=== PATIENT | male | born 1940 | race Caucasian/White ===

== ENCOUNTER → 2016-09-15 | Outpatient (CLI) | payer MEDICARE ==
[2016-09-15 08:20] LABS: CHOLESTEROL 182.07 mg/dL (0-200); Direct HDL 38 mg/dL (>40); TRIGLYCERIDES 288 mg/dL (<150)
[2016-09-15 08:31] LABS: DIRECT LDL 84 mg/dL (<100)
[2016-09-15 08:34] LABS: VLDL CHOLESTEROL 57.6 mg/dL (10-31)
== END ==
LOC: OD 07:26
PROVIDERS: ATTEND Internal Medicine Geriatric Medicine
DX: E11.65 Type 2 diabetes mellitus with hyperglycemia (principal)
CPT/HCPCS: 36415; 80061

== ENCOUNTER → 2016-09-26 | Outpatient (CLI) | payer MEDICARE | LOC: OD 07:08 | PROVIDERS: ATTEND Internal Medicine Geriatric Medicine | DX: E11.65 Type 2 diabetes mellitus with hyperglycemia (principal) | CPT/HCPCS: 36415; 84681 ==

== ENCOUNTER → 2016-10-04 | Outpatient (CLI) | payer MEDICARE ==
[2016-10-04 12:45] LABS: ABSOLUTE EOSINOPHILS # (AUTO) 0.1 10^3/uL (0.0-0.6); ABSOLUTE LYMPHOCYTES (AUTO) 2.1 10^3/uL (0.5-4.7); ABSOLUTE MONOCYTES (AUTO) 0.6 10^3/uL (0.1-1.4); ABSOLUTE NEUT (AUTO) 4.2 10^3/uL (1.7-8.2); BASOPHILS % (AUTO) 0.3 % (0-2); EOSINOPHILS % (AUTO) 2.1 % (0-6); HEMATOCRIT 35.7 % (37.9-51.0); HEMOGLOBIN 12.2 g/dL (13.5-17.0); HGB HCT DIFFERENCE 0.9; LYMPHOCYTES % (AUTO) 29.5 % (13-45); MEAN CORPUSCULAR HEMOGLOBIN 29.4 pg (27.0-33.4); MEAN CORPUSCULAR HGB CONC 34.1 g/dL (32.0-36.0); MEAN CORPUSCULAR VOLUME 86 fl (80-97); MONOCYTES % (AUTO) 7.9 % (3-13); RED BLOOD COUNT 4.15 10^6/uL (4.35-5.55); RED CELL DISTRIBUTION WIDTH 14.7 % (11.5-14.0); SEGMENTED NEUTROPHILS % (AUTO) 60.2 % (42-78); WHITE BLOOD COUNT 7.1 10^3/uL (4.0-10.5)
[2016-10-04 13:36] LABS: ALANINE AMINOTRANSFERASE 28 U/L (21-72); ALBUMIN 4.4 g/dL (3.5-5.0); ALKALINE PHOSPHATASE 77 U/L (38-126); ANION GAP 12 (5-19); ASPARTATE AMINO TRANSFERASE 25 U/L (17-59); BILIRUBIN,TOTAL 0.5 mg/dL (0.2-1.3); BLOOD UREA NITROGEN 16 mg/dL (7-20); CARBON DIOXIDE 26 mmol/L (22-30); CHLORIDE 103 mmol/L (98-107); CREATININE RESULT 1.17 mg/dL (0.52-1.25); GLUCOSE 234 mg/dL (75-110); POTASSIUM 4.7 mmol/L (3.6-5.0); SODIUM 141.1 mmol/L (137-145); TOTAL PROTEIN 6.9 g/dL (6.3-8.2)
== END ==
LOC: OD 11:58
PROVIDERS: ATTEND Internal Medicine Geriatric Medicine
DX: I10 Essential (primary) hypertension (principal)
CPT/HCPCS: 36415; 80053; 85025

== ENCOUNTER → 2018-02-21 | Outpatient (CLI) | payer MEDICARE ==
--- NOTE | 2018-02-22 09:34 | RADIOLOGY REPORT (SQ) ---
EXAM DESCRIPTION: CT ABD/PELVIS ORAL ONLY COMPLETED DATE/TIME: 02/21/2018 6:02 pm REASON FOR STUDY: MALIGNANT NEOPLASM OF SIGMOID COLON C18.7 MALIGNANT NEOPLASM OF SIGMOID COLON N17 .9 ACUTE KIDNEY FAILURE, UNSPECIFIED COMPARISON: June [id number]. TECHNIQUE: CT scan of the abdomen and pelvis performed with oral contrast and no intravenous contras t. Images reviewed with lung, soft tissue, and bone windows. Reconstructed coronal and sagittal MPR i mages reviewed. All images stored on PACS. All CT scanners at this facility use dose modulation, iterative reconstruction, and/or weight based d osing when appropriate to reduce radiation dose to as low as reasonably achievable (ALARA). [facility]: Dose Right [facility]: CareDose [facility]: Dose Right [facility]: Teradose 4D [facility]: [employer] RADIATION DOSE: CT Rad equipment meets quality standard of care and radiation dose reduction techniq ues were employed. CTDIvol: 13.3 mGy. DLP: 747 mGy-cm.mGy. LIMITATIONS: None. FINDINGS: LOWER CHEST: Lung bases: Chronic interstitial changes in lung bases. 4 mm pulmonary nodu le left lung base (series image 12/100 series 2). Atherosclerotic coronary artery disease. NON-CONTRASTED LIVER, SPLEEN, ADRENALS: Liver: Marked fatty infiltration. Spleen: No abnormality. A drenals: No abnormality. PANCREAS: No abnormality. GALLBLADDER: No abnormality. RIGHT KIDNEY AND URETER: There is again evidence of marked ectasia of the right upper collecting sys tem right renal pelvis and right ureter to the right hemipelvis with transition to nondilated ureter distally. Surgical clips are noted in the right hemipelvis in its region. The possibility of strict ure formation cannot be excluded. There is thinning of the cortex of the upper pole the right kidney with perinephric inflammatory change. LEFT KIDNEY AND URETER: Postinflammatory change surrounds the left kidney. No hydronephrosis. No ur eteral dilatation. AORTA AND RETROPERITONEUM: There is diffuse atherosclerotic change noted within the abdominal aorta a nd iliac vessels. Atherosclerotic change of celiac and superior mesenteric vessels. BOWEL AND PERITONEAL CAVITY: Marked constipation with a moderate amount of fecal material noted throu ghout the colon. There is dilatation of colon proximal to exiting: At the ostomy site. The narrowin g at are stricture formation at the level ileostomy could not be excluded APPENDIX: Normal. PELVIS, BLADDER, AND ABDOMINAL WALL: There is evidence of a small upper abdominal wall ventral herni a on the right containing a prominent loop of small bowel with narrowing of the exiting loop of small bowel exiting the hernia. The possibility of a partial obstruction in this region cannot be excluded . (Image number [id number] series 2). There is again evidence of two ventral hernias on the right and one on left containing small bowel (image number 64/100 series 2). There is surgical scarring of th e abdominal wall between the two hernia noted. On comparison to the prior study small bowel dilatati on previously noted is now less prominent at the level of the ventrall hernias. The urinary bladder is distended. Surgical clips in the pelvis are noted. No abnormality of prostate. BONES: Multilevel lumbar spondylosis and degenerative disc disease. Schmorl's node inferior endplate of L2. . IMPRESSION: 1. Changes of marked constipation with large amount of fecal material throughout the co cornelio most prominent proximal to ostomy left lower quadrant. A stricture at the level the ostomy could not be excluded. 2. Evidence of small ventral hernia right upper abdominal wall with narrowing of e fferent small bowel loop exiting the hernia. Mild dilatation of small bowel proximal to this hernia i s noted. At lower abdominal wall evidence of two ventral hernias on right and one on left containi ng nonobstructed small bowel. 2. Marked fatty infiltration of the liver. 3. Atherosclerotic magy nary disease. 4. Small 4 mm pulmonary nodule left lower lobe. Chronic bibasilar interstitial fitzgerald es. Follow-up evaluation with CT in 6 months to 1 year could be obtained. 5. There is again eviden ce of a ectasia of the right upper collecting system and right ureter down to surgical clips in the r ight hemipelvis suggesting postsurgical fibrosis or scarring with stricture formation of the right ur eter. These findings are essentially unchanged. TECHNICAL DOCUMENTATION: JOB ID: [id number] Quality ID # [id number]: Final reports with documentation of one or more dose reduction techniques (e.g., Au tomated exposure control, adjustment of the mA and/or kV according to patient size, use of iterative reconstruction technique) 2010 [employer]- All Rights Reserved Reading location - IP/workstation name: [email or web address]
== END ==
LOC: RAD 09:25
PROVIDERS: ATTEND Family Medicine
DX: C18.7 Malignant neoplasm of sigmoid colon (principal); N17.9 Acute kidney failure, unspecified
CPT/HCPCS: 74176; 82565

== ENCOUNTER 2018-03-10 17:31 | Inpatient (IN) | payer MEDICARE, OTHER ==
[2018-03-10 17:55] LABS: ABSOLUTE EOSINOPHILS # (AUTO) 0.1 10^3/uL (0.0-0.6); ABSOLUTE LYMPHOCYTES (AUTO) 2.6 10^3/uL (0.5-4.7); ABSOLUTE MONOCYTES (AUTO) 0.8 10^3/uL (0.1-1.4); ABSOLUTE NEUT (AUTO) 4.7 10^3/uL (1.7-8.2); BASOPHILS % (AUTO) 0.2 % (0-2); HEMATOCRIT 34.6 % (37.9-51.0); HEMOGLOBIN 11.9 g/dL (13.5-17.0); LYMPHOCYTES % (AUTO) 31.7 % (13-45); MEAN CORPUSCULAR HEMOGLOBIN 30.3 pg (27.0-33.4); MEAN CORPUSCULAR HGB CONC 34.4 g/dL (32.0-36.0); MEAN CORPUSCULAR VOLUME 88 fl (80-97); MONOCYTES % (AUTO) 9.8 % (3-13); PLATELET COUNT 370 10^3/uL (150-450); RED BLOOD COUNT 3.93 10^6/uL (4.35-5.55); RED CELL DISTRIBUTION WIDTH 14.5 % (11.5-14.0); SEGMENTED NEUTROPHILS % (AUTO) 57.3 % (42-78); TOTAL CELLS COUNTED % (AUTO) 100 %; WHITE BLOOD COUNT 8.3 10^3/uL (4.0-10.5)
[2018-03-10] MEDS ORDERED: NITROGLYCERIN 0.4 MG/TAB 25 TAB/BOTTLE SL ONE (17:56)
[2018-03-10] MEDS ORDERED: ONDANSETRON HCL INJ/PF 4 MG/2 ML SDV IV ONE (17:57)
[2018-03-10] MEDS ORDERED: ASPIRIN 81 MG TABLET, CHEWABLE PO ONE (17:58)
[2018-03-10] MEDS ORDERED: MORPHINE SULFATE 10 MG/ML INJ IV ONE (17:58)
[2018-03-10 18:12] LABS: ALANINE AMINOTRANSFERASE 26 U/L (21-72); ALBUMIN 4.7 g/dL (3.5-5.0); ALKALINE PHOSPHATASE 39 U/L (38-126); ANION GAP 15 (5-19); ASPARTATE AMINO TRANSFERASE 28 U/L (17-59); BILIRUBIN,DIRECT 0.3 mg/dL (0.0-0.4); BILIRUBIN,TOTAL 0.3 mg/dL (0.2-1.3); BLOOD UREA NITROGEN 24 mg/dL (7-20); CALCIUM 10.9 mg/dL (8.4-10.2); CARBON DIOXIDE 25 mmol/L (22-30); CHLORIDE 101 mmol/L (98-107); CREATINE KINASE 316 U/L (55-170); GLUCOSE 212 mg/dL (75-110); POTASSIUM 4.6 mmol/L (3.6-5.0); SODIUM 141.3 mmol/L (137-145)
--- NOTE | 2018-03-10 18:16 | ER Document Report ---
ED General - General Chief Complaint: Shortness Of Breath Stated Complaint: DIFFICULTY BREATHING Time Seen by Provider: 03/10/18 17:43 Mode of Arrival: Medic Information source: Patient Notes: This is a 77-year-old man with a history of asthma, coronary artery disease (2 stents), [id number] diabetes, colon cancer (status post resection with a left colostomy), chronic right hydrocele. The patient is brought in by EMS because of shortness of breath. The patient complains of some epigastric nonradiating discomfort that has been on and off for the past 3 days and he states it has been worse since 1030 this morning. He denies any radiation. He can only describe it as a "discomfort". His pressure is noted to be elevated at 188/115 in the EMS truck. EMS did start an albuterol nebulizer which the patient stayed med it worse so he stopped. TRAVEL OUTSIDE OF THE [place] IN LAST 30 DAYS: No - HPI Onset: Just prior to arrival Onset/Duration: Gradual Quality of pain: Dull Severity: Moderate Pain Level: 2 Associated symptoms: Chest pain. denies: Fever, Shortness of breath Exacerbated by: Denies Relieved by: Denies Similar symptoms previously: Yes Recently seen / treated by doctor: Yes - Related Data Allergies/Adverse Reactions: No Known Drug Allergies Allergy (Verified 07/24/14 15:52) Past Medical History - General Information source: Patient - Social History Smoking Status: Never Smoker Cigarette use (# per day): No Chew tobacco use (# tins/day): No Frequency of alcohol use: None Drug Abuse: None Lives with: Family Family History: Reviewed & Not Pertinent Patient has suicidal ideation: No Patient has homicidal ideation: No - Past Medical History Cardiac Medical History: Reports: Hx Hypercholesterolemia, Hx Hypertension Pulmonary Medical History: Reports: Hx Asthma Endocrine Medical History: Reports: Hx Diabetes Mellitus Type 2 GI Medical History: Reports: Hx Gastroesophageal Reflux Disease Psychiatric Medical History: Denies: Hx Depression Past Surgical History: Reports: Hx Bowel Surgery - colostomy, Hx Cardiac Surgery - heart stents x 2, Hx Orthopedic Surgery - ankle - Immunizations Hx Diphtheria, Pertussis, Tetanus Vaccination: Yes Hx Pneumococcal Vaccination: 10/04/13 Review of Systems - Review of Systems Constitutional: denies: Chills, Fever EENT: No symptoms reported Cardiovascular: See HPI Respiratory: No symptoms reported Gastrointestinal: No symptoms reported Genitourinary: No symptoms reported Male Genitourinary: No symptoms reported Musculoskeletal: No symptoms reported Skin: No symptoms reported Hematologic/Lymphatic: No symptoms reported Neurological/Psychological: No symptoms reported Physical Exam - Vital signs Vitals: Resp Pulse Ox 25 H 99 03/10/18 17:38 03/10/18 17:38 Notes: Physical exam: GENERAL: This is 77-year-old man, alert and oriented 3 who does appear to be in some distress. He is hypertensive with a blood pressure of 185/95, his oxygen saturation is 99% on room air, his respiratory rate is 20. HEAD: Atraumatic, normocephalic. EYES: Pupils equal round and reactive to light, extraocular movements intact, sclera anicteric, conjunctiva are normal. ENT: TMs normal, nares patent, oropharynx clear without exudates. Moist mucous membranes. NECK: Normal range of motion, supple without obvious mass or JVD. LUNGS: Breath sounds clear to auscultation bilaterally and equal. No wheezes rales or rhonchi. HEART: Regular rate and rhythm without murmurs, rubs or gallops. ABDOMEN: Soft, normoactive bowel sounds. No tenderness to palpation. No guarding, no rebound. He has a left colostomy bag (which is been there for 20 years). There are no obvious masses. EXTREMITIES: Normal range of motion, no pitting or edema. No clubbing or cyanosis. NEUROLOGICAL: Cranial nerves II through XII grossly intact. Normal speech, moving all extremities. PSYCH: Normal mood, normal affect. SKIN: Warm, Dry, normal turgor, no rashes or lesions noted. Course - Vital Signs Vital signs: Temp Pulse Resp BP Pulse Ox 97.7 F 78 20 129/53 H 98 03/11/18 23:39 03/11/18 23:39 03/11/18 23:39 03/11/18 23:39 03/11/18 23:39 - Laboratory Result Diagrams: 03/11/18 03:54 03/11/18 03:54 Laboratory results interpreted by me: 03/10/18 03/10/18 03/10/18 17:05 17:05 18:15 RBC 3.93 L Hgb 11.9 L Hct 34.6 L RDW 14.5 H BUN 24 H Creatinine 1.78 H Est GFR ( Amer) 45 L Est GFR (Non-Af Amer) 37 L Glucose 212 H Calcium 10.9 H Creatine Kinase 316 H Triglycerides VLDL Cholesterol Urine Protein 30 H Urine Glucose (UA) >=500 H 03/11/18 03/11/18 03:54 03:54 RBC 3.65 L Hgb 11.1 L Hct 32.2 L RDW 14.5 H BUN 24 H Creatinine 1.74 H Est GFR ( Amer) 46 L Est GFR (Non-Af Amer) 38 L Glucose 171 H Calcium Creatine Kinase Triglycerides 205 H VLDL Cholesterol 41.0 H Urine Protein Urine Glucose (UA) - EKG Interpretation by Mt Rate: Normal Rhythm: NSR - EKG shows normal sinus rhythm with a ventricular rate of 75, no acute ST-T wave changes Discharge - Discharge Clinical Impression: Chest pain Condition: Stable Disposition: ADMITTED OBSERVATION Admitting Provider: Crispin Allen is covering Unit Admitted: Telemetry
[2018-03-10 18:24] LABS: CREATINE KINASE MB 3.42 ng/mL (<4.55); TROPONIN I 0.018 ng/mL
[2018-03-10] MEDS ORDERED: NITROGLYCERIN 2% OINTMENT 1 GM PACKET TP ONE (18:33)
[2018-03-10] MEDS: MAG HYDROX/AL HYDROX/SIMETH SUSP 30 ML UDCUP PO PRN (18:51)
--- NOTE | 2018-03-10 19:13 | RADIOLOGY REPORT (SQ) ---
EXAM DESCRIPTION: CHEST SINGLE VIEW COMPLETED DATE/TIME: 03/10/2018 6:38 pm REASON FOR STUDY: chest pain COMPARISON: Two-view chest 04/01/2014 EXAM PARAMETERS: NUMBER OF VIEWS: One view. TECHNIQUE: Single frontal radiographic view of the chest acquired. RADIATION DOSE: NA LIMITATIONS: None. FINDINGS: LUNGS AND PLEURA: No opacities, masses or pneumothorax. No pleural effusion. MEDIASTINUM AND HILAR STRUCTURES: No masses. Contour normal. HEART AND VASCULAR STRUCTURES: Heart normal in size. Normal vasculature. BONES: No acute findings. HARDWARE: None in the chest. OTHER: No other significant finding. IMPRESSION: NO ACUTE RADIOGRAPHIC FINDING IN THE CHEST. TECHNICAL DOCUMENTATION: JOB ID: [id number] [employer]- All Rights Reserved Reading location - IP/workstation name: [email or web address]
[2018-03-10 19:50] LABS: APPEARANCE,URINE CLEAR; BILIRUBIN,URINE NEGATIVE (NEGATIVE); COLOR,URINE STRAW; GLUCOSE, URINE >=500 mg/dL (NEGATIVE); KETONES,URINE NEGATIVE (NEGATIVE); LEUKOCYTE ESTERASE,URINE NEGATIVE (NEGATIVE); NITRITE,URINE NEGATIVE (NEGATIVE); PROTEIN,URINE 30 mg/dL (NEGATIVE); URINE SPECIFIC GRAVITY 1.008; UROBILINOGEN,URINE NEGATIVE mg/dL (<2.0)
[2018-03-10] MEDS ORDERED: HYDRALAZINE HCL 25 MG TABLET PO ONE (20:56)
[2018-03-10] MEDS ORDERED: AMLODIPINE BESYLATE 10 MG TABLET PO ONE (20:57)
[2018-03-10] MEDS ORDERED: SITAGLIPTIN PHOSPHATE 50 MG TABLET PO ONE (20:57)
[2018-03-10] MEDS ORDERED: SUCRALFATE 1 GM TABLET PO ONE (20:58)
[2018-03-10] MEDS ORDERED: GLIPIZIDE 5 MG TABLET PO ONE (20:58)
[2018-03-10] MEDS ORDERED: TAMSULOSIN HCL 0.4 MG CAP.SR.24H PO ONE (20:59)
[2018-03-10] MEDS ORDERED: FINASTERIDE 5 MG TABLET PO ONE (20:59)
[2018-03-10] MEDS ORDERED: MONTELUKAST SODIUM 10 MG TABLET PO ONE (20:59)
[2018-03-10] MEDS ORDERED: LANSOPRAZOLE 30 MG TAB.RAP.DR PO ONE ×2 (21:48→22:00)
[2018-03-10] MEDS ORDERED: NITROGLYCERIN/D5W 50 MG/250 ML RTUINJ IV PRN (21:54)
[2018-03-10] MEDS ORDERED: GLUCAGON,HUMAN RECOMB 1 MG INJ IM PRN (22:02)
[2018-03-10] MEDS ORDERED: DEXTROSE 50%-WATER 25 GM/50 ML DISP.SYRIN IV PRN ×2 (22:02)
[2018-03-10] MEDS ORDERED: DEXTROSE 40% GEL 15 GM TUBE PO PRN ×2 (22:02)
[2018-03-10 23:05] LABS: INTERNATIONAL RATION (INR) 0.97; PARTIAL THROMBOPLASTIN TIME 29.1 SEC (23.5-35.8); PROTHROMBIN TIME 13.3 SEC (11.4-15.4)
[2018-03-10] MEDS: TAMSULOSIN HCL 0.4 MG CAP.SR.24H PO SCH (23:35)
[2018-03-10] MEDS: LOSARTAN POTASSIUM 50 MG TABLET PO SCH (23:41)
[2018-03-10] MEDS: SIMVASTATIN 40 MG TABLET PO SCH (23:42)
[2018-03-10] MEDS: HEPARIN SOD (PORCINE) 5,000 UNIT/ML 1 ML SYRINGE SUBCUT SCH (23:42)
[2018-03-10 23:48] LABS: CREATINE KINASE MB 2.88 ng/mL (<4.55); TROPONIN I 0.022 ng/mL
--- NOTE | 2018-03-11 00:25 | RADIOLOGY REPORT (SQ) ---
EXAM DESCRIPTION: US RETROPERITONEUM LIMITED COMPLETED DATE/TME: 03/10/2018 00:00 CLINICAL HISTORY: 77 years, Male, epigastric pain COMPARISON: None. LIMITATIONS: None. FINDINGS: 12 cm bilateral kidneys with moderate right hydronephrosis/dilated collecting system with renal pelvis diameter of 2.8 cm. Mild nonspecific dilated left renal collecting system. No ureteral jet flow demonstrated. Urinary bladder is unremarkable. IMPRESSION: Moderate right hydronephrosis pattern, consistent with prior CT from February 21, 2018. Mild dilated left renal collecting system.
--- NOTE | 2018-03-11 00:57 | RADIOLOGY REPORT (SQ) ---
EXAM DESCRIPTION: Right upper quadrant ultrasound 03/10/2018 11:53 PM CDT CLINICAL HISTORY: 77 years, Male, epigastric pain COMPARISON: CT abdomen and pelvis without contrast February 21, 2018. Renal ultrasound March 10, 2018 TECHNIQUE: Utilizing a curved array transducer, real-time ultrasound evaluation of the right upper quadrant was performed. Color Doppler imaging was used to assess vascular flow. FINDINGS: The liver is normal in size and morphology measuring 13.8 cm in craniocaudal dimension. There is increased echogenicity of the hepatic parenchyma. There are no infiltrating or discrete hepatic masses identified. There is normal hepatopetal flow in the main portal vein. The gallbladder is well visualized and distended. The gallbladder wall measures up to 2.0 mm in thickness. There are no shadowing gallstones. There is no pericholecystic fluid. The patient had a negative ultrasonographic Barba's sign. The common bile duct measures 2.7 mm in diameter. Limited images of the pancreas demonstrate no gross abnormalities. The aorta is incompletely evaluated an otherwise grossly normal in course and caliber. The right kidney is normal in size measuring 13.3 x 4.2 x 4.3 cm. The right renal cortex measures 1.0 cm in thickness. There are no shadowing right renal calculi. There is moderate right-sided renal pelvic dilation. There are no infiltrating or discrete right renal masses. There is increased echogenicity of the right kidney relative to the adjacent liver. IMPRESSION: 1. Fatty liver. 2. Echogenic right kidney with stable moderate hydronephrosis
[2018-03-11] MEDS ORDERED: SIMETHICONE 80 MG TAB.CHEW PO PRN (01:55)
[2018-03-11 04:59] LABS: ABSOLUTE EOSINOPHILS # (AUTO) 0.1 10^3/uL (0.0-0.6); ABSOLUTE LYMPHOCYTES (AUTO) 1.4 10^3/uL (0.5-4.7); ABSOLUTE MONOCYTES (AUTO) 0.8 10^3/uL (0.1-1.4); ABSOLUTE NEUT (AUTO) 6.4 10^3/uL (1.7-8.2); BASOPHILS % (AUTO) 0.3 % (0-2); EOSINOPHILS % (AUTO) 0.8 % (0-6); HEMATOCRIT 32.2 % (37.9-51.0); HEMOGLOBIN 11.1 g/dL (13.5-17.0); LYMPHOCYTES % (AUTO) 16.1 % (13-45); MEAN CORPUSCULAR HEMOGLOBIN 30.5 pg (27.0-33.4); MEAN CORPUSCULAR HGB CONC 34.6 g/dL (32.0-36.0); MEAN CORPUSCULAR VOLUME 88 fl (80-97); MONOCYTES % (AUTO) 8.6 % (3-13); PLATELET COUNT 313 10^3/uL (150-450); RED BLOOD COUNT 3.65 10^6/uL (4.35-5.55); RED CELL DISTRIBUTION WIDTH 14.5 % (11.5-14.0); SEGMENTED NEUTROPHILS % (AUTO) 74.2 % (42-78); TOTAL CELLS COUNTED % (AUTO) 100 %; WHITE BLOOD COUNT 8.7 10^3/uL (4.0-10.5)
[2018-03-11 05:26] LABS: ANION GAP 13 (5-19); BLOOD UREA NITROGEN 24 mg/dL (7-20); CALCIUM 10.2 mg/dL (8.4-10.2); CARBON DIOXIDE 24 mmol/L (22-30); CHLORIDE 102 mmol/L (98-107); CHOLESTEROL 165.81 mg/dL (0-200); GLUCOSE 171 mg/dL (75-110); POTASSIUM 4.7 mmol/L (3.6-5.0); TRIGLYCERIDES 205 mg/dL (<150)
[2018-03-11 05:37] LABS: CREATINE KINASE MB 2.79 ng/mL (<4.55); DIRECT LDL 82 mg/dL (<100); TROPONIN I 0.021 ng/mL
[2018-03-11] MEDS: HEPARIN SOD (PORCINE) 5,000 UNIT/ML 1 ML SYRINGE SUBCUT SCH ×3 (06:01→22:39)
[2018-03-11] MEDS: MAG HYDROX/AL HYDROX/SIMETH SUSP 30 ML UDCUP PO PRN (08:17)
--- NOTE | 2018-03-11 09:47 | EKG REPORT ---
SEVERITY:- NORMAL ECG - SINUS RHYTHM : Confirmed by: Tata Cervantes 11-Mar-2018 09:46:40
--- NOTE | 2018-03-11 09:47 | EKG REPORT ---
SEVERITY:- ABNORMAL ECG - SINUS RHYTHM MULTIPLE ATRIAL PREMATURE COMPLEXES BORDERLINE RIGHT AXIS DEVIATION BORDERLINE T ABNORMALITIES, INFERIOR LEADS : Confirmed by: Tata Cervantes 11-Mar-2018 09:46:28
[2018-03-11] MEDS ORDERED: ASPIRIN 81 MG TABLET, ENT COATED PO SCH (10:00)
[2018-03-11] MEDS: LOSARTAN POTASSIUM 50 MG TABLET PO SCH (10:39)
[2018-03-11 11:04] LABS: CREATINE KINASE MB 3.9 ng/mL (<4.55); TROPONIN I 0.023 ng/mL
--- NOTE | 2018-03-11 11:46 | PDOC H&P ---
History of Present Illness Admission Date/PCP: 03/10/18 20:55 RAMILA CANO MD History of Present Illness: CECILIO BURNS is a 77 year old male, he has a history of malignant neoplasm of the colon status post colectomy with colostomy bag in place, history of CAD, type 2 diabetes mellitus, he came to the emergency room for evaluation of 3 day history of epigastric pain, the pain is aggravated with food intake. The blood pressure was also elevated when he arrived in the ER, there was concern for chest pain but most of his symptoms in the epigastrium he came to the emergency room specifically for evaluation of epigastric pain., The blood test also suggests chronic kidney disease ultrasound of the upper abdomen and the kidney was obtained. The ultrasound demonstrated normal-sized liver, there is increase echogenicity of the hepatic parenchyma there are no infiltrates seen or discrete hepatic masses demonstrated, the gallbladder is distended. The kidney ultrasound showed moderate right hydronephrosis with dilated collecting system, he apparently had outpatient CAT scan of the abdomen and pelvis on February 21, 2018 that showed same finding. Past Medical History Cardiac Medical History: Reports: Hyperlipidema, Hypertension Pulmonary Medical History: Reports: Asthma Endocrine Medical History: Reports: Diabetes Mellitus Type 2 Renal/ Medical History: Reports: Chronic Kidney Disease, Other - Chronic kidney disease stage III GI Medical History: Reports: Gastroesophageal Reflux Disease Past Surgical History Past Surgical History: Reports: Orthopedic Surgery - ankle Social History Smoking Status: Former Smoker Frequency of Alcohol Use: None Hx Recreational Drug Use: No Drugs: None Hx Prescription Drug Abuse: No - Advance Directive Resuscitation Status: Full Code Family History Family History: Reviewed & Not Pertinent Parental Family History Reviewed: Yes Children Family History Reviewed: Yes Sibling(s) Family History Reviewed.: Yes Medication/Allergy Allergies/Adverse Reactions: No Known Drug Allergies Allergy (Verified 07/24/14 15:52) Review of Systems Constitutional: ABSENT: chills, fever(s), headache(s), weight gain, weight loss Eyes: ABSENT: visual disturbances Ears: ABSENT: hearing changes Cardiovascular: ABSENT: chest pain, dyspnea on exertion, edema, orthropnea, palpitations Respiratory: ABSENT: cough, hemoptysis Gastrointestinal: PRESENT: abdominal pain. ABSENT: constipation, diarrhea, hematemesis, hematochezia, nausea, vomiting Genitourinary: ABSENT: dysuria, hematuria Musculoskeletal: ABSENT: joint swelling Integumentary: ABSENT: rash, wounds Neurological: ABSENT: abnormal gait, abnormal speech, confusion, dizziness, focal weakness, syncope Psychiatric: ABSENT: anxiety, depression, homidical ideation, suicidal ideation Endocrine: ABSENT: cold intolerance, heat intolerance, menstrual abnormalities, polydipsia, polyuria Hematologic/Lymphatic: ABSENT: easy bleeding, easy bruising, lymphadenopathy Physical Exam Vital Signs: Temp Pulse Resp BP Pulse Ox 98.1 F 78 16 159/58 H 98 03/11/18 07:08 03/11/18 07:08 03/11/18 07:08 03/11/18 07:08 03/11/18 07:08 Intake & Output 03/10/18 03/11/18 03/12/18 06:59 06:59 06:59 Intake Total 459 Output Total 575 Balance -116 Weight 93.9 kg General appearance: PRESENT: no acute distress, well-developed, well-nourished Head exam: PRESENT: atraumatic, normocephalic Eye exam: PRESENT: conjunctiva pink, EOMI, PERRLA Ear exam: PRESENT: normal external ear exam Mouth exam: PRESENT: moist, tongue midline Neck exam: PRESENT: full ROM Respiratory exam: PRESENT: clear to auscultation yumiko Cardiovascular exam: PRESENT: RRR, +S1, +S2 Vascular exam: PRESENT: normal capillary refill GI/Abdominal exam: PRESENT: normal bowel sounds, soft, tenderness, other - There is a midline scar with a left-sided colostomy bag in place, tenderness on palpation of the epigastrium Rectal exam: PRESENT: deferred Neurological exam: PRESENT: alert, awake, oriented to person, oriented to place , oriented to time, oriented to situation, CN II-XII grossly intact Psychiatric exam: PRESENT: appropriate affect, normal mood Skin exam: PRESENT: dry, intact, warm Results Laboratory Results: 03/11/18 03:54 03/11/18 03:54 03/10/18 03/11/18 03/11/18 22:20 03:54 03:54 WBC 8.7 RBC 3.65 L Hgb 11.1 L Hct 32.2 L MCV 88 MCH 30.5 MCHC 34.6 RDW 14.5 H Plt Count 313 Seg Neutrophils % 74.2 Lymphocytes % 16.1 Monocytes % 8.6 Eosinophils % 0.8 Basophils % 0.3 Absolute Neutrophils 6.4 Absolute Lymphocytes 1.4 Absolute Monocytes 0.8 Absolute Eosinophils 0.1 Absolute Basophils 0.0 Sodium 139.0 Potassium 4.7 Chloride 102 Carbon Dioxide 24 Anion Gap 13 BUN 24 H Creatinine 1.74 H Est GFR ( Amer) 46 L Est GFR (Non-Af Amer) 38 L Glucose 171 H Calcium 10.2 Phosphorus 4.1 Triglycerides 205 H Cholesterol 165.81 LDL Cholesterol Direct 82 VLDL Cholesterol 41.0 H HDL Cholesterol 43 03/10/18 03/10/18 03/11/18 21:18 22:20 03:54 CK-MB (CK-2) 2.88 2.79 Troponin I 0.023 0.022 0.021 03/11/18 10:15 CK-MB (CK-2) 3.90 Troponin I 0.023 Impressions: Abdomen Ultrasound 03/10/18 00:00 IMPRESSION: 1. Fatty liver. 2. Echogenic right kidney with stable moderate hydronephrosis Chest X-Ray 03/10/18 00:00 IMPRESSION: NO ACUTE RADIOGRAPHIC FINDING IN THE CHEST. Renal Ultrasound 03/10/18 00:00 IMPRESSION: Moderate right hydronephrosis pattern, consistent with prior CT from February 21, 2018. Mild dilated left renal collecting system. Assessment & Plan - Diagnosis (1) Cholecystitis without calculus Is this a current diagnosis for this admission?: Yes Plan: The ultrasound showed distended gallbladder this suggest cholecystitis, he is symptomatic, HIDA scan ordered, empirically start IV antibiotic Unasyn, request consultation from surgery (2) Chronic kidney disease, stage 3 Is this a current diagnosis for this admission?: Yes (4) Personal history of colon cancer Is this a current diagnosis for this admission?: Yes Plan: History of obstructive uropathy complication from radiation therapy that he received for the treatment of colon cancer (5) Type 2 diabetes mellitus Qualifiers: Diabetes mellitus correction insulin use: without 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
[2018-03-11] MEDS ORDERED: AMPICILLIN SODIUM/SULBACTAM NA 3 GM in NORMAL SALINE 100 ML IV SCH (12:30)
[2018-03-11] MEDS: LANSOPRAZOLE 30 MG TAB.RAP.DR PO SCH (13:51)
[2018-03-11] MEDS: SIMVASTATIN 40 MG TABLET PO SCH (13:51)
[2018-03-11] MEDS: PRAMIPEXOLE DI-HCL 0.25 MG TABLET PO SCH (13:51)
[2018-03-11] MEDS: TAMSULOSIN HCL 0.4 MG CAP.SR.24H PO SCH (13:51)
[2018-03-11] MEDS ORDERED: ALBUTEROL SULFATE HFA (90 MCG/PUFF) 200 PUFF/8.5 GM MDI IH PRN (14:11)
--- NOTE | 2018-03-11 15:08 | RADIOLOGY REPORT (SQ) ---
EXAM DESCRIPTION: NM HIDA SCAN COMPLETED DATE/TIME: 03/11/2018 2:48 pm REASON FOR STUDY: ? acute cholecystitis N17.0 ACUTE KIDNEY FAILURE WITH TUBULAR NECROSIS R10.13 E PIGASTRIC PAIN R07.89 OTHER CHEST PAIN COMPARISON: None. RADIONUCLIDE AND DOSE: DOSAGE RADIONUCLIDE: 5.38 millicuries Tc99m Mebrofenin. The route of agent administration: Intravenous TECHNIQUE: Serial imaging right upper quadrant up to 60 minutes following injection of radionuclide. Patient imaged AP and Right Lateral. LIMITATIONS: None. FINDINGS: LIVER: Normal visualization without areas of photopenia. INTRA-HEPATIC BILE DUCTS: Temporal visualization normal. No dilatation. COMMON BILE DUCT: Normal without dilatation visualized at 14 minutes. GALLBLADDER: Normal visualization within 12 minutes. OTHER: No other significant finding. IMPRESSION: NORMAL STUDY WITHOUT CYSTIC OR COMMON DUCT OBSTRUCTION. TECHNICAL DOCUMENTATION: JOB ID: [id number] 2010 [employer]- All Rights Reserved Reading location - IP/workstation name: [email or web address]
[2018-03-11] MEDS: HYDRALAZINE HCL 25 MG TABLET PO SCH ×2 (15:39→22:37)
[2018-03-11] MEDS: FLUTICASONE/SALMETEROL DISKUS 250-50 MCG/DOSE IH SCH (17:26)
[2018-03-11] MEDS: INSULIN LISPRO 100 UNIT/ML 3 ML VIAL SUBCUT PRN (17:39)
--- NOTE | 2018-03-11 20:31 | PDOC CONSULTATION ---
Consultation Consult Date: 03/11/18 Consult reason:: epigastric pains History of Present Illness Admission Date/PCP: 03/11/18 11:46 RAMILA CANO MD Patient complains of: epigastric pains History of Present Illness: CECILIO BURNS is a 77 year old male with history of colon resection with colostomy for Ca 20 yrs ago suddebly c/o epigastric pains last night. He just had a HIDA scan which was normal. Colostomy started to function well with resolution of abdominal pains. Past Medical History Cardiac Medical History: Reports: Hyperlipidema, Hypertension Pulmonary Medical History: Reports: Asthma Endocrine Medical History: Reports: Diabetes Mellitus Type 2 Renal/ Medical History: Reports: Chronic Kidney Disease, Other - Chronic kidney disease stage III GI Medical History: Reports: Gastroesophageal Reflux Disease Psychiatric Medical History: Denies: Depression Past Surgical History Past Surgical History: Reports: Orthopedic Surgery - ankle, Other - colon resction with colostomy for Ca 20 yrs ago and subsequent reconstructi Social History Smoking Status: Former Smoker Frequency of Alcohol Use: None Hx Recreational Drug Use: No Drugs: None Hx Prescription Drug Abuse: No - Advance Directive Resuscitation Status: Full Code Family History Family History: Reviewed & Not Pertinent Parental Family History Reviewed: Yes Children Family History Reviewed: No Sibling(s) Family History Reviewed.: No Medication/Allergy Home Medications: Albuterol Sulfate [Proair HFA Inhalation Aerosol 8.5 gm MDI] 1 puff IH Q6HP PRN 03/11/18 Amlodipine Besylate [Norvasc 10 mg Tablet] 10 mg PO QHS 03/11/18 Aspirin [Ecotrin 81 mg EC Tablet] 81 mg PO QHS 03/11/18 Atorvastatin Calcium [Lipitor 40 mg Tablet] 20 mg PO QHS 03/11/18 Docusate Sodium [Colace 100 mg Capsule] 400 mg PO QHS 03/11/18 Fenofibrate 160 mg PO QHS 03/11/18 Finasteride [Proscar 5 mg Tablet] 5 mg PO QHS 03/11/18 Fluticasone/Salmeterol [Advair 250-50 Diskus 14 Dose/Diskus] 1 puff IN Q12 03/11 Glipizide [Glucotrol 5 mg Tablet] 5 mg PO QHS 03/11/18 Hydralazine HCl [Apresoline 25 mg Tablet] 25 mg PO Q8 03/11/18 Montelukast Sodium [Singulair 10 mg Tablet] 10 mg PO QHS 03/11/18 Pantoprazole Sodium [Protonix] 40 mg PO QHS 03/11/18 Polyethylene Glycol 3350 [Miralax Powder 17 gm/Packet] 17 gm PO QHS 03/11/18 Pramipexole Di-HCl [Pramipexole Dihydrochloride] 0.125 mg PO QHS 03/11/18 Psyllium Seed [Metamucil-Sf Powder 5.85 gm Packet] 1 packet PO QHS 03/11/18 Sitagliptin Phosphate [Januvia] 100 mg PO QHS 03/11/18 Tamsulosin HCl [Flomax 0.4 mg Cap.sr] 0.4 mg PO QHS 03/11/18 Allergies/Adverse Reactions: No Known Drug Allergies Allergy (Verified 07/24/14 15:52) Review of Systems Constitutional: PRESENT: other - no fever/chills Eyes: PRESENT: other - no visual/hearing changes Cardiovascular: PRESENT: other - no cough/chest pains Gastrointestinal: PRESENT: abdominal pain, constipation Genitourinary: PRESENT: other - some dysuria Musculoskeletal: PRESENT: other - no back pains Neurological: PRESENT: other - no seizures Hematologic/Lymphatic: PRESENT: other - no easy bruising Physical Exam Vital Signs: Temp Pulse Resp BP Pulse Ox 97.6 F 76 20 157/54 H 97 03/11/18 15:04 03/11/18 15:04 03/11/18 15:04 03/11/18 15:04 03/11/18 15:04 Intake & Output 03/10/18 03/11/18 03/12/18 06:59 06:59 06:59 Intake Total 318 Output Total 500 Balance -182 General appearance: PRESENT: no acute distress Head exam: PRESENT: atraumatic Eye exam: PRESENT: conjunctiva pink Mouth exam: PRESENT: moist Neck exam: PRESENT: full ROM Respiratory exam: PRESENT: clear to auscultation yumiko Cardiovascular exam: PRESENT: RRR Pulses: PRESENT: normal radial pulses Vascular exam: PRESENT: normal capillary refill GI/Abdominal exam: PRESENT: soft - non tender Has hernias asymptomatic colostomy functioning Psychiatric exam: PRESENT: appropriate affect Skin exam: PRESENT: normal color, warm Results Impressions: Abdomen Ultrasound 03/10/18 00:00 IMPRESSION: 1. Fatty liver. 2. Echogenic right kidney with stable moderate hydronephrosis Chest X-Ray 03/10/18 00:00 IMPRESSION: NO ACUTE RADIOGRAPHIC FINDING IN THE CHEST. Renal Ultrasound 03/10/18 00:00 IMPRESSION: Moderate right hydronephrosis pattern, consistent with prior CT from February 21, 2018. Mild dilated left renal collecting system. Hepatobiliary Scan Nuclear Medicine 03/11/18 00:00 IMPRESSION: NORMAL STUDY WITHOUT CYSTIC OR COMMON DUCT OBSTRUCTION. Assessment & Plan - Diagnosis (1) Constipation Is this a current diagnosis for this admission?: Yes - Time Time Spent: 30 to 50 Minutes - Plan Summary Plan Summary: Has a normal HIDA scan and now with Benign abdomen Cholecystectomy not needed at this time Apparntly patient was told by Dr Benjamin that he neede an upper endoscopy and patient is asking if this can be done at this admission. Will inform Dr Alanis
[2018-03-11] MEDS ORDERED: (PENDING PHARMACY ID) (Fenofibrate [Fenofibrate] 160 MG) PO SCH (22:00)
[2018-03-11] MEDS ORDERED: ATORVASTATIN CALCIUM 40 MG TABLET PO SCH (22:00)
[2018-03-11] MEDS ORDERED: TAMSULOSIN HCL 0.4 MG CAP.SR.24H PO SCH (22:00)
[2018-03-11] MEDS ORDERED: PRAMIPEXOLE DI-HCL 0.25 MG TABLET PO SCH (22:00)
[2018-03-11] MEDS: POLYETHYLENE GLYCOL 3350 POWDER 17 GM/1 PACKET PO SCH (22:36)
[2018-03-11] MEDS: PSYLLIUM SEED-SF 5.85 GM PACKET PO SCH (22:36)
[2018-03-11] MEDS: FINASTERIDE 5 MG TABLET PO SCH (22:37)
[2018-03-11] MEDS: FENOFIBRATE NANOCRYSTALLIZED 145 MG TABLET PO SCH (22:37)
[2018-03-11] MEDS: DOCUSATE SODIUM 100 MG CAPSULE PO SCH (22:38)
[2018-03-11] MEDS: ASPIRIN 81 MG TABLET, ENT COATED PO SCH (22:38)
[2018-03-11] MEDS: MONTELUKAST SODIUM 10 MG TABLET PO SCH (22:38)
[2018-03-11] MEDS: ATORVASTATIN CALCIUM 20 MG TABLET PO SCH (22:38)
[2018-03-11] MEDS: GLIPIZIDE 5 MG TABLET PO SCH (22:39)
[2018-03-11] MEDS: AMLODIPINE BESYLATE 10 MG TABLET PO SCH (22:39)
[2018-03-11] MEDS: SITAGLIPTIN PHOSPHATE 50 MG TABLET PO SCH (22:39)
[2018-03-12] MEDS: HYDRALAZINE HCL 25 MG TABLET PO SCH ×3 (06:23→22:11)
[2018-03-12] MEDS: HEPARIN SOD (PORCINE) 5,000 UNIT/ML 1 ML SYRINGE SUBCUT SCH ×3 (06:23→22:15)
[2018-03-12] MEDS: FLUTICASONE/SALMETEROL DISKUS 250-50 MCG/DOSE IH SCH (06:24)
[2018-03-12 06:40] LABS: ABSOLUTE EOSINOPHILS # (AUTO) 0.1 10^3/uL (0.0-0.6); ABSOLUTE LYMPHOCYTES (AUTO) 1.6 10^3/uL (0.5-4.7); ABSOLUTE MONOCYTES (AUTO) 0.6 10^3/uL (0.1-1.4); ABSOLUTE NEUT (AUTO) 4.4 10^3/uL (1.7-8.2); BASOPHILS % (AUTO) 0.6 % (0-2); EOSINOPHILS % (AUTO) 1.8 % (0-6); HEMATOCRIT 31.3 % (37.9-51.0); HEMOGLOBIN 10.8 g/dL (13.5-17.0); LYMPHOCYTES % (AUTO) 23.9 % (13-45); MEAN CORPUSCULAR HEMOGLOBIN 30.4 pg (27.0-33.4); MEAN CORPUSCULAR HGB CONC 34.3 g/dL (32.0-36.0); MEAN CORPUSCULAR VOLUME 88 fl (80-97); MONOCYTES % (AUTO) 9.3 % (3-13); PLATELET COUNT 279 10^3/uL (150-450); RED BLOOD COUNT 3.55 10^6/uL (4.35-5.55); RED CELL DISTRIBUTION WIDTH 14.4 % (11.5-14.0); SEGMENTED NEUTROPHILS % (AUTO) 64.4 % (42-78); TOTAL CELLS COUNTED % (AUTO) 100 %; WHITE BLOOD COUNT 6.8 10^3/uL (4.0-10.5)
[2018-03-12 07:05] LABS: ANION GAP 12 (5-19); BLOOD UREA NITROGEN 23 mg/dL (7-20); CALCIUM 9.4 mg/dL (8.4-10.2); CARBON DIOXIDE 23 mmol/L (22-30); CHLORIDE 103 mmol/L (98-107); GLUCOSE 152 mg/dL (75-110); POTASSIUM 4.8 mmol/L (3.6-5.0); SODIUM 138.4 mmol/L (137-145)
[2018-03-12] MEDS: LOSARTAN POTASSIUM 50 MG TABLET PO SCH (10:56)
[2018-03-12] MEDS: LANSOPRAZOLE 30 MG TAB.RAP.DR PO SCH (10:56)
[2018-03-12] MEDS: TAMSULOSIN HCL 0.4 MG CAP.SR.24H PO SCH ×2 (10:56→22:13)
[2018-03-12] MEDS: PRAMIPEXOLE DI-HCL 0.25 MG TABLET PO SCH (11:00)
[2018-03-12] MEDS: INSULIN LISPRO 100 UNIT/ML 3 ML VIAL SUBCUT PRN ×2 (12:08→18:22)
--- NOTE | 2018-03-12 16:10 | PDOC PROGRESS REPORT ---
Subjective Progress Note for:: 03/12/18 Subjective:: Patient is currently doing well Recent was admitted in the hospital for the epigastric pain underwent further ultrasound of the gallbladder was stable and a HIDA scan was also stable Patient's all cardiac workup is negative Patient's denied any chest pain denied any shortness of the breath Since also seen by Dr. Benjamin as scheduled for endoscopy as outpatients but patient have a more epigastric symptoms and a discussed with the [facility] and he will see the patient's in this hospital admissions Reason For Visit: ACUTE CHOLECYSTITIS Physical Exam Vital Signs: Temp Pulse Resp BP Pulse Ox 97.4 F 69 18 126/48 H 96 03/12/18 11:27 03/12/18 11:27 03/12/18 11:27 03/12/18 11:27 03/12/18 11:27 Intake & Output 03/11/18 03/12/18 03/13/18 06:59 06:59 06:59 Intake Total 822 222 Output Total 1300 465 Balance -478 -243 Weight 93.5 kg General appearance: PRESENT: no acute distress, well-developed, well-nourished Head exam: PRESENT: atraumatic, normocephalic Eye exam: PRESENT: conjunctiva pink, EOMI, PERRLA. ABSENT: scleral icterus Ear exam: PRESENT: normal external ear exam Mouth exam: PRESENT: moist, tongue midline Neck exam: PRESENT: full ROM. ABSENT: carotid bruit, JVD, lymphadenopathy, thyromegaly Respiratory exam: PRESENT: clear to auscultation yumiko Cardiovascular exam: PRESENT: RRR. ABSENT: diastolic murmur, rubs, systolic murmur Pulses: PRESENT: normal dorsalis pedis pul, +2 pedal pulses bilateral Vascular exam: PRESENT: normal capillary refill GI/Abdominal exam: PRESENT: normal bowel sounds, soft. ABSENT: distended, guarding, mass, organolmegaly, rebound, tenderness Rectal exam: PRESENT: deferred Neurological exam: PRESENT: alert, awake, oriented to person, oriented to place , oriented to time, oriented to situation, CN II-XII grossly intact. ABSENT: motor sensory deficit Additional comments: Colostomy bag is present Psychiatric exam: PRESENT: appropriate affect, normal mood. ABSENT: homicidal ideation, suicidal ideation Skin exam: PRESENT: dry, intact, warm. ABSENT: cyanosis, rash Results Laboratory Results: 03/12/18 05:25 03/12/18 05:25 03/12/18 03/12/18 05:25 05:25 WBC 6.8 RBC 3.55 L Hgb 10.8 L Hct 31.3 L MCV 88 MCH 30.4 MCHC 34.3 RDW 14.4 H Plt Count 279 Seg Neutrophils % 64.4 Lymphocytes % 23.9 Monocytes % 9.3 Eosinophils % 1.8 Basophils % 0.6 Absolute Neutrophils 4.4 Absolute Lymphocytes 1.6 Absolute Monocytes 0.6 Absolute Eosinophils 0.1 Absolute Basophils 0.0 Sodium 138.4 Potassium 4.8 Chloride 103 Carbon Dioxide 23 Anion Gap 12 BUN 23 H Creatinine 1.73 H Est GFR ( Amer) 46 L Est GFR (Non-Af Amer) 38 L Glucose 152 H Calcium 9.4 Impressions: Abdomen Ultrasound 03/10/18 00:00 IMPRESSION: 1. Fatty liver. 2. Echogenic right kidney with stable moderate hydronephrosis Chest X-Ray 03/10/18 00:00 IMPRESSION: NO ACUTE RADIOGRAPHIC FINDING IN THE CHEST. Renal Ultrasound 03/10/18 00:00 IMPRESSION: Moderate right hydronephrosis pattern, consistent with prior CT from February 21, 2018. Mild dilated left renal collecting system. Hepatobiliary Scan Nuclear Medicine 03/11/18 00:00 IMPRESSION: NORMAL STUDY WITHOUT CYSTIC OR COMMON DUCT OBSTRUCTION. 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 Diabetes mellitus complication status: with neurologic complications Diabetes mellitus complication detail: with polyneuropathy Qualified Code(s): E11.42 - Type 2 diabetes mellitus with diabetic polyneuropathy Is this a current diagnosis for this admission?: Yes (6) Coronary artery disease Qualifiers: Coronary Disease-Associated Artery/Lesion type: [place] artery Is this a current diagnosis for this admission?: Yes Plan: Patient seen by the [facility] outpatients once a year - Time Time Spent with patient: 15-24 minutes Medications reviewed and adjusted accordingly: Yes Anticipated discharge: Home Within: Other - Inpatient Certification Medical Necessity: Need Close Monitoring Due to Risk of Patient Decompensation 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
[2018-03-12] MEDS: MONTELUKAST SODIUM 10 MG TABLET PO SCH (22:11)
[2018-03-12] MEDS: PSYLLIUM SEED-SF 5.85 GM PACKET PO SCH (22:11)
[2018-03-12] MEDS: POLYETHYLENE GLYCOL 3350 POWDER 17 GM/1 PACKET PO SCH (22:11)
[2018-03-12] MEDS: GLIPIZIDE 5 MG TABLET PO SCH (22:12)
[2018-03-12] MEDS: SITAGLIPTIN PHOSPHATE 50 MG TABLET PO SCH (22:12)
[2018-03-12] MEDS: ATORVASTATIN CALCIUM 20 MG TABLET PO SCH (22:12)
[2018-03-12] MEDS: FINASTERIDE 5 MG TABLET PO SCH (22:12)
[2018-03-12] MEDS: ASPIRIN 81 MG TABLET, ENT COATED PO SCH (22:13)
[2018-03-12] MEDS: DOCUSATE SODIUM 100 MG CAPSULE PO SCH (22:15)
[2018-03-12] MEDS: FENOFIBRATE NANOCRYSTALLIZED 145 MG TABLET PO SCH (22:15)
[2018-03-12] MEDS: AMLODIPINE BESYLATE 10 MG TABLET PO SCH (22:15)
[2018-03-13] MEDS: LOSARTAN POTASSIUM 50 MG TABLET PO SCH ×2 (00:04→22:57)
[2018-03-13] MEDS: PRAMIPEXOLE DI-HCL 0.25 MG TABLET PO SCH ×2 (00:05→23:01)
[2018-03-13 04:58] LABS: ABSOLUTE BASOPHILS # (AUTO) 0.1 10^3/uL (0.0-0.2); ABSOLUTE EOSINOPHILS # (AUTO) 0.1 10^3/uL (0.0-0.6); ABSOLUTE LYMPHOCYTES (AUTO) 1.8 10^3/uL (0.5-4.7); ABSOLUTE MONOCYTES (AUTO) 0.7 10^3/uL (0.1-1.4); ABSOLUTE NEUT (AUTO) 3.7 10^3/uL (1.7-8.2); BASOPHILS % (AUTO) 0.9 % (0-2); HEMATOCRIT 31.1 % (37.9-51.0); HEMOGLOBIN 10.9 g/dL (13.5-17.0); LYMPHOCYTES % (AUTO) 28.4 % (13-45); MEAN CORPUSCULAR HEMOGLOBIN 31.1 pg (27.0-33.4); MEAN CORPUSCULAR HGB CONC 35.1 g/dL (32.0-36.0); MEAN CORPUSCULAR VOLUME 89 fl (80-97); MONOCYTES % (AUTO) 10.7 % (3-13); PLATELET COUNT 295 10^3/uL (150-450); RED BLOOD COUNT 3.51 10^6/uL (4.35-5.55); RED CELL DISTRIBUTION WIDTH 14.6 % (11.5-14.0); TOTAL CELLS COUNTED % (AUTO) 100 %; WHITE BLOOD COUNT 6.4 10^3/uL (4.0-10.5)
[2018-03-13 05:23] LABS: ANION GAP 8 (5-19); BLOOD UREA NITROGEN 24 mg/dL (7-20); CALCIUM 9.5 mg/dL (8.4-10.2); CARBON DIOXIDE 27 mmol/L (22-30); CHLORIDE 107 mmol/L (98-107); GLUCOSE 136 mg/dL (75-110); POTASSIUM 5.1 mmol/L (3.6-5.0); SODIUM 142.4 mmol/L (137-145)
[2018-03-13] MEDS: FLUTICASONE/SALMETEROL DISKUS 250-50 MCG/DOSE IH SCH ×3 (05:34→17:47)
[2018-03-13] MEDS: HYDRALAZINE HCL 25 MG TABLET PO SCH ×3 (05:34→22:59)
[2018-03-13] MEDS: LANSOPRAZOLE 30 MG TAB.RAP.DR PO SCH (05:34)
[2018-03-13] MEDS: HEPARIN SOD (PORCINE) 5,000 UNIT/ML 1 ML SYRINGE SUBCUT SCH ×3 (05:35→23:04)
--- NOTE | 2018-03-13 08:46 | PDOC PROGRESS REPORT ---
Subjective Progress Note for:: 03/13/18 Subjective:: Patient is currently doing much better She is denied any chest pain denied any shortness of the breath Patient's denied any abdominal pain no nausea no vomiting Patient's p.o. intake is good Patient is scheduled for endoscopy per Dr. Benjamin today Reason For Visit: ACUTE CHOLECYSTITIS Physical Exam Vital Signs: Temp Pulse Resp BP Pulse Ox 98.0 F 68 18 130/62 H 96 03/13/18 03:06 03/13/18 03:06 03/13/18 03:06 03/13/18 03:06 03/13/18 03:06 Intake & Output 03/12/18 03/13/18 03/14/18 06:59 06:59 06:59 Intake Total 822 914 Output Total 1300 2040 Balance -478 -1126 Weight 93.5 kg 92.9 kg General appearance: PRESENT: no acute distress, well-developed, well-nourished Head exam: PRESENT: atraumatic, normocephalic Eye exam: PRESENT: conjunctiva pink, EOMI, PERRLA. ABSENT: scleral icterus Ear exam: PRESENT: normal external ear exam Mouth exam: PRESENT: moist, tongue midline Neck exam: PRESENT: full ROM. ABSENT: carotid bruit, JVD, lymphadenopathy, thyromegaly Respiratory exam: PRESENT: clear to auscultation yumiko Cardiovascular exam: PRESENT: RRR. ABSENT: diastolic murmur, rubs, systolic murmur Pulses: PRESENT: normal dorsalis pedis pul, +2 pedal pulses bilateral Vascular exam: PRESENT: normal capillary refill GI/Abdominal exam: PRESENT: normal bowel sounds, soft. ABSENT: distended, guarding, mass, organolmegaly, rebound, tenderness Rectal exam: PRESENT: deferred Extremities exam: ABSENT: pedal edema Musculoskeletal exam: PRESENT: ambulatory Neurological exam: PRESENT: alert, awake, oriented to person, oriented to place , oriented to time, oriented to situation, CN II-XII grossly intact. ABSENT: motor sensory deficit Psychiatric exam: PRESENT: appropriate affect, normal mood. ABSENT: homicidal ideation, suicidal ideation Skin exam: PRESENT: dry, intact, warm. ABSENT: cyanosis, rash Results Laboratory Results: 03/13/18 04:25 03/13/18 04:25 03/13/18 03/13/18 04:25 04:25 WBC 6.4 RBC 3.51 L Hgb 10.9 L Hct 31.1 L MCV 89 MCH 31.1 MCHC 35.1 RDW 14.6 H Plt Count 295 Seg Neutrophils % 58.0 Lymphocytes % 28.4 Monocytes % 10.7 Eosinophils % 2.0 Basophils % 0.9 Absolute Neutrophils 3.7 Absolute Lymphocytes 1.8 Absolute Monocytes 0.7 Absolute Eosinophils 0.1 Absolute Basophils 0.1 Sodium 142.4 Potassium 5.1 H Chloride 107 Carbon Dioxide 27 Anion Gap 8 BUN 24 H Creatinine 1.82 H Est GFR ( Amer) 44 L Est GFR (Non-Af Amer) 36 L Glucose 136 H Calcium 9.5 Impressions: Abdomen Ultrasound 03/10/18 00:00 IMPRESSION: 1. Fatty liver. 2. Echogenic right kidney with stable moderate hydronephrosis Chest X-Ray 03/10/18 00:00 IMPRESSION: NO ACUTE RADIOGRAPHIC FINDING IN THE CHEST. Renal Ultrasound 03/10/18 00:00 IMPRESSION: Moderate right hydronephrosis pattern, consistent with prior CT from February 21, 2018. Mild dilated left renal collecting system. Hepatobiliary Scan Nuclear Medicine 03/11/18 00:00 IMPRESSION: NORMAL STUDY WITHOUT CYSTIC OR COMMON DUCT OBSTRUCTION. Assessment & Plan - Diagnosis (1) Epigastric pain Is this a current diagnosis for this admission?: Yes Plan: Scheduled for the endoscopy today (2) Chronic kidney disease, stage 3 Is this a current diagnosis for this admission?: Yes Plan: Patient's follow-up outpatients nephrology (3) Hydronephrosis of right kidney Is this a current diagnosis for this admission?: Yes Plan: She is currently see a urologist as outpatient is currently stable (4) Personal history of colon cancer Is this a current diagnosis for this admission?: Yes (5) Type 2 diabetes mellitus Qualifiers: Diabetes mellitus [place] insulin use: without jail use Diabetes mellitus complication status: with neurologic complications Diabetes mellitus complication detail: with polyneuropathy Qualified Code(s): E11.42 - Type 2 diabetes mellitus with diabetic polyneuropathy Is this a current diagnosis for this admission?: Yes Plan: Continues to current medication (6) Coronary artery disease Qualifiers: Coronary Disease-Associated Artery/Lesion type: [place] artery Is this a current diagnosis for this admission?: Yes Plan: Patient seen by the [facility] outpatients once a year - Time Time Spent with patient: 15-24 minutes Medications reviewed and adjusted accordingly: Yes Anticipated discharge: Home Within: within 24 hours - Inpatient Certification Medical Necessity: Need Close Monitoring Due to Risk of Patient Decompensation 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
[2018-03-13] MEDS: INSULIN LISPRO 100 UNIT/ML 3 ML VIAL SUBCUT PRN (13:37)
[2018-03-13] MEDS ORDERED: NALOXONE HCL INJ/PF 0.4 MG/1 ML SDV ONE (16:12)
[2018-03-13] MEDS ORDERED: DIPHENHYDRAMINE HCL 50 MG/ML VIAL ONE (16:12)
[2018-03-13] MEDS ORDERED: ONDANSETRON HCL INJ/PF 4 MG/2 ML SDV ONE (16:12)
[2018-03-13] MEDS ORDERED: FENTANYL CITRATE INJ/PF 100 MCG/2 ML AMPUL ONE ×2 (16:13)
[2018-03-13] MEDS ORDERED: GLUCAGON,HUMAN RECOMB 1 MG INJ ONE (16:13)
[2018-03-13] MEDS ORDERED: FLUMAZENIL INJ 0.5 MG/5 ML VIAL ONE (16:13)
[2018-03-13] MEDS ORDERED: MIDAZOLAM 2 MG/2 ML INJ ONE (16:13)
[2018-03-13] MEDS ORDERED: EPINEPHRINE INJ 1 MG/10 ML DISP.SYRIN ONE (16:13)
[2018-03-13] MEDS: MIDAZOLAM 2 MG/2 ML INJ ONE ×2 (16:44→16:48)
--- NOTE | 2018-03-13 17:21 | PDOC CONSULTATION ---
Consultation Consult Date: 03/12/18 History of Present Illness Admission Date/PCP: 03/11/18 11:46 RAMILA CANO MD History of Present Illness: CECILIO BURNS is a 77 year old male Patient who was admitted on 03/10/2018 with epigastric pain. He has been having recurrent epigastric and retrosternal pain for a few weeks. The pain is usually after eating or sometimes without eating. He had an ultrasound on admission that showed increased echogenicity of the liver with no masses found. His gallbladder was unremarkable. He had an unremarkable CAT scan of the abdomen on 02/21/2018 that showed marked hepatic fatty infiltration, marked constipation with stool noted all over the colon, mild dilation of the small bowel proximal to a small ventral hernia. He had a HIDA scan on 03/11/2018 that was normal. He also has a history of anemia with an admission hemoglobin of 11.9. He had outpatient blood work done within the last few weeks that showed a hemoglobin of 11 with normal iron studies. His hemoglobin was 12 back in September of last year. He has chronic renal disease Past Medical History Cardiac Medical History: Reports: Hyperlipidema, Hypertension Pulmonary Medical History: Reports: Asthma Neurological Medical History: Denies: Seizures Endocrine Medical History: Reports: Diabetes Mellitus Type 2 Renal/ Medical History: Reports: Chronic Kidney Disease, Other - Chronic kidney disease stage III GI Medical History: Reports: Gastroesophageal Reflux Disease Psychiatric Medical History: Denies: Depression Past Surgical History Past Surgical History: Reports: Orthopedic Surgery - ankle, Other - colon resction with colostomy for Ca 20 yrs ago and subsequent reconstructi Social History Lives with: Family Smoking Status: Never Smoker Frequency of Alcohol Use: None Hx Recreational Drug Use: No Drugs: None Hx Prescription Drug Abuse: No - Advance Directive Resuscitation Status: Full Code Family History Family History: Reviewed & Not Pertinent Parental Family History Reviewed: No Children Family History Reviewed: NA Sibling(s) Family History Reviewed.: NA Medication/Allergy Home Medications: Albuterol Sulfate [Proair HFA Inhalation Aerosol 8.5 gm MDI] 1 puff IH Q6HP PRN 03/11/18 Amlodipine Besylate [Norvasc 10 mg Tablet] 10 mg PO QHS 03/11/18 Aspirin [Ecotrin 81 mg EC Tablet] 81 mg PO QHS 03/11/18 Atorvastatin Calcium [Lipitor 40 mg Tablet] 20 mg PO QHS 03/11/18 Docusate Sodium [Colace 100 mg Capsule] 400 mg PO QHS 03/11/18 Fenofibrate 160 mg PO QHS 03/11/18 Finasteride [Proscar 5 mg Tablet] 5 mg PO QHS 03/11/18 Fluticasone/Salmeterol [Advair 250-50 Diskus 14 Dose/Diskus] 1 puff IN Q12 03/11 Glipizide [Glucotrol 5 mg Tablet] 5 mg PO QHS 03/11/18 Hydralazine HCl [Apresoline 25 mg Tablet] 25 mg PO Q8 03/11/18 Montelukast Sodium [Singulair 10 mg Tablet] 10 mg PO QHS 03/11/18 Pantoprazole Sodium [Protonix] 40 mg PO QHS 03/11/18 Polyethylene Glycol 3350 [Miralax Powder 17 gm/Packet] 17 gm PO QHS 03/11/18 Pramipexole Di-HCl [Pramipexole Dihydrochloride] 0.125 mg PO QHS 03/11/18 Psyllium Seed [Metamucil-Sf Powder 5.85 gm Packet] 1 packet PO QHS 03/11/18 Sitagliptin Phosphate [Januvia] 100 mg PO QHS 03/11/18 Tamsulosin HCl [Flomax 0.4 mg Cap.sr] 0.4 mg PO QHS 03/11/18 Allergies/Adverse Reactions: No Known Drug Allergies Allergy (Verified 07/24/14 15:52) Review of Systems All systems: reviewed and no additional remarkable complaints except as stated Physical Exam Vital Signs: Temp Pulse Resp BP Pulse Ox 97.6 F 69 16 147/73 H 98 03/13/18 12:00 03/13/18 17:15 03/13/18 17:15 03/13/18 17:15 03/13/18 17:15 Intake & Output 03/12/18 03/13/18 03/14/18 06:59 06:59 06:59 Intake Total 873 546 6893 Output Total 3233 2040 950 Balance -478 1120 183 Weight 93.5 kg 92.9 kg Exam: General: Patient is alert and looks well. HEENT: There is no pallor or jaundice. PERRLA. Oropharynx normal Respiratory: No chest deformity. No respiratory distress. Chest wall palpitation was unremarkable. Breath sounds were normal Cardiovascular: Heart sounds 1 and 2 normal with no murmurs. Abdominal: Not distended. Soft and nontender. Liver and spleen not palpable. No ascites demonstrated. Bowel sounds active. Rectal examination was deferred. Extremities: No edema Neurological: Alert and oriented x4. Grossly nonfocal. Normal speech Skin: No significant rash Psychological: Normal affect Results Laboratory Results: 03/13/18 04:25 03/13/18 04:25 03/13/18 03/13/18 04:25 04:25 WBC 6.4 RBC 3.51 L Hgb 10.9 L Hct 31.1 L MCV 89 MCH 31.1 MCHC 35.1 RDW 14.6 H Plt Count 295 Seg Neutrophils % 58.0 Lymphocytes % 28.4 Monocytes % 10.7 Eosinophils % 2.0 Basophils % 0.9 Absolute Neutrophils 3.7 Absolute Lymphocytes 1.8 Absolute Monocytes 0.7 Absolute Eosinophils 0.1 Absolute Basophils 0.1 Sodium 142.4 Potassium 5.1 H Chloride 107 Carbon Dioxide 27 Anion Gap 8 BUN 24 H Creatinine 1.82 H Est GFR ( Amer) 44 L Est GFR (Non-Af Amer) 36 L Glucose 136 H Calcium 9.5 Impressions: Abdomen Ultrasound 03/10/18 00:00 IMPRESSION: 1. Fatty liver. 2. Echogenic right kidney with stable moderate hydronephrosis Chest X-Ray 03/10/18 00:00 IMPRESSION: NO ACUTE RADIOGRAPHIC FINDING IN THE CHEST. Renal Ultrasound 03/10/18 00:00 IMPRESSION: Moderate right hydronephrosis pattern, consistent with prior CT from February 21, 2018. Mild dilated left renal collecting system. Hepatobiliary Scan Nuclear Medicine 03/11/18 00:00 IMPRESSION: NORMAL STUDY WITHOUT CYSTIC OR COMMON DUCT OBSTRUCTION. Assessment & Plan - Diagnosis (1) Epigastric pain Is this a current diagnosis for this admission?: Yes Plan: He has recurrent retrosternal and epigastric pain usually after eating. Differential diagnoses include esophagitis, peptic ulcer disease, and less likely gallbladder disease especially with a normal ultrasound and CAT scan. His severe constipation may also be playing a role. He will undergo an EGD for further evaluation. He should also continue with a PPI. If epigastric pain continued to be a problem as outpatient he may benefit from an endoscopic ultrasound. (3) Constipation Is this a current diagnosis for this admission?: Yes Plan: We will start him on MiraLAX twice a day and adjust as needed. He had a small polyp removed from the cecum at his colonoscopy in July 2017
--- NOTE | 2018-03-13 17:27 | Operative Report ---
Operative Report DATE OF SURGERY: 03/13/18 Operative Report: Pre-op diagnosis: Epigastric pain Post-op diagnosis: Antral gastritis Surgery: Esophagogastroduodenoscopy with biopsy Medications: Versed 2mg Fentanyl 50 mcg IV push Tissue removed: Antral and gastric body biopsy for pathology Procedure: After informed consent obtained from patient, the throat was sprayed with [place] and conscious sedation was achieved. The upper endoscope was inserted into the esophagus under direct vision and advanced into the stomach. The duodenum was entered and examined to the second part. Endoscope was then slowly pulled out of the patient as the mucosa was examined into details. Patient tolerated procedure well. Findings Esophagus: Normal Z-line at: 40 cm Antrum: Mild erythema noted Body: Normal Fundus: Normal Duodenum first part: Normal Duodenum second part: Normal Plan: Await pathology. Continue PPI. Give 1 bottle of magnesium citrate to help with severe constipation noted on CAT scan. Consider endoscopic ultrasound if pain continues to be an issue OPERATION: .
[2018-03-13] MEDS: FENOFIBRATE NANOCRYSTALLIZED 145 MG TABLET PO SCH (22:55)
[2018-03-13] MEDS: GLIPIZIDE 5 MG TABLET PO SCH (22:56)
[2018-03-13] MEDS: MONTELUKAST SODIUM 10 MG TABLET PO SCH (22:56)
[2018-03-13] MEDS: TAMSULOSIN HCL 0.4 MG CAP.SR.24H PO SCH (22:56)
[2018-03-13] MEDS: SITAGLIPTIN PHOSPHATE 50 MG TABLET PO SCH (22:58)
[2018-03-13] MEDS: DOCUSATE SODIUM 100 MG CAPSULE PO SCH (22:58)
[2018-03-13] MEDS: FINASTERIDE 5 MG TABLET PO SCH (22:59)
[2018-03-13] MEDS: ATORVASTATIN CALCIUM 20 MG TABLET PO SCH (22:59)
[2018-03-13] MEDS: ASPIRIN 81 MG TABLET, ENT COATED PO SCH (22:59)
[2018-03-13] MEDS: AMLODIPINE BESYLATE 10 MG TABLET PO SCH (22:59)
[2018-03-13] MEDS: PSYLLIUM SEED-SF 5.85 GM PACKET PO SCH (23:00)
[2018-03-13] MEDS: POLYETHYLENE GLYCOL 3350 POWDER 17 GM/1 PACKET PO SCH (23:00)
[2018-03-14] MEDS: HYDRALAZINE HCL 25 MG TABLET PO SCH (05:55)
[2018-03-14] MEDS: LANSOPRAZOLE 30 MG TAB.RAP.DR PO SCH (05:57)
[2018-03-14] MEDS: HEPARIN SOD (PORCINE) 5,000 UNIT/ML 1 ML SYRINGE SUBCUT SCH (05:59)
[2018-03-14] MEDS ORDERED: MAGNESIUM CITRATE 296 ML BOTTLE PO ONE (07:00)
[2018-03-14 08:19] VITALS: BP 147/62
[2018-03-14] MEDS: FLUTICASONE/SALMETEROL DISKUS 250-50 MCG/DOSE IH SCH (08:49)
--- NOTE | 2018-03-14 17:19 | PDOC DISCHARGE SUMMARY ---
General - Admit/Disc Date/PCP Admission Date/Primary Care Provider: 03/11/18 11:46 RAMILA CANO MD Discharge Date: 03/14/18 - Discharge Diagnosis (1) Epigastric pain Is this a current diagnosis for this admission?: Yes Summary: Status post endoscopic by Dr. Benjamin currently all stable continues the PPI (2) Chronic kidney disease, stage 3 Is this a current diagnosis for this admission?: Yes Summary: Follow-up outpatients (3) Hydronephrosis of right kidney Is this a current diagnosis for this admission?: Yes Summary: Since he outpatients urology at [facility] (4) Personal history of colon cancer Is this a current diagnosis for this admission?: Yes Summary: Currently all stable (5) Type 2 diabetes mellitus Is this a current diagnosis for this admission?: Yes Summary: Currently well under control (6) Coronary artery disease Is this a current diagnosis for this admission?: Yes Summary: Patient's all cardiac workup is negative so follow outpatients cardiology which patient see once a year - Additional Information Resuscitation Status: Full Code Discharge Diet: Diabetic Discharge Activity: Activity As Tolerated Home Medications: Albuterol Sulfate [Proair HFA Inhalation Aerosol 8.5 gm MDI] 1 puff IH Q6HP PRN 03/11/18 Amlodipine Besylate [Norvasc 10 mg Tablet] 10 mg PO QHS 03/11/18 Aspirin [Ecotrin 81 mg EC Tablet] 81 mg PO QHS 03/11/18 Atorvastatin Calcium [Lipitor 40 mg Tablet] 20 mg PO QHS 03/11/18 Docusate Sodium [Colace 100 mg Capsule] 400 mg PO QHS 03/11/18 Fenofibrate 160 mg PO QHS 03/11/18 Finasteride [Proscar 5 mg Tablet] 5 mg PO QHS 03/11/18 Fluticasone/Salmeterol [Advair 250-50 Diskus 14 Dose/Diskus] 1 puff IN Q12 03/11 Glipizide [Glucotrol 5 mg Tablet] 5 mg PO QHS 03/11/18 Hydralazine HCl [Apresoline 25 mg Tablet] 25 mg PO Q8 03/11/18 Montelukast Sodium [Singulair 10 mg Tablet] 10 mg PO QHS 03/11/18 Pantoprazole Sodium [Protonix] 40 mg PO QHS 03/11/18 Polyethylene Glycol 3350 [Miralax Powder 17 gm/Packet] 17 gm PO QHS 03/11/18 Pramipexole Di-HCl [Pramipexole Dihydrochloride] 0.125 mg PO QHS 03/11/18 Psyllium Seed [Metamucil-Sf Powder 5.85 gm Packet] 1 packet PO QHS 03/11/18 Sitagliptin Phosphate [Januvia] 100 mg PO QHS 03/11/18 Tamsulosin HCl [Flomax 0.4 mg Cap.sr] 0.4 mg PO QHS 03/11/18 History of Present Illness History of Present Illness: CECILIO BURNS is a 77 year old male Patient was admitted to the hospitalfor -epigastric pain not feeling well Hospital Course Hospital Course: This is a 77-year-old male with a significant history of the type 2 diabetes mellitus hypertension hyperlipidemia coronary artery disease colon cancer and multiple other medical problems recently see the urology and also see a cardiology and gastroenterologyCame to the emergency department not feeling well with some epigastric pain retrosternal pain patient was admitting in the hospital images rule out acute coronary syndromes and also rule out cholecystitis to order the ultrasound and HIDA scan was all normal Patient seen by the GI and Surgery Underwent for the endoscopy was all stable Patient's discharged home with a stable conditions and patient's feeling well patient's p.o. intake is good in patients ambulating the hallway without any problems Patient outpatient appointment with cardiology and nephrology Patient already seen by the urology Physical Exam Vital Signs: Temp Pulse Resp BP Pulse Ox 98.0 F 81 17 147/62 H 97 03/14/18 08:21 03/14/18 08:21 03/14/18 08:21 03/14/18 08:06 03/14/18 08:21 Intake & Output 03/13/18 03/14/18 03/15/18 06:59 06:59 06:59 Intake Total 914 2813 Output Total 2039 1999 Balance -1126 813 Weight 92.9 kg 92.9 kg General appearance: PRESENT: no acute distress, well-developed, well-nourished Head exam: PRESENT: atraumatic, normocephalic Eye exam: PRESENT: conjunctiva pink, EOMI, PERRLA. ABSENT: scleral icterus Ear exam: PRESENT: normal external ear exam Mouth exam: PRESENT: moist, tongue midline Neck exam: PRESENT: full ROM. ABSENT: carotid bruit, JVD, lymphadenopathy, thyromegaly Respiratory exam: PRESENT: clear to auscultation yumiko Cardiovascular exam: PRESENT: RRR. ABSENT: diastolic murmur, rubs, systolic murmur Pulses: PRESENT: normal dorsalis pedis pul, +2 pedal pulses bilateral Vascular exam: PRESENT: normal capillary refill GI/Abdominal exam: PRESENT: normal bowel sounds, soft. ABSENT: distended, guarding, mass, organolmegaly, rebound, tenderness Additonal comments: Colostomy bag is present Rectal exam: PRESENT: deferred Extremities exam: ABSENT: pedal edema Musculoskeletal exam: PRESENT: ambulatory Neurological exam: PRESENT: alert, awake, oriented to person, oriented to place , oriented to time, oriented to situation, CN II-XII grossly intact. ABSENT: motor sensory deficit Psychiatric exam: PRESENT: appropriate affect, normal mood. ABSENT: homicidal ideation, suicidal ideation Skin exam: PRESENT: dry, intact, warm. ABSENT: cyanosis, rash Results Laboratory Results: 03/13/18 04:25 03/13/18 04:25 Impressions: Abdomen Ultrasound 03/10/18 00:00 IMPRESSION: 1. Fatty liver. 2. Echogenic right kidney with stable moderate hydronephrosis Chest X-Ray 03/10/18 00:00 IMPRESSION: NO ACUTE RADIOGRAPHIC FINDING IN THE CHEST. Renal Ultrasound 03/10/18 00:00 IMPRESSION: Moderate right hydronephrosis pattern, consistent with prior CT from February 21, 2018. Mild dilated left renal collecting system. Hepatobiliary Scan Nuclear Medicine 03/11/18 00:00 IMPRESSION: NORMAL STUDY WITHOUT CYSTIC OR COMMON DUCT OBSTRUCTION. Qualifiers - * PATIENT BEING DISCHARGED WITH ANY OF THE FOLLOWING DIAGNOSIS: No VTE patient discharged on overlapping Therapy?: Yes Plan Time Spent: Greater than 30 Minutes - Patient is discharged home with a stable condition discussed with the
== END 2018-03-14 09:45 | disposition home or self-care (01) | DRG 392 ==
LOC: ER 17:31 → UNDOADMOB 20:55 → EH 20:55 → 3W 03-11 01:35 → EH 03-11 01:35 → OBSVTOIN 03-11 11:46 → 3W 03-11 11:46 → EH 03-11 11:46
PROVIDERS: ADMIT Family Medicine; ATTEND Family Medicine
PROC: 0DB68ZX Excision of Stomach, Via Natural or Artificial Opening Endoscopic, Diagnostic (ICD-10-PCS; principal; 2018-03-13 17:00)
DX: R10.13 Epigastric pain (principal); K81.0 Acute cholecystitis; N13.30 Unspecified hydronephrosis; K29.60 Other gastritis without bleeding; I12.9 Hypertensive chronic kidney disease with stage 1 through stage 4 chronic kidney disease, or unspecified chronic kidney disease; N18.3 Chronic kidney disease, stage 3 (moderate); E11.22 Type 2 diabetes mellitus with diabetic chronic kidney disease; I25.10 Atherosclerotic heart disease of native coronary artery without angina pectoris; E78.00 Pure hypercholesterolemia, unspecified; K76.0 Fatty (change of) liver, not elsewhere classified; K59.00 Constipation, unspecified; K43.9 Ventral hernia without obstruction or gangrene; J45.909 Unspecified asthma, uncomplicated; K21.9 Gastro-esophageal reflux disease without esophagitis; E11.42 Type 2 diabetes mellitus with diabetic polyneuropathy; Z85.038 Personal history of other malignant neoplasm of large intestine; Z79.899 Other long term (current) drug therapy; Z79.82 Long term (current) use of aspirin; Z90.49 Acquired absence of other specified parts of digestive tract; Z86.010 Personal history of colon polyps; Z87.891 Personal history of nicotine dependence; Z93.3 Colostomy status; Z95.5 Presence of coronary angioplasty implant and graft
CPT/HCPCS: 36415; 43239; 71045; 76705; 76775; 78226; 80048; 80053; 80061; 81001; 82550; 82553; 82962; 84100; 84484; 85025; 85610; 85730; 88305; 93005; 93010; 96374; 96375; 99285; A9537; G0378; J0171; J0295; J1200; J1610; J1644; J1815; J2250; J2270; J2310; J2405; J3010; J3490; Q9969

== ENCOUNTER → 2018-04-16 | Outpatient (CLI) | payer MEDICARE, OTHER ==
[2018-04-16 08:54] LABS: ABSOLUTE EOSINOPHILS # (AUTO) 0.1 10^3/uL (0.0-0.6); ABSOLUTE LYMPHOCYTES (AUTO) 1.8 10^3/uL (0.5-4.7); ABSOLUTE MONOCYTES (AUTO) 0.8 10^3/uL (0.1-1.4); ABSOLUTE NEUT (AUTO) 4.7 10^3/uL (1.7-8.2); BASOPHILS % (AUTO) 0.3 % (0-2); EOSINOPHILS % (AUTO) 1.9 % (0-6); HEMATOCRIT 33.2 % (37.9-51.0); HEMOGLOBIN 11.5 g/dL (13.5-17.0); LYMPHOCYTES % (AUTO) 24.1 % (13-45); MEAN CORPUSCULAR HEMOGLOBIN 30.4 pg (27.0-33.4); MEAN CORPUSCULAR HGB CONC 34.6 g/dL (32.0-36.0); MEAN CORPUSCULAR VOLUME 88 fl (80-97); MONOCYTES % (AUTO) 10.3 % (3-13); PLATELET COUNT 363 10^3/uL (150-450); RED BLOOD COUNT 3.78 10^6/uL (4.35-5.55); RED CELL DISTRIBUTION WIDTH 14.2 % (11.5-14.0); SEGMENTED NEUTROPHILS % (AUTO) 63.4 % (42-78); TOTAL CELLS COUNTED % (AUTO) 100 %; WHITE BLOOD COUNT 7.4 10^3/uL (4.0-10.5)
[2018-04-16 08:54] LABS: APPEARANCE,URINE CLEAR; BILIRUBIN,URINE NEGATIVE (NEGATIVE); COLOR,URINE YELLOW; GLUCOSE, URINE 150 mg/dL (NEGATIVE); KETONES,URINE NEGATIVE (NEGATIVE); LEUKOCYTE ESTERASE,URINE NEGATIVE (NEGATIVE); NITRITE,URINE NEGATIVE (NEGATIVE); PROTEIN,URINE 30 mg/dL (NEGATIVE); URINE SPECIFIC GRAVITY 1.012; UROBILINOGEN,URINE NEGATIVE mg/dL (<2.0)
[2018-04-16 09:33] LABS: ALBUMIN 4.3 g/dL (3.5-5.0); ANION GAP 12 (5-19); BLOOD UREA NITROGEN 20 mg/dL (7-20); CALCIUM 9.8 mg/dL (8.4-10.2); CARBON DIOXIDE 23 mmol/L (22-30); CHLORIDE 107 mmol/L (98-107); GLUCOSE 149 mg/dL (75-110); PHOSPHORUS 3.2 mg/dL (2.5-4.5); POTASSIUM 4.6 mmol/L (3.6-5.0); SODIUM 141.8 mmol/L (137-145)
[2018-04-17 12:38] LABS: MICROALBUMIN URINE 161.4 ug/mL (Not Estab.)
== END ==
LOC: OD 07:48
PROVIDERS: ATTEND Family Medicine
DX: N17.9 Acute kidney failure, unspecified (principal); I10 Essential (primary) hypertension; D64.9 Anemia, unspecified; E11.9 Type 2 diabetes mellitus without complications
CPT/HCPCS: 36415; 80048; 81001; 82040; 82043; 82306; 82570; 83970; 84100; 85025

== ENCOUNTER → 2018-06-12 | Outpatient (CLI) | payer MEDICARE ==
--- NOTE | 2018-06-12 14:38 | RADIOLOGY REPORT (SQ) ---
EXAM DESCRIPTION: UPPER GI/SM BOWEL COMPLETED DATE/TIME: 06/12/2018 1:22 pm REASON FOR STUDY: SLOW TRANSIT CONSTIPATION,COLOSTOMY STATUS K59.01 SLOW TRANSIT CONSTIPATION Z93.3 COLOSTOMY STATUS COMPARISON: CT abdomen and pelvis 02/21/2018. TECHNIQUE: Under fluoroscopic guidance, patient ingested effervescent granules followed by thick an d thin barium. Fluoroscopic spot images and routine radiographic images acquired and stored on PACS . Following evaluation of esophagus and stomach, additional barium administered with serial delayed ab dominal radiographs until colonic identification. Fluoroscopic images recorded of the terminal ileu m. 12 MM BARIUM TABLET GIVEN: Yes. Momentary delay at the GE junction. FLUOROSCOPY TIME: 2.3 minutes of fluoroscopy was used. 28 images saved to PACS. LIMITATIONS: None. FINDINGS: NEUROMUSCULAR COORDINATION OF SWALLOW: Normal. No aspiration. ESOPHAGEAL MOTILITY: Normal peristalsis. No esophageal spasm. ESOPHAGEAL MUCOSA: Normal mucosa without masses or ulceration. GASTRO-ESOPHAGEAL JUNCTION: No hiatal hernia or reflux. Slight delay in passage of a 12 mm barium ta blet at the GE junction. Mild narrowing of the distal esophagus. STOMACH: Normal without masses or ulcerations. GASTRIC OUTLET: No delay in emptying. Normal pylorus. DUODENAL BULB: There is dilatation of the duodenal bulb with slight post bulbar narrowing of the duod enum. Scarring from peptic ulcers is disease is suggested. DUODENUM: Duodenal diverticulum are seen projecting medially and laterally at the 2nd portion the duo denum and a 3rd larger diverticulum seen projecting off the 3rd portion the duodenum. PROXIMAL SMALL BOWEL: Normal as visualized. JEJUNUM: Normal mucosal pattern. No dilatation, segmentation, strictures or masses. ILEUM: Normal mucosal pattern. No dilatation, segmentation, strictures or masses. TERMINAL ILEUM AND ILEO-CECAL VALVE: Normal mucosal pattern without cobble-stoning or stricture. Nor mal compression. PROXIMAL COLON: Incompletely imaged. No abnormality. Left lower quadrant colostomy is identified. NON-GI TRACT STRUCTURES: No significant finding. OTHER: Transit time is normal with filling of the cecum and ascending colon identified at 3.5 hours. IMPRESSION: 1. MILD NARROWING OF THE DISTAL ESOPHAGUS CAUSING APPROXIMATELY 5 MINUTE DELAY PASSAGE OF A 12 MM BARIUM TABLET. 2. DILATATION OF THE DUODENAL BULB WITH MILD POST BULBAR NARROWING OF THE DUODENUM, POSSIBLY DUE TO PEPTIC ULCER DISEASE AND SCARRING. 3. MULTIPLE DUODENAL DIVERTICULUM. 4. NORMAL SMALL BOWEL FOLLOW-THROUGH. COMMENT: Quality ID [id number]: Final reports for procedures using fluoroscopy that document radiation exp osure indices, or exposure time and number of fluorographic images (if radiation exposure indices are not available) TECHNICAL DOCUMENTATION: JOB ID: [id number] [employer]- All Rights Reserved Reading location - IP/workstation name: [email or web address]
== END ==
LOC: RAD 08:33
PROVIDERS: ATTEND Internal Medicine Gastroenterology
DX: K59.01 Slow transit constipation (principal); R10.9 Unspecified abdominal pain; Z93.3 Colostomy status
CPT/HCPCS: 74249

== ENCOUNTER 2018-08-20 17:32 | Emergency (ER) | payer MEDICARE ==
[2018-08-20 19:30] LABS: APPEARANCE,URINE CLEAR; BILIRUBIN,URINE NEGATIVE (NEGATIVE); COLOR,URINE YELLOW; GLUCOSE, URINE >=500 mg/dL (NEGATIVE); KETONES,URINE NEGATIVE (NEGATIVE); LEUKOCYTE ESTERASE,URINE NEGATIVE (NEGATIVE); NITRITE,URINE NEGATIVE (NEGATIVE); PROTEIN,URINE 30 mg/dL (NEGATIVE); UROBILINOGEN,URINE NEGATIVE mg/dL (<2.0)
[2018-08-20 19:30] LABS: ABSOLUTE EOSINOPHILS # (AUTO) 0.2 10^3/uL (0.0-0.6); ABSOLUTE LYMPHOCYTES (AUTO) 2.1 10^3/uL (0.5-4.7); ABSOLUTE MONOCYTES (AUTO) 0.8 10^3/uL (0.1-1.4); BASOPHILS % (AUTO) 0.3 % (0-2); EOSINOPHILS % (AUTO) 2.3 % (0-6); HEMATOCRIT 32.4 % (37.9-51.0); HEMOGLOBIN 11.1 g/dL (13.5-17.0); LYMPHOCYTES % (AUTO) 25.9 % (13-45); MEAN CORPUSCULAR HEMOGLOBIN 29.6 pg (27.0-33.4); MEAN CORPUSCULAR HGB CONC 34.3 g/dL (32.0-36.0); MEAN CORPUSCULAR VOLUME 86 fl (80-97); MONOCYTES % (AUTO) 9.3 % (3-13); PLATELET COUNT 348 10^3/uL (150-450); RED BLOOD COUNT 3.76 10^6/uL (4.35-5.55); RED CELL DISTRIBUTION WIDTH 14.7 % (11.5-14.0); SEGMENTED NEUTROPHILS % (AUTO) 62.2 % (42-78); TOTAL CELLS COUNTED % (AUTO) 100 %
[2018-08-20 19:46] LABS: ALANINE AMINOTRANSFERASE 33 U/L (21-72); ALBUMIN 4.5 g/dL (3.5-5.0); ALKALINE PHOSPHATASE 43 U/L (38-126); ANION GAP 8 (5-19); ASPARTATE AMINO TRANSFERASE 25 U/L (17-59); BILIRUBIN,DIRECT 0.2 mg/dL (0.0-0.4); BILIRUBIN,TOTAL 0.3 mg/dL (0.2-1.3); BLOOD UREA NITROGEN 18 mg/dL (7-20); CALCIUM 9.9 mg/dL (8.4-10.2); CARBON DIOXIDE 27 mmol/L (22-30); CHLORIDE 107 mmol/L (98-107); GLUCOSE 174 mg/dL (75-110); POTASSIUM 4.5 mmol/L (3.6-5.0); SODIUM 142.1 mmol/L (137-145); TOTAL PROTEIN 6.9 g/dL (6.3-8.2); URIC ACID 4.6 mg/dL (3.5-8.5)
[2018-08-20 20:06] LABS: ERYTHROCYTE SEDIMENTATION RATE 38 mm/hr (0-20)
--- NOTE | 2018-08-20 20:25 | ER Document Report ---
ED General - General Chief Complaint: Leg Pain Stated Complaint: LEFT LEG PAIN Time Seen by Provider: 08/20/18 18:16 Notes: Patient is a 78-year-old male with history of chronic kidney disease and diabetes that presents to the emergency department for chief complaint of lower extremity swelling. Patient states the swelling has been worse on the left compared to the right, is noticed this over the last several days, was concerned about it so he came to the emergency department. Denies history of DVT or PE in the past, he denies noting any redness or pain in his leg, just the swelling. He also denies noting any fevers, chills, night sweats, chest pain, shortness of breath, difficulty breathing, abdominal pain, nausea, vomiting or diarrhea. He also denies of any dysuria or hematuria. He states he is having issues with urinary incontinence, and is scheduled to follow-up with a urologist next week. He does have a service associate, he does have an upcoming appointment for. Past Medical History: Chronic kidney disease, diabetes mellitus, asthma, history of colon cancer and CAD Past Surgical History: PCI with stenting, colon resection Social History: Denies tobacco, alcohol or drug use. Family History: Reviewed and noncontributory for presenting illness Allergies: Reviewed, see documented allergy list. REVIEW OF SYSTEMS: Other than noted above, the 12 point review of systems was reviewed with the patient and were negative, all pertinent findings are included in the HPI. PHYSICAL EXAMINATION: Vital signs reviewed, nursing noted reviewed. GENERAL: Elderly, well-appearing, well-nourished and in no acute distress. HEAD: Atraumatic, normocephalic. EYES: Eyes appear normal, extraocular movements intact, sclera anicteric, conjunctiva are normal. ENT: nares patent, oropharynx clear without exudates. Moist mucous membranes. NECK: Normal range of motion, supple without lymphadenopathy LUNGS: Breath sounds clear to auscultation bilaterally and equal. No wheezes rales or rhonchi. HEART: Regular rate and rhythm without murmurs ABDOMEN: Soft, nontender, normoactive bowel sounds. No rebound, guarding, or rigidity. No masses appreciated. EXTREMITIES: Nontender, good range of motion, bilateral lower extremity pitting edema, worse on the left compared to the right, 3+ versus 2+ respectively. NEUROLOGICAL: No focal neurological deficits. Moves all extremities spontaneously Motor and sensory grossly intact on exam. PSYCH: Normal mood, normal affect. SKIN: Warm, Dry, normal turgor, no rashes or lesions noted on exposed skin TRAVEL OUTSIDE OF THE [place] IN LAST 30 DAYS: No - Related Data Allergies/Adverse Reactions: No Known Drug Allergies Allergy (Verified 07/24/14 15:52) Past Medical History - Social History Smoking Status: Never Smoker Chew tobacco use (# tins/day): No Frequency of alcohol use: None Drug Abuse: None Family History: Reviewed & Not Pertinent Patient has suicidal ideation: No Patient has homicidal ideation: No - Past Medical History Cardiac Medical History: Reports: Hx Hypercholesterolemia, Hx Hypertension Pulmonary Medical History: Reports: Hx Asthma Neurological Medical History: Denies: Hx Seizures Endocrine Medical History: Reports: Hx Diabetes Mellitus Type 2 Renal/ Medical History: Denies: Hx Peritoneal Dialysis GI Medical History: Reports: Hx Gastroesophageal Reflux Disease Psychiatric Medical History: Denies: Hx Depression Past Surgical History: Reports: Hx Bowel Surgery - colostomy, Hx Cardiac Surgery - heart stents x 2, Hx Orthopedic Surgery - ankle, Other - colon resction with colostomy for Ca 20 yrs ago and subsequent reconstructi - Immunizations Hx Diphtheria, Pertussis, Tetanus Vaccination: Yes Hx Pneumococcal Vaccination: 10/04/13 Physical Exam - Vital signs Vitals: Temp Pulse Resp BP Pulse Ox 98.1 F 65 16 182/66 H 98 08/20/18 17:45 08/20/18 17:45 08/20/18 17:45 08/20/18 17:45 08/20/18 17:45 Course - Re-evaluation Re-evalutation: Patient seen and examined vital signs reviewed. Laboratory data and imaging were ordered as appropriate for the patient's presenting symptoms and complaint, with consideration of any critical or life threatening conditions that may be associated with their obtained history and exam as noted above. Results were reviewed when available and demonstrated negative duplex imaging of the left lower extremity, no DVT, blood work demonstrated a creatinine of 1.7, which is near the patient's baseline. I suspect the patient's peripheral edema, is acute on chronic issue, may be related to the patient's chronic kidney disease versus venous stasis, advised him to follow-up with his primary care physician or if his symptoms persist that he may need a repeat lower extremity ultrasound. He is otherwise advised to follow-up, patient agreeable to this plan of care, and discharged home. Evaluation was most consistent with peripheral edema and advised to use compression stockings, and follow-up with his PCP, for discussion of possible diuretic use. Results were discussed with the patient at this point, after careful consideration I feel that that patient can be discharged from the emergency department, the patient was educated treatments and reasons to return to the emergency department based on their presumed diagnosis as noted above, they were advised to followup with a primary care physician in 2-3 days. Patient was agreeable to plan of care. *Note is created using voice recognition software and may contain spelling, syntax or grammatical errors. Laboratory 08/20/18 08/20/18 08/20/18 18:57 19:08 19:08 WBC 8.0 RBC 3.76 L Hgb 11.1 L Hct 32.4 L MCV 86 MCH 29.6 MCHC 34.3 RDW 14.7 H Plt Count 348 Seg Neutrophils % 62.2 Lymphocytes % 25.9 Monocytes % 9.3 Eosinophils % 2.3 Basophils % 0.3 Absolute Neutrophils 5.0 Absolute Lymphocytes 2.1 Absolute Monocytes 0.8 Absolute Eosinophils 0.2 Absolute Basophils 0.0 ESR 38 H Sodium 142.1 Potassium 4.5 Chloride 107 Carbon Dioxide 27 Anion Gap 8 BUN 18 Creatinine 1.78 H Est GFR ( Amer) 45 L Est GFR (Non-Af Amer) 37 L Glucose 174 H Uric Acid 4.6 Calcium 9.9 Total Bilirubin 0.3 Direct Bilirubin 0.2 Neonat Total Bilirubin Not Reportable Neonat Direct Bilirubin Not Reportable Neonat Indirect Bili Not Reportable AST 25 ALT 33 Alkaline Phosphatase 43 Total Protein 6.9 Albumin 4.5 Urine Color YELLOW Urine Appearance CLEAR Urine pH 5.0 Ur Specific [place] 1.010 Urine Protein 30 H Urine Glucose (UA) >=500 H Urine Ketones NEGATIVE Urine Blood NEGATIVE Urine Nitrite NEGATIVE Urine Bilirubin NEGATIVE Urine Urobilinogen NEGATIVE Ur Leukocyte Esterase NEGATIVE Urine WBC (Auto) 2 Urine RBC (Auto) 1 Urine Mucus (Auto) RARE Urine Ascorbic Acid NEGATIVE - Vital Signs Vital signs: Temp Pulse Resp BP Pulse Ox 97.5 F 63 20 170/66 H 97 08/20/18 20:45 08/20/18 20:45 08/20/18 20:45 08/20/18 20:45 08/20/18 20:45 - Laboratory Result Diagrams: 08/20/18 19:08 08/20/18 19:08 Laboratory results interpreted by me: 08/20/18 08/20/18 08/20/18 18:57 19:08 19:08 RBC 3.76 L Hgb 11.1 L Hct 32.4 L RDW 14.7 H ESR 38 H Creatinine 1.78 H Est GFR ( Amer) 45 L Est GFR (Non-Af Amer) 37 L Glucose 174 H Urine Protein 30 H Urine Glucose (UA) >=500 H Discharge - Discharge Clinical Impression: Peripheral edema Condition: Stable Disposition: HOME, SELF-CARE Instructions: Edema, Peripheral ([facility]) Additional Instructions: Please purchase some knee-high compression stockings, this can be purchased at any local pharmacy or medical supply store, and follow-up with your primary care physician, to discuss possible diuretics/water pills, to help with your edema. And follow-up with your service associate, try to schedule an earlier appointment if possible. If you have any worsening symptoms such as difficulty breathing, chest pain, or worsening swelling that concerns you, do not hesitate to return to the emergency department. Referrals: RAMILA CANO MD [ACTIVE STAFF] - Follow up tomorrow
[2018-08-20 20:47] VITALS: BP 170/66
--- NOTE | 2018-08-21 09:43 | XCELERA REPORT ---
[address] [place] [facility] [address] Lower Extremity Venous Evaluation Procedure: Color flow and duplex imaging of the veins of the left lower extremity as well as the right Common Femoral vein. Right Sided Venous Evaluation The right common femoral vein is fully compressible. Spontaneous and phasic flow is present in the right common femoral vein. Left Sided Venous Evaluation Normal vessel filling wall to wall, compression and augmentation as well as Colour flow down to the infrageniculate veins. Interpretation Summary No duplex evidence of DVT or obstruction in the left lower extremity nor in the right Common Femoral vein. Name: CECILIO BURNS Age: 78 yrs Gender: Male : 1940 Patient Status: Emergency Patient Location: ER Study Date: 08/20/2018 07:30 PM Reason For Study: Left leg with pain and swelling Ordering Physician: BILLIE ABRAMS Performed By: Ellen Yepez : BILLIE ABRAMS > Ovi Sun
== END 2018-08-20 20:44 | disposition home or self-care (01) ==
LOC: ER 17:32
DX: R60.9 Edema, unspecified (principal); E11.22 Type 2 diabetes mellitus with diabetic chronic kidney disease; I12.9 Hypertensive chronic kidney disease with stage 1 through stage 4 chronic kidney disease, or unspecified chronic kidney disease; N18.9 Chronic kidney disease, unspecified; E78.00 Pure hypercholesterolemia, unspecified
CPT/HCPCS: 36415; 80053; 81001; 84550; 85025; 85652; 93971; 99284

== ENCOUNTER 2018-08-25 00:21 | Emergency (ER) | payer MEDICARE ==
[2018-08-25 05:37] LABS: BILIRUBIN,URINE NEGATIVE (NEGATIVE); GLUCOSE, URINE 150 mg/dL (NEGATIVE); KETONES,URINE NEGATIVE (NEGATIVE); LEUKOCYTE ESTERASE,URINE NEGATIVE (NEGATIVE); NITRITE,URINE NEGATIVE (NEGATIVE); PROTEIN,URINE >=500 mg/dL (NEGATIVE); URINE SPECIFIC GRAVITY 1.012; UROBILINOGEN,URINE NEGATIVE mg/dL (<2.0)
[2018-08-25 05:38] LABS: APPEARANCE,URINE OPAQUE
[2018-08-25 05:39] LABS: COLOR,URINE RED
--- NOTE | 2018-08-25 06:16 | ER Document Report ---
ED General - General Chief Complaint: Problem with Urinary Catheter Stated Complaint: URINARY ISSUE Time Seen by Provider: 08/25/18 05:05 Notes: Patient is an 78-year-old male presents the emergency department with gross hematuria in his urinary catheter bag. Patient states he was to a urologist yesterday Dr. Cuellar at [facility] for generalized urinary incontinence. States he has had general urinary incontinence for months now and was finally able to get in with urology yesterday. Patient states it took 3 tries for them to inevitably pass a urine catheter. Patient states he has a follow-up with Dr. Cuellar next . Patient states he was placed on Keflex on Monday for a infection in his left leg. States Dr. Cuellar did not change or increase his antibiotics for his urinary tract infection stated Keflex would treat that as well. Past medical history: Enlarged prostate, diabetes, hyperlipidemia, hypertension, asthma, colon cancer Medications: Atorvastatin, oxybutynin, glipizide, pantoprazole, amlodipine, tamsulosin, Advair, Colace, Januvia Allergies: None Surgical history: Partial colon removal with a colostomy bag TRAVEL OUTSIDE OF THE [place] IN LAST 30 DAYS: No - Related Data Allergies/Adverse Reactions: No Known Drug Allergies Allergy (Verified 08/25/18 00:22) Past Medical History - General Information source: Patient - Social History Smoking Status: Never Smoker Chew tobacco use (# tins/day): No Frequency of alcohol use: None Drug Abuse: None Family History: Reviewed & Not Pertinent Patient has suicidal ideation: No Patient has homicidal ideation: No - Past Medical History Cardiac Medical History: Reports: Hx Hypercholesterolemia, Hx Hypertension Pulmonary Medical History: Reports: Hx Asthma Neurological Medical History: Denies: Hx Seizures Endocrine Medical History: Reports: Hx Diabetes Mellitus Type 2 Renal/ Medical History: Denies: Hx Peritoneal Dialysis GI Medical History: Reports: Hx Gastroesophageal Reflux Disease Psychiatric Medical History: Denies: Hx Depression Past Surgical History: Reports: Hx Bowel Surgery - colostomy, Hx Cardiac Surgery - heart stents x 2, Hx Orthopedic Surgery - ankle, Other - colon resction with colostomy for Ca 20 yrs ago and subsequent reconstructi - Immunizations Hx Diphtheria, Pertussis, Tetanus Vaccination: Yes Hx Pneumococcal Vaccination: 10/04/13 Review of Systems - Review of Systems Constitutional: denies: Chills, Fever EENT: No symptoms reported Cardiovascular: No symptoms reported Respiratory: No symptoms reported Gastrointestinal: See HPI Genitourinary: See HPI Male Genitourinary: See HPI Musculoskeletal: No symptoms reported Skin: No symptoms reported Hematologic/Lymphatic: No symptoms reported Neurological/Psychological: No symptoms reported Physical Exam - Vital signs Vitals: Temp Pulse Resp BP Pulse Ox 98.0 F 74 22 H 176/58 H 99 08/25/18 00:31 08/25/18 00:31 08/25/18 00:31 08/25/18 00:08/25/18 00:31 - Notes Notes: GENERAL: Alert, interacts well. No acute distress. HEAD: Normocephalic, atraumatic. EYES: Pupils equal, round, and reactive to light. Extraocular movements intact. ENT: Oral mucosa moist, tongue midline. NECK: Full range of motion. Supple. Trachea midline. LUNGS: Clear to auscultation bilaterally, no wheezes, rales, or rhonchi. No respiratory distress. HEART: Regular rate and rhythm. No murmur ABDOMEN: Soft, non-tender. Non-distended. Bowel sounds present in all 4 quadrants. Colostomy bag noted left lower quadrant. Well-healed surgical scar noted vertically patient's lower abdomen. EXTREMITIES: Moves all 4 extremities spontaneously. No edema, normal radial and dorsalis pedis pulses bilaterally. No cyanosis. BACK: no cervical, thoracic, lumbar midline tenderness. No saddle anesthesia, normal distal neurovascular exam. NEUROLOGICAL: Alert and oriented x3. Normal speech. cranial nerves II through XII grossly intact PSYCH: Normal affect, normal mood. SKIN: Warm, dry, normal turgor. No rashes or lesions noted. Penis is noted to have a catheter inserted no discharge noted at meatus. Bilateral testicles nonerythematous nonswollen nontender. Course - Re-evaluation Re-evalutation: 08/25/18 06:16 Paged on-call urology at [facility], currently awaiting their return phone call. 08/25/18 07:[address] Sarmiento who agrees with treatment plan of keeping the patient well-hydrated and having him follow-up with them outpatient. Patient states he does have an appointment on . Dr. Sarmiento stated to instruct the patient to come to [facility] emergency department should he have a blood clot in the catheter or have any other catheter issues. Patient's hemoglobin was noted to be down to 10.1 from 11.1 on 08/20/2018. Discussed this at length with patient and family at bedside. Discussed continued following up with urology and should the patient have continued gross hematuria in his catheter bag to immediately return to the emergency room. Also discussed should the patient feel lightheaded, weak, dizzy he should also immediately return to the emergency room. Patient and family voiced understanding patient, non-hypotensive, non-ta chycardic, stable for discharge at this time. - Vital Signs Vital signs: Temp Pulse Resp BP Pulse Ox 98.0 F 74 22 H 176/58 H 99 08/25/18 00:31 08/25/18 00:31 08/25/18 00:31 08/25/18 00:31 08/25/18 00:31 - Laboratory Result Diagrams: 08/25/18 06:20 08/25/18 06:20 Laboratory results interpreted by me: 08/25/18 08/25/18 08/25/18 04:07 06:20 06:20 RBC 3.42 L Hgb 10.1 L Hct 29.3 L RDW 15.1 H Chloride 109 H Creatinine 1.59 H Est GFR ( Amer) 51 L Est GFR (Non-Af Amer) 42 L Glucose 115 H Total Protein 6.2 L Urine Protein >=500 H Urine Glucose (UA) 150 H Urine Blood SMALL H Discharge - Discharge Clinical Impression: Hematuria Qualifiers: Hematuria type: gross Qualified Code(s): R31.0 - Gross hematuria Condition: Stable Disposition: HOME, SELF-CARE Instructions: Hematuria ([facility]) Additional Instructions: As we discussed you should follow-up with your urologist as soon as possible. Please call them on Monday to see if they can move your appointment up from [facility]. Please also return to the emergency room should you have continued gross blood in your urine, feel lightheaded, weak, dizzy have any trouble breathing or chest pain. Referrals: HELEN CANO MD [Primary Care Provider] - Follow up as needed
[2018-08-25 06:30] LABS: ABSOLUTE EOSINOPHILS # (AUTO) 0.2 10^3/uL (0.0-0.6); ABSOLUTE LYMPHOCYTES (AUTO) 1.5 10^3/uL (0.5-4.7); ABSOLUTE MONOCYTES (AUTO) 0.8 10^3/uL (0.1-1.4); ABSOLUTE NEUT (AUTO) 5.2 10^3/uL (1.7-8.2); BASOPHILS % (AUTO) 0.4 % (0-2); EOSINOPHILS % (AUTO) 2.3 % (0-6); HEMATOCRIT 29.3 % (37.9-51.0); HEMOGLOBIN 10.1 g/dL (13.5-17.0); LYMPHOCYTES % (AUTO) 19.1 % (13-45); MEAN CORPUSCULAR HEMOGLOBIN 29.6 pg (27.0-33.4); MEAN CORPUSCULAR HGB CONC 34.6 g/dL (32.0-36.0); MEAN CORPUSCULAR VOLUME 86 fl (80-97); MONOCYTES % (AUTO) 10.7 % (3-13); PLATELET COUNT 298 10^3/uL (150-450); RED BLOOD COUNT 3.42 10^6/uL (4.35-5.55); RED CELL DISTRIBUTION WIDTH 15.1 % (11.5-14.0); SEGMENTED NEUTROPHILS % (AUTO) 67.5 % (42-78); TOTAL CELLS COUNTED % (AUTO) 100 %; WHITE BLOOD COUNT 7.7 10^3/uL (4.0-10.5)
[2018-08-25] MEDS ORDERED: NORMAL SALINE 1000 ML 1,000 ML IV ONE (06:40)
[2018-08-25 06:43] LABS: BLOOD UREA NITROGEN 18 mg/dL (7-20); CALCIUM 9.2 mg/dL (8.4-10.2); CARBON DIOXIDE 26 mmol/L (22-30); CHLORIDE 109 mmol/L (98-107); GLUCOSE 115 mg/dL (75-110); POTASSIUM 4.1 mmol/L (3.6-5.0); SODIUM 141.4 mmol/L (137-145)
[2018-08-25 06:44] LABS: ALANINE AMINOTRANSFERASE 34 U/L (21-72); ALBUMIN 3.9 g/dL (3.5-5.0); ALKALINE PHOSPHATASE 48 U/L (38-126); ANION GAP 6 (5-19); ASPARTATE AMINO TRANSFERASE 25 U/L (17-59); BILIRUBIN,DIRECT 0.1 mg/dL (0.0-0.4); BILIRUBIN,TOTAL 0.3 mg/dL (0.2-1.3); TOTAL PROTEIN 6.2 g/dL (6.3-8.2)
[2018-08-25 07:41] VITALS: BP 188/78
== END 2018-08-25 07:39 | disposition home or self-care (01) ==
LOC: ER 00:21
DX: N39.0 Urinary tract infection, site not specified (principal); R31.0 Gross hematuria; N40.1 Benign prostatic hyperplasia with lower urinary tract symptoms; N39.498 Other specified urinary incontinence; L08.9 Local infection of the skin and subcutaneous tissue, unspecified; E78.5 Hyperlipidemia, unspecified; E78.00 Pure hypercholesterolemia, unspecified; E11.9 Type 2 diabetes mellitus without complications; I10 Essential (primary) hypertension; J45.909 Unspecified asthma, uncomplicated; K21.9 Gastro-esophageal reflux disease without esophagitis; Z79.84 Long term (current) use of oral hypoglycemic drugs; Z79.899 Other long term (current) drug therapy; Z79.51 Long term (current) use of inhaled steroids; Z85.038 Personal history of other malignant neoplasm of large intestine; Z95.5 Presence of coronary angioplasty implant and graft; Z93.3 Colostomy status
CPT/HCPCS: 99283; 36415; 87086; 85025; 80053; 81001; J7030; 96360

== ENCOUNTER → 2018-09-10 | Outpatient (CLI) | payer MEDICARE ==
[2018-09-10 08:42] LABS: ABSOLUTE EOSINOPHILS # (AUTO) 0.3 10^3/uL (0.0-0.6); ABSOLUTE LYMPHOCYTES (AUTO) 2.3 10^3/uL (0.5-4.7); ABSOLUTE MONOCYTES (AUTO) 0.7 10^3/uL (0.1-1.4); ABSOLUTE NEUT (AUTO) 4.9 10^3/uL (1.7-8.2); BASOPHILS % (AUTO) 0.5 % (0-2); HEMATOCRIT 32.7 % (37.9-51.0); HEMOGLOBIN 11.2 g/dL (13.5-17.0); LYMPHOCYTES % (AUTO) 27.8 % (13-45); MEAN CORPUSCULAR HEMOGLOBIN 29.5 pg (27.0-33.4); MEAN CORPUSCULAR HGB CONC 34.4 g/dL (32.0-36.0); MEAN CORPUSCULAR VOLUME 86 fl (80-97); MONOCYTES % (AUTO) 8.3 % (3-13); PLATELET COUNT 315 10^3/uL (150-450); RED BLOOD COUNT 3.81 10^6/uL (4.35-5.55); SEGMENTED NEUTROPHILS % (AUTO) 59.4 % (42-78); TOTAL CELLS COUNTED % (AUTO) 100 %; WHITE BLOOD COUNT 8.3 10^3/uL (4.0-10.5)
[2018-09-10 09:10] LABS: ANION GAP 9 (5-19); BLOOD UREA NITROGEN 21 mg/dL (7-20); CALCIUM 9.5 mg/dL (8.4-10.2); CARBON DIOXIDE 24 mmol/L (22-30); CHLORIDE 107 mmol/L (98-107); GLUCOSE 162 mg/dL (75-110); POTASSIUM 4.6 mmol/L (3.6-5.0); SODIUM 139.8 mmol/L (137-145)
[2018-09-11 15:05] LABS: MICROALBUMIN URINE 1403.2 ug/mL (Not Estab.)
== END ==
LOC: OD 07:25
PROVIDERS: ATTEND Internal Medicine Nephrology
DX: I12.9 Hypertensive chronic kidney disease with stage 1 through stage 4 chronic kidney disease, or unspecified chronic kidney disease (principal); N18.3 Chronic kidney disease, stage 3 (moderate); D63.8 Anemia in other chronic diseases classified elsewhere; R80.9 Proteinuria, unspecified
CPT/HCPCS: 36415; 80048; 82043; 82570; 85025

== ENCOUNTER → 2018-12-19 | Outpatient (CLI) | payer MEDICARE ==
[2018-12-19 08:26] LABS: ABSOLUTE EOSINOPHILS # (AUTO) 0.2 10^3/uL (0.0-0.6); ABSOLUTE LYMPHOCYTES (AUTO) 2.2 10^3/uL (0.5-4.7); ABSOLUTE MONOCYTES (AUTO) 0.7 10^3/uL (0.1-1.4); ABSOLUTE NEUT (AUTO) 3.7 10^3/uL (1.7-8.2); BASOPHILS % (AUTO) 0.3 % (0-2); EOSINOPHILS % (AUTO) 3.1 % (0-6); HEMOGLOBIN 10.6 g/dL (13.5-17.0); LYMPHOCYTES % (AUTO) 31.8 % (13-45); MEAN CORPUSCULAR HEMOGLOBIN 28.3 pg (27.0-33.4); MEAN CORPUSCULAR HGB CONC 33.2 g/dL (32.0-36.0); MEAN CORPUSCULAR VOLUME 85 fl (80-97); MONOCYTES % (AUTO) 10.3 % (3-13); PLATELET COUNT 322 10^3/uL (150-450); RED BLOOD COUNT 3.75 10^6/uL (4.35-5.55); RED CELL DISTRIBUTION WIDTH 16.6 % (11.5-14.0); SEGMENTED NEUTROPHILS % (AUTO) 54.5 % (42-78); TOTAL CELLS COUNTED % (AUTO) 100 %; WHITE BLOOD COUNT 6.9 10^3/uL (4.0-10.5)
[2018-12-19 08:38] LABS: ANION GAP 11 (5-19); BLOOD UREA NITROGEN 25 mg/dL (7-20); CALCIUM 10.1 mg/dL (8.4-10.2); CARBON DIOXIDE 26 mmol/L (22-30); CHLORIDE 105 mmol/L (98-107); GLUCOSE 130 mg/dL (75-110); POTASSIUM 4.5 mmol/L (3.6-5.0); SODIUM 141.9 mmol/L (137-145)
[2018-12-20 11:38] LABS: CREATININE URINE 47.8 mg/dL (Not Estab.); MICROALBUMIN URINE 271.2 ug/mL (Not Estab.)
== END ==
LOC: OD 07:03
PROVIDERS: ATTEND Internal Medicine Nephrology
DX: I12.9 Hypertensive chronic kidney disease with stage 1 through stage 4 chronic kidney disease, or unspecified chronic kidney disease (principal); N18.3 Chronic kidney disease, stage 3 (moderate); R80.9 Proteinuria, unspecified; D64.9 Anemia, unspecified
CPT/HCPCS: 36415; 80048; 82043; 82570; 85025

== ENCOUNTER 2019-01-24 21:43 | Inpatient (IN) | payer MEDICARE ==
--- NOTE | 2019-01-25 00:34 | ER Document Report ---
ED Medical Screen (RME) - General Chief Complaint: Abdominal Problem Stated Complaint: POSSIBLE CONSTIPATION Time Seen by Provider: 01/25/19 00:20 Primary Care Provider: CHLOE CHILD MD [Primary Care Provider] - Follow up as needed Notes: 78-year-old male with hypertension, diabetes, and history of colon cancer status post colectomy with a colostomy bag presents to the emergency department with chief complaint of constipation and difficulty ambulating since yesterday. Patient states he has not had a bowel movement in 10 days. He said he does have a bowel regimen per his primary doctor and he typically is regular. He said in the past when he got constipated he could do prune juice and conservative measures but these have not worked this time. Also, patient has had some intermittent leg pain for 1 month but yesterday was having difficulty ambulating and was having bilateral leg weakness. He states he also had nausea, chills, had some chest pain yesterday, no dyspnea on exertion or shortness of breath at rest, complains of acute abdominal pain. I have greeted and performed a rapid initial assessment of this patient. A comprehensive ED assessment and evaluation of the patient, analysis of test results and completion of medical decision making process will be conducted by an additional ED providers. TRAVEL OUTSIDE OF THE [place] IN LAST 30 DAYS: No - Related Data Allergies/Adverse Reactions: No Known Drug Allergies Allergy (Verified 08/25/18 00:22) Past Medical History - Past Medical History Cardiac Medical History: Reports: Hx Hypercholesterolemia, Hx Hypertension Pulmonary Medical History: Reports: Hx Asthma Neurological Medical History: Denies: Hx Seizures Endocrine Medical History: Reports: Hx Diabetes Mellitus Type 2 Renal/ Medical History: Denies: Hx Peritoneal Dialysis GI Medical History: Reports: Hx Gastroesophageal Reflux Disease Psychiatric Medical History: Denies: Hx Depression Past Surgical History: Reports: Hx Bowel Surgery - colostomy, Hx Cardiac Surgery - heart stents x 2, Hx Orthopedic Surgery - ankle, Other - colon resction with colostomy for Ca 20 yrs ago and subsequent reconstructi - Immunizations Hx Diphtheria, Pertussis, Tetanus Vaccination: Yes History of Influenza Vaccine for 05/2017 - 10/2017 Season: Unknown Physical Exam - Vital signs Vitals: Temp Pulse Resp BP Pulse Ox 100.6 F H 88 26 H 155/53 H 95 01/24/19 22:34 01/24/19 22:34 01/24/19 22:34 01/24/19 22:34 01/24/19 22:34 Course - Vital Signs Vital signs: Temp Pulse Resp BP Pulse Ox 100.6 F H 88 26 H 155/53 H 95 01/24/19 22:34 01/24/19 22:34 01/24/19 22:34 01/24/19 22:34 01/24/19 22:34 Doctor's Discharge - Discharge Referrals: CHLOE CHILD MD [Primary Care Provider] - Follow up as needed
--- NOTE | 2019-01-25 01:31 | RADIOLOGY REPORT (SQ) ---
EXAM DESCRIPTION: XR ABDOMEN SUPINE AND ERECT WITH CHEST (ABD ACUTE SERIES) COMPLETED DATE/TME: 01/25/2019 00:34 CLINICAL HISTORY: 78 years, Male, abd pain/constipation COMPARISON: None. NUMBER OF VIEWS: Four TECHNIQUE: AP view of the chest with supine and upright images of the abdomen LIMITATIONS: None. FINDINGS: The lungs are clear. The heart is normal in size. There is no pleural effusion or pneumothorax. There is no intraperitoneal free air. No dilated loops of small bowel identified. Surgical clips are noted within the pelvis. Spondylosis is noted lumbar spine. There are no abnormal calcifications. There is a moderate amount of stool within the colon. IMPRESSION: No acute cardiopulmonary abnormality. Nonobstructive bowel gas pattern. copyright 2010 [employer]- All Rights Reserved
[2019-01-25 02:39] LABS: ABSOLUTE BASOPHILS # (AUTO) 0.1 10^3/uL (0.0-0.2); ABSOLUTE LYMPHOCYTES (AUTO) 1.4 10^3/uL (0.5-4.7); ABSOLUTE MONOCYTES (AUTO) 1.4 10^3/uL (0.1-1.4); ABSOLUTE NEUT (AUTO) 13.3 10^3/uL (1.7-8.2); BASOPHILS % (AUTO) 0.4 % (0-2); EOSINOPHILS % (AUTO) 0.1 % (0-6); HEMATOCRIT 32.1 % (37.9-51.0); HEMOGLOBIN 10.8 g/dL (13.5-17.0); LYMPHOCYTES % (AUTO) 8.7 % (13-45); MEAN CORPUSCULAR HEMOGLOBIN 28.8 pg (27.0-33.4); MEAN CORPUSCULAR HGB CONC 33.7 g/dL (32.0-36.0); MEAN CORPUSCULAR VOLUME 86 fl (80-97); MONOCYTES % (AUTO) 8.6 % (3-13); PLATELET COUNT 309 10^3/uL (150-450); RED BLOOD COUNT 3.75 10^6/uL (4.35-5.55); RED CELL DISTRIBUTION WIDTH 15.3 % (11.5-14.0); SEGMENTED NEUTROPHILS % (AUTO) 82.2 % (42-78); TOTAL CELLS COUNTED % (AUTO) 100 %; WHITE BLOOD COUNT 16.2 10^3/uL (4.0-10.5)
[2019-01-25 02:56] LABS: ALANINE AMINOTRANSFERASE 26 U/L (21-72); ALBUMIN 4.3 g/dL (3.5-5.0); ALKALINE PHOSPHATASE 45 U/L (38-126); ANION GAP 12 (5-19); ASPARTATE AMINO TRANSFERASE 21 U/L (17-59); BILIRUBIN,DIRECT 0.4 mg/dL (0.0-0.4); BILIRUBIN,TOTAL 0.6 mg/dL (0.2-1.3); BLOOD UREA NITROGEN 23 mg/dL (7-20); CARBON DIOXIDE 24 mmol/L (22-30); CHLORIDE 103 mmol/L (98-107); GLUCOSE 136 mg/dL (75-110); POTASSIUM 4.4 mmol/L (3.6-5.0); SODIUM 138.7 mmol/L (137-145); TOTAL PROTEIN 7.2 g/dL (6.3-8.2)
[2019-01-25 03:36] LABS: APPEARANCE,URINE TURBID; BILIRUBIN,URINE NEGATIVE (NEGATIVE); COLOR,URINE YELLOW; GLUCOSE, URINE 50 mg/dL (NEGATIVE); KETONES,URINE TRACE mg/dL (NEGATIVE); LEUKOCYTE ESTERASE,URINE LARGE (NEGATIVE); NITRITE,URINE POSITIVE (NEGATIVE); PROTEIN,URINE 100 mg/dL (NEGATIVE); URINE SPECIFIC GRAVITY 1.014; UROBILINOGEN,URINE NEGATIVE mg/dL (<2.0)
[2019-01-25] MEDS ORDERED: ACETAMINOPHEN 325 MG TABLET PO ONE (05:30)
[2019-01-25] MEDS ORDERED: PIPERACILLIN/TAZOBACTAM 3.375 GM VIAL IV ONE (06:04)
[2019-01-25] MEDS: RINGERS SOLUTION,LACTATED 1,000 ML IV PRN ×2 (06:28→08:10)
--- NOTE | 2019-01-25 07:15 | RADIOLOGY REPORT (SQ) ---
EXAM DESCRIPTION: CT ABDOMEN PELVIS WITHOUT IV CONTRAST COMPLETED DATE/TME: 01/25/2019 05:39 CLINICAL HISTORY: 78 years Male, abd pain elev WBC Comparison: 02/21/18 Technique: No contrast. Coronal and sagittal reformat. This exam was performed according to our departmental dose-optimization program, which includes automated exposure control, adjustment of the mA and/or kV according to patient size and/or use of iterative reconstruction technique.[facility]: Dose Right [facility]: CareDose [facility]: Dose Right [facility]: Teradose 4D [facility]: Pump! LIMITATIONS: Arm position. Findings: Multiple ventral and periumbilical hernia involving small bowel include a 7.1 cm right periumbilical hernia, 5.2 cm left periumbilical hernia, 4.7 cm left paramedial supraumbilical hernia, and 2.97 right para medial ventral hernia of the mid abdomen. Cannot exclude transient incarceration. No significant bowel obstruction. Moderate to severe dilation of the right renal collecting system is mildly dilated urinary bladder. Surgical clips at the expected rectum. No significant bowel identified at the rectal fossa likely postsurgical scar. Stool retention. Coronary arterial calcification/stent. Atherosclerotic vascular disease. No ascites. No pneumoperitoneum. No evidence of appendicitis. Appendix not definitively discerned. No gross evidence of gallbladder inflammation or hepatobiliary obstruction. Gynecomastia. Lytic lesions and/or prominent notochordal remnants involving the inferior L2 and L3 vertebral bodies. Unenhanced lower thorax, abdominopelvic structures, and musculoskeleton appear otherwise grossly unremarkable. Impression: 1. No significant changes compared with prior exam from February 2018. 2. Multiple ventral small bowel hernia. No bowel obstruction. 3. Moderate to severe right hydronephrosis-hydroureter. No radiopaque stone. Differential etiologies include stricture and neoplasm. 4. Postsurgical changes of the bowel.
--- NOTE | 2019-01-25 08:01 | ER Document Report ---
ED General - General Chief Complaint: Abdominal Problem Stated Complaint: POSSIBLE CONSTIPATION Time Seen by Provider: 01/25/19 00:20 Notes: 78-year-old male with an extensive abdominal history including multiple hernias, total colectomy with ostomy secondary to colon cancer without a rectum, ostomy dependent. He can presents with no ostomy output for over a week. Intermittent gas but no fluid. Eating until couple days ago when he stopped eating. Abdominal distention and pain. Denies fever. TRAVEL OUTSIDE OF THE [place] IN LAST 30 DAYS: No - Related Data Allergies/Adverse Reactions: No Known Drug Allergies Allergy (Verified 01/25/19 07:18) Past Medical History - Social History Smoking Status: Never Smoker Chew tobacco use (# tins/day): No Frequency of alcohol use: None Drug Abuse: None Family History: Reviewed & Not Pertinent Patient has suicidal ideation: No Patient has homicidal ideation: No - Past Medical History Cardiac Medical History: Reports: Hx Hypercholesterolemia, Hx Hypertension Pulmonary Medical History: Reports: Hx Asthma Neurological Medical History: Denies: Hx Seizures Endocrine Medical History: Reports: Hx Diabetes Mellitus Type 2 Renal/ Medical History: Denies: Hx Peritoneal Dialysis GI Medical History: Reports: Hx Gastroesophageal Reflux Disease Psychiatric Medical History: Denies: Hx Depression Past Surgical History: Reports: Hx Bowel Surgery - colostomy, Hx Cardiac Surgery - heart stents x 2, Hx Orthopedic Surgery - ankle, Other - colon resction with colostomy for Ca 20 yrs ago and subsequent reconstructi - Immunizations Hx Diphtheria, Pertussis, Tetanus Vaccination: Yes Hx Pneumococcal Vaccination: 10/04/13 Review of Systems - Review of Systems Notes: REVIEW OF SYSTEMS GEN: Denies fever, chills, weight loss ENT: Denies sore throat, nasal discharge, ear pain EYES: Denies blurry vision, eye pain, discharge CV: Denies chest pain, palpitations, edema RESP: Denies cough, shortness of breath, wheezing GI: Decreased ostomy output nausea and belly pain MSK: Denies joint pain/swelling, edema, SKIN: Denies rash, skin lesions LYMPH: Denies swollen glands/lymph nodes NEURO: Denies headache, focal weakness or numbness, dizziness PSYCH: Denies depression, suicidal or homicidal ideation PHYSICAL EXAMINATION General: No acute distress, well-nourished Head: Atraumatic, normocephalic ENT: Mouth normal, oropharynx moist, no exudates or tonsillar enlargement Eyes: Conjunctiva normal, pupils equal, lids normal Neck: No JVD, supple, no guarding CVS: Normal rate, regular rhythm, no murmurs Resp: No resp distress, equal and normal breath sounds bilaterally GI: Distended chip-incisional hernias in the lower abdomen appear reducible. Mild diffuse tenderness. Ostomy healthy but no output in bag. Ext: No deformities, no edema, normal range of motion in upper and lower ext Back: No CVA or midline TTP Skin: No rash, warm Lymphatic: No lymphadeopathy noted Neuro: Awake, alert. Face symmetric. GCS 15. Physical Exam - Vital signs Vitals: Temp Pulse Resp BP Pulse Ox 100.6 F H 88 26 H 155/53 H 95 01/24/19 22:34 01/24/19 22:34 01/24/19 22:34 01/24/19 22:34 01/24/19 22:34 Course - Re-evaluation Re-evalutation: 01/25/19 09:40 Patient presents with abdominal pain distention decreased stoma output. Incidentally febrile and tachycardic with tenderness. Concern for abdominal/perforation/obstruction. Patient's labs are sent. Was given fluid resuscitation. He was given antibiotics to cover abdominal etiologies. His white count is elevated much above his baseline. Urine is infected that she does self cath but this could represent urinary sepsis. He was cultured. CT shows unchanged findings of multiple hernias, some prominent loops, and right-sided hydronephrosis. Discussed with radiology, they do not see an obstruction. Given this his stoma has decreased output and he may have a stricture. Discussed with Dr. Brown who saw the patient and asked for a small bowel follow-through, and will follow along. Admitted to Dr. Roa who agrees with the plan. - Vital Signs Vital signs: Temp Pulse Resp BP Pulse Ox 100 F 88 20 151/52 H 97 01/25/19 09:01 01/24/19 22:34 01/25/19 06:16 01/25/19 09:02 01/25/19 09:02 - Laboratory Result Diagrams: 01/25/19 02:16 01/25/19 02:16 Laboratory results interpreted by me: 01/25/19 01/25/19 01/25/19 02:16 02:16 03:05 WBC 16.2 H RBC 3.75 L Hgb 10.8 L Hct 32.1 L RDW 15.3 H Seg Neutrophils % 82.2 H Lymphocytes % 8.7 L Absolute Neutrophils 13.3 H BUN 23 H Creatinine 2.10 H Est GFR ( Amer) 37 L Est GFR (Non-Af Amer) 31 L Glucose 136 H Urine Protein 100 H Urine Glucose (UA) 50 H Urine Ketones TRACE H Urine Blood SMALL H Urine Nitrite POSITIVE H Ur Leukocyte Esterase LARGE H - Diagnostic Test Radiology reviewed: Image reviewed, Reports reviewed Critical Care Note - Critical Care Note Total time excluding time spent on procedures (mins): 32 Comments: The above patient is critically ill. Not including procedures, but including direct re-evaluations, speaking with patient and/or consultants, interpreting results, and documenting, I spent the total amount of minute listed listed above on critical care time Discharge - Discharge Clinical Impression: Sepsis Qualifiers: Sepsis type: sepsis due to unspecified organism Qualified Code(s): A41.9 - S epsis, unspecified organism Condition: Good Disposition: ADMITTED INPATIENT Admitting Provider: [facility] Unit Admitted: [facility]
--- NOTE | 2019-01-25 08:41 | PDOC CONSULTATION ---
Consultation Consult Date: 01/25/19 Provider Consulted: ALFRED OLVERA Consult reason:: abdominal pains with possible obstruction History of Present Illness Admission Date/PCP: RAMILA CANO MD History of Present Illness: CECILIO BURNS is a 78 year old male with hx of rectal ca post Mile's procedure 22 yrs ago followed by Exploratory laparotomy for bowel obstruction due to adhesions x2 8 yrs ago c/o off and on pains around colostomy past [address] abd/pelvis in ED which does not show any obstruction but has multiple incisional hernias. Further claims colostomy not draining since yesterday and pains gotten worse since. Started self catheterization 2 months ago. Hx DM. Denies fever/chills. His is with him who is able to give some of the history. Patient is very anxious. Past Medical History Cardiac Medical History: Reports: Hyperlipidema, Hypertension Pulmonary Medical History: Reports: Asthma Neurological Medical History: Denies: Seizures Endocrine Medical History: Reports: Diabetes Mellitus Type 2 GI Medical History: Reports: Gastroesophageal Reflux Disease Psychiatric Medical History: Denies: Depression Past Surgical History Past Surgical History: Reports: Orthopedic Surgery - ankle, Other - colon resction with colostomy for Ca 20 yrs ago and subsequent reconstructi Social History Smoking Status: Former Smoker Frequency of Alcohol Use: None Hx Recreational Drug Use: No Drugs: None Hx Prescription Drug Abuse: No Family History Family History: Reviewed & Not Pertinent Parental Family History Reviewed: No Children Family History Reviewed: No Sibling(s) Family History Reviewed.: Yes - 2 younger brothers as a complication of '[employer] [place]" Medication/Allergy Home Medications: Albuterol Sulfate [Proair HFA Inhalation Aerosol 8.5 gm MDI] 1 puff IH Q6HP PRN 03/11/18 Amlodipine Besylate [Norvasc 10 mg Tablet] 10 mg PO QHS 03/11/18 Aspirin [Ecotrin 81 mg EC Tablet] 81 mg PO QHS 03/11/18 Atorvastatin Calcium [Lipitor 40 mg Tablet] 20 mg PO QHS 03/11/18 Docusate Sodium [Colace 100 mg Capsule] 400 mg PO QHS 03/11/18 Fenofibrate 160 mg PO QHS 03/11/18 Finasteride [Proscar 5 mg Tablet] 5 mg PO QHS 03/11/18 Fluticasone/Salmeterol [Advair 250-50 Diskus 14 Dose/Diskus] 1 puff IN Q12 03/11/18 Glipizide [Glucotrol 5 mg Tablet] 5 mg PO QHS 03/11/18 Hydralazine HCl [Apresoline 25 mg Tablet] 25 mg PO Q8 03/11/18 Montelukast Sodium [Singulair 10 mg Tablet] 10 mg PO QHS 03/11/18 Pantoprazole Sodium [Protonix] 40 mg PO QHS 03/11/18 Polyethylene Glycol 3350 [Miralax Powder 17 gm/Packet] 17 gm PO QHS 03/11/18 Pramipexole Di-HCl [Pramipexole Dihydrochloride] 0.125 mg PO QHS 03/11/18 Psyllium Seed [Metamucil-Sf Powder 5.85 gm Packet] 1 packet PO QHS 03/11/18 Sitagliptin Phosphate [Januvia] 100 mg PO QHS 03/11/18 Tamsulosin HCl [Flomax 0.4 mg Cap.sr] 0.4 mg PO QHS 03/11/18 Allergies/Adverse Reactions: No Known Drug Allergies Allergy (Verified 01/25/19 07:18) Review of Systems Constitutional: PRESENT: as per HPI Nose, Mouth, and Throat: PRESENT: sore throat - feels like something gets stuck in his left side of pharynx and able to dislodge it by pushing from outside Cardiovascular: PRESENT: other - no chest pains/cough Gastrointestinal: PRESENT: abdominal pain Genitourinary: PRESENT: difficulty urinating - self catheterizes Neurological: PRESENT: weakness - Suddenly felt weak while gardening a few days ago and fell on his knees and now c/o left leg pains Physical Exam Vital Signs: Temp Pulse Resp BP Pulse Ox 100.5 F H 88 20 169/60 H 95 01/25/19 06:16 01/24/19 22:34 01/25/19 06:16 01/25/19 07:30 01/25/19 07:30 Intake & Output 01/24/19 01/25/19 01/26/19 06:59 06:59 06:59 Intake Total 1000 Balance 1000 Weight 89.6 kg General appearance: PRESENT: mild distress Head exam: PRESENT: atraumatic Eye exam: PRESENT: conjunctiva pink Mouth exam: PRESENT: moist Neck exam: PRESENT: full ROM Respiratory exam: PRESENT: clear to auscultation yumiko Cardiovascular exam: PRESENT: RRR Pulses: PRESENT: normal radial pulses, +2 pedal pulses bilateral Vascular exam: PRESENT: normal capillary refill GI/Abdominal exam: PRESENT: soft, tenderness - colostomy bag filled with air. Has mild tenderness around colostomy. Has multiple incisional hernias without incarceration Extremities exam: PRESENT: full ROM, other - no edema and no mali tenderness. intact ankle pulses Musculoskeletal exam: PRESENT: ambulatory Neurological exam: PRESENT: awake, oriented to person, oriented to place, oriented to time, oriented to situation Psychiatric exam: PRESENT: anxious Results Laboratory Results: 01/25/19 02:16 01/25/19 02:16 01/25/19 01/25/19 01/25/19 02:16 02:16 03:05 WBC 16.2 H RBC 3.75 L Hgb 10.8 L Hct 32.1 L MCV 86 MCH 28.8 MCHC 33.7 RDW 15.3 H Plt Count 309 Seg Neutrophils % 82.2 H Lymphocytes % 8.7 L Monocytes % 8.6 Eosinophils % 0.1 Basophils % 0.4 Absolute Neutrophils 13.3 H Absolute Lymphocytes 1.4 Absolute Monocytes 1.4 Absolute Eosinophils 0.0 Absolute Basophils 0.1 Sodium 138.7 Potassium 4.4 Chloride 103 Carbon Dioxide 24 Anion Gap 12 BUN 23 H Creatinine 2.10 H Est GFR ( Amer) 37 L Est GFR (Non-Af Amer) 31 L Glucose 136 H Lactic Acid Calcium 10.0 Total Bilirubin 0.6 AST 21 ALT 26 Alkaline Phosphatase 45 Total Protein 7.2 Albumin 4.3 Urine Color YELLOW Urine Appearance TURBID Urine pH 5.0 Ur Specific [place] 1.014 Urine Protein 100 H Urine Glucose (UA) 50 H Urine Ketones TRACE H Urine Blood SMALL H Urine Nitrite POSITIVE H Ur Leukocyte Esterase LARGE H Urine WBC (Auto) >182 Urine RBC (Auto) 22 01/25/19 06:17 WBC RBC Hgb Hct MCV MCH MCHC RDW Plt Count Seg Neutrophils % Lymphocytes % Monocytes % Eosinophils % Basophils % Absolute Neutrophils Absolute Lymphocytes Absolute Monocytes Absolute Eosinophils Absolute Basophils Sodium Potassium Chloride Carbon Dioxide Anion Gap BUN Creatinine Est GFR ( Amer) Est GFR (Non-Af Amer) Glucose Lactic Acid 0.7 Calcium Total Bilirubin AST ALT Alkaline Phosphatase Total Protein Albumin Urine Color Urine Appearance Urine pH Ur Specific [place] Urine Protein Urine Glucose (UA) Urine Ketones Urine Blood Urine Nitrite Ur Leukocyte Esterase Urine WBC (Auto) Urine RBC (Auto) 01/25/19 02:16 Troponin I 0.021 Impressions: Acute Abdomen Series 01/25/19 00:34 IMPRESSION: No acute cardiopulmonary abnormality. Nonobstructive bowel gas pattern. copyright 2010 [employer]- All Rights Reserved Assessment & Plan - Diagnosis (1) Abdominal pains around colostomy Is this a current diagnosis for this admission?: Yes (2) multiple incisional hernias,non obstruct Is this a current diagnosis for this admission?: Yes (3) Type 2 diabetes mellitus Qualifiers: Diabetes mellitus fpc insulin use: without termite control servicer use Diabetes mellitus complication status: with neurologic complications Diabetes mellitus complication detail: with polyneuropathy Qualified Code(s): E11.42 - Type 2 diabetes mellitus with diabetic polyneuropathy Is this a current diagnosis for this admission?: Yes (4) UTI (urinary tract infection) Is this a current diagnosis for this admission?: Yes - Time Time Spent: 30 to 50 Minutes - Plan Summary Plan Summary: D/W Dr Henriquez (ED MD) Will order SBFT to check for any obstruction/narrowing. No definite obstruction clinically and by CT scan Will follow with medicine if eventually admitted for UTI
[2019-01-25] MEDS ORDERED: ONDANSETRON HCL INJ/PF 4 MG/2 ML SDV IV PRN (09:17)
[2019-01-25] MEDS ORDERED: PIPERACILLIN SODIUM/TAZOBACTAM 3.375 GM in NORMAL SALINE 100 ML IV SCH (12:00)
[2019-01-25] MEDS ORDERED: ENOXAPARIN SODIUM INJ 40 MG/0.4 ML DISP.SYRIN SUBCUT ONE (13:00)
[2019-01-25] MEDS ORDERED: DOCUSATE SODIUM 100 MG CAPSULE PO ONE (13:00)
[2019-01-25] MEDS: DOCUSATE SODIUM 100 MG CAPSULE PO SCH ×2 (13:07→17:40)
[2019-01-25] MEDS: ENOXAPARIN SODIUM INJ 40 MG/0.4 ML DISP.SYRIN SUBCUT SCH (13:08)
[2019-01-25] MEDS: PIPERACILLIN SODIUM/TAZOBACTAM 2.25 GM in NORMAL SALINE 50 ML IV SCH ×2 (13:08→17:38)
--- NOTE | 2019-01-25 13:16 | PDOC H&P ---
History of Present Illness Admission Date/PCP: 01/25/19 09:26 RAMILA CANO MD Patient complains of: Abdominal pain constipation History of Present Illness: CECILIO BURNS is a 78 year old male This is a 78-year-old male with a history of the colon cancer status post colectomy history of hypertension's history of the chronic kidney disease and a history of the chronic urinary tract infections and a chronic self- catheterization is currently see her Dr. Cuellar urology as outpatient and also seeing nephrology Dr. Camejo and also see a Dr. Benjamin came to the emergency department with the complaining of constipation for the last 1 week Feel very discomfort in the abdomen and also patient is running a fever 100.4 in the emergency department In the emergency department patient CT abdomen pelvis was negative for any acute finding but concern about some kind of colon issue and surgery was consulted and ordered the further study Patient also found a urinary tract infections and sepsis with elevated white count and given IV Zosyn According to the patient's he went to see a some urgent care a couple of weeks back with some issue with the throat and patient was giving nystatin suspensions and referred to dermatology and not sure the director stage said that nothing he can do patient's denied any difficulty in swallowing but Still some discomfort on the throat area Patient's denied any chest pain to than any shortness of the breath Patient has a history of coronary artery disease status post stent placement seen cardiology 2 years back's currently denied any complaints Past Medical History Cardiac Medical History: Reports: Coronary Artery Disease, Hyperlipidema, Hypertension Pulmonary Medical History: Reports: Asthma Neurological Medical History: Denies: Seizures Endocrine Medical History: Reports: Diabetes Mellitus Type 2 Renal/ Medical History: Reports: Chronic Kidney Disease Malignancy Medical History: Reports: Colorectal Cancer GI Medical History: Reports: Gastroesophageal Reflux Disease Psychiatric Medical History: Reports: Depression Past Surgical History Past Surgical History: Reports: Orthopedic Surgery - ankle, Other - colon resction with colostomy for Ca 20 yrs ago and subsequent reconstructi Social History Information Source: Patient, Relative Smoking Status: Never Smoker Frequency of Alcohol Use: None Hx Recreational Drug Use: No Drugs: None Hx Prescription Drug Abuse: No Family History Family History: Reviewed & Not Pertinent Parental Family History Reviewed: Yes Children Family History Reviewed: Yes Sibling(s) Family History Reviewed.: Yes Medication/Allergy Home Medications: Albuterol Sulfate [Proair HFA Inhalation Aerosol 8.5 gm MDI] 1 puff IH Q6HP PRN 03/11/18 Amlodipine Besylate [Norvasc 10 mg Tablet] 10 mg PO QHS 03/11/18 Atorvastatin Calcium [Lipitor 40 mg Tablet] 20 mg PO QHS 03/11/18 Fenofibrate 160 mg PO QHS 03/11/18 Finasteride [Proscar 5 mg Tablet] 5 mg PO QHS 03/11/18 Fluticasone/Salmeterol [Advair 250-50 Diskus 14 Dose/Diskus] 1 puff IN Q12 03/11/18 Glipizide [Glucotrol 5 mg Tablet] 5 mg PO QHS 03/11/18 Montelukast Sodium [Singulair 10 mg Tablet] 10 mg PO QHS 03/11/18 Pantoprazole Sodium [Protonix] 40 mg PO QHS 03/11/18 Pramipexole Di-HCl [Pramipexole Dihydrochloride] 0.25 mg PO QHS 03/11/18 Sitagliptin Phosphate [Januvia] 100 mg PO QHS 03/11/18 Tamsulosin HCl [Flomax 0.4 mg Cap.sr] 0.4 mg PO QHS 03/11/18 Allergies/Adverse Reactions: No Known Drug Allergies Allergy (Verified 01/25/19 07:18) Review of Systems Constitutional: PRESENT: chills, fatigue, fever(s). ABSENT: headache(s), weight gain, weight loss Eyes: ABSENT: visual disturbances Ears: ABSENT: hearing changes Cardiovascular: ABSENT: chest pain, dyspnea on exertion, edema, orthropnea, palpitations Respiratory: ABSENT: cough, hemoptysis Gastrointestinal: PRESENT: abdominal pain, bloating, constipation. ABSENT: diarrhea, hematemesis, hematochezia, nausea, vomiting Genitourinary: ABSENT: dysuria, hematuria Musculoskeletal: ABSENT: joint swelling Integumentary: ABSENT: rash, wounds Neurological: ABSENT: abnormal gait, abnormal speech, confusion, dizziness, focal weakness, syncope Psychiatric: ABSENT: anxiety, depression, homidical ideation, suicidal ideation Endocrine: ABSENT: cold intolerance, heat intolerance, menstrual abnormalities, polydipsia, polyuria Hematologic/Lymphatic: ABSENT: easy bleeding, easy bruising, lymphadenopathy Physical Exam Vital Signs: Temp Pulse Resp BP Pulse Ox 100 F 88 20 151/52 H 97 01/25/19 09:01 01/24/19 22:34 01/25/19 06:16 01/25/19 09:02 01/25/19 09:02 Intake & Output 01/24/19 01/25/19 01/26/19 06:59 06:59 06:59 Intake Total 1000 1000 Balance 1000 1000 Weight 89.6 kg General appearance: PRESENT: no acute distress, well-developed, well-nourished Head exam: PRESENT: atraumatic, normocephalic Eye exam: PRESENT: conjunctiva pink, EOMI, PERRLA. ABSENT: scleral icterus Ear exam: PRESENT: normal external ear exam Mouth exam: PRESENT: moist, tongue midline Neck exam: PRESENT: full ROM. ABSENT: carotid bruit, JVD, lymphadenopathy, thyromegaly Respiratory exam: PRESENT: clear to auscultation yumiko Cardiovascular exam: PRESENT: RRR. ABSENT: diastolic murmur, rubs, systolic murmur Pulses: PRESENT: normal dorsalis pedis pul, +2 pedal pulses bilateral Vascular exam: PRESENT: normal capillary refill GI/Abdominal exam: PRESENT: normal bowel sounds, soft, tenderness. ABSENT: distended, guarding, mass, organolmegaly, rebound Additonal comments: Colostomy bag is present Rectal exam: PRESENT: deferred Neurological exam: PRESENT: alert, awake, oriented to person, oriented to place, oriented to time, oriented to situation, CN II-XII grossly intact. ABSENT: motor sensory deficit Psychiatric exam: PRESENT: appropriate affect, normal mood. ABSENT: homicidal ideation, suicidal ideation Skin exam: PRESENT: dry, intact, warm. ABSENT: cyanosis, rash Results Laboratory Results: 01/25/19 02:16 01/25/19 02:16 01/25/19 01/25/19 01/25/19 02:16 02:16 03:05 WBC 16.2 H RBC 3.75 L Hgb 10.8 L Hct 32.1 L MCV 86 MCH 28.8 MCHC 33.7 RDW 15.3 H Plt Count 309 Seg Neutrophils % 82.2 H Lymphocytes % 8.7 L Monocytes % 8.6 Eosinophils % 0.1 Basophils % 0.4 Absolute Neutrophils 13.3 H Absolute Lymphocytes 1.4 Absolute Monocytes 1.4 Absolute Eosinophils 0.0 Absolute Basophils 0.1 Sodium 138.7 Potassium 4.4 Chloride 103 Carbon Dioxide 24 Anion Gap 12 BUN 23 H Creatinine 2.10 H Est GFR ( Amer) 37 L Est GFR (Non-Af Amer) 31 L Glucose 136 H Lactic Acid Calcium 10.0 Total Bilirubin 0.6 AST 21 ALT 26 Alkaline Phosphatase 45 Total Protein 7.2 Albumin 4.3 Urine Color YELLOW Urine Appearance TURBID Urine pH 5.0 Ur Specific [place] 1.014 Urine Protein 100 H Urine Glucose (UA) 50 H Urine Ketones TRACE H Urine Blood SMALL H Urine Nitrite POSITIVE H Ur Leukocyte Esterase LARGE H Urine WBC (Auto) >182 Urine RBC (Auto) 22 01/25/19 06:17 WBC RBC Hgb Hct MCV MCH MCHC RDW Plt Count Seg Neutrophils % Lymphocytes % Monocytes % Eosinophils % Basophils % Absolute Neutrophils Absolute Lymphocytes Absolute Monocytes Absolute Eosinophils Absolute Basophils Sodium Potassium Chloride Carbon Dioxide Anion Gap BUN Creatinine Est GFR ( Amer) Est GFR (Non-Af Amer) Glucose Lactic Acid 0.7 Calcium Total Bilirubin AST ALT Alkaline Phosphatase Total Protein Albumin Urine Color Urine Appearance Urine pH Ur Specific [place] Urine Protein Urine Glucose (UA) Urine Ketones Urine Blood Urine Nitrite Ur Leukocyte Esterase Urine WBC (Auto) Urine RBC (Auto) 01/25/19 02:16 Troponin I 0.021 Impressions: Acute Abdomen Series 01/25/19 00:34 IMPRESSION: No acute cardiopulmonary abnormality. Nonobstructive bowel gas pattern. copyright 2010 [employer]- All Rights Reserved Assessment & Plan - Diagnosis (1) Abdominal pains around colostomy Is this a current diagnosis for this admission?: Yes Plan: Patient's seen by the general surgery follow with him for further evaluations (2) Sepsis Qualifiers: Sepsis type: sepsis due to unspecified organism Qualified Code(s): A41.9 - Sepsis, unspecified organism Is this a current diagnosis for this admission?: Yes Plan: Likely from urinary tract infections will start on IV antibiotics send the urine culture blood culture (3) UTI (urinary tract infection) Qualifiers: Urinary tract infection type: catheter-associated UTI Is this a current diagnosis for this admission?: Yes Plan: Due to the chronic self cath use will send the urine for culture start IV antibiotic (4) multiple incisional hernias,non obstruct Is this a current diagnosis for this admission?: Yes Plan: Follow with the surgery (5) Chronic kidney disease, stage 3 Is this a current diagnosis for this admission?: Yes Plan: Consults the patient's nephrology for further evaluations with ongoing sepsis kidney failure and hydronephrosis (6) Constipation Qualifiers: Constipation type: unspecified constipation type Qualified Code(s): K59.00 - Constipation, unspecified Is this a current diagnosis for this admission?: Yes Plan: Use the Colace and MiraLAX (7) Coronary artery disease Qualifiers: Coronary Disease-Associated Artery/Lesion type: [place] artery Is this a current diagnosis for this admission?: Yes Plan: Get the EKG in the morning currently asymptomatic (8) Hydronephrosis of right kidney Is this a current diagnosis for this admission?: Yes Plan: Chronic unchanged (9) Personal history of colon cancer Is this a current diagnosis for this admission?: Yes (10) Type 2 diabetes mellitus Qualifiers: Diabetes mellitus longterm insulin use: without longterm use Diabetes mellitus complication status: with neurologic complications Diabetes mellitus complication detail: with polyneuropathy Qualified Code(s): E11.42 - Type 2 diabetes mellitus with diabetic polyneuropathy Is this a current diagnosis for this admission?: Yes Plan: Continues a sliding scale (11) Throat pain Is this a current diagnosis for this admission?: Yes Plan: On oral exams nothing acute finding will get the throat culture - Time Time Spent: 30 to 50 Minutes Medications reviewed and adjusted accordingly: Yes Anticipated discharge: Home Within: Other - Inpatient Certification Based on my medical assessment, after consideration of the patient's comorbidities, presenting symptoms, or acuity I expect that the services needed warrant INPATIENT care.: Yes I certify that my determination is in accordance with my understanding of Medicare's requirements for reasonable and necessary INPATIENT services [42 CFR 412.3e].: Yes Medical Necessity: Need Close Monitoring Due to Risk of Patient Decompensation, Need For IV Fluids, Need for IV Antibiotics, Need for Surgery 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
[2019-01-25] MEDS ORDERED: DEXTROSE 40% GEL 15 GM TUBE PO PRN ×2 (13:31)
[2019-01-25] MEDS ORDERED: ALBUTEROL SULFATE HFA (90 MCG/PUFF) 200 PUFF/8.5 GM MDI IH PRN (13:31)
[2019-01-25] MEDS ORDERED: GLUCAGON,HUMAN RECOMB 1 MG INJ IM PRN (13:31)
[2019-01-25] MEDS ORDERED: DEXTROSE 50%-WATER 25 GM/50 ML DISP.SYRIN IV PRN ×2 (13:31)
--- NOTE | 2019-01-25 15:12 | RADIOLOGY REPORT (SQ) ---
EXAM DESCRIPTION: BARIUM SWALLOW ESOPHAGUS COMPLETED DATE/TIME: 01/25/2019 2:01 pm REASON FOR STUDY: dysphagia COMPARISON: CT abdomen pelvis 01/25/2019 Small bowel follow-through 01/25/2019 TECHNIQUE: Under fluoroscopic guidance, patient ingested thin barium. Fluoroscopic spot images and r outine radiographic images acquired and stored on PACS. 12 MM BARIUM TABLET GIVEN: No LIMITATIONS: None. FLUOROSCOPY TIME: 2.2 minutes 8 series of digital images saved to PACS. FINDINGS: NEUROMUSCULAR COORDINATION OF SWALLOW: Normal. No aspiration. ESOPHAGEAL MOTILITY: Intermittent tertiary contractions with poor primary stripping wave ESOPHAGEAL MUCOSA: Minimal mucosal irregularity distal esophagus above a hiatal hernia. GASTRO-ESOPHAGEAL JUNCTION: Tiny hiatal hernia with gastroesophageal reflux. No Schatzki's ring NON-GI TRACT STRUCTURES: No significant finding. OTHER: No other significant finding. IMPRESSION: Intermittent tertiary contractions of the esophagus with poor primary stripping wave Mild mucosal irregularity in the distal esophagus just above a small hiatal hernia Tiny hiatal hernia with gastroesophageal reflux. No Schatzki's ring COMMENT: Quality ID 145: Final reports for procedures using fluoroscopy that document radiation exp osure indices, or exposure time and number of fluorographic images (if radiation exposure indices are not available) TECHNICAL DOCUMENTATION: JOB ID: [id number] [employer]- All Rights Reserved Reading location - IP/workstation name: [email or web address]
--- NOTE | 2019-01-25 15:16 | RADIOLOGY REPORT (SQ) ---
EXAM DESCRIPTION: SMALL BOWEL SERIES COMPLETED DATE/TIME: 01/25/2019 2:33 pm REASON FOR STUDY: obstruction COMPARISON: CT abdomen pelvis 01/25/2019 Esophagram earlier today FLUOROSCOPY TIME: Less than 30 seconds 12 KUB images saved to PACS. LIMITATIONS: None. PROCEDURE: Initial adult education instructor image of abdomen acquired, followed by administration of oral contrast. Se rial radiographic images acquired. Fluoroscopic images recorded of the terminal ileum and other jenny cated areas. All images stored on PACS. FINDINGS: Study was performed immediately after single contrast esophagram. There is prompt gastric emptying. STOMACH: No significant reflux. Normal distention without abnormality. DUODENUM: Normal mucosal pattern with adequate distention. No obstruction. Benign periampullary duo denum diverticulum, 3rd portion duodenum diverticulum. JEJUNUM: Normal mucosal pattern. No dilatation, segmentation, strictures or masses. ILEUM: Normal mucosal pattern. No dilatation, segmentation, strictures or masses. TERMINAL ILEUM AND ILEO-CECAL VALVE: Normal mucosal pattern without "cobble-stoning" or stricture. N ormal compression. PROXIMAL COLON: Incompletely imaged. No abnormality. OTHER: Cross-table lateral film demonstrates multiple ventral hernias, which correlate with the CT ex am sagittal reconstructions. There is a nonobstructed small bowel loop protruding through a small de fect in the supraumbilical anterior abdominal wall, and a moderate to large periumbilical defect cont aining multiple nonobstructed small bowel loops. Patient is post distal colectomy with a left-sided colostomy. IMPRESSION: There are multiple midline ventral hernias without evidence of bowel obstruction. COMMENT: Quality ID 145: Final reports for procedures using fluoroscopy that document radiation exp osure indices, or exposure time and number of fluorographic images (if radiation exposure indices are not available) TECHNICAL DOCUMENTATION: JOB ID: [id number] [employer]- All Rights Reserved Reading location - IP/workstation name: [email or web address]
[2019-01-25] MEDS: INSULIN LISPRO 100 UNIT/ML 3 ML VIAL SUBCUT SCH ×2 (16:20→21:14)
[2019-01-25] MEDS: PANTOPRAZOLE SODIUM 40 MG TABLET.DR PO SCH (16:21)
[2019-01-25] MEDS: NORMAL SALINE 1000 ML 1,000 ML IV PRN (17:40)
[2019-01-25] MEDS: ACETAMINOPHEN 325 MG TABLET PO PRN (17:45)
--- NOTE | 2019-01-25 19:14 | EKG REPORT ---
SEVERITY:- ABNORMAL ECG - SINUS RHYTHM BORDERLINE RIGHT AXIS DEVIATION NONSPECIFIC T ABNORMALITIES, INFERIOR LEADS : Confirmed by: Tyesha Lopez MD 25-Jan-2019 19:13:01
[2019-01-25] MEDS ORDERED: ATROPINE SULFATE INJ 1 MG/10 ML DISP.SYRIN IV ONE (21:00)
[2019-01-25] MEDS: FINASTERIDE 5 MG TABLET PO SCH (21:07)
[2019-01-25] MEDS: MONTELUKAST SODIUM 10 MG TABLET PO SCH (21:07)
[2019-01-25] MEDS: TAMSULOSIN HCL 0.4 MG CAP.SR.24H PO SCH (21:07)
[2019-01-25] MEDS: ATORVASTATIN CALCIUM 40 MG TABLET PO SCH (21:07)
[2019-01-25] MEDS: SITAGLIPTIN PHOSPHATE 50 MG TABLET PO SCH (21:08)
[2019-01-25] MEDS: PRAMIPEXOLE DI-HCL 0.25 MG TABLET PO SCH (21:08)
[2019-01-25] MEDS: GLIPIZIDE 5 MG TABLET PO SCH (21:08)
[2019-01-25] MEDS: AMLODIPINE BESYLATE 10 MG TABLET PO SCH (21:09)
[2019-01-25 21:37] LABS: FREE T4 (FREE THYROXINE) 1.03 ng/dL (0.78-2.19)
[2019-01-25 21:51] LABS: THYROID STIMULATING HORMONE 3.17 uIU/mL (0.47-4.68)
[2019-01-25] MEDS ORDERED: (PENDING PHARMACY ID) (Fluticasone/Salmeterol 1 PUFF) IN SCH (22:00)
[2019-01-26] MEDS: PIPERACILLIN SODIUM/TAZOBACTAM 2.25 GM in NORMAL SALINE 50 ML IV SCH ×5 (00:17→23:43)
[2019-01-26] MEDS: NORMAL SALINE 1000 ML 1,000 ML IV PRN ×2 (04:08→17:43)
[2019-01-26 05:11] LABS: ABSOLUTE MONOCYTES (AUTO) 0.9 10^3/uL (0.1-1.4); ABSOLUTE NEUT (AUTO) 9.2 10^3/uL (1.7-8.2); BASOPHILS % (AUTO) 0.3 % (0-2); EOSINOPHILS % (AUTO) 0.1 % (0-6); HEMATOCRIT 25.6 % (37.9-51.0); LYMPHOCYTES % (AUTO) 8.6 % (13-45); MEAN CORPUSCULAR HEMOGLOBIN 28.6 pg (27.0-33.4); MEAN CORPUSCULAR HGB CONC 33.9 g/dL (32.0-36.0); MEAN CORPUSCULAR VOLUME 85 fl (80-97); MONOCYTES % (AUTO) 8.3 % (3-13); PLATELET COUNT 234 10^3/uL (150-450); RED BLOOD COUNT 3.03 10^6/uL (4.35-5.55); SEGMENTED NEUTROPHILS % (AUTO) 82.7 % (42-78); TOTAL CELLS COUNTED % (AUTO) 100 %; WHITE BLOOD COUNT 11.1 10^3/uL (4.0-10.5)
[2019-01-26 05:19] LABS: ALANINE AMINOTRANSFERASE 21 U/L (21-72); ALBUMIN 3.1 g/dL (3.5-5.0); ALKALINE PHOSPHATASE 33 U/L (38-126); ANION GAP 8 (5-19); ASPARTATE AMINO TRANSFERASE 19 U/L (17-59); BILIRUBIN,DIRECT 0.4 mg/dL (0.0-0.4); BILIRUBIN,TOTAL 0.4 mg/dL (0.2-1.3); BLOOD UREA NITROGEN 24 mg/dL (7-20); CALCIUM 8.6 mg/dL (8.4-10.2); CARBON DIOXIDE 24 mmol/L (22-30); CHLORIDE 105 mmol/L (98-107); POTASSIUM 3.9 mmol/L (3.6-5.0); SODIUM 137.4 mmol/L (137-145); TOTAL PROTEIN 5.6 g/dL (6.3-8.2)
[2019-01-26 05:21] LABS: HEMOGLOBIN 8.7 g/dL (13.5-17.0)
[2019-01-26 05:24] LABS: GLUCOSE 59 mg/dL (75-110)
[2019-01-26] MEDS: PANTOPRAZOLE SODIUM 40 MG TABLET.DR PO SCH ×2 (05:33→17:43)
--- NOTE | 2019-01-26 06:11 | PDOC PROGRESS REPORT ---
Subjective Progress Note for:: 01/26/19 Subjective:: no more abdominal pains SBFT normal, no obstruction Reason For Visit: ABD PAIN,UTI,FEVER,HYDRONEPHROSIS Physical Exam Vital Signs: Temp Pulse Resp BP Pulse Ox 98.5 F 61 20 144/45 H 97 01/26/19 03:30 01/26/19 03:30 01/26/19 03:30 01/26/19 03:30 01/26/19 03:30 Intake & Output 01/24/19 01/25/19 01/26/19 06:59 06:59 06:59 Intake Total 1000 2450 Output Total 1800 Balance 1000 650 Weight 89.6 kg General appearance: PRESENT: no acute distress, well-developed, well-nourished Head exam: PRESENT: atraumatic, normocephalic Eye exam: PRESENT: conjunctiva pink, EOMI, PERRLA. ABSENT: scleral icterus Ear exam: PRESENT: normal external ear exam Mouth exam: PRESENT: moist, tongue midline Neck exam: ABSENT: carotid bruit, JVD, lymphadenopathy, thyromegaly Respiratory exam: PRESENT: clear to auscultation yumiko. ABSENT: rales, rhonchi, wheezes Cardiovascular exam: PRESENT: RRR. ABSENT: diastolic murmur, rubs, systolic murmur Pulses: PRESENT: normal dorsalis pedis pul Vascular exam: PRESENT: normal capillary refill GI/Abdominal exam: PRESENT: normal bowel sounds, soft, other - colostomy functioning well and no more tenderness around it. ABSENT: distended, guarding, mass, organolmegaly, rebound, tenderness Rectal exam: PRESENT: deferred Extremities exam: PRESENT: full ROM. ABSENT: calf tenderness, clubbing, pedal edema Neurological exam: PRESENT: alert, awake, oriented to person, oriented to place, oriented to time, oriented to situation, CN II-XII grossly intact. ABSENT: motor sensory deficit Psychiatric exam: PRESENT: appropriate affect, normal mood. ABSENT: homicidal ideation, suicidal ideation Skin exam: PRESENT: dry, intact, warm. ABSENT: cyanosis, rash Results Laboratory Results: 01/26/19 04:31 01/26/19 04:31 01/25/19 01/25/19 01/25/19 06:17 20:56 20:56 WBC RBC Hgb Hct MCV MCH MCHC RDW Plt Count Seg Neutrophils % Lymphocytes % Monocytes % Eosinophils % Basophils % Absolute Neutrophils Absolute Lymphocytes Absolute Monocytes Absolute Eosinophils Absolute Basophils Sodium Potassium Chloride Carbon Dioxide Anion Gap BUN Creatinine Est GFR ( Amer) Est GFR (Non-Af Amer) Glucose Lactic Acid 0.7 Calcium Magnesium 1.6 Total Bilirubin AST ALT Alkaline Phosphatase Total Protein Albumin TSH 3.17 Free T4 1.03 01/26/19 01/26/19 04:31 04:31 WBC 11.1 H RBC 3.03 L Hgb 8.7 L D Hct 25.6 L MCV 85 MCH 28.6 MCHC 33.9 RDW 15.0 H Plt Count 234 Seg Neutrophils % 82.7 H Lymphocytes % 8.6 L Monocytes % 8.3 Eosinophils % 0.1 Basophils % 0.3 Absolute Neutrophils 9.2 H Absolute Lymphocytes 1.0 Absolute Monocytes 0.9 Absolute Eosinophils 0.0 Absolute Basophils 0.0 Sodium 137.4 Potassium 3.9 Chloride 105 Carbon Dioxide 24 Anion Gap 8 BUN 24 H Creatinine 1.92 H Est GFR ( Amer) 41 L Est GFR (Non-Af Amer) 34 L Glucose 59 L Lactic Acid Calcium 8.6 Magnesium Total Bilirubin 0.4 AST 19 ALT 21 Alkaline Phosphatase 33 L Total Protein 5.6 L Albumin 3.1 L TSH Free T4 01/25/19 02:16 Troponin I 0.021 Impressions: Acute Abdomen Series 01/25/19 00:34 IMPRESSION: No acute cardiopulmonary abnormality. Nonobstructive bowel gas pattern. copyright 2010 [employer]- All Rights Reserved Small Bowel X-Ray 01/25/19 08:24 IMPRESSION: There are multiple midline ventral hernias without evidence of bowel obstruction. Esophagus X-Ray 01/25/19 08:25 IMPRESSION: Intermittent tertiary contractions of the esophagus with poor primary stripping wave Mild mucosal irregularity in the distal esophagus just above a small hiatal hernia Tiny hiatal hernia with gastroesophageal reflux. No Schatzki's ring Assessment & Plan - Diagnosis (1) Abdominal pains around colostomy Is this a current diagnosis for this admission?: Yes (2) multiple incisional hernias,non obstruct Is this a current diagnosis for this admission?: Yes (3) Type 2 diabetes mellitus Qualifiers: Diabetes mellitus car wash attendant insulin use: without senior care use Diabetes mellitus complication status: with neurologic complications Diabetes mellitus complication detail: with polyneuropathy Qualified Code(s): E11.42 - Type 2 diabetes mellitus with diabetic polyneuropathy Is this a current diagnosis for this admission?: Yes (4) UTI (urinary tract infection) Qualifiers: Urinary tract infection type: catheter-associated UTI Is this a current diagnosis for this admission?: Yes - Time Time Spent with patient: 15-24 minutes - Plan Summary Plan Summary: no surgical abdomen at this time OK to increase diet as tolerated Will sign off
[2019-01-26] MEDS: INSULIN LISPRO 100 UNIT/ML 3 ML VIAL SUBCUT SCH ×4 (08:02→22:06)
[2019-01-26] MEDS: FLUTICASONE/VILANTEROL 200-25 MCG/DOSE IH SCH (09:05)
[2019-01-26] MEDS: ENOXAPARIN SODIUM INJ 40 MG/0.4 ML DISP.SYRIN SUBCUT SCH (09:05)
[2019-01-26] MEDS: DOCUSATE SODIUM 100 MG CAPSULE PO SCH ×2 (09:05→17:43)
[2019-01-26] MEDS: ZINC OXIDE 20% OINTMENT 28.35 GM TP SCH (09:06)
--- NOTE | 2019-01-26 10:53 | PDOC PROGRESS REPORT ---
Subjective Progress Note for:: 01/26/19 Subjective:: Patient is feeling much better Patient is denied any abdominal pain no nausea no vomiting Patient's heart rate is noticed 40 last night but patient was asymptomatic Patient had a history of the coronary artery disease status post stent placements Denied any chest pain to than any shortness of the breath Reason For Visit: ABD PAIN,UTI,FEVER,HYDRONEPHROSIS Physical Exam Vital Signs: Temp Pulse Resp BP Pulse Ox 98.0 F 60 16 156/44 H 99 01/26/19 07:23 01/26/19 07:23 01/26/19 07:23 01/26/19 07:23 01/26/19 07:23 Intake & Output 01/25/19 01/26/19 01/27/19 06:59 06:59 06:59 Intake Total 1000 2450 50 Output Total 2150 Balance 1000 300 50 Weight 89.6 kg 89.8 kg General appearance: PRESENT: no acute distress, well-developed, well-nourished Head exam: PRESENT: atraumatic, normocephalic Eye exam: PRESENT: conjunctiva pink, EOMI, PERRLA. ABSENT: scleral icterus Ear exam: PRESENT: normal external ear exam Mouth exam: PRESENT: moist, tongue midline Neck exam: PRESENT: full ROM. ABSENT: carotid bruit, JVD, lymphadenopathy, thyromegaly Respiratory exam: PRESENT: clear to auscultation yumiko Cardiovascular exam: PRESENT: RRR. ABSENT: diastolic murmur, rubs, systolic murmur Pulses: PRESENT: normal dorsalis pedis pul, +2 pedal pulses bilateral Vascular exam: PRESENT: normal capillary refill GI/Abdominal exam: PRESENT: normal bowel sounds, soft. ABSENT: distended, guarding, mass, organolmegaly, rebound, tenderness Rectal exam: PRESENT: deferred Extremities exam: ABSENT: pedal edema Neurological exam: PRESENT: alert, awake, oriented to person, oriented to place, oriented to time, oriented to situation, CN II-XII grossly intact. ABSENT: motor sensory deficit Psychiatric exam: PRESENT: appropriate affect, normal mood. ABSENT: homicidal ideation, suicidal ideation Skin exam: PRESENT: dry, intact, warm. ABSENT: cyanosis, rash Results Laboratory Results: 01/26/19 04:31 01/26/19 04:31 01/25/19 01/25/19 01/26/19 20:56 20:56 04:31 WBC 11.1 H RBC 3.03 L Hgb 8.7 L D Hct 25.6 L MCV 85 MCH 28.6 MCHC 33.9 RDW 15.0 H Plt Count 234 Seg Neutrophils % 82.7 H Lymphocytes % 8.6 L Monocytes % 8.3 Eosinophils % 0.1 Basophils % 0.3 Absolute Neutrophils 9.2 H Absolute Lymphocytes 1.0 Absolute Monocytes 0.9 Absolute Eosinophils 0.0 Absolute Basophils 0.0 Sodium Potassium Chloride Carbon Dioxide Anion Gap BUN Creatinine Est GFR ( Amer) Est GFR (Non-Af Amer) Glucose Calcium Magnesium 1.6 Total Bilirubin AST ALT Alkaline Phosphatase Total Protein Albumin TSH 3.17 Free T4 1.03 01/26/19 04:31 WBC RBC Hgb Hct MCV MCH MCHC RDW Plt Count Seg Neutrophils % Lymphocytes % Monocytes % Eosinophils % Basophils % Absolute Neutrophils Absolute Lymphocytes Absolute Monocytes Absolute Eosinophils Absolute Basophils Sodium 137.4 Potassium 3.9 Chloride 105 Carbon Dioxide 24 Anion Gap 8 BUN 24 H Creatinine 1.92 H Est GFR ( Amer) 41 L Est GFR (Non-Af Amer) 34 L Glucose 59 L Calcium 8.6 Magnesium Total Bilirubin 0.4 AST 19 ALT 21 Alkaline Phosphatase 33 L Total Protein 5.6 L Albumin 3.1 L TSH Free T4 01/25/19 02:16 Troponin I 0.021 Impressions: Acute Abdomen Series 01/25/19 00:34 IMPRESSION: No acute cardiopulmonary abnormality. Nonobstructive bowel gas pattern. copyright 2010 [employer]- All Rights Reserved Small Bowel X-Ray 01/25/19 08:24 IMPRESSION: There are multiple midline ventral hernias without evidence of bowel obstruction. Esophagus X-Ray 01/25/19 08:25 IMPRESSION: Intermittent tertiary contractions of the esophagus with poor primary stripping wave Mild mucosal irregularity in the distal esophagus just above a small hiatal hernia Tiny hiatal hernia with gastroesophageal reflux. No Schatzki's ring Assessment & Plan - Diagnosis (1) Abdominal pains around colostomy Is this a current diagnosis for this admission?: Yes Plan: Currently all improving follow with the surgery also (2) Sepsis Qualifiers: Sepsis type: sepsis due to unspecified organism Qualified Code(s): A41.9 - Sepsis, unspecified organism Is this a current diagnosis for this admission?: Yes Plan: Likely from urinary tract infections will start on IV antibiotics send the urine culture blood culture (3) UTI (urinary tract infection) Qualifiers: Urinary tract infection type: catheter-associated UTI Is this a current diagnosis for this admission?: Yes Plan: Due to the chronic self cath use will send the urine for culture start IV antibiotic (4) multiple incisional hernias,non obstruct Is this a current diagnosis for this admission?: Yes Plan: Follow with the surgery (5) Chronic kidney disease, stage 3 Is this a current diagnosis for this admission?: Yes Plan: Consults the patient's nephrology for further evaluations with ongoing sepsis kidney failure and hydronephrosis (6) Constipation Qualifiers: Constipation type: unspecified constipation type Qualified Code(s): K59.00 - Constipation, unspecified Is this a current diagnosis for this admission?: Yes Plan: Use the Colace and MiraLAX (7) Coronary artery disease Qualifiers: Coronary Disease-Associated Artery/Lesion type: [place] artery Is this a current diagnosis for this admission?: Yes Plan: Get the EKG in the morning currently asymptomatic (8) Hydronephrosis of right kidney Is this a current diagnosis for this admission?: Yes (9) Personal history of colon cancer Is this a current diagnosis for this admission?: Yes (10) Type 2 diabetes mellitus Qualifiers: Diabetes mellitus supervisor intermediates insulin use: without supervisor intermediates use Diabetes mellitus complication status: with neurologic complications Diabetes mellitus complication detail: with polyneuropathy Qualified Code(s): E11.42 - Type 2 diabetes mellitus with diabetic polyneuropathy Is this a current diagnosis for this admission?: Yes Plan: Continues a sliding scale (11) Throat pain Is this a current diagnosis for this admission?: Yes (12) Bradycardia Is this a current diagnosis for this admission?: Yes Plan: Consult the cardiology - Time Time Spent with patient: 15-24 minutes Medications reviewed and adjusted accordingly: Yes Anticipated discharge: Other Within: Other - Plan Summary Plan Summary: Continues to current medications discussed with the regarding the patient's current conditions
--- NOTE | 2019-01-26 12:09 | EKG REPORT ---
SEVERITY:- BORDERLINE ECG - SINUS BRADYCARDIA BORDERLINE T ABNORMALITIES, INFERIOR LEADS : Confirmed by: Tyesha Lopez MD 26-Jan-2019 12:09:09
--- NOTE | 2019-01-26 21:42 | PDOC CONSULTATION ---
Consultation-Blank Consultation: CARDIOLOGY CONSULTATION by Dr. Tyesha Lopez. Patient seen at 8 AM on 01/26/2019. CONSULTING PHYSICIAN: Dr. Sivan Roa. REASON FOR CONSULTATION: Patient with bradycardia. Hence management opinion requested by the attending physician. HISTORY PRESENT ILLNESS: Patient is a 78-year-old male with a history of hypertension, diabetes mellitus, coronary artery disease, history of stents in the RCA and LAD, with no anginal symptoms since a long time and history of colon cancer for which she had colostomy done including rectal surgery. The patient states since 1 week he has been having constipation and has been having pains. He was noted to be bradycardic yesterday with a heart rate in the 30s. With 0.6 mg of atropine given intravenously the heart rate did come up to 62 suggesting that this is AV block above the AV node. This probably is secondary to the patient's pain and high causing high vagal tone. The patient subsequently the heart rate is come up and yesterday the heart rate was in the 50s to the 60s. The patient denies any dizziness or syncope and when his heart rate was 30 his blood pressure was stable. The patient has no chest pain or discomfort there is no PND or orthopnea. Although he has a history of asthma there is no history of acute asthmatic attack this admission. There is no palpitations. There is no syncope. There is no leg edema. There is no PND orthopnea. There is no TIA CVA symptoms. PAST MEDICAL HISTORY: Past Medical History Cardiac Medical History: Reports: Coronary Artery Disease, Hyperlipidema, Hypertension. He has no history of NC there is no prior history of bradycardia or syncope. He does not have a history of aortic stenosis. He is not on any medications that can cause bradycardia. Pulmonary Medical History: Reports: Asthma. No recent attacks. The patient has symptoms suggestive of sleep apnea, although he has had a sleep study many years ago the describes symptoms of the patient snoring loudly and stopping breathing in his sleep. Patient also claims that he has had nightmares often, which wake him up from his sleep. Neurological Medical History: Denies: Seizures no history of TIA CVA. Endocrine Medical History: Reports: Diabetes Mellitus Type 2. No history of thyroid disease. Renal/ Medical History: Reports: Chronic Kidney Disease Malignancy Medical History: Reports: Colorectal Cancer GI Medical History: Reports: Gastroesophageal Reflux Disease history of colon cancer status post resection. The patient had his rectum removed and has a colostomy bag which was not working since a one 1 week but now is started working. Psychiatric Medical History: Reports: Depression FUDGER: The patient has no history of TIA CVA. The patient has had frequent falls, without syncope. He states that all of a sudden his legs become rubbery and weak and he falls. He has never lost consciousness. Past Surgical History Past Surgical History: Reports: Orthopedic Surgery - ankle, Other - colon resction with colostomy for Ca 20 yrs ago and subsequent reconstructi the patient in 2009 had stents placed in the right coronary artery and in the left anterior descending artery after cardiac catheterization. Social History Information Source: Patient, Relative Smoking Status: Never Smoker Frequency of Alcohol Use: None Hx Recreational Drug Use: No Drugs: None Hx Prescription Drug Abuse: No Family History Family History: Positive for hypertension and coronary artery disease. Medication/Allergy Home Medications: Albuterol Sulfate [Proair HFA Inhalation Aerosol 8.5 gm MDI] 1 puff IH Q6HP PRN 03/11/18 Amlodipine Besylate [Norvasc 10 mg Tablet] 10 mg PO QHS 03/11/18 Atorvastatin Calcium [Lipitor 40 mg Tablet] 20 mg PO QHS 03/11/18 Fenofibrate 160 mg PO QHS 03/11/18 Finasteride [Proscar 5 mg Tablet] 5 mg PO QHS 03/11/18 Fluticasone/Salmeterol [Advair 250-50 Diskus 14 Dose/Diskus] 1 puff IN Q12 03/11/18 Glipizide [Glucotrol 5 mg Tablet] 5 mg PO QHS 03/11/18 Montelukast Sodium [Singulair 10 mg Tablet] 10 mg PO QHS 03/11/18 Pantoprazole Sodium [Protonix] 40 mg PO QHS 03/11/18 Pramipexole Di-HCl [Pramipexole Dihydrochloride] 0.25 mg PO QHS 03/11/18 Sitagliptin Phosphate [Januvia] 100 mg PO QHS 03/11/18 Tamsulosin HCl [Flomax 0.4 mg Cap.sr] 0.4 mg PO QHS 03/11/18 RESUSCITATION STATUS: The patient is a full code. The patient's is his surrogate healthcare decision maker. Allergies/Adverse Reactions: No Known Drug Allergies Allergy (Verified 01/25/19 07:18) Review of Systems Constitutional: PRESENT: chills, fatigue, fever(s). ABSENT: headache(s), weight gain, weight loss Eyes: ABSENT: visual disturbances Ears: ABSENT: hearing changes Cardiovascular: ABSENT: chest pain, dyspnea on exertion, edema, orthropnea, palpitations Respiratory: ABSENT: cough, hemoptysis Gastrointestinal: PRESENT: abdominal pain, bloating, constipation. ABSENT: diarrhea, hematemesis, hematochezia, nausea, vomiting Genitourinary: ABSENT: dysuria, hematuria Musculoskeletal: ABSENT: joint swelling Integumentary: ABSENT: rash, wounds Neurological: ABSENT: abnormal gait, abnormal speech, confusion, dizziness, focal weakness, syncope Psychiatric: ABSENT: anxiety, depression, homidical ideation, suicidal ideation Endocrine: ABSENT: cold intolerance, heat intolerance, menstrual abnormalities, polydipsia, polyuria Hematologic/Lymphatic: ABSENT: easy bleeding, easy bruising, lymphadenopathy PHYSICAL EXAMINATION: The patient is well-built and well-nourished. He is well- groomed in no acute distress. Selected Entries 01/26/19 07:23 Temperature 98.0 F Temperature Oral Source Pulse Rate 60 Respiratory 16 Rate Blood Pressure 156/44 H Blood Pressure 81 Mean BP Location Left Arm BP Position Supine O2 Sat by Pulse 99 Oximetry Oxygen Flow 2.00 Rate Oxygen Delivery Nasal Cannula Method Head: Is atraumatic normocephalic. EYES: Pupils are equal round regular reactive to light accommodation. Extra ocular movements are normal. There is no conjunctival pallor. There is no scleral icterus. EARS: Tympanic membranes are intact. External auditory canals are clear. NOSE: There is no deviated nasal septum. There is no inflammation of the nasal mucous membrane. MOUTH: Mucous members of mouth are moist. Tongue is moist. There is no ulcers. THROAT: There is no redness of the oropharynx. There is no exudates. SKIN: There is no skin rashes or skin lesions. There is no petechia or ecchymosis. NECK: Is supple. There is no JVD. Carotids are equal there is no bruit. There is no lymphadenopathy. There is no accessory muscle respiration use. Trachea central. LUNGS: Clear to auscultation percussion. Without any rhonchi rales or wheezing. HEART: S1-S2 is heard there is no S3 gallop. There is no S4 gallop. There is systolic murmur left sternal border and the apex there is no rub. ABDOMEN: Is soft nontender there is no hepatospleno megaly. There is a colostomy bag present it seems to be functioning normally now. Bowel sounds well heard. EXTREMITIES: Femorals are slightly diminished. There is no femoral bruits. Leg pulses are diminished. There is no pedal edema. There is no DVT or cellulitis. There is no calf tenderness. There is no sinus or clubbing. Capillary refill is normal. FUDGER: The patient is conscious awake alert oriented x3 with no focal deficits. PSYCHIATRIC: Patient judgment insight are intact and her affect is normal. EKG done initially shows sinus rhythm. Borderline right axis deviation. Nonspecific T changes inferior leads. Subsequent EKG done today shows sinus bradycardia. Minor nonspecific T changes inferior leads. No significant ch anges except for bradycardia. Current Medications Acetaminophen (Tylenol 325 Mg Tablet) 650 mg PO Q4HP PRN PRN Reason: FOR PAIN OR TEMP Stop: 02/24/19 09:02 Last Admin: 01/25/19 17:45 Dose: 650 mg Documented by: Albuterol (Proair Hfa Inhalation Aerosol 8.5 Gm Mdi) 1 puff IH Q6HP PRN PRN Reason: FOR SHORTNESS OF BREATH Stop: 02/24/19 13:30 Amlodipine Besylate (Norvasc 10 Mg Tablet) 10 mg PO QHS DARIEN Stop: 02/24/19 21:59 Last Admin: 01/26/19 23:43 Dose: 10 mg Documented by: Atorvastatin Calcium (Lipitor 40 Mg Tablet) 20 mg PO QHS DARIEN Stop: 02/24/19 21:59 Last Admin: 01/26/19 22:05 Dose: 20 mg Documented by: Ciprofloxacin (Cipro 500 Mg Tablet) 500 mg PO Q12 DARIEN Stop: 02/03/19 21:59 Dextrose (Dextrose Inj 50% Syringe (25 Gm/50 Ml)) 25 gm IV PRN PRN; Protocol PRN Reason: PER PROTOCOL Stop: 02/24/19 13:30 Dextrose (Dextrose Inj 50% Syringe (25 Gm/50 Ml)) 12.5 gm IV PRN PRN; Protocol PRN Reason: FOR BG 50-69 IN ALERT PATIENT Stop: 02/24/19 13:30 Docusate Sodium (Colace 100 Mg Capsule) 100 mg PO BID [facility] Stop: 02/24/19 09:59 Last Admin: 01/27/19 17:08 Dose: 100 mg Documented by: Enoxaparin Sodium (Lovenox Inj 40 Mg/0.4 Ml Disp.Syrin) 40 mg SUBCUT DAILY [facility] Stop: 02/24/19 09:59 Last Admin: 01/27/19 09:33 Dose: 40 mg Documented by: Finasteride (Proscar 5 Mg Tablet) 5 mg PO QHS [facility] Stop: 02/24/19 21:59 Last Admin: 01/26/19 22:06 Dose: 5 mg Documented by: Fluticasone/Vilanterol (Breo 200-25 Mcg Ellipta 14 Dose/Dpi) 1 inh IH DAILY [facility] Stop: 02/25/19 09:59 Last Admin: 01/27/19 09:33 Dose: 1 inhaler Documented by: Glipizide (Glucotrol 5 Mg Tablet) 5 mg PO QHS [facility] Stop: 02/24/19 21:59 Last Admin: 01/26/19 22:06 Dose: 5 mg Documented by: Glucagon (Glucagen Inj 1 Mg Vial) 1 mg IM PRN PRN; Protocol PRN Reason: Evaluate for BG < 70 Stop: 02/24/19 13:30 Glucose (Glutose 40% Gel 15 Gm Tube) 15 gm PO PRN PRN; Protocol PRN Reason: FOR BG 50-69 IN ALERT PATIENT Stop: 02/24/19 13:30 Glucose (Glutose 40% Gel 15 Gm Tube) 30 gm PO PRN PRN; Protocol PRN Reason: FOR BG < 50 IN ALERT PATIENT Stop: 02/24/19 13:30 Insulin Human Lispro (Humalog Insulin 100 Unit/1 Ml 3 Ml Vial) 0 - 12 unit SUBCUT ACHS [facility]; Protocol Stop: 02/24/19 15:59 Last Admin: 01/27/19 16:28 Dose: Not Given Documented by: Montelukast Sodium (Singulair 10 Mg Tablet) 10 mg PO QHS [facility] Stop: 02/24/19 21:59 Last Admin: 01/26/19 22:05 Dose: 10 mg Documented by: Multi-Ingredient Ointment (Zinc Oxide 20% Ointment 28.35 Gm) 1 applic TP DAILY [facility] Stop: 02/25/19 09:59 Last Admin: 01/27/19 09:33 Dose: 1 applic Documented by: Ondansetron HCl (Zofran Inj/Pf 4 Mg/2 Ml Sdv) 4 mg IV Q4HP PRN PRN Reason: FOR NAUSEA/VOMITING Stop: 02/24/19 09:16 Pantoprazole Sodium (Protonix [address] Tablet) 40 mg PO BID@0600,1700 [facility] Stop: 02/24/19 16:59 Last Admin: 01/27/19 17:08 Dose: 40 mg Documented by: Pramipexole Dihydrochloride (Mirapex 0.25 Mg Tablet) 0.25 mg PO QHS [facility] Stop: 02/24/19 21:59 Last Admin: 01/26/19 22:06 Dose: 0.25 mg Documented by: Sitagliptin Phosphate (Januvia 50 Mg Tablet) 100 mg PO QHS [facility] Stop: 02/24/19 21:59 Last Admin: 01/26/19 22:06 Dose: 100 mg Documented by: Tamsulosin HCl (Flomax 0.4 Mg Cap.Sr) 0.4 mg PO QHS [facility] Stop: 02/24/19 21:59 Last Admin: 01/26/19 22:05 Dose: 0.4 mg Documented by: Discontinued Medications Acetaminophen (Tylenol 325 Mg Tablet) 650 mg PO NOW ONE Stop: 01/25/19 05:31 Last Admin: 01/25/19 06:15 Dose: Not Given Documented by: Atropine Sulfate (Atropine Sulfate Inj 1 Mg/10 Ml Disp.Syrin) 0.6 mg IV NOW ONE Stop: 01/25/19 21:01 Last Admin: 01/25/19 20:56 Dose: 0.6 mg Documented by: Docusate Sodium (Colace 100 Mg Capsule) 100 mg PO NOW ONE Stop: 01/25/19 13:01 Last Admin: 01/25/19 13:15 Dose: Not Given Documented by: Enoxaparin Sodium (Lovenox Inj 40 Mg/0.4 Ml Disp.Syrin) 40 mg SUBCUT NOW ONE Stop: 01/25/19 13:01 Last Admin: 01/25/19 13:09 Dose: 40 mg Documented by: Lactated Ringer's (Lactated Ringers 1000 Ml Iv Soln) 1,000 mls @ 2,000 mls/hr IV X 2 BAGS PRN PRN Reason: THIS MED IS NOT "PRN" Last Infusion: 01/25/19 09:11 Dose: Infused Documented by: Sodium Chloride (Nacl 0.9% 1000 Ml Iv Soln) 1,000 mls @ 50 mls/hr IV CONTINUOUS PRN PRN Reason: THIS MED IS NOT "PRN" Stop: 02/24/19 09:02 Last Infusion: 01/27/19 11:38 Dose: Infused Documented by: Piperacillin Sod/Tazobactam (Sod 2.25 gm/ Sodium Chloride) 50 mls @ 100 mls/hr IV Q6 DARIEN Stop: 02/01/19 11:59 Last Infusion: 01/27/19 07:00 Dose: Infused Documented by: Piperacillin Sod/Tazobactam Sod (Zosyn Inj 3.375 Gm Vial) 3.375 gm IV IVBAG (E D) ONE Stop: 01/25/19 06:05 Last Admin: 01/25/19 06:28 Dose: 3.375 gm Documented by: Labs- Entire Visit 01/25/19 01/25/19 01/25/19 02:16 02:16 02:16 WBC 16.2 H RBC 3.75 L Hgb 10.8 L Hct 32.1 L MCV 86 MCH 28.8 MCHC 33.7 RDW 15.3 H Plt Count 309 Seg Neutrophils % 82.2 H Lymphocytes % 8.7 L Monocytes % 8.6 Eosinophils % 0.1 Basophils % 0.4 Absolute Neutrophils 13.3 H Absolute Lymphocytes 1.4 Absolute Monocytes 1.4 Absolute Eosinophils 0.0 Absolute Basophils 0.1 Sodium 138.7 Potassium 4.4 Chloride 103 Carbon Dioxide 24 Anion Gap 12 BUN 23 H Creatinine 2.10 H Est GFR ( Amer) 37 L Est GFR (Non-Af Amer) 31 L Glucose 136 H POC Glucose Lactic Acid Calcium 10.0 Magnesium Total Bilirubin 0.6 Direct Bilirubin 0.4 Neonat Total Bilirubin Not Reportable Neonat Direct Bilirubin Not Reportable Neonat Indirect Bili Not Reportable AST 21 ALT 26 Alkaline Phosphatase 45 Troponin I 0.021 Total Protein 7.2 Albumin 4.3 TSH Free T4 Urine Color Urine Appearance Urine pH Ur Specific [place] Urine Protein Urine Glucose (UA) Urine Ketones Urine Blood Urine Nitrite Urine Bilirubin Urine Urobilinogen Ur Leukocyte Esterase Urine WBC (Auto) Urine RBC (Auto) Urine Bacteria (Auto) Urine WBC Clumps Urine Mucus (Auto) Urine Ascorbic Acid 01/25/19 01/25/19 01/25/19 03:05 06:17 15:11 WBC RBC Hgb Hct MCV MCH MCHC RDW Plt Count Seg Neutrophils % Lymphocytes % Monocytes % Eosinophils % Basophils % Absolute Neutrophils Absolute Lymphocytes Absolute Monocytes Absolute Eosinophils Absolute Basophils Sodium Potassium Chloride Carbon Dioxide Anion Gap BUN Creatinine Est GFR ( Amer) Est GFR (Non-Af Amer) Glucose POC Glucose 109 Lactic Acid 0.7 Calcium Magnesium Total Bilirubin Direct Bilirubin Neonat Total Bilirubin Neonat Direct Bilirubin Neonat Indirect Bili AST ALT Alkaline Phosphatase Troponin I Total Protein Albumin TSH Free T4 Urine Color YELLOW Urine Appearance TURBID Urine pH 5.0 Ur Specific [place] 1.014 Urine Protein 100 H Urine Glucose (UA) 50 H Urine Ketones TRACE H Urine Blood SMALL H Urine Nitrite POSITIVE H Urine Bilirubin NEGATIVE Urine Urobilinogen NEGATIVE Ur Leukocyte Esterase LARGE H Urine WBC (Auto) >182 Urine RBC (Auto) 22 Urine Bacteria (Auto) 3+ Urine WBC Clumps MANY Urine Mucus (Auto) RARE Urine Ascorbic Acid NEGATIVE 01/25/19 01/25/19 01/25/19 20:56 20:56 21:11 WBC RBC Hgb Hct MCV MCH MCHC RDW Plt Count Seg Neutrophils % Lymphocytes % Monocytes % Eosinophils % Basophils % Absolute Neutrophils Absolute Lymphocytes Absolute Monocytes Absolute Eosinophils Absolute Basophils Sodium Potassium Chloride Carbon Dioxide Anion Gap BUN Creatinine Est GFR ( Amer) Est GFR (Non-Af Amer) Glucose POC Glucose 117 H Lactic Acid Calcium Magnesium 1.6 Total Bilirubin Direct Bilirubin Neonat Total Bilirubin Neonat Direct Bilirubin Neonat Indirect Bili AST ALT Alkaline Phosphatase Troponin I Total Protein Albumin TSH 3.17 Free T4 1.03 Urine Color Urine Appearance Urine pH Ur Specific [place] Urine Protein Urine Glucose (UA) Urine Ketones Urine Blood Urine Nitrite Urine Bilirubin Urine Urobilinogen Ur Leukocyte Esterase Urine WBC (Auto) Urine RBC (Auto) Urine Bacteria (Auto) Urine WBC Clumps Urine Mucus (Auto) Urine Ascorbic Acid 01/26/19 01/26/19 01/26/19 04:31 04:31 05:42 WBC 11.1 H RBC 3.03 L Hgb 8.7 L D Hct 25.6 L MCV 85 MCH 28.6 MCHC 33.9 RDW 15.0 H Plt Count 234 Seg Neutrophils % 82.7 H Lymphocytes % 8.6 L Monocytes % 8.3 Eosinophils % 0.1 Basophils % 0.3 Absolute Neutrophils 9.2 H Absolute Lymphocytes 1.0 Absolute Monocytes 0.9 Absolute Eosinophils 0.0 Absolute Basophils 0.0 Sodium 137.4 Potassium 3.9 Chloride 105 Carbon Dioxide 24 Anion Gap 8 BUN 24 H Creatinine 1.92 H Est GFR ( Amer) 41 L Est GFR (Non-Af Amer) 34 L Glucose 59 L POC Glucose 72 Lactic Acid Calcium 8.6 Magnesium Total Bilirubin 0.4 Direct Bilirubin 0.4 Neonat Total Bilirubin Not Reportable Neonat Direct Bilirubin Not Reportable Neonat Indirect Bili Not Reportable AST 19 ALT 21 Alkaline Phosphatase 33 L Troponin I Total Protein 5.6 L Albumin 3.1 L TSH Free T4 Urine Color Urine Appearance Urine pH Ur Specific [place] Urine Protein Urine Glucose (UA) Urine Ketones Urine Blood Urine Nitrite Urine Bilirubin Urine Urobilinogen Ur Leukocyte Esterase Urine WBC (Auto) Urine RBC (Auto) Urine Bacteria (Auto) Urine WBC Clumps Urine Mucus (Auto) Urine Ascorbic Acid 01/26/19 01/26/19 01/26/19 06:04 07:28 12:09 WBC RBC Hgb Hct MCV MCH MCHC RDW Plt Count Seg Neutrophils % Lymphocytes % Monocytes % Eosinophils % Basophils % Absolute Neutrophils Absolute Lymphocytes Absolute Monocytes Absolute Eosinophils Absolute Basophils Sodium Potassium Chloride Carbon Dioxide Anion Gap BUN Creatinine Est GFR ( Amer) Est GFR (Non-Af Amer) Glucose POC Glucose 94 98 90 Lactic Acid Calcium Magnesium Total Bilirubin Direct Bilirubin Neonat Total Bilirubin Neonat Direct Bilirubin Neonat Indirect Bili AST ALT Alkaline Phosphatase Troponin I Total Protein Albumin TSH Free T4 Urine Color Urine Appearance Urine pH Ur Specific [place] Urine Protein Urine Glucose (UA) Urine Ketones Urine Blood Urine Nitrite Urine Bilirubin Urine Urobilinogen Ur Leukocyte Esterase Urine WBC (Auto) Urine RBC (Auto) Urine Bacteria (Auto) Urine WBC Clumps Urine Mucus (Auto) Urine Ascorbic Acid 01/26/19 01/26/19 01/27/19 15:58 21:05 04:36 WBC 9.9 RBC 3.12 L Hgb 9.0 L Hct 26.3 L MCV 84 MCH 29.0 MCHC 34.4 RDW 14.8 H Plt Count 232 Seg Neutrophils % 80.4 H Lymphocytes % 11.4 L Monocytes % 7.4 Eosinophils % 0.7 Basophils % 0.1 Absolute Neutrophils 7.9 Absolute Lymphocytes 1.1 Absolute Monocytes 0.7 Absolute Eosinophils 0.1 Absolute Basophils 0.0 Sodium Potassium Chloride Carbon Dioxide Anion Gap BUN Creatinine Est GFR ( Amer) Est GFR (Non-Af Amer) Glucose POC Glucose 97 144 H Lactic Acid Calcium Magnesium Total Bilirubin Direct Bilirubin Neonat Total Bilirubin Neonat Direct Bilirubin Neonat Indirect Bili AST ALT Alkaline Phosphatase Troponin I Total Protein Albumin TSH Free T4 Urine Color Urine Appearance Urine pH Ur Specific [place] Urine Protein Urine Glucose (UA) Urine Ketones Urine Blood Urine Nitrite Urine Bilirubin Urine Urobilinogen Ur Leukocyte Esterase Urine WBC (Auto) Urine RBC (Auto) Urine Bacteria (Auto) Urine WBC Clumps Urine Mucus (Auto) Urine Ascorbic Acid 01/27/19 01/27/19 01/27/19 07:36 12:06 16:03 WBC RBC Hgb Hct MCV MCH MCHC RDW Plt Count Seg Neutrophils % Lymphocytes % Monocytes % Eosinophils % Basophils % Absolute Neutrophils Absolute Lymphocytes Absolute Monocytes Absolute Eosinophils Absolute Basophils Sodium Potassium Chloride Carbon Dioxide Anion Gap BUN Creatinine Est GFR ( Amer) Est GFR (Non-Af Amer) Glucose POC Glucose 83 123 H 112 H Lactic Acid Calcium Magnesium Total Bilirubin Direct Bilirubin Neonat Total Bilirubin Neonat Direct Bilirubin Neonat Indirect Bili AST ALT Alkaline Phosphatase Troponin I Total Protein Albumin TSH Free T4 Urine Color Urine Appearance Urine pH Ur Specific [place] Urine Protein Urine Glucose (UA) Urine Ketones Urine Blood Urine Nitrite Urine Bilirubin Urine Urobilinogen Ur Leukocyte Esterase Urine WBC (Auto) Urine RBC (Auto) Urine Bacteria (Auto) Urine WBC Clumps Urine Mucus (Auto) Urine Ascorbic Acid Acute Abdomen Series 01/25/19 00:34 IMPRESSION: No acute cardiopulmonary abnormality. Nonobstructive bowel gas pattern. copyright 2010 [employer]- All Rights Reserved Small Bowel X-Ray 01/25/19 08:24 IMPRESSION: There are multiple midline ventral hernias without evidence of bowel obstruction. Esophagus X-Ray 01/25/19 08:25 IMPRESSION: Intermittent tertiary contractions of the esophagus with poor primary stripping wave Mild mucosal irregularity in the distal esophagus just above a small hiatal hernia Tiny hiatal hernia with gastroesophageal reflux. No Schatzki's ring IMPRESSION/RECOMMENDATION: 1. Bradycardia: This most likely secondary to high vagal tone due to the patient's pain and possibly secondary to patient's symptoms of sleep apnea. The patient is asymptomatic and there is no hemodynamic compromise. Hence would not treat this. Note that the patient heart rate is coming up.. Would recommend that the patient have a 30-day event monitor as an outpatient. Also would recommend that the patient have a sleep study done. 2. Severe constipation secondary to malfunctioning of colostomy bag: Now resolved. 3. Coronary artery disease: No evidence of NC this admission. No anginal symptoms. Note patient has a history of LAD and RCA stent in 2009. The patient states that his last stress test was about 2 years ago. Would recommend that the patient have an outpatient IV Lexiscan Cardiolite stress test once the patient's GI problems returned to baseline. 4. Hypertension: Noted blood pressure is well controlled. Next 5. Diabetes mellitus: Continue antidiabetic medication. Continue periodic Accu-Cheks. 6. Chronic kidney disease stage III: Avoid nephrotoxic medication. 7. History of colon cancer status post surgery: Removal and colostomy and also proctectomy. Patient states that this is been cured and there is no recurrence. 8. History of asthma: No evidence of acute asthmatic attack. 9. Hyperlipidemia: Continue statin. 10. Symptoms suggestive of obstructive sleep apnea: Would strongly recommend that the patient have a outpatient sleep study. This will be scheduled by the attending physician Dr. Roa. 11. Systolic murmur: No definite evidence of aortic stenosis. No definite valvular lesion by physical exam: But would consolidate this belief with an outpatient echocardiogram. Medications reviewed management plan discussed with attending physician on the case. Medical decision making is of moderate to high complexity. 60 minutes spent on this patient with more than 50% of time spent in direct patient care. Cardiac status is stable. Will sign off. The patient if so desires can follow- up with me as an outpatient. Contact numbers given.
[2019-01-26] MEDS: MONTELUKAST SODIUM 10 MG TABLET PO SCH (22:05)
[2019-01-26] MEDS: TAMSULOSIN HCL 0.4 MG CAP.SR.24H PO SCH (22:05)
[2019-01-26] MEDS: ATORVASTATIN CALCIUM 40 MG TABLET PO SCH (22:05)
[2019-01-26] MEDS: SITAGLIPTIN PHOSPHATE 50 MG TABLET PO SCH (22:06)
[2019-01-26] MEDS: GLIPIZIDE 5 MG TABLET PO SCH (22:06)
[2019-01-26] MEDS: PRAMIPEXOLE DI-HCL 0.25 MG TABLET PO SCH (22:06)
[2019-01-26] MEDS: FINASTERIDE 5 MG TABLET PO SCH (22:06)
[2019-01-26] MEDS: AMLODIPINE BESYLATE 10 MG TABLET PO SCH (23:43)
[2019-01-27 05:00] LABS: ABSOLUTE EOSINOPHILS # (AUTO) 0.1 10^3/uL (0.0-0.6); ABSOLUTE LYMPHOCYTES (AUTO) 1.1 10^3/uL (0.5-4.7); ABSOLUTE MONOCYTES (AUTO) 0.7 10^3/uL (0.1-1.4); ABSOLUTE NEUT (AUTO) 7.9 10^3/uL (1.7-8.2); BASOPHILS % (AUTO) 0.1 % (0-2); EOSINOPHILS % (AUTO) 0.7 % (0-6); HEMATOCRIT 26.3 % (37.9-51.0); LYMPHOCYTES % (AUTO) 11.4 % (13-45); MEAN CORPUSCULAR HGB CONC 34.4 g/dL (32.0-36.0); MEAN CORPUSCULAR VOLUME 84 fl (80-97); MONOCYTES % (AUTO) 7.4 % (3-13); PLATELET COUNT 232 10^3/uL (150-450); RED BLOOD COUNT 3.12 10^6/uL (4.35-5.55); RED CELL DISTRIBUTION WIDTH 14.8 % (11.5-14.0); SEGMENTED NEUTROPHILS % (AUTO) 80.4 % (42-78); TOTAL CELLS COUNTED % (AUTO) 100 %; WHITE BLOOD COUNT 9.9 10^3/uL (4.0-10.5)
[2019-01-27] MEDS: PIPERACILLIN SODIUM/TAZOBACTAM 2.25 GM in NORMAL SALINE 50 ML IV SCH (06:01)
[2019-01-27] MEDS: PANTOPRAZOLE SODIUM 40 MG TABLET.DR PO SCH ×2 (06:01→17:08)
[2019-01-27] MEDS: INSULIN LISPRO 100 UNIT/ML 3 ML VIAL SUBCUT SCH ×4 (08:06→22:08)
[2019-01-27] MEDS: DOCUSATE SODIUM 100 MG CAPSULE PO SCH ×2 (09:33→17:08)
[2019-01-27] MEDS: ENOXAPARIN SODIUM INJ 40 MG/0.4 ML DISP.SYRIN SUBCUT SCH (09:33)
[2019-01-27] MEDS: ZINC OXIDE 20% OINTMENT 28.35 GM TP SCH (09:33)
[2019-01-27] MEDS: FLUTICASONE/VILANTEROL 200-25 MCG/DOSE IH SCH (09:33)
--- NOTE | 2019-01-27 10:54 | PDOC PROGRESS REPORT ---
Subjective Progress Note for:: 01/27/19 Subjective:: Patient is feeling much better Patient's urine cultures grew the Klebsiella have was sensitive to the Zosyn but Cipro's works better will switch the IV to the p.o. Cipro Patient's denied any abdominal pain Denied any chest pain Denied any shortness of the breath Reason For Visit: ABD PAIN,UTI,FEVER,HYDRONEPHROSIS Physical Exam Vital Signs: Temp Pulse Resp BP Pulse Ox 99.6 F 70 16 159/50 H 96 01/27/19 07:35 01/27/19 07:35 01/27/19 07:35 01/27/19 07:35 01/27/19 07:35 Intake & Output 01/26/19 01/27/19 01/28/19 06:59 06:59 06:59 Intake Total 2450 1792 50 Output Total 2150 2950 Balance 300 -1158 50 Weight 89.8 kg 88.9 kg General appearance: PRESENT: no acute distress, well-developed, well-nourished Head exam: PRESENT: atraumatic, normocephalic Eye exam: PRESENT: conjunctiva pink, EOMI, PERRLA. ABSENT: scleral icterus Ear exam: PRESENT: normal external ear exam Mouth exam: PRESENT: moist, tongue midline Neck exam: PRESENT: full ROM. ABSENT: carotid bruit, JVD, lymphadenopathy, thyromegaly Respiratory exam: PRESENT: clear to auscultation yumiko Cardiovascular exam: PRESENT: RRR. ABSENT: diastolic murmur, rubs, systolic murmur Pulses: PRESENT: normal [place] pedis pul, +2 pedal pulses bilateral Vascular exam: PRESENT: normal capillary refill GI/Abdominal exam: PRESENT: normal bowel sounds, soft. ABSENT: distended, guarding, mass, organolmegaly, rebound, tenderness Additonal comments: An ostomy bag is working Rectal exam: PRESENT: deferred Musculoskeletal exam: PRESENT: ambulatory Neurological exam: PRESENT: alert, awake, oriented to person, oriented to place, oriented to time, oriented to situation, CN II-XII grossly intact. ABSENT: motor sensory deficit Psychiatric exam: PRESENT: appropriate affect, normal mood. ABSENT: homicidal ideation, suicidal ideation Skin exam: PRESENT: dry, intact, warm. ABSENT: cyanosis, rash Results Laboratory Results: 01/27/19 04:36 01/26/19 04:31 01/27/19 04:36 WBC 9.9 RBC 3.12 L Hgb 9.0 L Hct 26.3 L MCV 84 MCH 29.0 MCHC 34.4 RDW 14.8 H Plt Count 232 Seg Neutrophils % 80.4 H Lymphocytes % 11.4 L Monocytes % 7.4 Eosinophils % 0.7 Basophils % 0.1 Absolute Neutrophils 7.9 Absolute Lymphocytes 1.1 Absolute Monocytes 0.7 Absolute Eosinophils 0.1 Absolute Basophils 0.0 01/25/19 12:54 Catheterized Urine Urine Culture - Final Klebsiella Oxytoca 01/25/19 02:16 Troponin I 0.021 Impressions: Acute Abdomen Series 01/25/19 00:34 IMPRESSION: No acute cardiopulmonary abnormality. Nonobstructive bowel gas pattern. copyright 2010 [employer]- All Rights Reserved Small Bowel X-Ray 01/25/19 08:24 IMPRESSION: There are multiple midline ventral hernias without evidence of bowel obstruction. Esophagus X-Ray 01/25/19 08:25 IMPRESSION: Intermittent tertiary contractions of the esophagus with poor primary stripping wave Mild mucosal irregularity in the distal esophagus just above a small hiatal hernia Tiny hiatal hernia with gastroesophageal reflux. No Schatzki's ring Assessment & Plan - Diagnosis (1) Abdominal pains around colostomy Is this a current diagnosis for this admission?: Yes Plan: Currently all improving follow with the surgery also (2) Sepsis Qualifiers: Sepsis type: sepsis due to unspecified organism Qualified Code(s): A41.9 - Sepsis, unspecified organism Is this a current diagnosis for this admission?: Yes Plan: Which to IV to the p.o. antibiotic (3) UTI (urinary tract infection) Qualifiers: Urinary tract infection type: catheter-associated UTI Is this a current diagnosis for this admission?: Yes Plan: DC the IV dosing and start on his p.o. Cipro (4) multiple incisional hernias,non obstruct Is this a current diagnosis for this admission?: Yes Plan: Follow with the surgery (5) Chronic kidney disease, stage 3 Is this a current diagnosis for this admission?: Yes Plan: Consults the patient's nephrology for further evaluations with ongoing sepsis kidney failure and hydronephrosis (6) Constipation Qualifiers: Constipation type: unspecified constipation type Qualified Code(s): K59.00 - Constipation, unspecified Is this a current diagnosis for this admission?: Yes Plan: Use the Colace and MiraLAX (7) Coronary artery disease Qualifiers: Coronary Disease-Associated Artery/Lesion type: [place] artery Is this a current diagnosis for this admission?: Yes Plan: Get the EKG in the morning currently asymptomatic (8) Hydronephrosis of right kidney Is this a current diagnosis for this admission?: Yes Plan: Chronic unchanged (9) Personal history of colon cancer Is this a current diagnosis for this admission?: Yes (10) Type 2 diabetes mellitus Qualifiers: Diabetes mellitus termite treater insulin use: without termite treater use Diabetes mellitus complication status: with neurologic complications Diabetes mellitus complication detail: with polyneuropathy Qualified Code(s): E11.42 - Type 2 diabetes mellitus with diabetic polyneuropathy Is this a current diagnosis for this admission?: Yes Plan: Continues a sliding scale (11) Throat pain Is this a current diagnosis for this admission?: Yes Plan: Clear all stable (12) Bradycardia Is this a current diagnosis for this admission?: Yes Plan: Consult the cardiology - Time Time Spent with patient: 15-24 minutes Medications reviewed and adjusted accordingly: Yes Anticipated discharge: Home Within: within 48 hours - Plan Summary Plan Summary: We will get the physical therapy evaluations Change IV to the p.o. antibiotic
[2019-01-27] MEDS: ACETAMINOPHEN 325 MG TABLET PO PRN (22:01)
[2019-01-27] MEDS: FINASTERIDE 5 MG TABLET PO SCH (22:03)
[2019-01-27] MEDS: SITAGLIPTIN PHOSPHATE 50 MG TABLET PO SCH (22:03)
[2019-01-27] MEDS: CIPROFLOXACIN HCL 500 MG TABLET PO SCH (22:03)
[2019-01-27] MEDS: TAMSULOSIN HCL 0.4 MG CAP.SR.24H PO SCH (22:03)
[2019-01-27] MEDS: PRAMIPEXOLE DI-HCL 0.25 MG TABLET PO SCH (22:03)
[2019-01-27] MEDS: ATORVASTATIN CALCIUM 40 MG TABLET PO SCH (22:03)
[2019-01-27] MEDS: GLIPIZIDE 5 MG TABLET PO SCH (22:03)
[2019-01-27] MEDS: AMLODIPINE BESYLATE 10 MG TABLET PO SCH (22:04)
[2019-01-27] MEDS: MONTELUKAST SODIUM 10 MG TABLET PO SCH (22:04)
[2019-01-28 04:46] LABS: ABSOLUTE EOSINOPHILS # (AUTO) 0.2 10^3/uL (0.0-0.6); ABSOLUTE LYMPHOCYTES (AUTO) 1.3 10^3/uL (0.5-4.7); ABSOLUTE MONOCYTES (AUTO) 1.1 10^3/uL (0.1-1.4); ABSOLUTE NEUT (AUTO) 7.2 10^3/uL (1.7-8.2); BASOPHILS % (AUTO) 0.2 % (0-2); EOSINOPHILS % (AUTO) 1.8 % (0-6); HEMATOCRIT 28.3 % (37.9-51.0); HEMOGLOBIN 9.7 g/dL (13.5-17.0); LYMPHOCYTES % (AUTO) 12.9 % (13-45); MEAN CORPUSCULAR HGB CONC 34.4 g/dL (32.0-36.0); MEAN CORPUSCULAR VOLUME 84 fl (80-97); MONOCYTES % (AUTO) 11.4 % (3-13); PLATELET COUNT 272 10^3/uL (150-450); RED BLOOD COUNT 3.36 10^6/uL (4.35-5.55); RED CELL DISTRIBUTION WIDTH 14.8 % (11.5-14.0); SEGMENTED NEUTROPHILS % (AUTO) 73.7 % (42-78); TOTAL CELLS COUNTED % (AUTO) 100 %; WHITE BLOOD COUNT 9.8 10^3/uL (4.0-10.5)
[2019-01-28] MEDS: PANTOPRAZOLE SODIUM 40 MG TABLET.DR PO SCH ×2 (05:11→17:10)
[2019-01-28 05:14] LABS: ANION GAP 8 (5-19); BLOOD UREA NITROGEN 19 mg/dL (7-20); CALCIUM 9.3 mg/dL (8.4-10.2); CARBON DIOXIDE 26 mmol/L (22-30); CHLORIDE 104 mmol/L (98-107); GLUCOSE 84 mg/dL (75-110); POTASSIUM 4.1 mmol/L (3.6-5.0); SODIUM 138.2 mmol/L (137-145)
[2019-01-28] MEDS: INSULIN LISPRO 100 UNIT/ML 3 ML VIAL SUBCUT SCH ×4 (08:52→21:14)
[2019-01-28] MEDS: DOCUSATE SODIUM 100 MG CAPSULE PO SCH ×2 (09:30→17:10)
[2019-01-28] MEDS: CIPROFLOXACIN HCL 500 MG TABLET PO SCH ×2 (09:30→21:15)
[2019-01-28] MEDS: ZINC OXIDE 20% OINTMENT 28.35 GM TP SCH (09:30)
[2019-01-28] MEDS: FLUTICASONE/VILANTEROL 200-25 MCG/DOSE IH SCH (09:30)
[2019-01-28] MEDS: ENOXAPARIN SODIUM INJ 40 MG/0.4 ML DISP.SYRIN SUBCUT SCH (09:31)
--- NOTE | 2019-01-28 11:56 | PDOC PROGRESS REPORT ---
Subjective Progress Note for:: 01/28/19 Subjective:: Patient is feeling much better Patient still denied any chest pain to than any shortness of the breath Patient's denied any abdominal pain Patient is walking the hallway Reason For Visit: ABD PAIN,UTI,FEVER,HYDRONEPHROSIS Physical Exam Vital Signs: Temp Pulse Resp BP Pulse Ox 99.5 F 83 18 167/63 H 96 01/28/19 08:15 01/28/19 08:15 01/28/19 08:15 01/28/19 08:15 01/28/19 08:15 Intake & Output 01/27/19 01/28/19 01/29/19 06:59 06:59 06:59 Intake Total 1792 2074 Output Total 2950 4050 Balance -1157 -1975 Weight 88.9 kg 88.9 kg General appearance: PRESENT: no acute distress, well-developed, well-nourished Head exam: PRESENT: atraumatic, normocephalic Eye exam: PRESENT: conjunctiva pink, EOMI, PERRLA. ABSENT: scleral icterus Ear exam: PRESENT: normal external ear exam Mouth exam: PRESENT: moist, tongue midline Neck exam: PRESENT: full ROM. ABSENT: carotid bruit, JVD, lymphadenopathy, thyromegaly Respiratory exam: PRESENT: clear to auscultation yumiko Cardiovascular exam: PRESENT: RRR. ABSENT: diastolic murmur, rubs, systolic murmur Vascular exam: PRESENT: normal capillary refill GI/Abdominal exam: PRESENT: normal bowel sounds, soft. ABSENT: distended, guarding, mass, organolmegaly, rebound, tenderness Rectal exam: PRESENT: deferred Extremities exam: ABSENT: pedal edema Musculoskeletal exam: PRESENT: ambulatory Neurological exam: PRESENT: alert, awake, oriented to person, oriented to place, oriented to time, oriented to situation, CN II-XII grossly intact. ABSENT: motor sensory deficit Psychiatric exam: PRESENT: appropriate affect, normal mood. ABSENT: homicidal ideation, suicidal ideation Skin exam: PRESENT: dry, intact, warm. ABSENT: cyanosis, rash Results Laboratory Results: 01/28/19 03:45 01/28/19 03:45 01/28/19 01/28/19 03:45 03:45 WBC 9.8 RBC 3.36 L Hgb 9.7 L Hct 28.3 L MCV 84 MCH 29.0 MCHC 34.4 RDW 14.8 H Plt Count 272 Seg Neutrophils % 73.7 Lymphocytes % 12.9 L Monocytes % 11.4 Eosinophils % 1.8 Basophils % 0.2 Absolute Neutrophils 7.2 Absolute Lymphocytes 1.3 Absolute Monocytes 1.1 Absolute Eosinophils 0.2 Absolute Basophils 0.0 Sodium 138.2 Potassium 4.1 Chloride 104 Carbon Dioxide 26 Anion Gap 8 BUN 19 Creatinine 1.70 H Est GFR ( Amer) 47 L Est GFR (Non-Af Amer) 39 L Glucose 84 Calcium 9.3 01/25/19 12:54 Catheterized Urine Urine Culture - Final Klebsiella Oxytoca 01/25/19 02:16 Troponin I 0.021 Impressions: Acute Abdomen Series 01/25/19 00:34 IMPRESSION: No acute cardiopulmonary abnormality. Nonobstructive bowel gas pattern. copyright 2010 [employer]- All Rights Reserved Small Bowel X-Ray 01/25/19 08:24 IMPRESSION: There are multiple midline ventral hernias without evidence of bowel obstruction. Esophagus X-Ray 01/25/19 08:25 IMPRESSION: Intermittent tertiary contractions of the esophagus with poor primary stripping wave Mild mucosal irregularity in the distal esophagus just above a small hiatal hernia Tiny hiatal hernia with gastroesophageal reflux. No Schatzki's ring Assessment & Plan - Diagnosis (1) Abdominal pains around colostomy Is this a current diagnosis for this admission?: Yes Plan: Currently all improving follow with the surgery also (2) Sepsis Qualifiers: Sepsis type: sepsis due to unspecified organism Qualified Code(s): A41.9 - Sepsis, unspecified organism Is this a current diagnosis for this admission?: Yes Plan: Which to IV to the p.o. antibiotic (3) UTI (urinary tract infection) Qualifiers: Urinary tract infection type: catheter-associated UTI Is this a current diagnosis for this admission?: Yes Plan: Continues to p.o. Cipro (4) multiple incisional hernias,non obstruct Is this a current diagnosis for this admission?: Yes Plan: Follow with the surgery (5) Chronic kidney disease, stage 3 Is this a current diagnosis for this admission?: Yes Plan: Consults the patient's nephrology for further evaluations with ongoing sepsis kidney failure and hydronephrosis (6) Constipation Qualifiers: Constipation type: unspecified constipation type Qualified Code(s): K59.00 - Constipation, unspecified Is this a current diagnosis for this admission?: Yes Plan: Use the Colace and MiraLAX (7) Coronary artery disease Qualifiers: Coronary Disease-Associated Artery/Lesion type: [place] artery Is this a current diagnosis for this admission?: Yes Plan: Get the EKG in the morning currently asymptomatic (8) Hydronephrosis of right kidney Is this a current diagnosis for this admission?: Yes Plan: Chronic unchanged (9) Personal history of colon cancer Is this a current diagnosis for this admission?: Yes (10) Type 2 diabetes mellitus Qualifiers: Diabetes mellitus residential insulin use: without intermodal dispatcher use Diabetes mellitus complication status: with neurologic complications Diabetes mellitus complication detail: with polyneuropathy Qualified Code(s): E11.42 - Type 2 diabetes mellitus with diabetic polyneuropathy Is this a current diagnosis for this admission?: Yes Plan: Continues a sliding scale (11) Throat pain Is this a current diagnosis for this admission?: Yes Plan: Clear all stable (12) Bradycardia Is this a current diagnosis for this admission?: Yes Plan: Consult the cardiology - Time Time Spent with patient: 15-24 minutes Medications reviewed and adjusted accordingly: Yes Anticipated discharge: Home, Other Within: within 24 hours, Other - Plan Summary Plan Summary: Discontinues the Green catheter Patient still needs to continues to do the self cath as per urology's Continues to Cipro for another 7 days
--- NOTE | 2019-01-28 12:36 | PDOC CONSULTATION ---
Consultation Consult Date: 01/28/19 Provider Consulted: Chano MENDIOLA History of Present Illness Admission Date/PCP: 01/25/19 09:26 RAMILA ROA MD History of Present Illness: HISTORY PRESENT ILLNESS: Patient is a 78-year-old male with a history of diabetes mellitus, Hypertension, stable coronary artery disease with a history of stents in the RCA and LAD, history of rectal cancer -status post surgery and failed end-to-end anastomosis and ended up with colostomy, CKD stage III with a base creatinine of 1.5-1.7 creatinine. Later complications included bowel obstruction secondary to adhesions and multiple incisional hernias. Besides all of this the patient has had couple of UTIs in the last couple of months. Apparently he has been found to have also a chronic right hydronephrosis/hydroureter. He has been referred to Dr. Cuellar/urologist who after urodynamic studies advised the patient to start self-catheterization 4-5 times a day which she has been doing for the last month and more. Patient was admitted with a 1 to 2-week history of gradually progressive constipation which happens in spite of multiple laxatives and pain around the colostomy site. He also had dysuria along with fever with occasional chills. Evaluations in the ER revealed the patient had UTI and sepsis. He also had a Noncontrasted CT scan done of his abdomen which shows multiple nonobstructive incisional hernias as well as moderately impacted clonic stools.Patient has had a Green catheter introduced besides starting him on antibiotics. His urine culture grew 30,000 colonies only of Klebsiella. During his initial presentation he was found to be bradycardic with his heart rate in the range of 30-40s. Dr. Lopez/cardiology was consulted who opined it was from increased vagal tone and responded to IV atropine. Currently his heart rate is stable in the 70s range. Currently the patient is feeling better. However he is getting depressed because he is an outdoor gentleman who does not like the fact he is cooped up inside with a Green catheter sticking inside. He would like to have the Green catheter removed and he says he will go back to self-catheterization. He would like to go home and enjoy his outdoors. Labs and medications were reviewed with the patient's and his . Discussions were done with his treating nurse Jimmy. Past Medical History Cardiac Medical History: Reports: Coronary Artery Disease, Hyperlipidemia, Hypertension-primary Pulmonary Medical History: Reports: Asthma Neurological Medical History: Denies: Seizures Endocrine Medical History: Reports: Diabetes Mellitus Type 2 Renal/ Medical History: Reports: Chronic Kidney Disease Stage III Malignancy Medical History: Reports: Colorectal Cancer GI Medical History: Reports: Gastroesophageal Reflux Disease Psychiatric Medical History: Reports: Depression Past Surgical History Past Surgical History: Reports: Orthopedic Surgery - ankle, Other - colon resction with colostomy for Ca 20 yrs ago and subsequent reconstructi Social History Smoking Status: Former Smoker Number of Years Smokin Last Time Smoked: 1976 Frequency of Alcohol Use: None Hx Recreational Drug Use: No Drugs: None Hx Prescription Drug Abuse: No Family History Parental Family History Reviewed: Yes - Negative for ESRD. Children Family History Reviewed: No Sibling(s) Family History Reviewed.: No Medication/Allergy Home Medications: Albuterol Sulfate [Proair HFA Inhalation Aerosol 8.5 gm MDI] 1 puff IH Q6HP PRN 03/11/18 Amlodipine Besylate [Norvasc 10 mg Tablet] 10 mg PO QHS 03/11/18 Atorvastatin Calcium [Lipitor 40 mg Tablet] 20 mg PO QHS 03/11/18 Fenofibrate 160 mg PO QHS 03/11/18 Finasteride [Proscar 5 mg Tablet] 5 mg PO QHS 03/11/18 Fluticasone/Salmeterol [Advair 250-50 Diskus 14 Dose/Diskus] 1 puff IN Q12 03/11/18 Glipizide [Glucotrol 5 mg Tablet] 5 mg PO QHS 03/11/18 Montelukast Sodium [Singulair 10 mg Tablet] 10 mg PO QHS 03/11/18 Pantoprazole Sodium [Protonix] 40 mg PO QHS 03/11/18 Pramipexole Di-HCl [Pramipexole Dihydrochloride] 0.25 mg PO QHS 03/11/18 Sitagliptin Phosphate [Januvia] 100 mg PO QHS 03/11/18 Tamsulosin HCl [Flomax 0.4 mg Cap.sr] 0.4 mg PO QHS 03/11/18 Allergies/Adverse Reactions: No Known Drug Allergies Allergy (Verified 01/25/19 07:18) Review of Systems Constitutional: PRESENT: fatigue, fever(s), weakness. ABSENT: headache(s), nigh t sweats Eyes: ABSENT: visual disturbances Ears: ABSENT: hearing changes Nose, Mouth, and Throat: PRESENT: mouth pain - Found to have all thrush most likely after he was given antibiotics for his last UTI approximately a month and more ago. Cardiovascular: ABSENT: chest pain, dyspnea on exertion, edema, orthropnea, palpitations Gastrointestinal: PRESENT: constipation. ABSENT: abdominal pain, coffee ground emesis, diarrhea, dysphagia, heartburn, hematemesis, hematochezia, melena, nausea, vomiting Genitourinary: PRESENT: difficulty urinating - Self catheterizes after urodynamic studies by urology., dysuria. ABSENT: hematuria Musculoskeletal: ABSENT: deformity, joint swelling Neurological: ABSENT: abnormal gait, abnormal movements, abnormal speech, confusion, convulsions, focal weakness, frequent falls, lack of coordination, memory loss, numbness, paresthesias, syncope Endocrine: ABSENT: heat intolerance, polydipsia Hematologic/Lymphatic: ABSENT: easy bleeding, easy bruising, lymphadenopathy Physical Exam Vital Signs: Temp Pulse Resp BP Pulse Ox 99.5 F 83 18 167/63 H 96 01/28/19 08:15 01/28/19 08:15 01/28/19 08:15 01/28/19 08:15 01/28/19 08:15 Intake & Output 01/27/19 01/28/19 01/29/19 06:59 06:59 06:59 Intake Total 1792 2074 Output Total 2950 4050 Balance -1158 -1975 Weight 88.9 kg 88.9 kg General appearance: PRESENT: no acute distress Eye exam: PRESENT: conjunctiva pink, EOMI, PERRLA. ABSENT: nystagmus Ear exam: PRESENT: normal external ear exam Mouth exam: PRESENT: moist, neck supple Neck exam: ABSENT: lymphadenopathy, meningismus, tenderness, thyromegaly, tracheal deviation Respiratory exam: PRESENT: clear to auscultation yumiko. ABSENT: crackles, rhonchi Cardiovascular exam: PRESENT: +S1, +S2 GI/Abdominal exam: PRESENT: normal bowel sounds - Has lower left colostomy bag., soft. ABSENT: distended, firm, guarding, organomegaly, tenderness Gentrourinary exam: PRESENT: indwelling catheter Extremities exam: ABSENT: pedal edema Neurological exam: PRESENT: alert, awake, oriented to person, oriented to place Psychiatric exam: PRESENT: depressed Skin exam: ABSENT: dry, erythema, normal color, petechiae, rash Results Laboratory Results: 01/28/19 03:45 01/28/19 03:45 01/28/19 01/28/19 03:45 03:45 WBC 9.8 RBC 3.36 L Hgb 9.7 L Hct 28.3 L MCV 84 MCH 29.0 MCHC 34.4 RDW 14.8 H Plt Count 272 Seg Neutrophils % 73.7 Lymphocytes % 12.9 L Monocytes % 11.4 Eosinophils % 1.8 Basophils % 0.2 Absolute Neutrophils 7.2 Absolute Lymphocytes 1.3 Absolute Monocytes 1.1 Absolute Eosinophils 0.2 Absolute Basophils 0.0 Sodium 138.2 Potassium 4.1 Chloride 104 Carbon Dioxide 26 Anion Gap 8 BUN 19 Creatinine 1.70 H Est GFR ( Amer) 47 L Est GFR (Non-Af Amer) 39 L Glucose 84 Calcium 9.3 01/25/19 12:54 Catheterized Urine Urine Culture - Final Klebsiella Oxytoca 01/25/19 02:16 Troponin I 0.021 Impressions: Acute Abdomen Series 01/25/19 00:34 IMPRESSION: No acute cardiopulmonary abnormality. Nonobstructive bowel gas pattern. copyright 2010 [employer]- All Rights Reserved Small Bowel X-Ray 01/25/19 08:24 IMPRESSION: There are multiple midline ventral hernias without evidence of bowel obstruction. Esophagus X-Ray 01/25/19 08:25 IMPRESSION: Intermittent tertiary contractions of the esophagus with poor primary stripping wave Mild mucosal irregularity in the distal esophagus just above a small hiatal hernia Tiny hiatal hernia with gastroesophageal reflux. No Schatzki's ring Assessment & Plan - Diagnosis (1) GEGE (acute kidney injury) Plan: Patient is got underlying CKD stage III with base creatinine of around 1.5-1.7. Admission creatinine was 2.1 and current creatinine today is 1.7. Previously he had some ATN from his sepsis and currently improving. Advised discontinuation of Green catheter and back to self-catheterization.Patient ready to be discharged from a renal standpoint and can follow with Dr. Patel as an outpatient. (2) Rectal cancer Plan: Status post surgery followed by colostomy. Patient has had chronic constipation ever since which has been a painful unresolving issue. I believe this could have been 1 of the reasons why the patient obviously came in and besides his partially treated UTI. Discussed about using multiple laxatives but patient obviously has tried many and is rather disappointed about it. (3) Abdominal pains around colostomy Is this a current diagnosis for this admission?: Yes Plan: Presently much improved. Has multiple nonobstructive incisional hernias. (4) UTI (urinary tract infection) Qualifiers: Urinary tract infection type: catheter-associated UTI Is this a current diagnosis for this admission?: Yes Plan: Partially treated. Urine culture grew grew 30,000 colonies of Klebsiella and is responding well to IV Cipro. Advised to discontinue Green catheter and go back to self-catheterization. Patient has not had chronic right hydronephrosis with no signs of pyelonephritis. Follows with Dr. Cuellar/urology. (5) multiple incisional hernias,non obstruct Is this a current diagnosis for this admission?: Yes Plan: Status quo and chronic. (6) Chronic kidney disease, stage 3 Is this a current diagnosis for this admission?: Yes Plan: Underlying CKD stage III with base creatinine 1.5-1.[address] Patel. Advised to follow-up with her once he is discharged. (7) Constipation Qualifiers: Constipation type: unspecified constipation type Qualified Code(s): K59.00 - Constipation, unspecified Is this a current diagnosis for this admission?: Yes Plan: As per Dr. Roa and the surgeons. Unfortunately chronic and vexing issue. (8) Coronary artery disease Qualifiers: Coronary Disease-Associated Artery/Lesion type: [place] artery Is this a current diagnosis for this admission?: Yes Plan: Stable. Status post interventions in the past. (9) Hydronephrosis of right kidney Is this a current diagnosis for this admission?: Yes Plan: Chronic. Follows with Dr. Cuellar/urology. (10) Type 2 diabetes mellitus Qualifiers: Diabetes mellitus group home insulin use: without buttermaker helper use Diabetes mellitus complication status: with neurologic complications Diabetes mellitus complication detail: with polyneuropathy Qualified Code(s): E11.42 - Type 2 diabetes mellitus with diabetic polyneuropathy Is this a current diagnosis for this admission?: Yes Plan: Advised tight control. (11) Depression Plan: Situational. Discussed with patient and the about going outside the hospital in a wheelchair once he is unbound of his Green catheter. Also discussed with Jimmy the treating nurse.
[2019-01-28] MEDS: ATORVASTATIN CALCIUM 40 MG TABLET PO SCH (21:13)
[2019-01-28] MEDS: PRAMIPEXOLE DI-HCL 0.25 MG TABLET PO SCH (21:13)
[2019-01-28] MEDS: AMLODIPINE BESYLATE 10 MG TABLET PO SCH (21:13)
[2019-01-28] MEDS: SITAGLIPTIN PHOSPHATE 50 MG TABLET PO SCH (21:13)
[2019-01-28] MEDS: TAMSULOSIN HCL 0.4 MG CAP.SR.24H PO SCH (21:14)
[2019-01-28] MEDS: FINASTERIDE 5 MG TABLET PO SCH (21:14)
[2019-01-28] MEDS: GLIPIZIDE 5 MG TABLET PO SCH (21:14)
[2019-01-28] MEDS: MONTELUKAST SODIUM 10 MG TABLET PO SCH (21:14)
[2019-01-29 04:21] VITALS: BP 149/59
[2019-01-29] MEDS: PANTOPRAZOLE SODIUM 40 MG TABLET.DR PO SCH (05:31)
--- NOTE | 2019-01-29 08:31 | PDOC DISCHARGE SUMMARY ---
General - Admit/Disc Date/PCP Admission Date/Primary Care Provider: 01/25/19 09:26 RAMILA CANO MD Discharge Date: 01/29/19 - Discharge Diagnosis (1) Abdominal pains around colostomy Is this a current diagnosis for this admission?: Yes Summary: Currently all resolved (2) Sepsis Is this a current diagnosis for this admission?: Yes Summary: Currently all resolved from UTI (3) UTI (urinary tract infection) Is this a current diagnosis for this admission?: Yes Summary: Continues to Cipro 500 mg twice a day for 7 days (4) multiple incisional hernias,non obstruct Is this a current diagnosis for this admission?: Yes Summary: All stable without any obstructions per the surgery (5) Chronic kidney disease, stage 3 Is this a current diagnosis for this admission?: Yes Summary: Follow outpatients nephrology (6) Constipation Is this a current diagnosis for this admission?: Yes Summary: Currently all resolved (7) Coronary artery disease Is this a current diagnosis for this admission?: Yes Summary: Patient seen by Dr. Lopez follow outpatients with a stress test and further evaluations (8) Hydronephrosis of right kidney Is this a current diagnosis for this admission?: Yes Summary: Patient also see urology (9) Personal history of colon cancer Is this a current diagnosis for this admission?: Yes (10) Type 2 diabetes mellitus Is this a current diagnosis for this admission?: Yes Summary: current medication (11) Throat pain Is this a current diagnosis for this admission?: Yes (12) Bradycardia Is this a current diagnosis for this admission?: Yes Summary: Currently all stable follow outpatients Dr. Kahn - Additional Information Discharge Diet: Diabetic Discharge Activity: Activity As Tolerated Prescriptions: Ciprofloxacin HCl [Cipro 500 mg Tablet] 500 mg PO BID #14 tablet Home Medications: Albuterol Sulfate [Proair HFA Inhalation Aerosol 8.5 gm MDI] 1 puff IH Q6HP PRN 03/11/18 Amlodipine Besylate [Norvasc 10 mg Tablet] 10 mg PO QHS 03/11/18 Atorvastatin Calcium [Lipitor 40 mg Tablet] 20 mg PO QHS 03/11/18 Fenofibrate 160 mg PO QHS 03/11/18 Finasteride [Proscar 5 mg Tablet] 5 mg PO QHS 03/11/18 Fluticasone/Salmeterol [Advair 250-50 Diskus 14 Dose/Diskus] 1 puff IN Q12 03/11/18 Glipizide [Glucotrol 5 mg Tablet] 5 mg PO QHS 03/11/18 Montelukast Sodium [Singulair 10 mg Tablet] 10 mg PO QHS 03/11/18 Pantoprazole Sodium [Protonix] 40 mg PO QHS 03/11/18 Pramipexole Di-HCl [Pramipexole Dihydrochloride] 0.25 mg PO QHS 03/11/18 Sitagliptin Phosphate [Januvia] 100 mg PO QHS 03/11/18 Tamsulosin HCl [Flomax 0.4 mg Cap.sr] 0.4 mg PO QHS 03/11/18 Ciprofloxacin HCl [Cipro 500 mg Tablet] 500 mg PO BID #14 tablet 01/29/19 History of Present Illness History of Present Illness: CECILIO BURNS is a 78 year old male This is a 78-year-old male with a history of the colon cancer status post col ectomy history of hypertension's history of the chronic kidney disease and a history of the chronic urinary tract infections and a chronic self- catheterization is currently see her Dr. Cuellar urology as outpatient and also seeing nephrology Dr. Camejo and also see a Dr. Benjamin came to the emergency department with the complaining of constipation for the last 1 week Feel very discomfort in the abdomen and also patient is running a fever 100.4 in the emergency department In the emergency department patient CT abdomen pelvis was negative for any acute finding but concern about some kind of colon issue and surgery was consulted and ordered the further study Patient also found a urinary tract infections and sepsis with elevated white count and given IV Zosyn According to the patient's he went to see a some urgent care a couple of weeks back with some issue with the throat and patient was giving nystatin suspensions and referred to dermatology and not sure the kettle cook said that nothing he can do patient's denied any difficulty in swallowing but Still some discomfort on the throat area Patient's denied any chest pain to than any shortness of the breath Patient has a history of coronary artery disease status post stent placement seen cardiology 2 years back's currently denied any complaints Hospital Course Hospital Course: This is a 78-year-old male presenting the emergency department with the constipation abdominal pain and fever and diagnosed with the urosepsis Patient also have a renal failure started on IV fluid and IV antibiotic Patient's cultures grew up the Klebsiella which is sensitive to the IV Zosyn and switch to the p.o. Cipro Patient response very well Patient also seen by the surgery and suggest no need for any surgical interventions Patient also seen by the nephrology Dr. Starr and suggest to follow outpatient Patient also seen a print production associate Dr. Lopez for bradycardia and suggest to follow outpatients with a stress test Patient is otherwise remained stable Dr. Lopez suggest patients probably need a sleep study as outpatients Physical Exam Vital Signs: Temp Pulse Resp BP Pulse Ox 98.6 F 67 20 149/59 H 97 01/29/19 04:00 01/29/19 07:00 01/29/19 04:00 01/29/19 04:00 01/29/19 04:00 Intake & Output 01/28/19 01/29/19 01/30/19 06:59 06:59 06:59 Intake Total 2074 1227 Output Total 4050 1503 Balance -1975 Weight 88.9 kg 87.9 kg General appearance: PRESENT: no acute distress, well-developed, well-nourished Head exam: PRESENT: atraumatic, normocephalic Eye exam: PRESENT: conjunctiva pink, EOMI, PERRLA. ABSENT: scleral icterus Ear exam: PRESENT: normal external ear exam Mouth exam: PRESENT: moist, tongue midline Neck exam: PRESENT: full ROM. ABSENT: carotid bruit, JVD, lymphadenopathy, thyromegaly Respiratory exam: PRESENT: clear to auscultation yumiko Cardiovascular exam: PRESENT: RRR. ABSENT: diastolic murmur, rubs, systolic murmur Pulses: PRESENT: normal dorsalis pedis pul, +2 pedal pulses bilateral Vascular exam: PRESENT: normal capillary refill GI/Abdominal exam: PRESENT: normal bowel sounds, soft. ABSENT: distended, guarding, mass, organolmegaly, rebound, tenderness Rectal exam: PRESENT: deferred Extremities exam: ABSENT: pedal edema Musculoskeletal exam: PRESENT: ambulatory Neurological exam: PRESENT: alert, awake, oriented to person, oriented to place, oriented to time, oriented to situation, CN II-XII grossly intact. ABSENT: motor sensory deficit Psychiatric exam: PRESENT: appropriate affect, normal mood. ABSENT: homicidal ideation, suicidal ideation Skin exam: PRESENT: dry, intact, warm. ABSENT: cyanosis, rash Results Laboratory Results: 01/28/19 03:45 01/28/19 03:45 01/25/19 02:16 Troponin I 0.021 Impressions: Acute Abdomen Series 01/25/19 00:34 IMPRESSION: No acute cardiopulmonary abnormality. Nonobstructive bowel gas pattern. copyright 2010 [employer]- All Rights Reserved Small Bowel X-Ray 01/25/19 08:24 IMPRESSION: There are multiple midline ventral hernias without evidence of sangeetha l obstruction. Esophagus X-Ray 01/25/19 08:25 IMPRESSION: Intermittent tertiary contractions of the esophagus with poor primary stripping wave Mild mucosal irregularity in the distal esophagus just above a small hiatal hernia Tiny hiatal hernia with gastroesophageal reflux. No Schatzki's ring Qualifiers - * PATIENT BEING DISCHARGED WITH ANY OF THE FOLLOWING DIAGNOSIS: No VTE patient discharged on overlapping Therapy?: Yes Acute Heart Failure - Is this a Heart Failure Patient?: No Plan Time Spent: Greater than 30 Minutes - Follow outpatients Dr. Lopez for the stress test Follow outpatient sleep study Follow urology and nephrology Patient also see her Dr. Benjamin Repeat the CBC and Chem-7 in 1 week Discussed with the regarding the patient's current conditions
[2019-01-29] MEDS: INSULIN LISPRO 100 UNIT/ML 3 ML VIAL SUBCUT SCH (08:40)
== END 2019-01-29 09:24 | disposition home or self-care (01) | DRG 698 ==
LOC: ER 21:43 → EH 01-25 09:26 → 3W 01-25 15:02
PROVIDERS: ADMIT Family Medicine; ATTEND Family Medicine
DX: T83.518A Infection and inflammatory reaction due to other urinary catheter, initial encounter (principal); A41.9 Sepsis, unspecified organism; N17.0 Acute kidney failure with tubular necrosis; N39.0 Urinary tract infection, site not specified; N13.30 Unspecified hydronephrosis; K59.00 Constipation, unspecified; Z85.038 Personal history of other malignant neoplasm of large intestine; Z93.3 Colostomy status; E78.5 Hyperlipidemia, unspecified; K21.9 Gastro-esophageal reflux disease without esophagitis; K43.2 Incisional hernia without obstruction or gangrene; Z79.4 Long term (current) use of insulin; E11.42 Type 2 diabetes mellitus with diabetic polyneuropathy; E11.49 Type 2 diabetes mellitus with other diabetic neurological complication; I25.10 Atherosclerotic heart disease of native coronary artery without angina pectoris; J45.909 Unspecified asthma, uncomplicated; E11.22 Type 2 diabetes mellitus with diabetic chronic kidney disease; I12.9 Hypertensive chronic kidney disease with stage 1 through stage 4 chronic kidney disease, or unspecified chronic kidney disease; Y84.6 Urinary catheterization as the cause of abnormal reaction of the patient, or of later complication, without mention of misadventure at the time of the procedure; N18.3 Chronic kidney disease, stage 3 (moderate); B96.1 Klebsiella pneumoniae [K. pneumoniae] as the cause of diseases classified elsewhere; F43.21 Adjustment disorder with depressed mood
CPT/HCPCS: 36415; 74022; 74176; 74220; 74250; 80048; 80053; 81001; 82962; 83605; 83735; 84439; 84443; 84484; 85025; 87040; 87086; 87088; 87186; 93005; 93010; 96361; 96365; 99285; J0461; J1650; J1815; J2543; J3490; J7030; J7120

== ENCOUNTER → 2019-03-26 | Outpatient (CLI) | payer MEDICARE, OTHER ==
[2019-03-26 10:34] LABS: ABSOLUTE EOSINOPHILS # (AUTO) 0.2 10^3/uL (0.0-0.6); ABSOLUTE LYMPHOCYTES (AUTO) 2.2 10^3/uL (0.5-4.7); ABSOLUTE MONOCYTES (AUTO) 0.7 10^3/uL (0.1-1.4); ABSOLUTE NEUT (AUTO) 5.4 10^3/uL (1.7-8.2); BASOPHILS % (AUTO) 0.4 % (0-2); EOSINOPHILS % (AUTO) 2.3 % (0-6); HEMATOCRIT 30.2 % (37.9-51.0); HEMOGLOBIN 10.2 g/dL (13.5-17.0); LYMPHOCYTES % (AUTO) 26.1 % (13-45); MEAN CORPUSCULAR HEMOGLOBIN 29.5 pg (27.0-33.4); MEAN CORPUSCULAR HGB CONC 33.6 g/dL (32.0-36.0); MEAN CORPUSCULAR VOLUME 88 fl (80-97); MONOCYTES % (AUTO) 8.1 % (3-13); PLATELET COUNT 281 10^3/uL (150-450); RED BLOOD COUNT 3.45 10^6/uL (4.35-5.55); RED CELL DISTRIBUTION WIDTH 15.8 % (11.5-14.0); SEGMENTED NEUTROPHILS % (AUTO) 63.1 % (42-78); TOTAL CELLS COUNTED % (AUTO) 100 %; WHITE BLOOD COUNT 8.5 10^3/uL (4.0-10.5)
[2019-03-26 11:00] LABS: ALBUMIN 4.3 g/dL (3.5-5.0); ALKALINE PHOSPHATASE 51 U/L (38-126); ANION GAP 10 (5-19); ASPARTATE AMINO TRANSFERASE 32 U/L (17-59); BILIRUBIN,DIRECT 0.2 mg/dL (0.0-0.4); BILIRUBIN,TOTAL 0.3 mg/dL (0.2-1.3); BLOOD UREA NITROGEN 22 mg/dL (7-20); CALCIUM 9.3 mg/dL (8.4-10.2); CARBON DIOXIDE 26 mmol/L (22-30); CHLORIDE 104 mmol/L (98-107); GLUCOSE 112 mg/dL (75-110); POTASSIUM 4.9 mmol/L (3.6-5.0); TOTAL PROTEIN 6.8 g/dL (6.3-8.2)
[2019-03-26 11:02] LABS: C-REACTIVE PROTEIN < 5.0 mg/L (<10.0)
[2019-03-26 11:18] LABS: ERYTHROCYTE SEDIMENTATION RATE 31 mm/hr (0-20)
--- NOTE | 2019-03-26 15:48 | RADIOLOGY REPORT (SQ) ---
EXAM DESCRIPTION: SACRUM AND COCCYX COMPLETED DATE/TIME: 03/26/2019 10:12 am REASON FOR STUDY: PRESSURE ULCER OF SACRAL REGION, STAGE 3 L89.153 PRESSURE ULCER OF SACRAL REGION, STAGE 3 E11.622 TYPE 2 DIABETES MELLITUS WITH OTHER SKIN ULCER COMPARISON: None. NUMBER OF VIEWS: Three views. TECHNIQUE: AP, lateral, and tilt views of the sacrum and coccyx. LIMITATIONS: None. FINDINGS: MINERALIZATION: Normal. BONES: No acute fracture or dislocation. No worrisome bone lesions. No conventional radiographic ev idence of osteomyelitis. SOFT TISSUES: No soft tissue swelling. No foreign body. OTHER: No other significant finding. IMPRESSION: NEGATIVE STUDY OF THE SACRUM AND COCCYX. TECHNICAL DOCUMENTATION: JOB ID: [id number] [employer]- All Rights Reserved Reading location - IP/workstation name: [email or web address]
== END ==
LOC: WC 09:47
PROVIDERS: ATTEND Surgery
DX: E11.622 Type 2 diabetes mellitus with other skin ulcer (principal); L89.153 Pressure ulcer of sacral region, stage 3
CPT/HCPCS: 36415; 72220; 80053; 83036; 85025; 85652; 86140

== ENCOUNTER → 2019-04-02 | Outpatient (CLI) | payer MEDICARE, OTHER ==
[2019-04-02 09:34] LABS: ABSOLUTE EOSINOPHILS # (AUTO) 0.2 10^3/uL (0.0-0.6); ABSOLUTE LYMPHOCYTES (AUTO) 1.9 10^3/uL (0.5-4.7); ABSOLUTE MONOCYTES (AUTO) 0.5 10^3/uL (0.1-1.4); ABSOLUTE NEUT (AUTO) 3.9 10^3/uL (1.7-8.2); BASOPHILS % (AUTO) 0.4 % (0-2); EOSINOPHILS % (AUTO) 2.8 % (0-6); HEMATOCRIT 30.2 % (37.9-51.0); HEMOGLOBIN 10.3 g/dL (13.5-17.0); LYMPHOCYTES % (AUTO) 29.5 % (13-45); MEAN CORPUSCULAR HEMOGLOBIN 29.7 pg (27.0-33.4); MEAN CORPUSCULAR HGB CONC 34.1 g/dL (32.0-36.0); MEAN CORPUSCULAR VOLUME 87 fl (80-97); MONOCYTES % (AUTO) 8.2 % (3-13); PLATELET COUNT 270 10^3/uL (150-450); RED BLOOD COUNT 3.47 10^6/uL (4.35-5.55); RED CELL DISTRIBUTION WIDTH 15.8 % (11.5-14.0); SEGMENTED NEUTROPHILS % (AUTO) 59.1 % (42-78); TOTAL CELLS COUNTED % (AUTO) 100 %; WHITE BLOOD COUNT 6.6 10^3/uL (4.0-10.5)
[2019-04-02 10:00] LABS: ALBUMIN 4.1 g/dL (3.5-5.0); ANION GAP 10 (5-19); BLOOD UREA NITROGEN 21 mg/dL (7-20); CALCIUM 9.4 mg/dL (8.4-10.2); CARBON DIOXIDE 25 mmol/L (22-30); CHLORIDE 105 mmol/L (98-107); GLUCOSE 190 mg/dL (75-110); IRON(TIBC) 64.3 ug/dL (49-181); POTASSIUM 4.5 mmol/L (3.6-5.0)
== END ==
LOC: OD 08:55
PROVIDERS: ATTEND Internal Medicine Nephrology
DX: I12.9 Hypertensive chronic kidney disease with stage 1 through stage 4 chronic kidney disease, or unspecified chronic kidney disease (principal); N18.3 Chronic kidney disease, stage 3 (moderate); E11.22 Type 2 diabetes mellitus with diabetic chronic kidney disease; E11.40 Type 2 diabetes mellitus with diabetic neuropathy, unspecified; D63.1 Anemia in chronic kidney disease; R80.9 Proteinuria, unspecified
CPT/HCPCS: 36415; 80069; 82043; 82306; 82570; 82728; 83540; 83550; 83970; 85025

== ENCOUNTER 2019-05-18 20:32 | Inpatient (IN) | payer MEDICARE, OTHER ==
--- NOTE | 2019-05-18 21:03 | ER Document Report ---
ED General - General Chief Complaint: Abdominal Pain Stated Complaint: ABDOMINAL PAIN Time Seen by Provider: 05/18/19 20:56 Information source: Patient TRAVEL OUTSIDE OF THE [place] IN LAST 30 DAYS: No - HPI Patient complains to provider of: nausea and constipation Onset: This morning Onset/Duration: Gradual Quality of pain: Sharp Severity: Moderate Associated symptoms: None Exacerbated by: Denies Relieved by: Denies Similar symptoms previously: Yes Recently seen / treated by doctor: No Notes: This is a 78-year-old male with a history of colectomy approximately 20 years ago for treatment of colon cancer. Patient states that he has never been able to have his colostomy reversed. Patient is presenting today complaining of n ausea and "constipation"; patient states that output in his colostomy bag is decreased from his normal. Patient states that when this is happened in the past that usually means that he is constipated. Patient states he has had small bowel obstruction secondary to adhesions at least twice in the past requiring surgery while he was living in [place]. Patient states he has not had any surgical intervention related to his abdomen since being in [place]. Patient denies fever, chills, vomiting, shortness of breath, chest pain. Patient states nothing worsens his symptoms and nothing he has done at home is improving the symptoms. - Related Data Allergies/Adverse Reactions: No Known Drug Allergies Allergy (Verified 01/25/19 07:18) Past Medical History - General Information source: Patient - Social History Smoking Status: Never Smoker Lives with: Spouse/Significant other Family History: Reviewed & Not Pertinent Patient has suicidal ideation: No Patient has homicidal ideation: No - Past Medical History Cardiac Medical History: Reports: Hx Coronary Artery Disease, Hx Hypercholesterolemia, Hx Hypertension Pulmonary Medical History: Reports: Hx Asthma Neurological Medical History: Denies: Hx Seizures Endocrine Medical History: Reports: Hx Diabetes Mellitus Type 2 Renal/ Medical History: Denies: Hx Peritoneal Dialysis Malignancy Medical History: Reports Hx Colorectal Cancer GI Medical History: Reports: Hx Gastroesophageal Reflux Disease Psychiatric Medical History: Reports: Hx Depression Past Surgical History: Reports: Hx Bowel Surgery - colostomy, Hx Cardiac Surgery - heart stents x 2, Hx Orthopedic Surgery - ankle, Other - colon resction with colostomy for Ca 20 yrs ago and subsequent reconstructi - Immunizations Hx Diphtheria, Pertussis, Tetanus Vaccination: Yes Hx Pneumococcal Vaccination: 10/04/13 Review of Systems - Review of Systems Constitutional: No symptoms reported EENT: No symptoms reported Cardiovascular: No symptoms reported Respiratory: No symptoms reported Gastrointestinal: Abdominal pain, Nausea, Constipation Male Genitourinary: No symptoms reported Musculoskeletal: No symptoms reported Skin: No symptoms reported Hematologic/Lymphatic: No symptoms reported Neurological/Psychological: No symptoms reported -: Yes All other systems reviewed and negative Physical Exam - Vital signs Vitals: Temp Pulse BP Pulse Ox 97.4 F 81 162/63 H 97 05/18/19 20:39 05/18/19 20:39 05/18/19 20:39 05/18/19 20:39 - General General appearance: Alert In distress: Mild - HEENT Head: Normocephalic, Atraumatic Eyes: Normal Conjunctiva: Normal - Respiratory Respiratory status: No respiratory distress Chest status: Nontender Breath sounds: Normal Chest palpation: Normal - Cardiovascular Rhythm: Regular Heart sounds: Normal auscultation Murmur: No - Abdominal Inspection: Normal Distension: Distended Bowel sounds: Hyperactive Tenderness: Nontender Notes: Patient's abdomen is significantly distended. Patient has a colostomy bag in place and the area of his left lower quadrant. There is some fecal material in the bag. - Extremities General upper extremity: Normal inspection General lower extremity: Normal inspection - Neurological Neuro grossly intact: Yes Cognition: Normal Orientation: AAOx4 [place] Coma Scale Eye Opening: Spontaneous [place] Coma Scale Verbal: Oriented [place] Coma Scale Motor: Obeys Commands [place] Coma Scale Total: 15 - Psychological Associated symptoms: Normal affect, Normal mood - Skin Skin Temperature: Warm Skin Moisture: Dry Course - Re-evaluation Re-evalutation: 05/19/19 03:07 Patient and patient's were informed of labs and CT findings. Patient states he is hesitant to undergo surgery for the SBO that was found on his CT during this visit but he is willing to be admitted with placement of an NG tube to decompress his bowel. This MD stated that he would make the on-call surgeon aware that the patient is to be admitted with an NG tube and may be in need of surgical consult. This MD then contacted the on-call physician for Dr. Roa who accepted the patient for admission to a medical bed on fourth floor. case d/w dr. rader, surgeon, at 0243 hours. case d/w dr. peña, weight control engineer for dr. roa; he accepted pt for admission onto his service (medical bed, 4th floor) - Vital Signs Vital signs: Temp Pulse Resp BP Pulse Ox 97.4 F 81 23 H 169/68 H 93 05/18/19 20:39 05/18/19 20:39 05/19/19 03:01 05/19/19 03:01 05/19/19 03:01 05/19/19 03:11 Vital signs reviewed by this MD. - Laboratory Result Diagrams: 05/18/19 22:00 05/18/19 22:00 Laboratory results interpreted by me: 05/18/19 05/18/19 22:00 22:00 WBC 15.2 H RBC 3.83 L Hgb 11.4 L Hct 33.6 L RDW 14.5 H Lymph % (Auto) 6.7 L Absolute Neuts (auto) 13.2 H Seg Neutrophils % 86.9 H BUN 22 H Creatinine 1.38 H Est GFR (MDRD) Non-Af 50 L Glucose 182 H All labs reviewed by this MD. - Diagnostic Test Radiology reviewed: Reports reviewed - EKG Interpretation by Me Additional EKG results interpreted by me: 05/19/19 03:12 EKG done on 05/18/2019 at 2134 hrs. was reviewed by this MD. Patient's right on the EKG is reported to be 138. There is a tremendous amount of artifact which makes the EKG difficult to interpret. A repeat EKG has been ordered by this MD for review and comparison to a prior EKG from 01/25/2019 05/19/19 03:50 Repeat EKG performed at 034 7 hours sinus rhythm with a rate of 97, normal axis, normal QRS, no ST segment elevation or depression. Impression: Normal sinus rhythm with nonspecific ST segments. Discharge - Discharge Clinical Impression: SBO (small bowel obstruction) Condition: Fair Disposition: ADMITTED INPATIENT Admitting Provider: [facility] Unit Admitted: Medical Floor
[2019-05-18] MEDS ORDERED: ONDANSETRON HCL INJ/PF 4 MG/2 ML SDV IV ONE (21:11)
[2019-05-18] MEDS ORDERED: KETOROLAC TROMETHAMINE INJ/PF 30 MG/1 ML SDV IV ONE (21:11)
[2019-05-18 22:13] LABS: ABSOLUTE BASOPHILS # (AUTO) 0.1 10^3/uL (0.0-0.2); ABSOLUTE MONOCYTES (AUTO) 0.9 10^3/uL (0.1-1.4); ABSOLUTE NEUT (AUTO) 13.2 10^3/uL (1.7-8.2); BASOPHILS % (AUTO) 0.5 % (0-2); EOSINOPHILS % (AUTO) 0.2 % (0-6); HEMATOCRIT 33.6 % (37.9-51.0); HEMOGLOBIN 11.4 g/dL (13.5-17.0); LYMPHOCYTES % (AUTO) 6.7 % (13-45); MEAN CORPUSCULAR HEMOGLOBIN 29.7 pg (27.0-33.4); MEAN CORPUSCULAR HGB CONC 33.8 g/dL (32.0-36.0); MEAN CORPUSCULAR VOLUME 88 fl (80-97); MONOCYTES % (AUTO) 5.7 % (3-13); PLATELET COUNT 268 10^3/uL (150-450); RED BLOOD COUNT 3.83 10^6/uL (4.35-5.55); RED CELL DISTRIBUTION WIDTH 14.5 % (11.5-14.0); SEGMENTED NEUTROPHILS % (AUTO) 86.9 % (42-78); TOTAL CELLS COUNTED % (AUTO) 100 %; WHITE BLOOD COUNT 15.2 10^3/uL (4.0-10.5)
[2019-05-18] MEDS ORDERED: HYDROMORPHONE HCL INJ/PF 2 MG/ML AMPULE IV ONE (22:19)
[2019-05-18] MEDS ORDERED: METOCLOPRAMIDE HCL INJ/PF 10 MG/2 ML SDV IV ONE (22:20)
[2019-05-18 22:31] LABS: ALBUMIN 4.5 g/dL (3.5-5.0); ALKALINE PHOSPHATASE 79 U/L (38-126); ANION GAP 12 (5-19); ASPARTATE AMINO TRANSFERASE 26 U/L (17-59); BILIRUBIN,DIRECT 0.3 mg/dL (0.0-0.4); BILIRUBIN,TOTAL 0.5 mg/dL (0.2-1.3); BLOOD UREA NITROGEN 22 mg/dL (7-20); CALCIUM 10.2 mg/dL (8.4-10.2); CARBON DIOXIDE 26 mmol/L (22-30); CHLORIDE 102 mmol/L (98-107); GLUCOSE 182 mg/dL (75-110); POTASSIUM 4.8 mmol/L (3.6-5.0); TOTAL PROTEIN 7.6 g/dL (6.3-8.2)
[2019-05-19] MEDS ORDERED: PRAMIPEXOLE DI-HCL 0.25 MG TABLET PO ONE (00:38)
--- NOTE | 2019-05-19 00:55 | RADIOLOGY REPORT (SQ) ---
EXAM DESCRIPTION: XR CHEST 1 VIEW COMPLETED DATE/TME: 05/18/2019 21:15 CLINICAL HISTORY: 78 years Male, n/v, abdominal pain COMPARISON:Mar 10 2018 NUMBER OF VIEWS/TECHNIQUE: 1/AP FINDINGS: Adequate lung volume, minimal atelectasis or scar at the left lung base, normal cardiac silhouette, and intact bony thorax. IMPRESSION: No acute cardiopulmonary findings.
[2019-05-19] MEDS ORDERED: PRAMIPEXOLE DI-HCL 0.25 MG TABLET ONE (01:34)
--- NOTE | 2019-05-19 02:10 | RADIOLOGY REPORT (SQ) ---
EXAM DESCRIPTION: CT abdomen and pelvis without contrast CLINICAL HISTORY: 78 years Male, nausea, vomiting, abd pain, constipation COMPARISON: CT abdomen and pelvis 01/25/2019 TECHNIQUE: Axial images of the abdomen and pelvis were performed without the use of intravenous contrast, with sagittal and coronal reformatted images. This exam was performed according to our departmental dose-optimization program which includes use of Automated Exposure Control, adjustment of the mA and/or kV according to patient size and/or use of iterative reconstruction technique. FINDINGS: There are multiple loops of dilated small bowel, with some normal caliber distal ileum, compatible with small bowel obstruction. There is a right lower abdominal wall hernia containing small bowel. This appears to be the site of obstruction. There are additional ventral hernias containing small bowel, however, these hernias do not appear to be causing obstruction. The stomach is dilated and contains a large amount of fluid. There is moderate to severe right-sided hydronephrosis and hydroureter, with no evidence of a ureteral stone. This finding was also on the prior scan. There is fatty infiltration of liver. There is no significant radiographic abnormality of the spleen, pancreas, adrenal glands or left kidney. IMPRESSION: Right lower abdominal wall hernia containing small bowel and causing small bowel obstruction. The stomach is dilated and contains a large amount of fluid. Other findings as described.
[2019-05-19] MEDS ORDERED: METOCLOPRAMIDE HCL INJ/PF 10 MG/2 ML SDV IV ONE (02:50)
[2019-05-19] MEDS ORDERED: MIDAZOLAM 2 MG/2 ML INJ IV ONE (02:50)
[2019-05-19] MEDS ORDERED: DEXTROSE 50%-WATER 25 GM/50 ML DISP.SYRIN IV PRN ×4 (03:38→11:51)
[2019-05-19] MEDS ORDERED: GLUCAGON,HUMAN RECOMB 1 MG INJ SUBCUT PRN (03:38)
[2019-05-19] MEDS ORDERED: DEXTROSE 40% GEL 15 GM TUBE PO PRN ×4 (03:38→11:51)
[2019-05-19] MEDS ORDERED: PHARMACY COMMUNICATION ORDER MC NR (03:45)
[2019-05-19] MEDS ORDERED: HEPARIN SOD (PORCINE) 5,000 UNIT/ML 1 ML VIAL SUBCUT ONE (04:15)
[2019-05-19] MEDS: DEXTROSE 5%-1/2 NORMAL SALINE 1,000 ML IV PRN ×2 (04:21→13:00)
--- NOTE | 2019-05-19 04:41 | RADIOLOGY REPORT (SQ) ---
Chest single view on 05/19/2019 at 3:33 AM CLINICAL INDICATION: NG tube placement COMPARISON: 05/19/2019 at 12:12 AM FINDINGS: Examination is centered overlying the lower chest and upper abdomen with the upper chest not imaged. There is an NG tube that is curled in the distal esophagus with its tip pointed superiorly in the esophagus. Recommend complete removal and replacement. There is minimal basilar atelectasis or scarring. IMPRESSION: NG tube is curled in the distal esophagus with its tip pointed superiorly. Recommend complete removal and replacement.
[2019-05-19 05:10] LABS: INTERNATIONAL RATION (INR) 1.04; PROTHROMBIN TIME 13.6 SEC (11.4-15.4)
[2019-05-19 05:11] LABS: PARTIAL THROMBOPLASTIN TIME 28.3 SEC (23.5-35.8)
[2019-05-19 05:16] LABS: APPEARANCE,URINE CLOUDY; BILIRUBIN,URINE NEGATIVE (NEGATIVE); COLOR,URINE YELLOW; GLUCOSE, URINE 50 mg/dL (NEGATIVE); KETONES,URINE NEGATIVE (NEGATIVE); LEUKOCYTE ESTERASE,URINE LARGE (NEGATIVE); NITRITE,URINE NEGATIVE (NEGATIVE); PROTEIN,URINE >=500 mg/dL (NEGATIVE); URINE SPECIFIC GRAVITY 1.015; UROBILINOGEN,URINE NEGATIVE mg/dL (<2.0)
[2019-05-19 05:18] LABS: AMYLASE 81 U/L (30-110); ANION GAP 12 (5-19); BLOOD UREA NITROGEN 25 mg/dL (7-20); CALCIUM 10.3 mg/dL (8.4-10.2); CARBON DIOXIDE 27 mmol/L (22-30); CHLORIDE 101 mmol/L (98-107); GLUCOSE 234 mg/dL (75-110); PHOSPHORUS 4.2 mg/dL (2.5-4.5); POTASSIUM 4.7 mmol/L (3.6-5.0)
[2019-05-19 05:21] LABS: URINE AMPHETAMINES SCREEN NEGATIVE; URINE BARBITURATES SCREEN NEGATIVE; URINE BENZODIAZEPINES SCREEN NEGATIVE; URINE COCAINE SCREEN NEGATIVE; URINE MARIJUANA (THC) SCREEN NEGATIVE; URINE METHADONE SCREEN NEGATIVE; URINE PHENCYCLIDINE SCREEN NEGATIVE
[2019-05-19 05:35] LABS: FREE T4 (FREE THYROXINE) 0.9 ng/dL (0.78-2.19)
[2019-05-19 05:49] LABS: THYROID STIMULATING HORMONE 2.47 uIU/mL (0.47-4.68)
[2019-05-19] MEDS: HYDROMORPHONE HCL INJ/PF 2 MG/ML AMPULE IV PRN ×3 (06:23→19:41)
--- NOTE | 2019-05-19 08:26 | EKG REPORT ---
SEVERITY:- ABNORMAL ECG - SINUS RHYTHM BORDERLINE RIGHT AXIS DEVIATION NONSPECIFIC T ABNORMALITIES, INFERIOR LEADS : Confirmed by: Vladislav Zaidi MD 19-May-2019 08:26:00
--- NOTE | 2019-05-19 08:29 | EKG REPORT ---
SEVERITY:- DEFECTIVE ECG - ATRIAL FIBRILLATION (NO, ITS SINUS RHYTHM, WITH SEVERE BASELINE TREMORS ) NONDIAGNOSTIC : Confirmed by: Vladislav Zaidi MD 19-May-2019 08:28:57
--- NOTE | 2019-05-19 11:50 | PDOC H&P ---
History of Present Illness Admission Date/PCP: 05/19/19 03:21 RAMILA CANO MD History of Present Illness: CECILIO BURNS is a 78 year old male,, patient 78-year-old male with history of malignant neoplasm of the colon status post colectomy with colostomy bag. He came to the emergency room for evaluation of abdominal pain, there was no vomiting. Patient stated to the ER physician that the output in the ostomy bag was decreased usually that means is constipated. A CAT scan of abdomen and pelvis without contrast was obtained ,demonstrated multiple loops of dilated small bowel with normal caliber of the distal ileum, the finding is compatible with small bowel obstruction also found was a right lower abdominal wall hernia containing small bowel it was felt that this could be the site of obstruction.. There are also additional ventral hernias containing small bowel this hernia did not appear to be causing obstruction he had the procedure 20 years ago 125 Past Medical History Cardiac Medical History: Reports: Coronary Artery Disease, Hyperlipidema, Hypertension Pulmonary Medical History: Reports: Asthma Endocrine Medical History: Reports: Diabetes Mellitus Type 2 Malignancy Medical History: Reports: Colorectal Cancer GI Medical History: Reports: Gastroesophageal Reflux Disease Psychiatric Medical History: Reports: Depression Past Surgical History Past Surgical History: Reports: Orthopedic Surgery - ankle, Other - colon resction with colostomy for Ca 20 yrs ago and subsequent reconstructi Social History Lives with: Spouse/Significant other Smoking Status: Former Smoker Frequency of Alcohol Use: None Hx Recreational Drug Use: No Drugs: None Hx Prescription Drug Abuse: No Family History Family History: Reviewed & Not Pertinent Parental Family History Reviewed: Yes Children Family History Reviewed: Yes Sibling(s) Family History Reviewed.: Yes Medication/Allergy Home Medications: Albuterol Sulfate [Proair HFA Inhalation Aerosol 8.5 gm MDI] 2 puff IH Q4HP PRN 05/19/19 Amlodipine Besylate [Norvasc 10 mg Tablet] 10 mg PO DAILY 05/19/19 Atorvastatin Calcium [Lipitor 20 mg Tablet] 20 mg PO DAILY 05/19/19 Fenofibrate 160 mg PO DAILY 05/19/19 Finasteride [Proscar 5 mg Tablet] 5 mg PO DAILY 05/19/19 Fluticasone/Salmeterol [Advair 250-50 Diskus 14 Dose/Diskus] 1 puff IH BID 05/19/19 Glipizide [Glucotrol 5 mg Tablet] 5 mg PO DAILY 05/19/19 Lisinopril [Zestril] 10 mg PO DAILY 05/19/19 Montelukast Sodium [Singulair 10 mg Tablet] 10 mg PO QPM 05/19/19 Pantoprazole Sodium [Protonix [address] Tablet] 40 mg PO DAILY 05/19/19 Pramipexole Di-HCl [Mirapex 0.25 mg Tablet] 0.25 mg PO DAILY 05/19/19 Sitagliptin Phosphate [Januvia] 100 mg PO DAILY 05/19/19 Tamsulosin HCl [Flomax 0.4 mg Cap.sr] 0.4 mg PO QPM 05/19/19 Allergies/Adverse Reactions: No Known Drug Allergies Allergy (Verified 01/25/19 07:18) Review of Systems Constitutional: PRESENT: anorexia Eyes: ABSENT: visual disturbances Ears: ABSENT: hearing changes Cardiovascular: ABSENT: chest pain, dyspnea on exertion, edema, orthropnea, palpitations Respiratory: ABSENT: cough, hemoptysis Gastrointestinal: PRESENT: abdominal pain. ABSENT: constipation, diarrhea, hematemesis, hematochezia, nausea, vomiting Genitourinary: ABSENT: dysuria, hematuria Musculoskeletal: ABSENT: joint swelling Integumentary: ABSENT: rash, wounds Neurological: ABSENT: abnormal gait, abnormal speech, confusion, dizziness, focal weakness, syncope Psychiatric: ABSENT: anxiety, depression, homidical ideation, suicidal ideation Endocrine: ABSENT: cold intolerance, heat intolerance, menstrual abnormalities, polydipsia, polyuria Hematologic/Lymphatic: ABSENT: easy bleeding, easy bruising, lymphadenopathy Physical Exam Vital Signs: Temp Pulse Resp BP Pulse Ox 97.9 F 103 H 16 153/58 H 93 05/19/19 08:19 05/19/19 08:19 05/19/19 08:19 05/19/19 08:19 05/19/19 08:19 Intake & Output 05/18/19 05/19/19 05/20/19 06:59 06:59 06:59 Output Total 850 550 Balance -850 -550 Weight 92 kg General appearance: PRESENT: no acute distress, well-developed, well-nourished Head exam: PRESENT: atraumatic, normocephalic Eye exam: PRESENT: conjunctiva pink, EOMI, PERRLA Ear exam: PRESENT: normal external ear exam Mouth exam: PRESENT: moist, tongue midline Neck exam: PRESENT: full ROM Respiratory exam: PRESENT: clear to auscultation yumiko Cardiovascular exam: PRESENT: RRR, +S1, +S2 Pulses: PRESENT: normal dorsalis pedis pul, +2 pedal pulses bilateral Vascular exam: PRESENT: normal capillary refill GI/Abdominal exam: PRESENT: normal bowel sounds, soft, tenderness, other - colostomy bag Rectal exam: PRESENT: deferred Neurological exam: PRESENT: alert, awake, oriented to person, oriented to place, oriented to time, oriented to situation, CN II-XII grossly intact Psychiatric exam: PRESENT: appropriate affect, normal mood Skin exam: PRESENT: dry, intact, warm Results Laboratory Results: 05/18/19 22:00 05/19/19 04:45 05/18/19 05/18/19 05/19/19 22:00 22:00 04:36 WBC 15.2 H RBC 3.83 L Hgb 11.4 L Hct 33.6 L MCV 88 MCH 29.7 MCHC 33.8 RDW 14.5 H Plt Count 268 Seg Neutrophils % 86.9 H Sodium 139.6 Potassium 4.8 Chloride 102 Carbon Dioxide 26 Anion Gap 12 BUN 22 H Creatinine 1.38 H Est GFR ( Amer) > 60 Glucose 182 H Calcium 10.2 Phosphorus Magnesium Total Bilirubin 0.5 AST 26 Alkaline Phosphatase 79 Ammonia Total Protein 7.6 Albumin 4.5 Amylase Lipase 132.8 TSH Free T4 Urine Color YELLOW Urine Appearance CLOUDY Urine pH 5.0 Ur Specific [place] 1.015 Urine Protein >=500 H Urine Glucose (UA) 50 H Urine Ketones NEGATIVE Urine Blood SMALL H Urine Nitrite NEGATIVE Ur Leukocyte Esterase LARGE H Urine WBC (Auto) 81 Urine RBC (Auto) 14 05/19/19 05/19/19 05/19/19 04:45 04:45 04:45 WBC RBC Hgb Hct MCV MCH MCHC RDW Plt Count Seg Neutrophils % Sodium 139.6 Potassium 4.7 Chloride 101 Carbon Dioxide 27 Anion Gap 12 BUN 25 H Creatinine 1.68 H Est GFR ( Amer) 48 L Glucose 234 H Calcium 10.3 H Phosphorus 4.2 Magnesium 1.7 Total Bilirubin AST Alkaline Phosphatase Ammonia < 8.7 L Total Protein Albumin Amylase 81 Lipase 315.0 H TSH 2.47 Free T4 0.90 Urine Color Urine Appearance Urine pH Ur Specific [place] Urine Protein Urine Glucose (UA) Urine Ketones Urine Blood Urine Nitrite Ur Leukocyte Esterase Urine WBC (Auto) Urine RBC (Auto) 05/18/19 22:00 Troponin I < 0.012 Impressions: Abdomen/Pelvis CT 05/19/19 00:00 IMPRESSION: Right lower abdominal wall hernia containing small bowel and causing small bowel obstruction. The stomach is dilated and contains a large amount of fluid. Other findings as described. Chest X-Ray 05/19/19 00:00 IMPRESSION: NG tube is curled in the distal esophagus with its tip pointed superiorly. Recommend complete removal and replacement. Assessment & Plan - Diagnosis (1) SBO (small bowel obstruction) Is this a current diagnosis for this admission?: Yes Plan: Patient will be kept n.p.o., NG tube to suction, consult surgery (2) Acute kidney injury Is this a current diagnosis for this admission?: Yes Plan: This most likely prerenal azotemia (3) Coronary artery disease Qualifiers: Coronary Disease-Associated Artery/Lesion type: [place] artery [place] vs. transplanted heart: [place] heart Associated angina: without angina Qualified Code(s): I25.10 - Atherosclerotic heart disease of [place] coronary artery without angina pectoris Is this a current diagnosis for this admission?: Yes Plan: History of CAD
[2019-05-19] MEDS ORDERED: GLUCAGON,HUMAN RECOMB 1 MG INJ IM PRN (11:51)
[2019-05-19] MEDS: METOPROLOL TARTRATE PF/INJ 5 MG/5 ML SDV IV SCH ×2 (13:00→21:19)
[2019-05-19] MEDS: INSULIN LISPRO 100 UNIT/ML 3 ML VIAL SUBCUT SCH ×2 (13:00→17:17)
[2019-05-19] MEDS: ENALAPRILAT DIHYDRATE INJ/PF 2.5 MG/2 ML SDV IV SCH ×2 (13:06→17:05)
[2019-05-19] MEDS: ONDANSETRON HCL INJ/PF 4 MG/2 ML SDV IV PRN ×2 (13:06→19:41)
[2019-05-19] MEDS: HEPARIN SOD (PORCINE) 5,000 UNIT/ML 1 ML VIAL SUBCUT SCH ×2 (17:04→21:20)
--- NOTE | 2019-05-19 22:28 | PDOC CONSULTATION ---
Consultation Consult Date: 05/19/19 Provider Consulted: SURGICAL SURGICALIST Consult reason:: bowel obstruction History of Present Illness Admission Date/PCP: 05/19/19 03:21 RAMILA CANO MD History of Present Illness: CECILIO BURNS is a 78 year old male seen at the request of Dr. Cano. The p atient reports a 1 day history of abdominal distention, nausea, vomiting, and pain. The patient has multiple abdominal surgeries, including a colectomy for cancer with colostomy. He and his are unsure of every operation, but they note that he has had multiple abdominal surgeries. His pain is sharp and located in his mid, lower abdomen. He denies fevers or chills. He reports that his distention and pain have improved significantly after an NG tube was placed in the ER. His pain does not radiate. Palpation makes his pain worse. The patient denies passing any flatus recently. Currently, he denies chest pain, shortness of breath, fevers, chills, dizziness, orthostasis, fatigue, melena, hematochezia, hematemesis. Past Medical History Cardiac Medical History: Reports: Coronary Artery Disease, Hyperlipidema, Hypertension Pulmonary Medical History: Reports: Asthma Neurological Medical History: Denies: Seizures Endocrine Medical History: Reports: Diabetes Mellitus Type 2 Malignancy Medical History: Reports: Colorectal Cancer GI Medical History: Reports: Gastroesophageal Reflux Disease Psychiatric Medical History: Reports: Depression Past Surgical History Past Surgical History: Reports: Orthopedic Surgery - ankle, Other - colon resction with colostomy for Ca 20 yrs ago and subsequent reconstructi Social History Lives with: Spouse/Significant other Smoking Status: Former Smoker Frequency of Alcohol Use: None Hx Recreational Drug Use: No Drugs: None Hx Prescription Drug Abuse: No Family History Family History: Reviewed & Not Pertinent Parental Family History Reviewed: Yes Children Family History Reviewed: Yes Sibling(s) Family History Reviewed.: Yes Medication/Allergy Home Medications: Albuterol Sulfate [Proair HFA Inhalation Aerosol 8.5 gm MDI] 2 puff IH Q4HP PRN 05/19/19 Amlodipine Besylate [Norvasc 10 mg Tablet] 10 mg PO DAILY 05/19/19 Atorvastatin Calcium [Lipitor 20 mg Tablet] 20 mg PO DAILY 05/19/19 Fenofibrate 160 mg PO DAILY 05/19/19 Finasteride [Proscar 5 mg Tablet] 5 mg PO DAILY 05/19/19 Fluticasone/Salmeterol [Advair 250-50 Diskus 14 Dose/Diskus] 1 puff IH BID 05/19/19 Glipizide [Glucotrol 5 mg Tablet] 5 mg PO DAILY 05/19/19 Lisinopril [Zestril] 10 mg PO DAILY 05/19/19 Montelukast Sodium [Singulair 10 mg Tablet] 10 mg PO QPM 05/19/19 Pantoprazole Sodium [Protonix [address] Tablet] 40 mg PO DAILY 05/19/19 Pramipexole Di-HCl [Mirapex 0.25 mg Tablet] 0.25 mg PO DAILY 05/19/19 Sitagliptin Phosphate [Januvia] 100 mg PO DAILY 05/19/19 Tamsulosin HCl [Flomax 0.4 mg Cap.sr] 0.4 mg PO QPM 05/19/19 Allergies/Adverse Reactions: No Known Drug Allergies Allergy (Verified 01/25/19 07:18) Review of Systems Constitutional: ABSENT: anorexia, chills, fatigue, fever(s), headache(s), weakness Eyes: ABSENT: visual disturbances Ears: ABSENT: hearing changes Nose, Mouth, and Throat: ABSENT: mouth pain, sore throat Cardiovascular: ABSENT: chest pain Respiratory: ABSENT: cough, dyspnea Gastrointestinal: PRESENT: abdominal pain, bloating, constipation, nausea, vomit ing. ABSENT: hematemesis, hematochezia, melena Genitourinary: ABSENT: dysuria Musculoskeletal: ABSENT: back pain Integumentary: ABSENT: pruritus, rash Neurological: ABSENT: abnormal gait, confusion, convulsions, dizziness, weakness Psychiatric: ABSENT: anxiety, depression Endocrine: ABSENT: cold intolerance, heat intolerance Hematologic/Lymphatic: ABSENT: easy bleeding, easy bruising Physical Exam Vital Signs: Temp Pulse Resp BP Pulse Ox 97.9 F 103 H 16 138/40 H 93 05/19/19 11:59 05/19/19 11:59 05/19/19 11:59 05/19/19 11:59 05/19/19 11:59 Intake & Output 05/18/19 05/19/19 05/20/19 06:59 06:59 06:59 Output Total 850 1125 Balance -850 -1125 Weight 92 kg General appearance: PRESENT: no acute distress, cooperative Head exam: PRESENT: atraumatic, normocephalic Eye exam: PRESENT: EOMI, PERRLA. ABSENT: scleral icterus Mouth exam: PRESENT: moist, neck supple Neck exam: ABSENT: meningismus, tenderness, thyromegaly, tracheal deviation Respiratory exam: PRESENT: unlabored. ABSENT: chest wall tenderness, tachypnea, wheezes Cardiovascular exam: PRESENT: RRR Pulses: PRESENT: normal radial pulses GI/Abdominal exam: PRESENT: distended, tenderness - minld bilateral lower quadrants. ABSENT: rebound, rigid Rectal exam: PRESENT: deferred Extremities exam: ABSENT: clubbing Musculoskeletal exam: ABSENT: deformity Neurological exam: PRESENT: alert, awake, oriented to person, oriented to place, oriented to time, oriented to situation, CN II-XII grossly intact Psychiatric exam: ABSENT: agitated, anxious, depressed Focused psych exam: ABSENT: delusional Skin exam: ABSENT: cyanosis, erythema, jaundice Results Laboratory Results: 05/18/19 22:00 05/19/19 04:45 05/18/19 05/18/19 05/19/19 22:00 22:00 04:36 WBC 15.2 H RBC 3.83 L Hgb 11.4 L Hct 33.6 L MCV 88 MCH 29.7 MCHC 33.8 RDW 14.5 H Plt Count 268 Seg Neutrophils % 86.9 H Sodium 139.6 Potassium 4.8 Chloride 102 Carbon Dioxide 26 Anion Gap 12 BUN 22 H Creatinine 1.38 H Est GFR ( Amer) > 60 Glucose 182 H Calcium 10.2 Phosphorus Magnesium Total Bilirubin 0.5 AST 26 Alkaline Phosphatase 79 Ammonia Total Protein 7.6 Albumin 4.5 Amylase Lipase 132.8 TSH Free T4 Urine Color YELLOW Urine Appearance CLOUDY Urine pH 5.0 Ur Specific [place] 1.015 Urine Protein >=500 H Urine Glucose (UA) 50 H Urine Ketones NEGATIVE Urine Blood SMALL H Urine Nitrite NEGATIVE Ur Leukocyte Esterase LARGE H Urine WBC (Auto) 81 Urine RBC (Auto) 14 05/19/19 05/19/19 05/19/19 04:45 04:45 04:45 WBC RBC Hgb Hct MCV MCH MCHC RDW Plt Count Seg Neutrophils % Sodium 139.6 Potassium 4.7 Chloride 101 Carbon Dioxide 27 Anion Gap 12 BUN 25 H Creatinine 1.68 H Est GFR ( Amer) 48 L Glucose 234 H Calcium 10.3 H Phosphorus 4.2 Magnesium 1.7 Total Bilirubin AST Alkaline Phosphatase Ammonia < 8.7 L Total Protein Albumin Amylase 81 Lipase 315.0 H TSH 2.47 Free T4 0.90 Urine Color Urine Appearance Urine pH Ur Specific [place] Urine Protein Urine Glucose (UA) Urine Ketones Urine Blood Urine Nitrite Ur Leukocyte Esterase Urine WBC (Auto) Urine RBC (Auto) 05/18/19 22:00 Troponin I < 0.012 Impressions: Abdomen/Pelvis CT 05/19/19 00:00 IMPRESSION: Right lower abdominal wall hernia containing small bowel and causing small bowel obstruction. The stomach is dilated and contains a large amount of fluid. Other findings as described. Chest X-Ray 05/19/19 00:00 IMPRESSION: NG tube is curled in the distal esophagus with its tip pointed superiorly. Recommend complete removal and replacement. Assessment & Plan - Diagnosis (1) Ventral incisional hernia with obstruction Is this a current diagnosis for this admission?: Yes (2) SBO (small bowel obstruction) Is this a current diagnosis for this admission?: Yes - Plan Summary Plan Summary: This is an 78-year-old male with an incisional, ventral hernia. I have reviewed the patient's CT scan (images and reports). He has evidence of small bowel obstruction in 1 of the hernia defects. The patient and his are very afraid of surgery. They have requested that everything be done, except for surgery. The patient reports symptom improvement with NG tube. It is possible that with NG decompression, his symptoms will resolve. This is however, unlikely. My recommendation is for surgical intervention. The patient and his are not yet ready to agreed to this. At this time, he does not have signs of peritonitis. Continue with NG decompression for now. Repeat x-rays tomorrow. Will follow.
[2019-05-20] MEDS: ENALAPRILAT DIHYDRATE INJ/PF 2.5 MG/2 ML SDV IV SCH ×5 (00:10→23:26)
[2019-05-20] MEDS: HYDROMORPHONE HCL INJ/PF 2 MG/ML AMPULE IV PRN ×3 (00:11→19:53)
[2019-05-20] MEDS: INSULIN LISPRO 100 UNIT/ML 3 ML VIAL SUBCUT SCH ×5 (00:17→23:26)
[2019-05-20] MEDS: ONDANSETRON HCL INJ/PF 4 MG/2 ML SDV IV PRN ×2 (02:45→19:52)
[2019-05-20] MEDS: DEXTROSE 5%-1/2 NORMAL SALINE 1,000 ML IV PRN ×2 (02:45→23:16)
[2019-05-20 04:49] LABS: ABSOLUTE LYMPHOCYTES (AUTO) 1.2 10^3/uL (0.5-4.7); ABSOLUTE MONOCYTES (AUTO) 0.8 10^3/uL (0.1-1.4); ABSOLUTE NEUT (AUTO) 5.4 10^3/uL (1.7-8.2); HEMATOCRIT 35.2 % (37.9-51.0); HEMOGLOBIN 11.9 g/dL (13.5-17.0); LYMPHOCYTES % (AUTO) 15.9 % (13-45); MEAN CORPUSCULAR HEMOGLOBIN 29.6 pg (27.0-33.4); MEAN CORPUSCULAR HGB CONC 33.9 g/dL (32.0-36.0); MEAN CORPUSCULAR VOLUME 87 fl (80-97); MONOCYTES % (AUTO) 10.6 % (3-13); PLATELET COUNT 296 10^3/uL (150-450); RED BLOOD COUNT 4.03 10^6/uL (4.35-5.55); RED CELL DISTRIBUTION WIDTH 14.5 % (11.5-14.0); SEGMENTED NEUTROPHILS % (AUTO) 73.5 % (42-78); TOTAL CELLS COUNTED % (AUTO) 100 %; WHITE BLOOD COUNT 7.3 10^3/uL (4.0-10.5)
[2019-05-20 05:05] LABS: ALBUMIN 4.3 g/dL (3.5-5.0); ALKALINE PHOSPHATASE 68 U/L (38-126); ASPARTATE AMINO TRANSFERASE 21 U/L (17-59); BILIRUBIN,DIRECT 0.1 mg/dL (0.0-0.4); BILIRUBIN,TOTAL 0.5 mg/dL (0.2-1.3); CHOLESTEROL 147.12 mg/dL (0-200); TOTAL PROTEIN 7.3 g/dL (6.3-8.2); TRIGLYCERIDES 188 mg/dL (<150)
[2019-05-20 05:16] LABS: DIRECT LDL 63 mg/dL (<100)
[2019-05-20 05:22] LABS: VLDL CHOLESTEROL 37.6 mg/dL (10-31)
[2019-05-20] MEDS: HEPARIN SOD (PORCINE) 5,000 UNIT/ML 1 ML VIAL SUBCUT SCH ×3 (05:37→22:35)
--- NOTE | 2019-05-20 06:10 | RADIOLOGY REPORT (SQ) ---
EXAM DESCRIPTION: CHEST SINGLE VIEW COMPLETED DATE/TIME: 05/20/2019 5:43 am REASON FOR STUDY: check NG insertion COMPARISON: 05/19/2019 NUMBER OF VIEWS: One view. TECHNIQUE: Single frontal radiographic view of the chest acquired. LIMITATIONS: None. FINDINGS: LUNGS AND PLEURA: Lung kulkarni are grossly unchanged. MEDIASTINUM AND HILAR STRUCTURES: Stable in appearance. HEART AND VASCULAR STRUCTURES: Heart is enlarged. No failure. BONES: No acute findings. HARDWARE: NG tube remains in place. It is been advanced slightly. The tube remains looped with the tip near the GE junction. It needs to be advanced prior to use. OTHER: No other significant finding. IMPRESSION: NG tube remains in the less than optimal position. The remains looped. Tip again lies near the GE junction. TECHNICAL DOCUMENTATION: JOB ID: [id number] [employer]- All Rights Reserved Reading location - IP/workstation name: [email or web address]
[2019-05-20] MEDS ORDERED: PHENOL/SODIUM PHENOLATE 100 SPRAY/177 ML BOTTLE PO PRN (06:32)
--- NOTE | 2019-05-20 08:17 | PDOC PROGRESS REPORT ---
Subjective Progress Note for:: 05/20/19 Subjective:: Patient is admitted for the small bowel obstructions abdominal pain Patient currently an NG tube in place Is feeling pretty much same still complaining of abdominal pain Patient initially refused for the surgery Discussed with the patient and will wait for the surgeon today to evaluate although the KUB Patient and agree to go for surgery if needed Patient with underlying coronary disease we will consult the cardiology Patient is denied any chest pain no short of breath Patient with chronic kidney disease currently see her Dr. Starr Also see her Dr. Benjamin outpatients for colon issues Reason For Visit: SMALL BOWEL OBSTRUCTION,RT HYDRONEPHROSIS/ Physical Exam Vital Signs: Temp Pulse Resp BP Pulse Ox 97.4 F 87 16 167/74 H 94 05/20/19 03:40 05/20/19 07:00 05/20/19 03:40 05/20/19 05:39 05/20/19 03:40 Intake & Output 05/19/19 05/20/19 05/21/19 06:59 06:59 06:59 Intake Total 1865 Output Total 850 4200 Balance -850 -2335 Weight 92 kg 90.6 kg General appearance: PRESENT: no acute distress, well-developed, well-nourished Head exam: PRESENT: atraumatic, normocephalic Eye exam: PRESENT: conjunctiva pink, EOMI, PERRLA. ABSENT: scleral icterus Ear exam: PRESENT: normal external ear exam Mouth exam: PRESENT: moist, tongue midline Neck exam: PRESENT: full ROM. ABSENT: carotid bruit, JVD, lymphadenopathy, thyromegaly Respiratory exam: PRESENT: clear to auscultation yumiko Cardiovascular exam: PRESENT: RRR. ABSENT: diastolic murmur, rubs, systolic murmur Vascular exam: PRESENT: normal capillary refill GI/Abdominal exam: PRESENT: distended, hypoactive bowel sounds, soft, tenderness. ABSENT: guarding, mass, organolmegaly, rebound Rectal exam: PRESENT: deferred Neurological exam: PRESENT: alert, awake, oriented to person, oriented to place, oriented to time, oriented to situation, CN II-XII grossly intact. ABSENT: motor sensory deficit Psychiatric exam: PRESENT: appropriate affect, normal mood. ABSENT: homicidal ideation, suicidal ideation Skin exam: PRESENT: dry, intact, warm. ABSENT: cyanosis, rash Results Laboratory Results: 05/20/19 04:24 05/19/19 04:45 05/20/19 05/20/19 04:24 04:24 WBC 7.3 RBC 4.03 L Hgb 11.9 L Hct 35.2 L MCV 87 MCH 29.6 MCHC 33.9 RDW 14.5 H Plt Count 296 Seg Neutrophils % 73.5 Total Bilirubin 0.5 AST 21 Alkaline Phosphatase 68 Total Protein 7.3 Albumin 4.3 Triglycerides 188 H Cholesterol 147.12 LDL Cholesterol Direct 63 VLDL Cholesterol 37.6 H HDL Cholesterol 45 05/18/19 22:00 Troponin I < 0.012 Impressions: Abdomen/Pelvis CT 05/19/19 00:00 IMPRESSION: Right lower abdominal wall hernia containing small bowel and causing small bowel obstruction. The stomach is dilated and contains a large amount of fluid. Other findings as described. Chest X-Ray 05/20/19 05:21 IMPRESSION: NG tube remains in the less than optimal position. The remains looped. Tip again lies near the GE junction. Assessment & Plan - Diagnosis (1) SBO (small bowel obstruction) Is this a current diagnosis for this admission?: Yes Plan: Currently NG tube placed Follow-up with the surgery Check the electrolytes (2) Ventral incisional hernia with obstruction Is this a current diagnosis for this admission?: Yes Plan: Follow with the surgery (3) Chronic kidney disease, stage 3 Is this a current diagnosis for this admission?: Yes Plan: Continues IV fluid currently stable (4) Coronary artery disease Qualifiers: Coronary Disease-Associated Artery/Lesion type: [place] artery [place] vs. transplanted heart: [place] heart Associated angina: without angina Qualified Code(s): I25.10 - Atherosclerotic heart disease of [place] coronary artery without angina pectoris Is this a current diagnosis for this admission?: Yes Plan: Currently denied any complaint will consult the cardiology before the surgery (5) Personal history of colon cancer Is this a current diagnosis for this admission?: Yes (6) Type 2 diabetes mellitus Qualifiers: Diabetes mellitus fci insulin use: without moth exterminator use Diabetes mellitus complication status: with neurologic complications Diabetes mellitus complication detail: with polyneuropathy Qualified Code(s): E11.42 - Type 2 diabetes mellitus with diabetic polyneuropathy Is this a current diagnosis for this admission?: Yes Plan: Continues a sliding scale's with [facility] protocol - Time Time Spent with patient: 25-34 minutes Medications reviewed and adjusted accordingly: Yes Anticipated discharge: Home Within: Other - Plan Summary Plan Summary: Discussed with the patient and the regarding the patient's current conditions and the bedside Will wait for the surgical evaluations Twelve-lead EKG ordered a KUB Consult cardiology Check the Chem-7
[2019-05-20 08:55] LABS: BLOOD UREA NITROGEN 34 mg/dL (7-20); CALCIUM 9.8 mg/dL (8.4-10.2); CARBON DIOXIDE 27 mmol/L (22-30); CHLORIDE 101 mmol/L (98-107); GLUCOSE 222 mg/dL (75-110); POTASSIUM 4.4 mmol/L (3.6-5.0)
[2019-05-20 08:56] LABS: ANION GAP 13 (5-19)
[2019-05-20] MEDS: METOPROLOL TARTRATE PF/INJ 5 MG/5 ML SDV IV SCH ×2 (10:03→22:36)
--- NOTE | 2019-05-20 10:45 | RADIOLOGY REPORT (SQ) ---
EXAM DESCRIPTION: KUB/ABDOMEN (SINGLE VIEW) COMPLETED DATE/TIME: 05/20/2019 9:55 am REASON FOR STUDY: sbo f/u COMPARISON: 01/25/2019 NUMBER OF VIEWS: One view. TECHNIQUE: Supine radiographic image of the abdomen acquired. LIMITATIONS: None. FINDINGS: BOWEL GAS PATTERN: Mildly dilated loops of small bowel in the left lower quadrant. Gas an d fecal material throughout the colon. Nasogastric tube tip overlying gastric esophageal junction. CALCIFICATIONS: No suspicious calcifications. SOFT TISSUES: No gross mass or suggestion of organomegaly. HARDWARE: None. BONES: No bone lesions or fracture. OTHER: No other significant finding. IMPRESSION: Ileus or partial small bowel obstruction. Recommend advancing the NG tube about 5 cm. Reading location - IP/workstation name: [email or web address]
--- NOTE | 2019-05-20 10:55 | PDOC PROGRESS REPORT ---
Subjective Progress Note for:: 05/20/19 Reason For Visit: SMALL BOWEL OBSTRUCTION,RT HYDRONEPHROSIS/ Physical Exam Vital Signs: Temp Pulse Resp BP Pulse Ox 97.6 F 88 18 149/73 H 95 05/20/19 08:53 05/20/19 08:53 05/20/19 08:53 05/20/19 08:53 05/20/19 08:53 Intake & Output 05/19/19 05/20/19 05/21/19 06:59 06:59 06:59 Intake Total 1865 Output Total 850 4200 Balance -850 -2335 Weight 92 kg 90.6 kg General appearance: PRESENT: no acute distress Head exam: PRESENT: normocephalic Eye exam: PRESENT: EOMI Mouth exam: PRESENT: moist Neck exam: PRESENT: full ROM Respiratory exam: PRESENT: clear to auscultation yumiko Cardiovascular exam: PRESENT: RRR GI/Abdominal exam: PRESENT: other - abd is softly distended 2 palp hernias, 1 peristomal, 1 on rt lower abd both are reducible the right hernia reduced this am, iwth relief of pain Rectal exam: PRESENT: deferred Extremities exam: PRESENT: full ROM Musculoskeletal exam: PRESENT: full ROM Neurological exam: PRESENT: alert, awake, oriented to person, oriented to place Psychiatric exam: PRESENT: appropriate affect Skin exam: PRESENT: dry Results Laboratory Results: 05/20/19 04:24 05/20/19 04:24 05/20/19 05/20/19 05/20/19 04:24 04:24 04:24 WBC 7.3 RBC 4.03 L Hgb 11.9 L Hct 35.2 L MCV 87 MCH 29.6 MCHC 33.9 RDW 14.5 H Plt Count 296 Seg Neutrophils % 73.5 Sodium 140.5 Potassium 4.4 Chloride 101 Carbon Dioxide 27 Anion Gap 13 BUN 34 H Creatinine 1.49 H Est GFR ( Amer) 55 L Glucose 222 H Calcium 9.8 Total Bilirubin 0.5 AST 21 Alkaline Phosphatase 68 Total Protein 7.3 Albumin 4.3 Triglycerides 188 H Cholesterol 147.12 LDL Cholesterol Direct 63 VLDL Cholesterol 37.6 H HDL Cholesterol 45 05/18/19 22:00 Troponin I < 0.012 Impressions: Abdomen/Pelvis CT 05/19/19 00:00 IMPRESSION: Right lower abdominal wall hernia containing small bowel and causing small bowel obstruction. The stomach is dilated and contains a large amount of fluid. Other findings as described. KUB X-Ray 05/20/19 00:00 IMPRESSION: Ileus or partial small bowel obstruction. Recommend advancing the NG tube about 5 cm. Chest X-Ray 05/20/19 05:21 IMPRESSION: NG tube remains in the less than optimal position. The remains looped. Tip again lies near the GE junction. Assessment & Plan - Time Time Spent with patient: 25-34 minutes - Plan Summary Plan Summary: sbo, poss related to incarcerated hernia rt sided hernia reduced this am if sbo resolves, could consider elective surgery if no resolution, will need ex lap and repair of hernias and lysis of adhesions this am. pt wishes to wait another day or 2 in hopes of non surgical resolution.
[2019-05-20] MEDS: CEFEPIME 1 GM/D5W RTU 1 GM/50 ML RTUPB IV SCH ×2 (15:01→21:58)
[2019-05-20] MEDS ORDERED: DEXTROSE 40% GEL 15 GM TUBE NG PRN ×2 (15:30)
--- NOTE | 2019-05-20 20:54 | PDOC CONSULTATION ---
Consultation-Blank Consultation: CARDIOLOGY CONSULTATION by Dr. Tyesha Lopez on 05/20/2019. REASON FOR CONSULTATION: Cardiac risk assessment for surgical procedure for small bowel obstruction. CONSULT REQUESTING PHYSICIAN: Dr. Roa, and surgical list Dr. Moreland. HISTORY PRESENT ILLNESS: Patient is a 78-year-old male with known history of coronary artery disease, history of stents in the LAD and RCA in 2009, with no history of IA, and history of hypertension, and diabetes mellitus, and history of colon surgery with colectomy and colostomy placement for colon cancer admitted with abdominal pain and is with reported stool output through the colostomy bag. The patient's work-up showed that the patient small bowel obstruction. He is being treated conservatively with NG tube to suction and keeping the patient n.p.o. He also had a incarcerated right lower abdominal wall hernia which is incarcerated and was relieved by Dr. Moreland this morning, hoping that this will resolve the patient's small bowel obstruction. The patient does have abdominal discomfort. He denies any chest pain or discomfort. There is no palpitations. There is no PND orthopnea. There is no leg edema. There is no syncope. PAST MEDICAL HISTORY:Cardiac Medical History: Reports: Coronary Artery Disease, Hyperlipidema, Hypertension. He has no history of IA there is a prior history of bradycardia or syncope. He has no syncope. He has no further symptoms palpitations or history of cardiac arrhythmia. The patient in 2009 has had stents in the RCA and LAD. He does not have a history of aortic stenosis. He has a history of hypertension. In January 2019 he was admitted with bradycardia. I did advise that the patient had a 30-day event monitor. The patient has not followed up on this. Pulmonary Medical History: Reports: Asthma. No recent attacks. The patient has symptoms suggestive of sleep apnea, although he has had a sleep study many years ago the describes symptoms of the patient snoring loudly and stopping breathing in his sleep. Patient also claims that he has had nightmares often, which wake him up from his sleep. In January 2019 I advised the patient and the for the patient to have a sleep study done. The patient has not followed up on this. Neurological Medical History: Denies: Seizures no history of TIA CVA. Endocrine Medical History: Reports: Diabetes Mellitus Type 2. No history of thyroid disease. Renal/ Medical History: Reports: Chronic Kidney Disease Malignancy Medical History: Reports: Colorectal Cancer GI Medical History: Reports: Gastroesophageal Reflux Disease history of colon cancer status post resection. The patient had his rectum removed and has a colostomy bag which was not working since a one 1 week but now is started working. Psychiatric Medical History: Reports: Depression DROSSER: The patient has no history of TIA CVA. The patient has had frequent falls, without syncope. He states that all of a sudden his legs become rubbery and weak and he falls. He has never lost consciousness. Past Surgical History Past Surgical History: Reports: Orthopedic Surgery - ankle, Other - colon resction with colostomy for Ca 20 yrs ago and subsequent reconstructi the patient in 2009 had stents placed in the right coronary artery and in the left anterior descending artery after cardiac catheterization. Social History Information Source: Patient, Relative Smoking Status: Never Smoker Frequency of Alcohol Use: None Hx Recreational Drug Use: No Drugs: None Hx Prescription Drug Abuse: No Family History Family History: Positive for hypertension and coronary artery disease. Medication/Allergy Home Medications: Albuterol Sulfate [Proair HFA Inhalation Aerosol 8.5 gm MDI] 1 puff IH Q6HP PRN 03/11/18 Amlodipine Besylate [Norvasc 10 mg Tablet] 10 mg PO QHS 03/11/18 Atorvastatin Calcium [Lipitor 40 mg Tablet] 20 mg PO QHS 03/11/18 Fenofibrate 160 mg PO QHS 03/11/18 Finasteride [Proscar 5 mg Tablet] 5 mg PO QHS 03/11/18 Fluticasone/Salmeterol [Advair 250-50 Diskus 14 Dose/Diskus] 1 puff IN Q12 03/11/18 Glipizide [Glucotrol 5 mg Tablet] 5 mg PO QHS 03/11/18 Montelukast Sodium [Singulair 10 mg Tablet] 10 mg PO QHS 03/11/18 Pantoprazole Sodium [Protonix] 40 mg PO QHS 03/11/18 Pramipexole Di-HCl [Pramipexole Dihydrochloride] 0.25 mg PO QHS 03/11/18 Sitagliptin Phosphate [Januvia] 100 mg PO QHS 03/11/18 Tamsulosin HCl [Flomax 0.4 mg Cap.sr] 0.4 mg PO QHS 03/11/18 RESUSCITATION STATUS: The patient is a full code. The patient's is his surrogate healthcare decision maker. Allergies/Adverse Reactions: No Known Drug Allergies Allergy (Verified 01/25/19 07:18) Review of Systems Constitutional: PRESENT: chills, fatigue, fever(s). ABSENT: headache(s), weight gain, weight loss Eyes: ABSENT: visual disturbances Ears: ABSENT: hearing changes Cardiovascular: ABSENT: chest pain, dyspnea on exertion, edema, orthropnea, palpitations Respiratory: ABSENT: cough, hemoptysis Gastrointestinal: PRESENT: abdominal pain, bloating, constipation. ABSENT: diarrhea, hematemesis, hematochezia, nausea, vomiting Genitourinary: ABSENT: dysuria, hematuria Musculoskeletal: ABSENT: joint swelling Integumentary: ABSENT: rash, wounds Neurological: ABSENT: abnormal gait, abnormal speech, confusion, dizziness, focal weakness, syncope Psychiatric: ABSENT: anxiety, depression, homidical ideation, suicidal ideation Endocrine: ABSENT: cold intolerance, heat intolerance, menstrual abnormalities, polydipsia, polyuria Hematologic/Lymphatic: ABSENT: easy bleeding, easy bruising, lymphadenopathy Current Medications Generic Name Dose Route Start Last Admin Trade Name Freq PRN Reason Stop Dose Admin Dextrose 12.5 gm 05/19/19 03:38 Dextrose Inj 50% Syringe (25 Gm/50 Ml) IV 06/18/19 03:37 PRN PRN FOR BG 50-69 IN ALERT PATIENT Protocol Dextrose 25 gm 05/19/19 03:38 Dextrose Inj 50% Syringe (25 Gm/50 Ml) IV 06/18/19 03:37 PRN PRN See Label Comments Protocol Enalaprilat 5 mg 05/19/19 12:30 05/20/19 17:45 Vasotec Inj/Pf 2.5 Mg/2 Ml Sdv IV 06/18/19 12:29 5 mg Q6 DARIEN Administration Glucagon 1 mg 05/19/19 03:38 Glucagen Inj 1 Mg Vial SUBCUT 06/18/19 03:37 PRN PRN Evaluate for BG < 70 Protocol Glucose 30 gm 05/20/19 15:30 Glutose 40% Gel 15 Gm Tube NG 06/18/19 03:37 PRN PRN FOR BG < 50 IN ALERT PATIENT Protocol Glucose 15 gm 05/20/19 15:30 Glutose 40% Gel 15 Gm Tube NG 06/18/19 03:37 PRN PRN For BG 50-69 in Alert Patient Protocol Heparin Sodium (Porcine) 5,000 unit 05/19/19 14:00 05/20/19 13:17 Heparin Inj 5,000 Units/Ml 1 Ml Vial SUBCUT 06/18/19 13:59 5,000 unit Q8 DARIEN Administration Hydromorphone HCl 0.5 mg 05/19/19 23:41 05/20/19 19:53 Dilaudid Inj/Pf 2 Mg/Ml Ampule IV 05/26/19 23:40 0.5 mg Q4HP PRN Administration PAIN Dextrose/Sodium Chloride 1,000 mls @ 100 mls/hr 05/19/19 03:38 05/20/19 02:45 D5-1/2ns 1000 Ml Iv Soln IV 06/18/19 03:37 100 mls/hr CONTINUOUS PRN Administration THIS MED IS NOT "PRN" Cefepime HCl 1 gm in 50 mls @ 100 mls/hr 05/20/19 13:00 05/20/19 15:01 Maxipime Rtu 1 Gm/D5w 50 Ml Premix Bag IV 05/27/19 12:59 Not Given Q12 [facility] Insulin Human Lispro 0 - 12 unit 05/19/19 12:00 05/20/19 18:05 Humalog Insulin 100 Unit/1 Ml 3 Ml Vial SUBCUT 06/18/19 11:59 Not Given Q6 [facility] Protocol Metoprolol Tartrate 5 mg 05/19/19 13:00 05/20/19 10:03 Lopressor Inj/Pf 5 Mg/5 Ml Sdv IV 06/18/19 12:59 5 mg Q12 DARIEN Administration Ondansetron HCl 4 mg 05/19/19 09:43 05/20/19 19:52 Zofran Inj/Pf 4 Mg/2 Ml Sdv IV 06/18/19 09:42 4 mg Q6HP PRN Administration FOR NAUSEA Pharmacy Profile Note 1 each 05/19/19 03:45 Medication Communication Order 06/18/19 03:44 .NOTICE NR Phenol 1 spray 05/20/19 06:32 Chloraseptic Sore Throat [place] 177 Ml PO 06/19/19 06:31 PRN PRN SORE THROAT Discontinued Medications Generic Name Dose Route Start Last Admin Trade Name Freq PRN Reason Stop Dose Admin Dextrose 12.5 gm 05/19/19 11:51 Dextrose Inj 50% Syringe (25 Gm/50 Ml) IV 06/18/19 11:50 PRN PRN FOR BG 50-69 IN ALERT PATIENT Protocol Dextrose 25 gm 05/19/19 11:51 Dextrose Inj 50% Syringe (25 Gm/50 Ml) IV 06/18/19 11:50 PRN PRN PER PROTOCOL Protocol Glucagon 1 mg 05/19/19 11:51 Glucagen Inj 1 Mg Vial IM 06/18/19 11:50 PRN PRN Evaluate for BG < 70 Protocol Glucose 15 gm 05/19/19 03:38 Glutose 40% Gel 15 Gm Tube PO 06/18/19 03:37 PRN PRN For BG 50-69 in Alert Patient Protocol Glucose 30 gm 05/19/19 03:38 Glutose 40% Gel 15 Gm Tube PO 06/18/19 03:37 PRN PRN FOR BG < 50 IN ALERT PATIENT Protocol Glucose 15 gm 05/19/19 11:51 Glutose 40% Gel 15 Gm Tube PO 06/18/19 11:50 PRN PRN FOR BG 50-69 IN ALERT PATIENT Protocol Glucose 30 gm 05/19/19 11:51 Glutose 40% Gel 15 Gm Tube PO 06/18/19 11:50 PRN PRN FOR BG < 50 IN ALERT PATIENT Protocol Heparin Sodium (Porcine) 5,000 unit 05/19/19 04:15 05/19/19 06:10 Heparin Inj 5,000 Units/Ml 1 Ml Vial SUBCUT 05/19/19 04:16 Not Given NOW ONE Hydromorphone HCl 1 mg 05/18/19 22:19 05/18/19 22:39 Dilaudid Inj/Pf 2 Mg/Ml Ampule IV 05/18/19 22:20 1 mg NOW ONE Administration Hydromorphone HCl 0.5 mg 05/19/19 06:14 05/19/19 19:41 Dilaudid Inj/Pf 2 Mg/Ml Ampule IV 05/26/19 06:13 0.5 mg Q6HP PRN Administration PAIN Ketorolac Tromethamine 15 mg 05/18/19 21:11 05/18/19 21:36 Toradol Inj/Pf 30 Mg/1 Ml Sdv IV 05/18/19 21:12 15 mg NOW ONE Administration Metoclopramide HCl 10 mg 05/18/19 22:20 05/18/19 22:41 Reglan Inj/Pf 10 Mg/2 Ml Sdv IV 05/18/19 22:21 10 mg NOW ONE Administration Metoclopramide HCl 10 mg 05/19/19 02:50 05/19/19 03:08 Reglan Inj/Pf 10 Mg/2 Ml Sdv IV 05/19/19 02:51 10 mg NOW ONE Administration Midazolam HCl 4 mg 05/19/19 02:50 05/19/19 04:20 Versed 2 Mg/2 Ml Inj IV 05/19/19 02:51 2 mg NOW ONE Administration Ondansetron HCl 4 mg 05/18/19 21:11 05/18/19 21:29 Zofran Inj/Pf 4 Mg/2 Ml Sdv IV 05/18/19 21:12 4 mg NOW ONE Administration Pramipexole Dihydrochloride 0.25 mg 05/19/19 00:38 05/19/19 01:46 Mirapex 0.25 Mg Tablet PO 05/19/19 00:39 0.25 mg NOW ONE Administration Pramipexole Dihydrochloride Confirm 05/19/19 01:34 05/19/19 01:46 Mirapex 0.25 Mg Tablet Administered 05/19/19 01:35 Not Given Dose 0.25 mg .ROUTE .K-MED ONE PHYSICAL EXAMINATION: The patient is well-built and well-nourished. He is well- groomed in no acute distress Selected Entries 05/20/19 08:53 Temperature 97.6 F Temperature Oral Source Pulse Rate 88 Respiratory 18 Rate Blood Pressure 149/73 H Blood Pressure 98 Mean BP Location Right Arm BP Position Supine O2 Sat by Pulse 95 Oximetry Oxygen Delivery Room Air Method HEAD: Is atraumatic normocephalic. EYES: Pupils are equal round regular reactive to light and accommodation. Extra ocular movements are normal. There is no conjunctival pallor. There is no scleral icterus. EARS: Tympanic membranes are intact. External auditory canals are clear. NOSE: There is no deviated nasal septum. There is no inflammation of the nasal mucous membrane. MOUTH: Mucous members of mouth are moist. Tongue is moist. There is no ulcers. THROAT: There is no redness of the oropharynx. There is no exudates. SKIN: There is no skin rashes or skin lesions. There is no petechia or ecchymosis. NECK: Is supple. There is no JVD. Carotids are equal there is no bruit. There is no lymphadenopathy. There is no accessory muscle respiration use. Trachea central. LUNGS: Clear to auscultation percussion. Without any rhonchi rales or wheezing. HEART: S1-S2 is heard there is no S3 gallop. There is no S4 gallop. There is systolic murmur left sternal border and the apex there is no rub. ABDOMEN: Is soft nontender there is no hepatospleno megaly. The abdomen is distended. NG tube in situ connected to suction. Bowel sounds are slightly diminished. There is a left colostomy bag in situ. There is mild diffuse discomfort on palpation of the abdomen. EXTREMITIES: Femorals are slightly diminished. There is no femoral bruits. Leg pulses are diminished. There is no pedal edema. There is no DVT or cellulitis. There is no calf tenderness. There is no sinus or clubbing. Capillary refill is normal. DROSSER: The patient is conscious awake alert oriented x3 with no focal deficits. PSYCHIATRIC: Patient judgment insight are intact and her affect is normal. Labs- Entire Visit 05/18/19 05/18/19 05/18/19 22:00 22:00 22:00 WBC 15.2 H RBC 3.83 L Hgb 11.4 L Hct 33.6 L MCV 88 MCH 29.7 MCHC 33.8 RDW 14.5 H Plt Count 268 Lymph % (Auto) 6.7 L Todd % (Auto) 5.7 Eos % (Auto) 0.2 Baso % (Auto) 0.5 Absolute Neuts (auto) 13.2 H Absolute Lymphs (auto) 1.0 Absolute Monos (auto) 0.9 Absolute Eos (auto) 0.0 Absolute Basos (auto) 0.1 Seg Neutrophils % 86.9 H PT INR APTT Sodium 139.6 Potassium 4.8 Chloride 102 Carbon Dioxide 26 Anion Gap 12 BUN 22 H Creatinine 1.38 H Est GFR ( Amer) > 60 Est GFR (MDRD) Non-Af 50 L Glucose 182 H POC Glucose Hemoglobin A1c % Calcium 10.2 Phosphorus Magnesium Total Bilirubin 0.5 Direct Bilirubin 0.3 Neonat Total Bilirubin Not Reportable Neonat Direct Bilirubin Not Reportable Neonat Indirect Bili Not Reportable AST 26 ALT 15 Alkaline Phosphatase 79 Ammonia Troponin I < 0.012 Total Protein 7.6 Albumin 4.5 Triglycerides Cholesterol LDL Cholesterol Direct VLDL Cholesterol HDL Cholesterol Amylase Lipase 132.8 TSH Free T4 Urine Color Urine Appearance Urine pH Ur Specific [place] Urine Protein Urine Glucose (UA) Urine Ketones Urine Blood Urine Nitrite Urine Bilirubin Urine Urobilinogen Ur Leukocyte Esterase Urine WBC (Auto) Urine RBC (Auto) U Hyaline Cast (Auto) Squamous Epi Cells Auto Urine Mucus (Auto) Urine Ascorbic Acid Urine Opiates Screen Urine Methadone Screen Ur Barbiturates Screen Ur Phencyclidine Scrn Ur Amphetamines Screen U Benzodiazepines Scrn Urine Cocaine Screen U Marijuana (THC) Screen 05/19/19 05/19/19 05/19/19 04:36 04:36 04:45 WBC RBC Hgb Hct MCV MCH MCHC RDW Plt Count Lymph % (Auto) Todd % (Auto) Eos % (Auto) Baso % (Auto) Absolute Neuts (auto) Absolute Lymphs (auto) Absolute Monos (auto) Absolute Eos (auto) Absolute Basos (auto) Seg Neutrophils % PT 13.6 INR 1.04 APTT 28.3 Sodium Potassium Chloride Carbon Dioxide Anion Gap BUN Creatinine Est GFR ( Amer) Est GFR (MDRD) Non-Af Glucose POC Glucose Hemoglobin A1c % Calcium Phosphorus Magnesium Total Bilirubin Direct Bilirubin Neonat Total Bilirubin Neonat Direct Bilirubin Neonat Indirect Bili AST ALT Alkaline Phosphatase Ammonia Troponin I Total Protein Albumin Triglycerides Cholesterol LDL Cholesterol Direct VLDL Cholesterol HDL Cholesterol Amylase Lipase TSH Free T4 Urine Color YELLOW Urine Appearance CLOUDY Urine pH 5.0 Ur Specific [place] 1.015 Urine Protein >=500 H Urine Glucose (UA) 50 H Urine Ketones NEGATIVE Urine Blood SMALL H Urine Nitrite NEGATIVE Urine Bilirubin NEGATIVE Urine Urobilinogen NEGATIVE Ur Leukocyte Esterase LARGE H Urine WBC (Auto) 81 Urine RBC (Auto) 14 U Hyaline Cast (Auto) 3 Squamous Epi Cells Auto 1 Urine Mucus (Auto) OCC Urine Ascorbic Acid NEGATIVE Urine Opiates Screen NEGATIVE Urine Methadone Screen NEGATIVE Ur Barbiturates Screen NEGATIVE Ur Phencyclidine Scrn NEGATIVE Ur Amphetamines Screen NEGATIVE U Benzodiazepines Scrn NEGATIVE Urine Cocaine Screen NEGATIVE U Marijuana (THC) Screen NEGATIVE 05/19/19 05/19/19 05/19/19 04:45 04:45 04:45 WBC RBC Hgb Hct MCV MCH MCHC RDW Plt Count Lymph % (Auto) Todd % (Auto) Eos % (Auto) Baso % (Auto) Absolute Neuts (auto) Absolute Lymphs (auto) Absolute Monos (auto) Absolute Eos (auto) Absolute Basos (auto) Seg Neutrophils % PT INR APTT Sodium 139.6 Potassium 4.7 Chloride 101 Carbon Dioxide 27 Anion Gap 12 BUN 25 H Creatinine 1.68 H Est GFR ( Amer) 48 L Est GFR (MDRD) Non-Af 40 L Glucose 234 H POC Glucose Hemoglobin A1c % Calcium 10.3 H Phosphorus 4.2 Magnesium 1.7 Total Bilirubin Direct Bilirubin Neonat Total Bilirubin Neonat Direct Bilirubin Neonat Indirect Bili AST ALT Alkaline Phosphatase Ammonia < 8.7 L Troponin I Total Protein Albumin Triglycerides Cholesterol LDL Cholesterol Direct VLDL Cholesterol HDL Cholesterol Amylase 81 Lipase 315.0 H TSH 2.47 Free T4 0.90 Urine Color Urine Appearance Urine pH Ur Specific [place] Urine Protein Urine Glucose (UA) Urine Ketones Urine Blood Urine Nitrite Urine Bilirubin Urine Urobilinogen Ur Leukocyte Esterase Urine WBC (Auto) Urine RBC (Auto) U Hyaline Cast (Auto) Squamous Epi Cells Auto Urine Mucus (Auto) Urine Ascorbic Acid Urine Opiates Screen Urine Methadone Screen Ur Barbiturates Screen Ur Phencyclidine Scrn Ur Amphetamines Screen U Benzodiazepines Scrn Urine Cocaine Screen U Marijuana (THC) Screen 05/19/19 05/19/19 05/20/19 11:57 17:13 00:08 WBC RBC Hgb Hct MCV MCH MCHC RDW Plt Count Lymph % (Auto) Todd % (Auto) Eos % (Auto) Baso % (Auto) Absolute Neuts (auto) Absolute Lymphs (auto) Absolute Monos (auto) Absolute Eos (auto) Absolute Basos (auto) Seg Neutrophils % PT INR APTT Sodium Potassium Chloride Carbon Dioxide Anion Gap BUN Creatinine Est GFR ( Amer) Est GFR (MDRD) Non-Af Glucose POC Glucose 274 H 184 H 227 H Hemoglobin A1c % Calcium Phosphorus Magnesium Total Bilirubin Direct Bilirubin Neonat Total Bilirubin Neonat Direct Bilirubin Neonat Indirect Bili AST ALT Alkaline Phosphatase Ammonia Troponin I Total Protein Albumin Triglycerides Cholesterol LDL Cholesterol Direct VLDL Cholesterol HDL Cholesterol Amylase Lipase TSH Free T4 Urine Color Urine Appearance Urine pH Ur Specific [place] Urine Protein Urine Glucose (UA) Urine Ketones Urine Blood Urine Nitrite Urine Bilirubin Urine Urobilinogen Ur Leukocyte Esterase Urine WBC (Auto) Urine RBC (Auto) U Hyaline Cast (Auto) Squamous Epi Cells Auto Urine Mucus (Auto) Urine Ascorbic Acid Urine Opiates Screen Urine Methadone Screen Ur Barbiturates Screen Ur Phencyclidine Scrn Ur Amphetamines Screen U Benzodiazepines Scrn Urine Cocaine Screen U Marijuana (THC) Screen 05/20/19 05/20/19 05/20/19 04:24 04:24 04:24 WBC 7.3 RBC 4.03 L Hgb 11.9 L Hct 35.2 L MCV 87 MCH 29.6 MCHC 33.9 RDW 14.5 H Plt Count 296 Lymph % (Auto) 15.9 Todd % (Auto) 10.6 Eos % (Auto) 0.0 Baso % (Auto) 0.0 Absolute Neuts (auto) 5.4 Absolute Lymphs (auto) 1.2 Absolute Monos (auto) 0.8 Absolute Eos (auto) 0.0 Absolute Basos (auto) 0.0 Seg Neutrophils % 73.5 PT INR APTT Sodium Potassium Chloride Carbon Dioxide Anion Gap BUN Creatinine Est GFR ( Amer) Est GFR (MDRD) Non-Af Glucose POC Glucose Hemoglobin A1c % 6.8 H Calcium Phosphorus Magnesium Total Bilirubin 0.5 Direct Bilirubin 0.1 Neonat Total Bilirubin Not Reportable Neonat Direct Bilirubin Not Reportable Neonat Indirect Bili Not Reportable AST 21 ALT 15 Alkaline Phosphatase 68 Ammonia Troponin I Total Protein 7.3 Albumin 4.3 Triglycerides 188 H Cholesterol 147.12 LDL Cholesterol Direct 63 VLDL Cholesterol 37.6 H HDL Cholesterol 45 Amylase Lipase TSH Free T4 Urine Color Urine Appearance Urine pH Ur Specific [place] Urine Protein Urine Glucose (UA) Urine Ketones Urine Blood Urine Nitrite Urine Bilirubin Urine Urobilinogen Ur Leukocyte Esterase Urine WBC (Auto) Urine RBC (Auto) U Hyaline Cast (Auto) Squamous Epi Cells Auto Urine Mucus (Auto) Urine Ascorbic Acid Urine Opiates Screen Urine Methadone Screen Ur Barbiturates Screen Ur Phencyclidine Scrn Ur Amphetamines Screen U Benzodiazepines Scrn Urine Cocaine Screen U Marijuana (THC) Screen 05/20/19 05/20/19 05/20/19 04:24 05:56 13:01 WBC RBC Hgb Hct MCV MCH MCHC RDW Plt Count Lymph % (Auto) Todd % (Auto) Eos % (Auto) Baso % (Auto) Absolute Neuts (auto) Absolute Lymphs (auto) Absolute Monos (auto) Absolute Eos (auto) Absolute Basos (auto) Seg Neutrophils % PT INR APTT Sodium 140.5 Potassium 4.4 Chloride 101 Carbon Dioxide 27 Anion Gap 13 BUN 34 H Creatinine 1.49 H Est GFR ( Amer) 55 L Est GFR (MDRD) Non-Af 45 L Glucose 222 H POC Glucose 243 H 178 H Hemoglobin A1c % Calcium 9.8 Phosphorus Magnesium Total Bilirubin Direct Bilirubin Neonat Total Bilirubin Neonat Direct Bilirubin Neonat Indirect Bili AST ALT Alkaline Phosphatase Ammonia Troponin I Total Protein Albumin Triglycerides Cholesterol LDL Cholesterol Direct VLDL Cholesterol HDL Cholesterol Amylase Lipase TSH Free T4 Urine Color Urine Appearance Urine pH Ur Specific [place] Urine Protein Urine Glucose (UA) Urine Ketones Urine Blood Urine Nitrite Urine Bilirubin Urine Urobilinogen Ur Leukocyte Esterase Urine WBC (Auto) Urine RBC (Auto) U Hyaline Cast (Auto) Squamous Epi Cells Auto Urine Mucus (Auto) Urine Ascorbic Acid Urine Opiates Screen Urine Methadone Screen Ur Barbiturates Screen Ur Phencyclidine Scrn Ur Amphetamines Screen U Benzodiazepines Scrn Urine Cocaine Screen U Marijuana (THC) Screen 05/20/19 18:04 WBC RBC Hgb Hct MCV MCH MCHC RDW Plt Count Lymph % (Auto) Todd % (Auto) Eos % (Auto) Baso % (Auto) Absolute Neuts (auto) Absolute Lymphs (auto) Absolute Monos (auto) Absolute Eos (auto) Absolute Basos (auto) Seg Neutrophils % PT INR APTT Sodium Potassium Chloride Carbon Dioxide Anion Gap BUN Creatinine Est GFR ( Amer) Est GFR (MDRD) Non-Af Glucose POC Glucose 211 H Hemoglobin A1c % Calcium Phosphorus Magnesium Total Bilirubin Direct Bilirubin Neonat Total Bilirubin Neonat Direct Bilirubin Neonat Indirect Bili AST ALT Alkaline Phosphatase Ammonia Troponin I Total Protein Albumin Triglycerides Cholesterol LDL Cholesterol Direct VLDL Cholesterol HDL Cholesterol Amylase Lipase TSH Free T4 Urine Color Urine Appearance Urine pH Ur Specific [place] Urine Protein Urine Glucose (UA) Urine Ketones Urine Blood Urine Nitrite Urine Bilirubin Urine Urobilinogen Ur Leukocyte Esterase Urine WBC (Auto) Urine RBC (Auto) U Hyaline Cast (Auto) Squamous Epi Cells Auto Urine Mucus (Auto) Urine Ascorbic Acid Urine Opiates Screen Urine Methadone Screen Ur Barbiturates Screen Ur Phencyclidine Scrn Ur Amphetamines Screen U Benzodiazepines Scrn Urine Cocaine Screen U Marijuana (THC) Screen Chest X-Ray 05/18/19 21:15 IMPRESSION: No acute cardiopulmonary findings. Abdomen/Pelvis CT 05/19/19 00:00 IMPRESSION: Right lower abdominal wall hernia containing small bowel and causing small bowel obstruction. The stomach is dilated and contains a large amount of fluid. Other findings as described. Chest X-Ray 05/19/19 00:00 IMPRESSION: NG tube is curled in the distal esophagus with its tip pointed superiorly. Recommend complete removal and replacement. KUB X-Ray 05/20/19 00:00 IMPRESSION: Ileus or partial small bowel obstruction. Recommend advancing the NG tube about 5 cm. Chest X-Ray 05/20/19 05:21 IMPRESSION: NG tube remains in the less than optimal position. The remains loo ped. Tip again lies near the GE junction. The patient's first EKG is defective with significant artifacts. The second EKG shows sinus rhythm. Borderline right axis deviation. There is T wave changes inferior leads. IMPRESSION/RECOMMENDATION: 1. SMALL bowel obstruction: At present being treated conservatively. If this does not result in the resolution of the bowel obstruction, then the patient may require surgical intervention. Hence we will get a IV Lexiscan cardiac stress test in the a.m.. 2. Severe constipation secondary to malfunctioning of colostomy bag: Now resolved. 3. Coronary artery disease: No evidence of IA this admission. No anginal symptoms. Note patient has a history of LAD and RCA stent in 2009. The patient states that his last stress test was about 2 years ago. Would recommend that the patient have an outpatient IV Lexiscan Cardiolite stress test once the patient's GI problems returned to baseline. 4. Hypertension: Noted blood pressure is well controlled. Next 5. Diabetes mellitus: Continue antidiabetic medication. Continue periodic Accu-Cheks. 6. Chronic kidney disease stage III: Avoid nephrotoxic medication. 7. History of colon cancer status post surgery: Removal and colostomy and also proctectomy. Patient states that this is been cured and there is no recurrence. 8. History of asthma: No evidence of acute asthmatic attack. 9. Hyperlipidemia: Continue statin. Preoperative cardiac risk assessment for bowel surgery. Prior to further risk assessment we will schedule the patient for IV Lexiscan Cardiolite stress test in the a.m. The patient has not had a stress test in long time. This has been discussed with the patient patient's . Medications reviewed. Medication regimen and management plan discussed with attending physician in the surgical list. Medical decision making is of high complexity. 60 minutes spent on this patient more than 50% of time spent direct patient care. Will follow
[2019-05-21] MEDS: ONDANSETRON HCL INJ/PF 4 MG/2 ML SDV IV PRN ×3 (04:50→22:18)
[2019-05-21] MEDS: HYDROMORPHONE HCL INJ/PF 2 MG/ML AMPULE IV PRN ×3 (04:54→22:18)
[2019-05-21] MEDS: HEPARIN SOD (PORCINE) 5,000 UNIT/ML 1 ML VIAL SUBCUT SCH ×3 (05:03→21:29)
[2019-05-21] MEDS: ENALAPRILAT DIHYDRATE INJ/PF 2.5 MG/2 ML SDV IV SCH ×4 (05:03→23:43)
[2019-05-21] MEDS: INSULIN LISPRO 100 UNIT/ML 3 ML VIAL SUBCUT SCH ×4 (05:17→23:43)
[2019-05-21 05:45] LABS: ABSOLUTE EOSINOPHILS # (AUTO) 0.1 10^3/uL (0.0-0.6); ABSOLUTE LYMPHOCYTES (AUTO) 1.7 10^3/uL (0.5-4.7); ABSOLUTE NEUT (AUTO) 4.8 10^3/uL (1.7-8.2); BASOPHILS % (AUTO) 0.3 % (0-2); EOSINOPHILS % (AUTO) 0.9 % (0-6); HEMATOCRIT 35.1 % (37.9-51.0); LYMPHOCYTES % (AUTO) 22.2 % (13-45); MEAN CORPUSCULAR HEMOGLOBIN 29.8 pg (27.0-33.4); MEAN CORPUSCULAR HGB CONC 34.1 g/dL (32.0-36.0); MEAN CORPUSCULAR VOLUME 87 fl (80-97); MONOCYTES % (AUTO) 13.6 % (3-13); PLATELET COUNT 284 10^3/uL (150-450); RED BLOOD COUNT 4.02 10^6/uL (4.35-5.55); RED CELL DISTRIBUTION WIDTH 14.5 % (11.5-14.0); TOTAL CELLS COUNTED % (AUTO) 100 %; WHITE BLOOD COUNT 7.6 10^3/uL (4.0-10.5)
[2019-05-21 06:02] LABS: ALBUMIN 3.8 g/dL (3.5-5.0); ALKALINE PHOSPHATASE 62 U/L (38-126); ANION GAP 10 (5-19); ASPARTATE AMINO TRANSFERASE 18 U/L (17-59); BILIRUBIN,DIRECT 0.2 mg/dL (0.0-0.4); BILIRUBIN,TOTAL 0.3 mg/dL (0.2-1.3); BLOOD UREA NITROGEN 33 mg/dL (7-20); CALCIUM 9.4 mg/dL (8.4-10.2); CARBON DIOXIDE 30 mmol/L (22-30); CHLORIDE 100 mmol/L (98-107); GLUCOSE 203 mg/dL (75-110); POTASSIUM 4.5 mmol/L (3.6-5.0); TOTAL PROTEIN 6.5 g/dL (6.3-8.2)
--- NOTE | 2019-05-21 08:51 | PDOC PROGRESS REPORT ---
Subjective Progress Note for:: 05/21/19 Subjective:: Patient is currently doing fair Patient's seen by the play back operator scheduled for the stress test today Denied any chest pain no short of breath Patient's colostomy is not working nothing come out according to the patient Patient abdominal pain is better Since currently follow with the surgery for small bowel obstructions Reason For Visit: SMALL BOWEL OBSTRUCTION,RT HYDRONEPHROSIS/ Physical Exam Vital Signs: Temp Pulse Resp BP Pulse Ox 97.5 F 72 16 175/68 H 94 05/21/19 07:58 05/21/19 07:58 05/21/19 07:58 05/21/19 07:58 05/21/19 07:58 Intake & Output 05/20/19 05/21/19 05/22/19 06:59 06:59 06:59 Intake Total 1865 1000 Output Total 4200 2725 Balance -2335 -1725 Weight 90.6 kg 86.5 kg General appearance: PRESENT: no acute distress, well-developed, well-nourished Head exam: PRESENT: atraumatic, normocephalic Eye exam: PRESENT: conjunctiva pink, EOMI, PERRLA. ABSENT: scleral icterus Ear exam: PRESENT: normal external ear exam Mouth exam: PRESENT: moist, tongue midline Neck exam: PRESENT: full ROM. ABSENT: carotid bruit, JVD, lymphadenopathy, thyromegaly Respiratory exam: PRESENT: clear to auscultation yumiko Cardiovascular exam: PRESENT: RRR. ABSENT: diastolic murmur, rubs, systolic murmur Vascular exam: PRESENT: normal capillary refill GI/Abdominal exam: PRESENT: hypoactive bowel sounds, soft. ABSENT: distended, guarding, mass, organolmegaly, rebound, tenderness Rectal exam: PRESENT: deferred Neurological exam: PRESENT: alert, awake, oriented to person, oriented to place, oriented to time, oriented to situation, CN II-XII grossly intact. ABSENT: motor sensory deficit Psychiatric exam: PRESENT: appropriate affect, normal mood. ABSENT: homicidal ideation, suicidal ideation Skin exam: PRESENT: dry, intact, warm. ABSENT: cyanosis, rash Results Laboratory Results: 05/21/19 04:34 05/21/19 04:34 05/20/19 05/21/19 05/21/19 04:24 04:34 04:34 WBC 7.6 RBC 4.02 L Hgb 12.0 L Hct 35.1 L MCV 87 MCH 29.8 MCHC 34.1 RDW 14.5 H Plt Count 284 Seg Neutrophils % 63.0 Sodium 140.5 139.8 Potassium 4.4 4.5 Chloride 101 100 Carbon Dioxide 27 30 Anion Gap 13 10 BUN 34 H 33 H Creatinine 1.49 H 1.39 H Est GFR ( Amer) 55 L 59 L Glucose 222 H 203 H Calcium 9.8 9.4 Total Bilirubin 0.3 AST 18 Alkaline Phosphatase 62 Total Protein 6.5 Albumin 3.8 05/18/19 22:00 Troponin I < 0.012 Impressions: Abdomen/Pelvis CT 05/19/19 00:00 IMPRESSION: Right lower abdominal wall hernia containing small bowel and causing small bowel obstruction. The stomach is dilated and contains a large amount of fluid. Other findings as described. KUB X-Ray 05/20/19 00:00 IMPRESSION: Ileus or partial small bowel obstruction. Recommend advancing the NG tube about 5 cm. Chest X-Ray 05/20/19 05:21 IMPRESSION: NG tube remains in the less than optimal position. The remains looped. Tip again lies near the GE junction. Assessment & Plan - Diagnosis (1) SBO (small bowel obstruction) Is this a current diagnosis for this admission?: Yes Plan: Repeat the KUB today follow with the surgery (2) Ventral incisional hernia with obstruction Is this a current diagnosis for this admission?: Yes Plan: Follow with the surgery (3) Chronic kidney disease, stage 3 Is this a current diagnosis for this admission?: Yes Plan: Continues IV fluid currently stable (4) Coronary artery disease Qualifiers: Coronary Disease-Associated Artery/Lesion type: nikolai artery Trib[place] vs. transplanted heart: nikolai heart Associated angina: without angina Qualified Code(s): I25.10 - Atherosclerotic heart disease of nikolai coronary artery without angina pectoris Is this a current diagnosis for this admission?: Yes Plan: Currently follow with the play back operator scheduled for the stress test today (5) Personal history of colon cancer Is this a current diagnosis for this admission?: Yes (6) Type 2 diabetes mellitus Qualifiers: Diabetes mellitus meterman insulin use: without custodial use Diabetes mellitus complication status: with neurologic complications Diabetes mellitus complication detail: with polyneuropathy Qualified Code(s): E11.42 - Type 2 diabetes mellitus with diabetic polyneuropathy Is this a current diagnosis for this admission?: Yes Plan: Continues a sliding scale's with [facility] protocol - Time Time Spent with patient: 15-24 minutes Medications reviewed and adjusted accordingly: Yes Anticipated discharge: Home Within: Other - Plan Summary Plan Summary: Continues to current medical management
[2019-05-21] MEDS: METOPROLOL TARTRATE PF/INJ 5 MG/5 ML SDV IV SCH ×2 (12:12→21:33)
[2019-05-21] MEDS ORDERED: REGADENOSON INJ 0.4 MG/5 ML DISP.SYRIN IV ONE (12:50)
[2019-05-21] MEDS: AMPICILLIN SODIUM/SULBACTAM NA 1.5 GM in NORMAL SALINE 50 ML IV SCH ×3 (13:04→23:43)
--- NOTE | 2019-05-21 17:58 | EKG REPORT ---
SEVERITY:- ABNORMAL ECG - SINUS RHYTHM VENTRICULAR BIGEMINY BORDERLINE T ABNORMALITIES, INFERIOR LEADS : Confirmed by: Tata Cervantes 21-May-2019 17:57:34
--- NOTE | 2019-05-21 18:11 | PDOC PROGRESS REPORT ---
Subjective Progress Note for:: 05/21/19 Subjective:: mild abdominal pains Reason For Visit: SMALL BOWEL OBSTRUCTION,RT HYDRONEPHROSIS/ Physical Exam Vital Signs: Temp Pulse Resp BP Pulse Ox 98.0 F 96 16 137/67 H 94 05/21/19 15:45 05/21/19 15:45 05/21/19 15:45 05/21/19 15:45 05/21/19 15:45 Intake & Output 05/20/19 05/21/19 05/22/19 06:59 06:59 06:59 Intake Total 1865 1000 1100 Output Total 4200 2725 200 Balance -2335 -1725 900 Weight 90.6 kg 86.5 kg Exam: Has a reducible incisional hernia. This was reduced at bedside and patient instructed to place finger at the hernia site whenever he coughs or strains. Colostomy not draining much. Small amount of air. Results Laboratory Results: 05/21/19 04:34 05/21/19 04:34 05/21/19 05/21/19 04:34 04:34 WBC 7.6 RBC 4.02 L Hgb 12.0 L Hct 35.1 L MCV 87 MCH 29.8 MCHC 34.1 RDW 14.5 H Plt Count 284 Seg Neutrophils % 63.0 Sodium 139.8 Potassium 4.5 Chloride 100 Carbon Dioxide 30 Anion Gap 10 BUN 33 H Creatinine 1.39 H Est GFR ( Amer) 59 L Glucose 203 H Calcium 9.4 Total Bilirubin 0.3 AST 18 Alkaline Phosphatase 62 Total Protein 6.5 Albumin 3.8 05/19/19 04:36 Green Catheter Urine Culture - Final Enterococcus Faecalis(Group D) Viridans Streptococcus 05/18/19 22:00 Troponin I < 0.012 Impressions: Abdomen/Pelvis CT 05/19/19 00:00 IMPRESSION: Right lower abdominal wall hernia containing small bowel and causing small bowel obstruction. The stomach is dilated and contains a large amount of fluid. Other findings as described. KUB X-Ray 05/20/19 00:00 IMPRESSION: Ileus or partial small bowel obstruction. Recommend advancing the NG tube about 5 cm. Chest X-Ray 05/20/19 05:21 IMPRESSION: NG tube remains in the less than optimal position. The remains looped. Tip again lies near the GE junction. Assessment & Plan - Diagnosis (1) Acute kidney injury Is this a current diagnosis for this admission?: Yes (2) SBO (small bowel obstruction) Is this a current diagnosis for this admission?: Yes - Time Time Spent with patient: 15-24 minutes - Inpatient Certification Medical Necessity: Significant Comorbidiites Make Outpatient Treatment Too Risky, Need Close Monitoring Due to Risk of Patient Decompensation - Plan Summary Plan Summary: Ordered SBFT and if no obstruction then can be operated on for his incisional hernia at a tertiary hospital on a semi-elective basis as discussed with Dr Kelley (Hair Tinter)
--- NOTE | 2019-05-21 19:50 | RADIOLOGY REPORT (SQ) ---
EXAM DESCRIPTION: SMALL BOWEL SERIES COMPLETED DATE/TIME: 05/21/2019 6:35 pm REASON FOR STUDY: area of obstruction COMPARISON: 01/25/2019 FLUOROSCOPY TIME: 10 images saved to PACS. LIMITATIONS: None. PROCEDURE: Initial pocket assembler image of abdomen acquired, followed by administration of oral contrast. Se rial radiographic images acquired. Fluoroscopic images recorded of the terminal ileum and other jenny cated areas. All images stored on PACS. FINDINGS: CRAWLER TRACTOR OPERATOR KUB: Dilated small bowel. Oral contrast injection through the NG tube shows opacification of stomach and small bowel on early i mages. 4 hour delayed show some contrast in the cecum. Small bowel remains dilated with some loops measuring 3.5 cm. No focus of obstruction is identified on these images. OTHER: No other significant finding. IMPRESSION: 4 hour delayed show some contrast in the cecum. Small bowel remains dilated with some l oops measuring 3.5 cm. No focus of obstruction is identified on these images. COMMENT: Quality ID [id number]: Final reports for procedures using fluoroscopy that document radiation exp osure indices, or exposure time and number of fluorographic images (if radiation exposure indices are not available) TECHNICAL DOCUMENTATION: JOB ID: [id number] [place]-72 2010 [employer]- All Rights Reserved Reading location - IP/workstation name: [email or web address]
--- NOTE | 2019-05-21 20:28 | Progress Note ---
Provider Note Provider Note: CARDIOLOGY PROGRESS NOTE by Dr. Tyesha Lopez on 05/21/2019. SUBJECTIVE: The patient states he has no further abdominal pain. But is not passing any flatus. There is yet to be stool in the colostomy bag. There is no nausea vomiting. There is no chest pain or discomfort. There is no shortness of breath. There is no PND orthopnea. The patient underwent a IV Lexiscan Cardiolite stress test this a.m. [Please see the results below]. There is no TIA CVA symptoms. The patient had a Gastrografin study to see if there is any improvement in the small bowel obstruction. The patient is afebrile. PHYSICAL EXAMINATION: The patient is well-built. NG tube is in situ. Selected Entries 05/21/19 15:45 Temperature 98.0 F Temperature Axillary Source Pulse Rate 96 Respiratory 16 Rate Blood Pressure 137/67 H [Right Upper Arm] Blood Pressure 90 Mean [Right Upper Arm] Blood Pressure Supine Position [Right Upper Arm] O2 Sat by Pulse 94 Oximetry Oxygen Delivery Room Air Method ( includes room air) HEAD: Is atraumatic normocephalic. EYES: Pupils are equal round regular reactive to light and accommodation. Extra ocular movements are normal. There is no conjunctival pallor. There is no scleral icterus. EARS: Tympanic membranes are intact. External auditory canals are clear. NOSE: There is no deviated nasal septum. There is no inflammation of the nasal mucous membrane. MOUTH: Mucous members of mouth are moist. Tongue is moist. There is no ulcers. THROAT: There is no redness of the oropharynx. There is no exudates. SKIN: There is no skin rashes or skin lesions. There is no petechia or ecchymosis. NECK: Is supple. There is no JVD. Carotids are equal there is no bruit. There is no lymphadenopathy. There is no accessory muscle respiration use. Trachea central. LUNGS: Clear to auscultation percussion. Without any rhonchi rales or wheezing. HEART: S1-S2 is heard there is no S3 gallop. There is no S4 gallop. There is systolic murmur left sternal border and the apex there is no rub. ABDOMEN: Is soft nontender there is no hepatospleno megaly. The abdomen is distended. NG tube in situ connected to suction. Bowel sounds are slightly diminished. There is a left colostomy bag in situ. There is mild diffuse d iscomfort on palpation of the abdomen. EXTREMITIES: Femorals are slightly diminished. There is no femoral bruits. Leg pulses are diminished. There is no pedal edema. There is no DVT or cellulitis. There is no calf tenderness. There is no sinus or clubbing. Capillary refill is normal. IN FLIGHT REFUELING OPERATOR: The patient is conscious awake alert oriented x3 with no focal deficits. PSYCHIATRIC: Patient judgment insight are intact and her affect is normal. Labs- All tests 24 hr 05/20/19 05/21/19 05/21/19 23:18 04:34 04:34 WBC 7.6 RBC 4.02 L Hgb 12.0 L Hct 35.1 L MCV 87 MCH 29.8 MCHC 34.1 RDW 14.5 H Plt Count 284 Lymph % (Auto) 22.2 Redwood % (Auto) 13.6 H Eos % (Auto) 0.9 Baso % (Auto) 0.3 Absolute Neuts (auto) 4.8 Absolute Lymphs (auto) 1.7 Absolute Monos (auto) 1.0 Absolute Eos (auto) 0.1 Absolute Basos (auto) 0.0 Seg Neutrophils % 63.0 Sodium 139.8 Potassium 4.5 Chloride 100 Carbon Dioxide 30 Anion Gap 10 BUN 33 H Creatinine 1.39 H Est GFR ( Amer) 59 L Est GFR (MDRD) Non-Af 49 L Glucose 203 H POC Glucose 187 H Calcium 9.4 Total Bilirubin 0.3 Direct Bilirubin 0.2 Neonat Total Bilirubin Not Reportable Neonat Direct Bilirubin Not Reportable Neonat Indirect Bili Not Reportable AST 18 ALT 13 Alkaline Phosphatase 62 Total Protein 6.5 Albumin 3.8 05/21/19 05/21/19 05:14 12:05 WBC RBC Hgb Hct MCV MCH MCHC RDW Plt Count Lymph % (Auto) Redwood % (Auto) Eos % (Auto) Baso % (Auto) Absolute Neuts (auto) Absolute Lymphs (auto) Absolute Monos (auto) Absolute Eos (auto) Absolute Basos (auto) Seg Neutrophils % Sodium Potassium Chloride Carbon Dioxide Anion Gap BUN Creatinine Est GFR ( Amer) Est GFR (MDRD) Non-Af Glucose POC Glucose 216 H 161 H Calcium Total Bilirubin Direct Bilirubin Neonat Total Bilirubin Neonat Direct Bilirubin Neonat Indirect Bili AST ALT Alkaline Phosphatase Total Protein Albumin Chest X-Ray 05/18/19 21:15 IMPRESSION: No acute cardiopulmonary findings. Abdomen/Pelvis CT 05/19/19 00:00 IMPRESSION: Right lower abdominal wall hernia containing small bowel and causing small bowel obstruction. The stomach is dilated and contains a large amount of fluid. Other findings as described. Chest X-Ray 05/19/19 00:00 IMPRESSION: NG tube is curled in the distal esophagus with its tip pointed superiorly. Recommend complete removal and replacement. KUB X-Ray 05/20/19 00:00 IMPRESSION: Ileus or partial small bowel obstruction. Recommend advancing the NG tube about 5 cm. Chest X-Ray 05/20/19 05:21 IMPRESSION: NG tube remains in the less than optimal position. The remains looped. Tip again lies near the GE junction. Small Bowel X-Ray 05/21/19 00:00 IMPRESSION: 4 hour delayed show some contrast in the cecum. Small bowel remains dilated with some loops measuring 3.5 cm. No focus of obstruction is identified on these images. IV lexiscan CARDIOLITE STRESS TEST: There is no reversible ischemia. There is no myocardial infarction/scar. This has been discussed with the patient patient's . IMPRESSION/RECOMMENDATION: 1. SMALL bowel obstruction: At present being treated conservatively. If this does not result in the resolution of the bowel obstruction, then the patient may require surgical intervention. Hence we will get a IV Lexiscan cardiac stress test in the a.m.. 2. Severe constipation secondary to malfunctioning of colostomy bag: Now resolved. 3. Coronary artery disease: No evidence of UT this admission. No anginal symptoms. Note patient has a history of LAD and RCA stent in 2009. The patient states that his last stress test was about 2 years ago. Would recommend that the patient have an outpatient IV Lexiscan Cardiolite stress test once the patient's GI problems returned to baseline. 4. Hypertension: Noted blood pressure is well controlled. Next 5. Diabetes mellitus: Continue antidiabetic medication. Continue periodic Accu-Cheks. 6. Chronic kidney disease stage III: Avoid nephrotoxic medication. 7. History of colon cancer status post surgery: Removal and colostomy and also proctectomy. Patient states that this is been cured and there is no recurrence. 8. History of asthma: No evidence of acute asthmatic attack. 9. Hyperlipidemia: Continue statin. 10.Preoperative cardiac risk assessment for bowel surgery. Patient with history of coronary artery disease, with no anginal symptoms. Stress test shows no evidence of ischemia or UT. But in spite of this in view of the patient's multiple comorbid conditions the patient will be at moderate but still acceptable cardiac risk for this procedure. The patient and the desire to have the surgery done to tertiary care center. As per discussion with Dr. Pablo, the hospitalist the patient is improving, and hence the surgery can be done electively. In which case with the have the patient referred on an outpatient basis to the surgical center in [place] surgery. Medications reviewed. Management plan discussed with the attending physician and the surgical list. 40 minutes spent on this patient more than 50% of time spent in direct patient care. Medical decision making is of moderate complexity.
--- NOTE | 2019-05-21 21:02 | DRAGON STRESS TEST REPORT ---
Intravenous Lexiscan Cardiolite stress test using single photon emmision computerized tomography. Date of procedure: 05/21/2019. Ordering Provider: Dr. Tyesha Lopez. Patient's status In Patient. Indication: Coronary artery disease, history of LAD and circumflex stents patient for preoperative cardiac risk assessment.. Coronary risk factors: Age, hypertension, and diabetes mellitus. Resting EKG: Sinus Rhythm. PVC. T inversion inferior leads. The patient had no chest pain or discomfort, and there were no arrhythmias seen. Stress EKG: No changes of ischemia. Reason for termination: Protocol. Conclusions: Normal EKG and hemodynamic response to IV Lexiscan. Nuclear data: At rest the patient was given 13.68 millicuries of technetium 99m sestamibi injected intravenously. As per protocol rest non gated SPECT images were obtained. Subsequently the patient was given intravenous Lexiscan at a dose of 0.4 mg in 5 mL intravenously, followed by flush with normal saline. Subsequently the stress dose of 40.4 millicuries of technetium 99m sestamibi was injected intravenously. As per protocol stress gated images were obtained. Nuclear interpretation: Review of images showed that all segments of the myocardium had normal perfusion at rest, and normal perfusion post stress with IV Lexiscan. All segments of the myocardium had normal motion, contraction, and thickening by gated study. T. I D. ratio was normal at 0.88. There is no transient ischemic dilatation of the left ventricle. Computer read rest, and stress left ventricular ejection fraction were 44 %, and 41 %, respectively. Visually both the stress and rest ejection fractions were normal, and greater than 55%. Conclusion: 1. There is no scintigraphic evidence of Lexiscan induced myocardial ischemia. 2. There is no scintigraphic evidence of myocardial infarction/scar. Recommendations: Aggressive risk factor modification, and treating the underlying co- morbidities. Check echo for LV ejection fraction correlation. [facility]
[2019-05-22] MEDS: HYDROMORPHONE HCL INJ/PF 2 MG/ML AMPULE IV PRN ×2 (03:16→16:53)
[2019-05-22] MEDS: ENALAPRILAT DIHYDRATE INJ/PF 2.5 MG/2 ML SDV IV SCH (05:54)
[2019-05-22] MEDS: DEXTROSE 5%-1/2 NORMAL SALINE 1,000 ML IV PRN (05:55)
[2019-05-22] MEDS: AMPICILLIN SODIUM/SULBACTAM NA 1.5 GM in NORMAL SALINE 50 ML IV SCH ×3 (05:55→17:51)
[2019-05-22] MEDS: INSULIN LISPRO 100 UNIT/ML 3 ML VIAL SUBCUT SCH ×3 (06:03→17:58)
[2019-05-22] MEDS: HEPARIN SOD (PORCINE) 5,000 UNIT/ML 1 ML VIAL SUBCUT SCH ×3 (06:06→23:39)
[2019-05-22 08:20] LABS: ABSOLUTE EOSINOPHILS # (AUTO) 0.1 10^3/uL (0.0-0.6); ABSOLUTE LYMPHOCYTES (AUTO) 1.8 10^3/uL (0.5-4.7); ABSOLUTE MONOCYTES (AUTO) 1.1 10^3/uL (0.1-1.4); ABSOLUTE NEUT (AUTO) 5.4 10^3/uL (1.7-8.2); BASOPHILS % (AUTO) 0.2 % (0-2); EOSINOPHILS % (AUTO) 1.2 % (0-6); HEMATOCRIT 37.5 % (37.9-51.0); HEMOGLOBIN 12.8 g/dL (13.5-17.0); LYMPHOCYTES % (AUTO) 21.2 % (13-45); MEAN CORPUSCULAR HEMOGLOBIN 29.9 pg (27.0-33.4); MEAN CORPUSCULAR HGB CONC 34.2 g/dL (32.0-36.0); MEAN CORPUSCULAR VOLUME 88 fl (80-97); MONOCYTES % (AUTO) 12.7 % (3-13); PLATELET COUNT 327 10^3/uL (150-450); RED BLOOD COUNT 4.28 10^6/uL (4.35-5.55); RED CELL DISTRIBUTION WIDTH 14.4 % (11.5-14.0); SEGMENTED NEUTROPHILS % (AUTO) 64.7 % (42-78); TOTAL CELLS COUNTED % (AUTO) 100 %; WHITE BLOOD COUNT 8.3 10^3/uL (4.0-10.5)
--- NOTE | 2019-05-22 08:41 | PDOC PROGRESS REPORT ---
Subjective Progress Note for:: 05/22/19 Subjective:: Feel much better after reduction of incisional hernia yesterday prior to SBFT which showed contrast to cecum without any site of obstruction. This am colostomy productive. More comfortable Reason For Visit: SMALL BOWEL OBSTRUCTION,RT HYDRONEPHROSIS/ Physical Exam Vital Signs: Temp Pulse Resp BP Pulse Ox 97.5 F 88 16 149/67 H 94 05/22/19 04:00 05/22/19 05:54 05/22/19 04:00 05/22/19 05:54 05/22/19 04:00 Intake & Output 05/21/19 05/22/19 05/23/19 06:59 06:59 06:59 Intake Total 1000 1475 Output Total 2725 1625 Balance -1725 -150 Weight 86.5 kg 83.7 kg Exam: Colostomy just evacuated by nurses. NGT less drainage. Abdomen soft. Hernia to right of colostomy easily reduced. Instructed patient again to place finger at the site whnever he coughs or strains Results Laboratory Results: 05/22/19 07:32 05/22/19 07:32 WBC 8.3 RBC 4.28 L Hgb 12.8 L Hct 37.5 L MCV 88 MCH 29.9 MCHC 34.2 RDW 14.4 H Plt Count 327 Seg Neutrophils % 64.7 05/19/19 04:36 Green Catheter Urine Culture - Final Enterococcus Faecalis(Group D) Viridans Streptococcus 05/18/19 22:00 Troponin I < 0.012 Impressions: Abdomen/Pelvis CT 05/19/19 00:00 IMPRESSION: Right lower abdominal wall hernia containing small bowel and causing small bowel obstruction. The stomach is dilated and contains a large amount of fluid. Other findings as described. KUB X-Ray 05/20/19 00:00 IMPRESSION: Ileus or partial small bowel obstruction. Recommend advancing the NG tube about 5 cm. Chest X-Ray 05/20/19 05:21 IMPRESSION: NG tube remains in the less than optimal position. The remains looped. Tip again lies near the GE junction. Small Bowel X-Ray 05/21/19 00:00 IMPRESSION: 4 hour delayed show some contrast in the cecum. Small bowel remains dilated with some loops measuring 3.5 cm. No focus of obstruction is identified on these images. Assessment & Plan - Diagnosis (1) Acute kidney injury Is this a current diagnosis for this admission?: Yes (2) SBO (small bowel obstruction) Is this a current diagnosis for this admission?: Yes - Time Time Spent with patient: 15-24 minutes - Inpatient Certification Medical Necessity: Need For IV Fluids, Risk of Complication if Not Cared For in Hospital - Plan Summary Plan Summary: D/W Dr Roa who was at bedside. Will D/C NGT and start clears Will likely need just repair of hernia instead of formal lysis of adhesions since the hernia appears to be the cause of the obstruction. Family wants operation done in [place]. Stress test noted to be normal. Operation can be done on semi-elective situation
[2019-05-22 08:47] LABS: ALKALINE PHOSPHATASE 68 U/L (38-126); ANION GAP 9 (5-19); ASPARTATE AMINO TRANSFERASE 16 U/L (17-59); BILIRUBIN,DIRECT 0.2 mg/dL (0.0-0.4); BILIRUBIN,TOTAL 0.4 mg/dL (0.2-1.3); BLOOD UREA NITROGEN 45 mg/dL (7-20); CALCIUM 9.5 mg/dL (8.4-10.2); CARBON DIOXIDE 33 mmol/L (22-30); CHLORIDE 100 mmol/L (98-107); GLUCOSE 174 mg/dL (75-110); TOTAL PROTEIN 7.1 g/dL (6.3-8.2)
[2019-05-22] MEDS ORDERED: ALBUTEROL SULFATE HFA (90 MCG/PUFF) 200 PUFF/8.5 GM MDI IH PRN (08:59)
--- NOTE | 2019-05-22 08:59 | PDOC PROGRESS REPORT ---
Subjective Progress Note for:: 05/22/19 Subjective:: Patient is currently doing well Since colostomy bag is working Patient small bowel series passed through no sign of any obstructions Patient is passing the gas in the stool Patient seen by the Dr. Mehta in the room suggested DC the NG tube and start on a clear liquid diet To the surgery patients need to probably repair the defect of the hernia but not right now patients choose in a week or 2 Is wants to do the surgery locally here do not want to go to any other places well consent was yesterday with the wants to doing some tertiary center but patients wants to do it locally here Since clear from the cardiac standpoint per Dr. JACINTO the stress test is negative's Reason For Visit: SMALL BOWEL OBSTRUCTION,RT HYDRONEPHROSIS/ Physical Exam Vital Signs: Temp Pulse Resp BP Pulse Ox 97.5 F 88 16 149/67 H 94 05/22/19 04:00 05/22/19 05:54 05/22/19 04:00 05/22/19 05:54 05/22/19 04:00 Intake & Output 05/21/19 05/22/19 05/23/19 06:59 06:59 06:59 Intake Total 1000 1475 50 Output Total 2725 1625 Balance -1725 -150 50 Weight 86.5 kg 83.7 kg General appearance: PRESENT: no acute distress, well-developed, well-nourished Head exam: PRESENT: atraumatic, normocephalic Eye exam: PRESENT: conjunctiva pink, EOMI, PERRLA. ABSENT: scleral icterus Ear exam: PRESENT: normal external ear exam Mouth exam: PRESENT: moist, tongue midline Neck exam: PRESENT: full ROM. ABSENT: carotid bruit, JVD, lymphadenopathy, thyromegaly Respiratory exam: PRESENT: clear to auscultation yumiko Cardiovascular exam: PRESENT: RRR. ABSENT: diastolic murmur, rubs, systolic murmur Pulses: PRESENT: normal dorsalis pedis pul, +2 pedal pulses bilateral Vascular exam: PRESENT: normal capillary refill GI/Abdominal exam: PRESENT: normal bowel sounds, soft. ABSENT: distended, guarding, mass, organolmegaly, rebound, tenderness Additonal comments: Incisional hernia is present Rectal exam: PRESENT: deferred Neurological exam: PRESENT: alert, awake, oriented to person, oriented to place, oriented to time, oriented to situation, CN II-XII grossly intact. ABSENT: motor sensory deficit Psychiatric exam: PRESENT: appropriate affect, normal mood. ABSENT: homicidal ideation, suicidal ideation Skin exam: PRESENT: dry, intact, warm. ABSENT: cyanosis, rash Results Laboratory Results: 05/22/19 07:32 05/22/19 07:32 05/22/19 05/22/19 07:32 07:32 WBC 8.3 RBC 4.28 L Hgb 12.8 L Hct 37.5 L MCV 88 MCH 29.9 MCHC 34.2 RDW 14.4 H Plt Count 327 Seg Neutrophils % 64.7 Sodium 142.2 Potassium 4.0 Chloride 100 Carbon Dioxide 33 H Anion Gap 9 BUN 45 H Creatinine 1.65 H Est GFR ( Amer) 49 L Glucose 174 H Calcium 9.5 Total Bilirubin 0.4 AST 16 L Alkaline Phosphatase 68 Total Protein 7.1 Albumin 4.0 05/19/19 04:36 Green Catheter Urine Culture - Final Enterococcus Faecalis(Group D) Viridans Streptococcus 05/18/19 22:00 Troponin I < 0.012 Impressions: Abdomen/Pelvis CT 05/19/19 00:00 IMPRESSION: Right lower abdominal wall hernia containing small bowel and causing small bowel obstruction. The stomach is dilated and contains a large amount of fluid. Other findings as described. KUB X-Ray 05/20/19 00:00 IMPRESSION: Ileus or partial small bowel obstruction. Recommend advancing the NG tube about 5 cm. Chest X-Ray 05/20/19 05:21 IMPRESSION: NG tube remains in the less than optimal position. The remains looped. Tip again lies near the GE junction. Small Bowel X-Ray 05/21/19 00:00 IMPRESSION: 4 hour delayed show some contrast in the cecum. Small bowel remains dilated with some loops measuring 3.5 cm. No focus of obstruction is identified on these images. Assessment & Plan - Diagnosis (1) SBO (small bowel obstruction) Is this a current diagnosis for this admission?: Yes Plan: Currently resolving start taking the clear liquid diet to advance soft diet tomorrow (2) Ventral incisional hernia with obstruction Is this a current diagnosis for this admission?: Yes Plan: Patients need a surgical repair as per surgery probably outpatient if is doing okay (3) Chronic kidney disease, stage 3 Is this a current diagnosis for this admission?: Yes Plan: Continues IV fluid currently stable (4) Coronary artery disease Qualifiers: Coronary Disease-Associated Artery/Lesion type: [place] artery [place] vs. transplanted heart: [place] heart Associated angina: without angina Qualified Code(s): I25.10 - Atherosclerotic heart disease of [place] coronary artery without angina pectoris Is this a current diagnosis for this admission?: Yes Plan: Currently follow with the pipe layer scheduled for the stress test today (5) Personal history of colon cancer Is this a current diagnosis for this admission?: Yes (6) Type 2 diabetes mellitus Qualifiers: Diabetes mellitus terminal carman insulin use: without terminal carman use Diabetes mellitus complication status: with neurologic complications Diabetes mellitus complication detail: with polyneuropathy Qualified Code(s): 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 medications Out of the bed to walk Cussed with the patient and the
[2019-05-22] MEDS ORDERED: (PENDING PHARMACY ID) (Fluticasone/Salmeterol 1 PUFF) IH SCH (10:00)
[2019-05-22] MEDS: FINASTERIDE 5 MG TABLET PO SCH (10:06)
[2019-05-22] MEDS: SITAGLIPTIN PHOSPHATE 50 MG TABLET PO SCH (10:06)
[2019-05-22] MEDS: PANTOPRAZOLE SODIUM 40 MG TABLET.DR PO SCH (10:07)
[2019-05-22] MEDS: AMLODIPINE BESYLATE 10 MG TABLET PO SCH (10:07)
[2019-05-22] MEDS: PRAMIPEXOLE DI-HCL 0.25 MG TABLET PO SCH (10:07)
[2019-05-22] MEDS: FLUTICASONE/VILANTEROL 200-25 MCG/DOSE IH SCH (10:07)
[2019-05-22] MEDS: ATORVASTATIN CALCIUM 20 MG TABLET PO SCH (10:07)
[2019-05-22] MEDS: LISINOPRIL 10 MG TABLET PO SCH (10:07)
[2019-05-22] MEDS: ONDANSETRON HCL INJ/PF 4 MG/2 ML SDV IV PRN (16:47)
[2019-05-22] MEDS: MONTELUKAST SODIUM 10 MG TABLET PO SCH (17:50)
[2019-05-22] MEDS: TAMSULOSIN HCL 0.4 MG CAP.SR.24H PO SCH (17:50)
[2019-05-22] MEDS ORDERED: INSULIN LISPRO 100 UNIT/ML 3 ML VIAL SUBCUT SCH (21:35)
--- NOTE | 2019-05-22 22:32 | Progress Note ---
Provider Note Provider Note: CARDIOLOGY PROGRESS NOTE by Dr. Tyesha Chapin on 05/22/2019. SUBJECTIVE: The patient has no nausea or vomiting. The patient has no abdominal pain. Colostomy seems to be functioning now with there being stool there. The Gastrografin study also shows that there is no obstruction. The patient denies any chest pain or discomfort. There is no PND orthopnea. There is no arrhythmia seen on the monitor. There is no TIA CVA symptoms. Dr. Pablo, the surgical list, will points that the patient may just need a hernia repair and not lysis of adhesions. The patient and the patient's family want to get this done before the discharge since the patient does not want to go through this again. The patient's NG tube has been removed. PHYSICAL EXAMINATION: The patient is well-built. At present in no acute distress. He is well-groomed Selected Entries 05/21/19 07:58 Temperature 97.5 F Temperature Axillary Source Pulse Rate 72 Respiratory 16 Rate Blood Pressure 175/68 H Blood Pressure 103 Mean BP Location Right Arm BP Position Supine O2 Sat by Pulse 94 Oximetry Oxygen Delivery Room Air Method HEAD: Is atraumatic normocephalic. EYES: Pupils are equal round regular reactive to light and accommodation. Extra ocular movements are normal. There is no conjunctival pallor. There is no scleral icterus. EARS: Tympanic membranes are intact. External auditory canals are clear. NOSE: There is no deviated nasal septum. There is no inflammation of the nasal mucous membrane. MOUTH: Mucous members of mouth are moist. Tongue is moist. There is no ulcers. THROAT: There is no redness of the oropharynx. There is no exudates. SKIN: There is no skin rashes or skin lesions. There is no petechia or ecchymosis. NECK: Is supple. There is no JVD. Carotids are equal there is no bruit. There is no lymphadenopathy. There is no accessory muscle respiration use. Trachea central. LUNGS: Clear to auscultation percussion. Without any rhonchi rales or wheezing. HEART: S1-S2 is heard there is no S3 gallop. There is no S4 gallop. There is systolic murmur left sternal border and the apex there is no rub. ABDOMEN: Is soft nontender there is no hepatospleno megaly. The abdomen is distended. NG tube in situ connected to suction. Bowel sounds are slightly diminished. There is a left colostomy bag in situ. There is mild diffuse discomfort on palpation of the abdomen. EXTREMITIES: Femorals are slightly diminished. There is no femoral bruits. Leg pulses are diminished. There is no pedal edema. There is no DVT or cellulitis. There is no calf tenderness. There is no sinus or clubbing. Capillary refill is normal. INSURANCE REPRESENTATIVE: The patient is conscious awake alert oriented x3 with no focal deficits. PSYCHIATRIC: Patient judgment insight are intact and her affect is normal. Labs- All tests 24 hr 05/21/19 05/22/19 05/22/19 23:35 06:00 07:32 WBC 8.3 RBC 4.28 L Hgb 12.8 L Hct 37.5 L MCV 88 MCH 29.9 MCHC 34.2 RDW 14.4 H Plt Count 327 Lymph % (Auto) 21.2 [place] % (Auto) 12.7 Eos % (Auto) 1.2 Baso % (Auto) 0.2 Absolute Neuts (auto) 5.4 Absolute Lymphs (auto) 1.8 Absolute Monos (auto) 1.1 Absolute Eos (auto) 0.1 Absolute Basos (auto) 0.0 Seg Neutrophils % 64.7 Sodium Potassium Chloride Carbon Dioxide Anion Gap BUN Creatinine Est GFR ( Amer) Est GFR (MDRD) Non-Af Glucose POC Glucose 238 H 177 H Calcium Total Bilirubin Direct Bilirubin Neonat Total Bilirubin Neonat Direct Bilirubin Neonat Indirect Bili AST ALT Alkaline Phosphatase Total Protein Albumin 05/22/19 05/22/19 05/22/19 07:32 11:26 17:52 WBC RBC Hgb Hct MCV MCH MCHC RDW Plt Count Lymph % (Auto) [place] % (Auto) Eos % (Auto) Baso % (Auto) Absolute Neuts (auto) Absolute Lymphs (auto) Absolute Monos (auto) Absolute Eos (auto) Absolute Basos (auto) Seg Neutrophils % Sodium 142.2 Potassium 4.0 Chloride 100 Carbon Dioxide 33 H Anion Gap 9 BUN 45 H Creatinine 1.65 H Est GFR ( Amer) 49 L Est GFR (MDRD) Non-Af 40 L Glucose 174 H POC Glucose 181 H 169 H Calcium 9.5 Total Bilirubin 0.4 Direct Bilirubin 0.2 Neonat Total Bilirubin Not Reportable Neonat Direct Bilirubin Not Reportable Neonat Indirect Bili Not Reportable AST 16 L ALT 13 Alkaline Phosphatase 68 Total Protein 7.1 Albumin 4.0 05/22/19 21:16 WBC RBC Hgb Hct MCV MCH MCHC RDW Plt Count Lymph % (Auto) [place] % (Auto) Eos % (Auto) Baso % (Auto) Absolute Neuts (auto) Absolute Lymphs (auto) Absolute Monos (auto) Absolute Eos (auto) Absolute Basos (auto) Seg Neutrophils % Sodium Potassium Chloride Carbon Dioxide Anion Gap BUN Creatinine Est GFR ( Amer) Est GFR (MDRD) Non-Af Glucose POC Glucose 166 H Calcium Total Bilirubin Direct Bilirubin Neonat Total Bilirubin Neonat Direct Bilirubin Neonat Indirect Bili AST ALT Alkaline Phosphatase Total Protein Albumin Chest X-Ray 05/18/19 21:15 IMPRESSION: No acute cardiopulmonary findings. Abdomen/Pelvis CT 05/19/19 00:00 IMPRESSION: Right lower abdominal wall hernia containing small bowel and causing small bowel obstruction. The stomach is dilated and contains a large amount of fluid. Other findings as described. Chest X-Ray 05/19/19 00:00 IMPRESSION: NG tube is curled in the distal esophagus with its tip pointed superiorly. Recommend complete removal and replacement. KUB X-Ray 05/20/19 00:00 IMPRESSION: Ileus or partial small bowel obstruction. Recommend advancing the NG tube about 5 cm. Chest X-Ray 05/20/19 05:21 IMPRESSION: NG tube remains in the less than optimal position. The remains looped. Tip again lies near the GE junction. Small Bowel X-Ray 05/21/19 00:00 IMPRESSION: 4 hour delayed show some contrast in the cecum. Small bowel remains dilated with some loops measuring 3.5 cm. No focus of obstruction is identified on these images. IMPRESSION/RECOMMENDATION: 1. SMALL bowel obstruction: At present being treated conservatively. If this does not result in the resolution of the bowel obstruction, then the patient may require surgical intervention. Hence we will get a IV Lexiscan cardiac stress test in the a.m.. 2. Severe constipation secondary to malfunctioning of colostomy bag: Now resolved. 3. Coronary artery disease: No evidence of CA this admission. No anginal symptoms. Note patient has a history of LAD and RCA stent in 2009. The patient states that his last stress test was about 2 years ago. Would recommend that the patient have an outpatient IV Lexiscan Cardiolite stress test once the patient's GI problems returned to baseline. 4. Hypertension: Noted blood pressure is well controlled. Next 5. Diabetes mellitus: Continue antidiabetic medication. Continue periodic Accu-Cheks. 6. Chronic kidney disease stage III: Avoid nephrotoxic medication. 7. History of colon cancer status post surgery: Removal and colostomy and also proctectomy. Patient states that this is been cured and there is no recurrence. 8. History of asthma: No evidence of acute asthmatic attack. 9. Hyperlipidemia: Continue statin. 10.Preoperative cardiac risk assessment for hernia surgery: The patient be an acceptable risk for this procedure. The patient and the want to have it done here at [facility]. This has been discussed with the surgeon. Medications reviewed. Management plan and medical regimen discussed with the attending physician and the surgical list. Condition making is of moderate to h igh complexity. 40 minutes spent on this patient with more than 50% of time spent in direct patient care. Will follow
[2019-05-23] MEDS: AMPICILLIN SODIUM/SULBACTAM NA 1.5 GM in NORMAL SALINE 50 ML IV SCH ×4 (00:10→17:31)
[2019-05-23] MEDS ORDERED: INSULIN LISPRO 100 UNIT/ML 3 ML VIAL SUBCUT PRN (01:53)
[2019-05-23] MEDS: HEPARIN SOD (PORCINE) 5,000 UNIT/ML 1 ML VIAL SUBCUT SCH ×3 (05:54→22:53)
[2019-05-23 07:28] LABS: ANION GAP 8 (5-19); BLOOD UREA NITROGEN 35 mg/dL (7-20); CALCIUM 8.5 mg/dL (8.4-10.2); CARBON DIOXIDE 28 mmol/L (22-30); CHLORIDE 101 mmol/L (98-107); GLUCOSE 155 mg/dL (75-110); POTASSIUM 3.5 mmol/L (3.6-5.0)
[2019-05-23] MEDS ORDERED: POTASSI CL 20 MEQ/50 ML RIDER 20 MEQ/50 ML RTUPB IV ONE (08:21)
[2019-05-23] MEDS ORDERED: DEXTROSE 5%-1/2 NORMAL SALINE 1,000 ML IV PRN (08:22)
--- NOTE | 2019-05-23 08:25 | PDOC PROGRESS REPORT ---
Subjective Progress Note for:: 05/23/19 Subjective:: Patient is suffering still nauseating still have some abdominal discomfort remove the NG tube yesterday Patient's denied any chest pain to than any shortness of the breath Now the patient's wants to do the surgery if he needed Patient's denied any other symptoms Discussed with the on the bedsideDuring the patient's current conditions discussed with the surgery Dr. Garcia he will see the patient and decide Followed by the cardiology Reason For Visit: SMALL BOWEL OBSTRUCTION,RT HYDRONEPHROSIS/ Physical Exam Vital Signs: Temp Pulse Resp BP Pulse Ox 97 F L 89 14 148/67 H 95 05/23/19 04:00 05/23/19 04:00 05/23/19 04:00 05/23/19 04:00 05/23/19 04:00 Intake & Output 05/22/19 05/23/19 05/24/19 06:59 06:59 06:59 Intake Total 1475 2240 Output Total 1625 955 Balance -150 1285 Weight 83.7 kg 81.6 kg General appearance: PRESENT: no acute distress, well-developed, well-nourished Head exam: PRESENT: atraumatic, normocephalic Eye exam: PRESENT: conjunctiva pink, EOMI, PERRLA. ABSENT: scleral icterus Ear exam: PRESENT: normal external ear exam Mouth exam: PRESENT: moist, tongue midline Neck exam: PRESENT: full ROM. ABSENT: carotid bruit, JVD, lymphadenopathy, thyromegaly Respiratory exam: PRESENT: clear to auscultation yumiko Cardiovascular exam: PRESENT: RRR. ABSENT: diastolic murmur, rubs, systolic murmur Vascular exam: PRESENT: normal capillary refill GI/Abdominal exam: PRESENT: hypoactive bowel sounds, soft. ABSENT: distended, guarding, mass, organolmegaly, rebound, tenderness Rectal exam: PRESENT: deferred Neurological exam: PRESENT: alert, awake, oriented to person, oriented to place, oriented to time, oriented to situation, CN II-XII grossly intact. ABSENT: motor sensory deficit Psychiatric exam: PRESENT: appropriate affect, normal mood. ABSENT: homicidal ideation, suicidal ideation Skin exam: PRESENT: dry, intact, warm. ABSENT: cyanosis, rash Results Laboratory Results: 05/22/19 07:32 05/23/19 06:32 05/22/19 05/22/19 05/23/19 07:32 07:32 06:32 WBC 8.3 RBC 4.28 L Hgb 12.8 L Hct 37.5 L MCV 88 MCH 29.9 MCHC 34.2 RDW 14.4 H Plt Count 327 Seg Neutrophils % 64.7 Sodium 142.2 136.8 L Potassium 4.0 3.5 L Chloride 100 101 Carbon Dioxide 33 H 28 Anion Gap 9 8 BUN 45 H 35 H Creatinine 1.65 H 1.32 H Est GFR ( Amer) 49 L > 60 Glucose 174 H 155 H Calcium 9.5 8.5 Total Bilirubin 0.4 AST 16 L Alkaline Phosphatase 68 Total Protein 7.1 Albumin 4.0 05/18/19 22:00 Troponin I < 0.012 Impressions: Abdomen/Pelvis CT 05/19/19 00:00 IMPRESSION: Right lower abdominal wall hernia containing small bowel and causing small bowel obstruction. The stomach is dilated and contains a large amount of fluid. Other findings as described. KUB X-Ray 05/20/19 00:00 IMPRESSION: Ileus or partial small bowel obstruction. Recommend advancing the NG tube about 5 cm. Chest X-Ray 05/20/19 05:21 IMPRESSION: NG tube remains in the less than optimal position. The remains looped. Tip again lies near the GE junction. Small Bowel X-Ray 05/21/19 00:00 IMPRESSION: 4 hour delayed show some contrast in the cecum. Small bowel tiffany ins dilated with some loops measuring 3.5 cm. No focus of obstruction is identified on these images. Assessment & Plan - Diagnosis (1) SBO (small bowel obstruction) Is this a current diagnosis for this admission?: Yes Plan: Currently follow with the surgery (2) Ventral incisional hernia with obstruction Is this a current diagnosis for this admission?: Yes Plan: Patients need a surgical repair as per surgery probably outpatient if is doing okay (3) Chronic kidney disease, stage 3 Is this a current diagnosis for this admission?: Yes Plan: Replace the potassiums (4) Coronary artery disease Qualifiers: Coronary Disease-Associated Artery/Lesion type: [place] artery [place] vs. transplanted heart: [place] heart Associated angina: without angina Qualified Code(s): I25.10 - Atherosclerotic heart disease of [place] coronary artery without angina pectoris Is this a current diagnosis for this admission?: Yes Plan: Currently all stable (5) Personal history of colon cancer Is this a current diagnosis for this admission?: Yes (6) Type 2 diabetes mellitus Qualifiers: Diabetes mellitus manager terminal insulin use: without nursing home use Diabetes mellitus complication status: with neurologic complications Diabetes mellitus complication detail: with polyneuropathy Qualified Code(s): E11.42 - Type 2 diabetes mellitus with diabetic polyneuropathy Is this a current diagnosis for this admission?: Yes Plan: Continues a sliding scale's with [facility] protocol - Time Time Spent with patient: 25-34 minutes Medications reviewed and adjusted accordingly: Yes Anticipated discharge: Home Within: Other - Plan Summary Plan Summary: Continues to current medical management Patient is medically stable Is clear from the cardiology stress test is negative Follow-up with the surgery for further management Discussed with the patient and the on the bedside and discussed with the surgery
[2019-05-23] MEDS: INSULIN LISPRO 100 UNIT/ML 3 ML VIAL SUBCUT SCH ×4 (08:41→22:53)
[2019-05-23] MEDS: ONDANSETRON HCL INJ/PF 4 MG/2 ML SDV IV PRN ×3 (09:17→22:52)
[2019-05-23] MEDS: HYDROMORPHONE HCL INJ/PF 2 MG/ML AMPULE IV PRN ×3 (09:17→22:51)
[2019-05-23] MEDS: LISINOPRIL 10 MG TABLET PO SCH (09:18)
[2019-05-23] MEDS: PRAMIPEXOLE DI-HCL 0.25 MG TABLET PO SCH (09:18)
[2019-05-23] MEDS: AMLODIPINE BESYLATE 10 MG TABLET PO SCH (09:18)
[2019-05-23] MEDS: FINASTERIDE 5 MG TABLET PO SCH (09:18)
[2019-05-23] MEDS: PANTOPRAZOLE SODIUM 40 MG TABLET.DR PO SCH (09:18)
[2019-05-23] MEDS: SITAGLIPTIN PHOSPHATE 50 MG TABLET PO SCH (09:18)
[2019-05-23] MEDS: ATORVASTATIN CALCIUM 20 MG TABLET PO SCH (09:18)
[2019-05-23] MEDS: FLUTICASONE/VILANTEROL 200-25 MCG/DOSE IH SCH (09:25)
--- NOTE | 2019-05-23 10:19 | PDOC PROGRESS REPORT ---
Subjective Progress Note for:: 05/23/19 Subjective:: Patient continues to complain of abdominal pain. On further inquiry, patient and reveal patient has had chronic abdominal pain for close to 15 years. 10 years ago the patient underwent exploratory laparotomy, lysis of adhesions, complicated by open abdomen, wound VAC therapy all in [place]. Then the patient has taken a variety of promotility agents, and cathartics with inconsistent results. Patient overnight has tolerated the NG tube out, and and the ileostomy is functioning. Reason For Visit: SMALL BOWEL OBSTRUCTION,RT HYDRONEPHROSIS/ Physical Exam Vital Signs: Temp Pulse Resp BP Pulse Ox 97.7 F 92 18 152/63 H 92 05/23/19 08:00 05/23/19 08:00 05/23/19 08:00 05/23/19 08:00 05/23/19 08:00 Intake & Output 05/22/19 05/23/19 05/24/19 06:59 06:59 06:59 Intake Total 1475 2240 50 Output Total 1625 955 Balance -150 1285 50 Weight 83.7 kg 81.6 kg General appearance: PRESENT: no acute distress GI/Abdominal exam: PRESENT: other - Abdomen is examined. Is soft. The r educible abdominal wall hernias, multiple; the colostomy site looks healthy, with gas in the bag as well as some liquid stool. Results Laboratory Results: 05/22/19 07:32 05/23/19 06:32 05/23/19 06:32 Sodium 136.8 L Potassium 3.5 L Chloride 101 Carbon Dioxide 28 Anion Gap 8 BUN 35 H Creatinine 1.32 H Est GFR ( Amer) > 60 Glucose 155 H Calcium 8.5 05/18/19 22:00 Troponin I < 0.012 Impressions: Abdomen/Pelvis CT 05/19/19 00:00 IMPRESSION: Right lower abdominal wall hernia containing small bowel and causing small bowel obstruction. The stomach is dilated and contains a large amount of fluid. Other findings as described. KUB X-Ray 05/20/19 00:00 IMPRESSION: Ileus or partial small bowel obstruction. Recommend advancing the NG tube about 5 cm. Chest X-Ray 05/20/19 05:21 IMPRESSION: NG tube remains in the less than optimal position. The remains looped. Tip again lies near the GE junction. Small Bowel X-Ray 05/21/19 00:00 IMPRESSION: 4 hour delayed show some contrast in the cecum. Small bowel remains dilated with some loops measuring 3.5 cm. No focus of obstruction is identified on these images. Assessment & Plan - Diagnosis (1) SBO (small bowel obstruction) Is this a current diagnosis for this admission?: Yes Plan: Impression: Small bowel obstruction resolved in 78-year-old white male with history of previous exploratory laparotomy, lysis of adhesions, open abdomen with wound VAC years ago; currently patient demonstrates successful passage of contrast through the colon, with continued colostomy output. There is no immediate clinical indication for exploratory laparotomy at this time. Discussion and recommendations 1. I explained to the patient, his , nursing staff, and Dr. Roa at this moment the patient does not meet criteria for exploratory surgery. Given his advanced age, previous abdominal surgery, multiple abdominal wall hernias, diverting colostomy, pursuing an exploratory operation for chronic abdominal pain, and possible dysfunctional small bowel and colonic motility would be a significant undertaking with inherent risks including a repeat open abdomen, fistula, chronic pain etc. Believe the patient and his understand. 2. I suggest keeping the patient on clear liquids for now, increasing mobility, correct hypokalemia, and commit him to a dedicated bowel regimen with stool s oftener, cathartics etc. Lactulose has worked in the past. 3. We will sign off for now; reconsult surgery if indicated. - Time Time Spent with patient: 25-34 minutes
[2019-05-23] MEDS: TAMSULOSIN HCL 0.4 MG CAP.SR.24H PO SCH (17:31)
[2019-05-23] MEDS: MONTELUKAST SODIUM 10 MG TABLET PO SCH (17:31)
--- NOTE | 2019-05-23 23:09 | Progress Note ---
Provider Note Provider Note: CARDIOLOGY PROGRESS NOTE by Dr. Tyesha Lopez on 05/23/2019. Subjective:. The patient is tolerating the NG tube being taken off. He has no nausea vomiting. He ileostomy/colostomy bag is filled with some stool and hence this is working. He denies any abdominal pain although he has intermittent episodes of abdominal pain,. The patient has a history of chronic abdominal pain as per the surgical list. The patient denies any chest pain or discomfort. There is no palpitations there. There is no shortness of breath. There is no PND orthopnea. There is no TIA CVA symptoms. Review of the monitor shows no arrhythmias. PHYSICAL EXAMINATION: The patient is well-built. He is in no acute distress. He is well-groomed. Selected Entries 05/23/19 08:00 Temperature 97.7 F Temperature Oral Source Pulse Rate 92 Respiratory 18 Rate Blood Pressure 152/63 H [Right Upper Arm] Blood Pressure 92 Mean [Right Upper Arm] O2 Sat by Pulse 92 Oximetry Oxygen Delivery Room Air Method ( includes room air) HEAD: Is atraumatic normocephalic. EYES: Pupils are equal round regular reactive to light and accommodation. Extra ocular movements are normal. There is no conjunctival pallor. There is no scleral icterus. EARS: Tympanic membranes are intact. External auditory canals are clear. NOSE: There is no deviated nasal septum. There is no inflammation of the nasal mucous membrane. MOUTH: Mucous members of mouth are moist. Tongue is moist. There is no ulcers. THROAT: There is no redness of the oropharynx. There is no exudates. SKIN: There is no skin rashes or skin lesions. There is no petechia or ecchymosis. NECK: Is supple. There is no JVD. Carotids are equal there is no bruit. There is no lymphadenopathy. There is no accessory muscle respiration use. Trachea central. LUNGS: Clear to auscultation percussion. Without any rhonchi rales or wheezing. HEART: S1-S2 is heard there is no S3 gallop. There is no S4 gallop. There is systolic murmur left sternal border and the apex there is no rub. ABDOMEN: Is soft nontender there is no hepatospleno megaly. The abdomen is distended. NG tube in situ connected to suction. Bowel sounds are slightly diminished. There is a left colostomy bag in situ. There is mild diffuse disc omfort on palpation of the abdomen. EXTREMITIES: Femorals are slightly diminished. There is no femoral bruits. Leg pulses are diminished. There is no pedal edema. There is no DVT or cellulitis. There is no calf tenderness. There is no sinus or clubbing. Capillary refill is normal. DELI MANAGER: The patient is conscious awake alert oriented x3 with no focal deficits. PSYCHIATRIC: Patient judgment insight are intact and her affect is normal. Labs- All tests 24 hr 05/23/19 05/23/19 05/23/19 06:32 07:54 12:26 Sodium 136.8 L Potassium 3.5 L Chloride 101 Carbon Dioxide 28 Anion Gap 8 BUN 35 H Creatinine 1.32 H Est GFR ( Amer) > 60 Est GFR (MDRD) Non-Af 52 L Glucose 155 H POC Glucose 160 H 151 H Calcium 8.5 05/23/19 05/23/19 16:57 21:36 Sodium Potassium Chloride Carbon Dioxide Anion Gap BUN Creatinine Est GFR ( Amer) Est GFR (MDRD) Non-Af Glucose POC Glucose 193 H 172 H Calcium Chest X-Ray 05/18/19 21:15 IMPRESSION: No acute cardiopulmonary findings. Abdomen/Pelvis CT 05/19/19 00:00 IMPRESSION: Right lower abdominal wall hernia containing small bowel and causing small bowel obstruction. The stomach is dilated and contains a large amount of fluid. Other findings as described. Chest X-Ray 05/19/19 00:00 IMPRESSION: NG tube is curled in the distal esophagus with its tip pointed superiorly. Recommend complete removal and replacement. KUB X-Ray 05/20/19 00:00 IMPRESSION: Ileus or partial small bowel obstruction. Recommend advancing the NG tube about 5 cm. Chest X-Ray 05/20/19 05:21 IMPRESSION: NG tube remains in the less than optimal position. The remains looped. Tip again lies near the GE junction. Small Bowel X-Ray 05/21/19 00:00 IMPRESSION: 4 hour delayed show some contrast in the cecum. Small bowel remains dilated with some loops measuring 3.5 cm. No focus of obstruction is identified on these images. IMPRESSION/RECOMMENDATION: 1. SMALL bowel obstruction: At present being treated conservatively. If this does not result in the resolution of the bowel obstruction, then the patient may require surgical intervention. Hence we will get a IV Lexiscan cardiac stress test in the a.m.. 2. Severe constipation secondary to malfunctioning of colostomy bag: Now resolved. 3. Coronary artery disease: No evidence of OK this admission. No anginal symptoms. Note patient has a history of LAD and RCA stent in 2009. The patient states that his last stress test was about 2 years ago. Would recommend that the patient have an outpatient IV Lexiscan Cardiolite stress test once the patient's GI problems returned to baseline. 4. Hypertension: Noted blood pressure is well controlled. Next 5. Diabetes mellitus: Continue antidiabetic medication. Continue periodic Accu-Cheks. 6. Chronic kidney disease stage III: Avoid nephrotoxic medication. 7. History of colon cancer status post surgery: Removal of: And colostomy and also proctectomy. Patient states that this is been cured and there is no recurrence of colon cancer. 8. History of asthma: No evidence of acute asthmatic attack. 9. Hyperlipidemia: Continue statin. 10. The surgeon does not recommend surgery at this point. Medications reviewed. Management plan and medical regimen discussed with the attending physician and the surgical list. Condition making is of moderate to high complexity. 40 minutes spent on this patient with more than 50% of time spent in direct patient care. Cardiac status is stable. Will sign off. Will follow patient in the office. The patient and the patient's reminded that the patient needs a sleep study done.
[2019-05-24] MEDS: AMPICILLIN SODIUM/SULBACTAM NA 1.5 GM in NORMAL SALINE 50 ML IV SCH ×2 (00:10→06:51)
[2019-05-24] MEDS: HEPARIN SOD (PORCINE) 5,000 UNIT/ML 1 ML VIAL SUBCUT SCH ×2 (06:52→14:10)
--- NOTE | 2019-05-24 09:37 | PDOC PROGRESS REPORT ---
Subjective Progress Note for:: 05/24/19 Subjective:: Patient is currently doing well Since tolerate the full liquid diet without any problems According to the surgeons patients do not need any surgery follow outpatients Patient's denied any chest pain no short of breath pt have on and off abdominal discomfort but much better does not require any pain medications Reason For Visit: SMALL BOWEL OBSTRUCTION,RT HYDRONEPHROSIS/ Physical Exam Vital Signs: Temp Pulse Resp BP Pulse Ox 98.1 F 73 18 153/57 H 95 05/24/19 08:05 05/24/19 08:05 05/24/19 08:05 05/24/19 08:05 05/24/19 08:05 Intake & Output 05/23/19 05/24/19 05/25/19 06:59 06:59 06:59 Intake Total 2240 1030 Output Total 955 1100 Balance 1285 -70 Weight 81.6 kg 85.8 kg General appearance: PRESENT: no acute distress, well-developed, well-nourished Head exam: PRESENT: atraumatic, normocephalic Eye exam: PRESENT: conjunctiva pink, EOMI, PERRLA. ABSENT: scleral icterus Ear exam: PRESENT: normal external ear exam Mouth exam: PRESENT: moist, tongue midline Neck exam: PRESENT: full ROM. ABSENT: carotid bruit, JVD, lymphadenopathy, thyromegaly Cardiovascular exam: PRESENT: RRR. ABSENT: diastolic murmur, rubs, systolic murmur Pulses: PRESENT: normal dorsalis pedis pul, +2 pedal pulses bilateral Vascular exam: PRESENT: normal capillary refill GI/Abdominal exam: PRESENT: normal bowel sounds, soft. ABSENT: distended, guarding, mass, organolmegaly, rebound, tenderness Additonal comments: Colostomy bag is working Rectal exam: PRESENT: deferred Neurological exam: PRESENT: alert, awake, oriented to person, oriented to place, oriented to time, oriented to situation, CN II-XII grossly intact. ABSENT: motor sensory deficit Psychiatric exam: PRESENT: appropriate affect, normal mood. ABSENT: homicidal ideation, suicidal ideation Skin exam: PRESENT: dry, intact, warm. ABSENT: cyanosis, rash Results Laboratory Results: 05/22/19 07:32 05/23/19 06:32 05/18/19 22:00 Troponin I < 0.012 Impressions: Abdomen/Pelvis CT 05/19/19 00:00 IMPRESSION: Right lower abdominal wall hernia containing small bowel and causing small bowel obstruction. The stomach is dilated and contains a large amount of fluid. Other findings as described. KUB X-Ray 05/20/19 00:00 IMPRESSION: Ileus or partial small bowel obstruction. Recommend advancing the NG tube about 5 cm. Chest X-Ray 05/20/19 05:21 IMPRESSION: NG tube remains in the less than optimal position. The remains looped. Tip again lies near the GE junction. Small Bowel X-Ray 05/21/19 00:00 IMPRESSION: 4 hour delayed show some contrast in the cecum. Small bowel remains dilated with some loops measuring 3.5 cm. No focus of obstruction is identified on these images. Assessment & Plan - Diagnosis (1) SBO (small bowel obstruction) Is this a current diagnosis for this admission?: Yes Plan: Currently all resolved advance the soft diet (2) Ventral incisional hernia with obstruction Is this a current diagnosis for this admission?: Yes Plan: Follow outpatient surgery (3) Chronic kidney disease, stage 3 Is this a current diagnosis for this admission?: Yes Plan: Replace the potassiums (4) Coronary artery disease Qualifiers: Coronary Disease-Associated Artery/Lesion type: [place] artery [place] vs. transplanted heart: [place] heart Associated angina: without angina Qualified Code(s): I25.10 - Atherosclerotic heart disease of [place] coronary artery without angina pectoris Is this a current diagnosis for this admission?: Yes Plan: Currently all stable (5) Personal history of colon cancer Is this a current diagnosis for this admission?: Yes (6) Type 2 diabetes mellitus Qualifiers: Diabetes mellitus termite treater insulin use: without alf use Diabetes mellitus complication status: with neurologic complications Diabetes mellitus complication detail: with polyneuropathy Qualified Code(s): E11.42 - Type 2 diabetes mellitus with diabetic polyneuropathy Is this a current diagnosis for this admission?: Yes (7) Urinary tract infection Qualifiers: Urinary tract infection type: site unspecified Is this a current diagnosis for this admission?: Yes Plan: Start the patient on amoxicillin 500 mg 3 times daily - Time Time Spent with patient: 15-24 minutes Medications reviewed and adjusted accordingly: Yes Anticipated discharge: Home, Other Within: Other - Plan Summary Plan Summary: We advanced the patient's soft diet Okay with the surgery will discharge the patient home for tolerate the soft diet Discontinues the Green catheter patient's used to self catheter The patient and the close follow-up We make appointment to see a GI Dr. Benjamin next weekAnd also patient need to see outpatient surgery
[2019-05-24] MEDS: PRAMIPEXOLE DI-HCL 0.25 MG TABLET PO SCH (10:25)
[2019-05-24] MEDS: ONDANSETRON HCL INJ/PF 4 MG/2 ML SDV IV PRN ×2 (10:25→16:41)
[2019-05-24] MEDS: HYDROMORPHONE HCL INJ/PF 2 MG/ML AMPULE IV PRN ×2 (10:25→16:40)
[2019-05-24] MEDS: LISINOPRIL 10 MG TABLET PO SCH (10:26)
[2019-05-24] MEDS: AMLODIPINE BESYLATE 10 MG TABLET PO SCH (10:26)
[2019-05-24] MEDS: SITAGLIPTIN PHOSPHATE 50 MG TABLET PO SCH (10:26)
[2019-05-24] MEDS: PANTOPRAZOLE SODIUM 40 MG TABLET.DR PO SCH (10:26)
[2019-05-24] MEDS: ATORVASTATIN CALCIUM 20 MG TABLET PO SCH (10:26)
[2019-05-24] MEDS: FINASTERIDE 5 MG TABLET PO SCH (10:26)
[2019-05-24] MEDS: INSULIN LISPRO 100 UNIT/ML 3 ML VIAL SUBCUT SCH ×3 (10:26→17:49)
[2019-05-24] MEDS: FLUTICASONE/VILANTEROL 200-25 MCG/DOSE IH SCH (10:27)
[2019-05-24 11:02] LABS: ABSOLUTE EOSINOPHILS # (AUTO) 0.3 10^3/uL (0.0-0.6); ABSOLUTE LYMPHOCYTES (AUTO) 1.5 10^3/uL (0.5-4.7); ABSOLUTE MONOCYTES (AUTO) 0.8 10^3/uL (0.1-1.4); ABSOLUTE NEUT (AUTO) 6.4 10^3/uL (1.7-8.2); BASOPHILS % (AUTO) 0.3 % (0-2); HEMATOCRIT 30.1 % (37.9-51.0); LYMPHOCYTES % (AUTO) 16.8 % (13-45); MEAN CORPUSCULAR HGB CONC 34.6 g/dL (32.0-36.0); MEAN CORPUSCULAR VOLUME 87 fl (80-97); MONOCYTES % (AUTO) 9.1 % (3-13); PLATELET COUNT 261 10^3/uL (150-450); RED BLOOD COUNT 3.48 10^6/uL (4.35-5.55); SEGMENTED NEUTROPHILS % (AUTO) 70.8 % (42-78); TOTAL CELLS COUNTED % (AUTO) 100 %; WHITE BLOOD COUNT 9.1 10^3/uL (4.0-10.5)
[2019-05-24 11:03] LABS: HEMOGLOBIN 10.4 g/dL (13.5-17.0)
[2019-05-24 11:19] LABS: ANION GAP 11 (5-19); BLOOD UREA NITROGEN 27 mg/dL (7-20); CALCIUM 8.3 mg/dL (8.4-10.2); CARBON DIOXIDE 23 mmol/L (22-30); CHLORIDE 100 mmol/L (98-107); GLUCOSE 213 mg/dL (75-110); POTASSIUM 3.7 mmol/L (3.6-5.0)
[2019-05-24] MEDS ORDERED: AMOXICILLIN TRIHYDRATE 500 MG CAPSULE PO SCH (14:00)
--- NOTE | 2019-05-24 16:04 | PDOC DISCHARGE SUMMARY ---
Impression - Admit/DC Date/PCP Admission Date/Primary Care Provider: 05/19/19 03:21 RAMILA CANO MD Discharge Date: 05/24/19 - Discharge Diagnosis (1) SBO (small bowel obstruction) Is this a current diagnosis for this admission?: Yes (2) Ventral incisional hernia with obstruction Is this a current diagnosis for this admission?: Yes (3) Chronic kidney disease, stage 3 Is this a current diagnosis for this admission?: Yes (4) Coronary artery disease Is this a current diagnosis for this admission?: Yes (5) Personal history of colon cancer Is this a current diagnosis for this admission?: Yes (6) Type 2 diabetes mellitus Is this a current diagnosis for this admission?: Yes (7) Urinary tract infection Is this a current diagnosis for this admission?: Yes - Assessment Summary: This is a 78-year-old male'sWith the history of the colon cancer history of the multiple abdominal surgery history of the incisional hernia came to the emergency department with a complaining of for abdominal pain nausea vomiting and diagnosed with a small bowel obstructions Patient admitting in the hospital consult the surgery and surgery suggest initially to go for the surgery the patient and the refused to go and want to go for conservative management And was placed on NG tube and IV fluid Patient's response well in patients of small bowel obstruction is resolved Still have some incisional hernia but reducible as per surgery and several surgeons evaluate the patient and suggest no need for any immediate surgery because of the patient however the complexity of the previous surgery Patient's otherwise start taking the p.o. intake and patients walking the hallway DC the Green catheter and patient is doing well Patient still have some abdominal discomfort but according to the surgery no need for any further intervention at this point and follow outpatient surgery he was seen by the cardiology underwent for the stress test and was all negative Patient's all blood work is stable Since also do the self catheter and also see a urology as outpatient Very extensive discussions with myself and the several surgeons the patient and the understand very well patients at this point wants to go home If any increasing any pain any nausea vomiting bring back to the ER or call EMS again patient have a very complex history of the surgery in the past may be a get a benefit to go to tertiary center as outpatients will refer to them - Additional Information Discharge Diet: As Tolerated Discharge Activity: Activity As Tolerated Referrals: CHLOE CHILD MD [ACTIVE STAFF] - 06/07/19 11:20 am SUSI JAY MD [ACTIVE STAFF] - 05/27/19 2:00 pm RAMILA CANO MD [Primary Care Provider] - 05/31/19 10:00 am Prescriptions: Amoxicillin Trihydrate [Amoxil 500 mg Capsule] 500 mg PO Q8 #21 capsule Ondansetron HCl [Zofran 4 mg Tablet] 1 tab PO Q4H PRN #30 tablet PRN Reason: Home Medications: Albuterol Sulfate [Proair HFA Inhalation Aerosol 8.5 gm MDI] 2 puff IH Q4HP PRN 05/19/19 Amlodipine Besylate [Norvasc 10 mg Tablet] 10 mg PO DAILY 05/19/19 Atorvastatin Calcium [Lipitor 20 mg Tablet] 20 mg PO DAILY 05/19/19 Finasteride [Proscar 5 mg Tablet] 5 mg PO DAILY 05/19/19 Fluticasone/Salmeterol [Advair 250-50 Diskus 14 Dose/Diskus] 1 puff IH BID 05/19/19 Glipizide [Glucotrol 5 mg Tablet] 5 mg PO DAILY 05/19/19 Lisinopril [Zestril] 10 mg PO DAILY 05/19/19 Montelukast Sodium [Singulair 10 mg Tablet] 10 mg PO QPM 05/19/19 Pantoprazole Sodium [Protonix [address] Tablet] 40 mg PO DAILY 05/19/19 Pramipexole Di-HCl [Mirapex 0.25 mg Tablet] 0.25 mg PO DAILY 05/19/19 Sitagliptin Phosphate [Januvia] 100 mg PO DAILY 05/19/19 Tamsulosin HCl [Flomax 0.4 mg Cap.sr] 0.4 mg PO QPM 05/19/19 Amoxicillin Trihydrate [Amoxil 500 mg Capsule] 500 mg PO Q8 #21 capsule 05/24/19 Ondansetron HCl [Zofran 4 mg Tablet] 1 tab PO Q4H PRN #30 tablet 05/24/19 History of Present Illiness History of Present Illness: CECILIO BURNS is a 78 year old male Physical Exam Vital Signs: Temp Pulse Resp BP Pulse Ox 98.1 F 73 18 153/57 H 95 05/24/19 08:05 05/24/19 08:05 05/24/19 08:05 05/24/19 08:05 05/24/19 08:05 Intake & Output 05/23/19 05/24/19 05/25/19 06:59 06:59 06:59 Intake Total 2240 1030 1050 Output Total 955 1100 Balance 1285 -70 1050 Weight 81.6 kg 85.8 kg Results Laboratory Results: WBC 9.1 10^3/uL (4.0-10.5) 05/24/19 10:32 RBC 3.48 10^6/uL (4.35-5.55) L 05/24/19 10:32 Hgb 10.4 g/dL (13.5-17.0) L D 05/24/19 10:32 Hct 30.1 % (37.9-51.0) L 05/24/19 10:32 MCV 87 fl (80-97) 05/24/19 10:32 MCH 30.0 pg (27.0-33.4) 05/24/19 10:32 MCHC 34.6 g/dL (32.0-36.0) 05/24/19 10:32 RDW 14.0 % (11.5-14.0) 05/24/19 10:32 Plt Count 261 10^3/uL (150-450) 05/24/19 10:32 Lymph % (Auto) 16.8 % (13-45) 05/24/19 10:32 [place] % (Auto) 9.1 % (3-13) 05/24/19 10:32 Eos % (Auto) 3.0 % (0-6) 05/24/19 10:32 Baso % (Auto) 0.3 % (0-2) 05/24/19 10:32 Absolute Neuts (auto) 6.4 10^3/uL (1.7-8.2) 05/24/19 10:32 Absolute Lymphs (auto) 1.5 10^3/uL (0.5-4.7) 05/24/19 10:32 Absolute Monos (auto) 0.8 10^3/uL (0.1-1.4) 05/24/19 10:32 Absolute Eos (auto) 0.3 10^3/uL (0.0-0.6) 05/24/19 10:32 Absolute Basos (auto) 0.0 10^3/uL (0.0-0.2) 05/24/19 10:32 Seg Neutrophils % 70.8 % (42-78) 05/24/19 10:32 PT 13.6 SEC (11.4-15.4) 05/19/19 04:45 INR 1.04 05/19/19 04:45 APTT 28.3 SEC (23.5-35.8) 05/19/19 04:45 Sodium 133.5 mmol/L (137-145) L 05/24/19 10:32 Potassium 3.7 mmol/L (3.6-5.0) 05/24/19 10:32 Chloride 100 mmol/L (98-107) 05/24/19 10:32 Carbon Dioxide 23 mmol/L (22-30) 05/24/19 10:32 Anion Gap 11 (5-19) 05/24/19 10:32 BUN 27 mg/dL (7-20) H 05/24/19 10:32 Creatinine 1.42 mg/dL (0.52-1.25) H 05/24/19 10:32 Est GFR ( Amer) 58 (>60) L 05/24/19 10:32 Est GFR (MDRD) Non-Af 48 (>60) L 05/24/19 10:32 Glucose 213 mg/dL (75-110) H 05/24/19 10:32 POC Glucose 204 mg/dL (70-110) H 05/24/19 11:18 Hemoglobin A1c % 6.8 % (4.7-6.0) H 05/20/19 04:24 Calcium 8.3 mg/dL (8.4-10.2) L 05/24/19 10:32 Phosphorus 4.2 mg/dL (2.5-4.5) 05/19/19 04:45 Magnesium 1.7 mg/dL (1.6-2.3) 05/19/19 04:45 Total Bilirubin 0.4 mg/dL (0.2-1.3) 05/22/19 07:32 Direct Bilirubin 0.2 mg/dL (0.0-0.4) 05/22/19 07:32 Neonat Total Bilirubin Not Reportable 05/22/19 07:32 Neonat Direct Bilirubin Not Reportable 05/22/19 07:32 Neonat Indirect Bili Not Reportable 05/22/19 07:32 AST 16 U/L (17-59) L 05/22/19 07:32 ALT 13 U/L (<50) 05/22/19 07:32 Alkaline Phosphatase 68 U/L (38-126) 05/22/19 07:32 Ammonia < 8.7 umol/L (9-33) L 05/19/19 04:45 Troponin I < 0.012 ng/mL 05/18/19 22:00 Total Protein 7.1 g/dL (6.3-8.2) 05/22/19 07:32 Albumin 4.0 g/dL (3.5-5.0) 05/22/19 07:32 Triglycerides 188 mg/dL (<150) H 05/20/19 04:24 Cholesterol 147.12 mg/dL (0-200) 05/20/19 04:24 LDL Cholesterol Direct 63 mg/dL (<100) 05/20/19 04:24 VLDL Cholesterol 37.6 mg/dL (10-31) H 05/20/19 04:24 HDL Cholesterol 45 mg/dL (>40) 05/20/19 04:24 Amylase 81 U/L (30-110) 05/19/19 04:45 Lipase 315.0 U/L (23-300) H 05/19/19 04:45 TSH 2.47 uIU/mL (0.47-4.68) 05/19/19 04:45 Free T4 0.90 ng/dL (0.78-2.19) 05/19/19 04:45 Urine Color YELLOW 05/19/19 04:36 Urine Appearance CLOUDY 05/19/19 04:36 Urine pH 5.0 (5.0-9.0) 05/19/19 04:36 Ur Specific [place] 1.015 05/19/19 04:36 Urine Protein >=500 mg/dL (NEGATIVE) H 05/19/19 04:36 Urine Glucose (UA) 50 mg/dL (NEGATIVE) H 05/19/19 04:36 Urine Ketones NEGATIVE mg/dL (NEGATIVE) 05/19/19 04:36 Urine Blood SMALL (NEGATIVE) H 05/19/19 04:36 Urine Nitrite NEGATIVE (NEGATIVE) 05/19/19 04:36 Urine Bilirubin NEGATIVE (NEGATIVE) 05/19/19 04:36 Urine Urobilinogen NEGATIVE mg/dL (<2.0) 05/19/19 04:36 Ur Leukocyte Esterase LARGE (NEGATIVE) H 05/19/19 04:36 Urine WBC (Auto) 81 /HPF 05/19/19 04:36 Urine RBC (Auto) 14 /HPF 05/19/19 04:36 U Hyaline Cast (Auto) 3 /LPF 05/19/19 04:36 Squamous Epi Cells Auto 1 /HPF 05/19/19 04:36 Urine Mucus (Auto) OCC /LPF 05/19/19 04:36 Urine Ascorbic Acid NEGATIVE (NEGATIVE) 05/19/19 04:36 Urine Opiates Screen NEGATIVE 05/19/19 04:36 Urine Methadone Screen NEGATIVE 05/19/19 04:36 Ur Barbiturates Screen NEGATIVE 05/19/19 04:36 Ur Phencyclidine Scrn NEGATIVE 05/19/19 04:36 Ur Amphetamines Screen NEGATIVE 05/19/19 04:36 U Benzodiazepines Scrn NEGATIVE 05/19/19 04:36 Urine Cocaine Screen NEGATIVE 05/19/19 04:36 U Marijuana (THC) Screen NEGATIVE 05/19/19 04:36 05/18/19 22:00 Troponin I < 0.012 Impressions: Chest X-Ray 05/18/19 21:15 IMPRESSION: No acute cardiopulmonary findings. Abdomen/Pelvis CT 05/19/19 00:00 IMPRESSION: Right lower abdominal wall hernia containing small bowel and causing small bowel obstruction. The stomach is dilated and contains a large amount of fluid. Other findings as described. Chest X-Ray 05/19/19 00:00 IMPRESSION: NG tube is curled in the distal esophagus with its tip pointed superiorly. Recommend complete removal and replacement. KUB X-Ray 05/20/19 00:00 IMPRESSION: Ileus or partial small bowel obstruction. Recommend advancing the NG tube about 5 cm. Chest X-Ray 05/20/19 05:21 IMPRESSION: NG tube remains in the less than optimal position. The remains looped. Tip again lies near the GE junction. Small Bowel X-Ray 05/21/19 00:00 IMPRESSION: 4 hour delayed show some contrast in the cecum. Small bowel remains dilated with some loops measuring 3.5 cm. No focus of obstruction is i dentified on these images. Plan Goals: Dr. Jay schedule monday or Monday Stroke Is this a Stroke Patient?: No Acute Heart Failure - Is this a Heart Failure Patient?: No
[2019-05-24 16:40] VITALS: BP 174/65
[2019-05-24] MEDS: MONTELUKAST SODIUM 10 MG TABLET PO SCH (17:50)
[2019-05-24] MEDS: TAMSULOSIN HCL 0.4 MG CAP.SR.24H PO SCH (17:50)
== END 2019-05-24 18:04 | disposition home or self-care (01) | DRG 394 ==
LOC: ER 20:32 → EH 05-19 03:21 → 3W 05-19 05:46
PROVIDERS: ADMIT Internal Medicine; ATTEND Family Medicine
DX: K43.0 Incisional hernia with obstruction, without gangrene (principal); N39.0 Urinary tract infection, site not specified; K94.03 Colostomy malfunction; N17.9 Acute kidney failure, unspecified; N13.30 Unspecified hydronephrosis; N18.3 Chronic kidney disease, stage 3 (moderate); I12.9 Hypertensive chronic kidney disease with stage 1 through stage 4 chronic kidney disease, or unspecified chronic kidney disease; I25.10 Atherosclerotic heart disease of native coronary artery without angina pectoris; K21.9 Gastro-esophageal reflux disease without esophagitis; F32.9 Major depressive disorder, single episode, unspecified; E11.22 Type 2 diabetes mellitus with diabetic chronic kidney disease; Y83.6 Removal of other organ (partial) (total) as the cause of abnormal reaction of the patient, or of later complication, without mention of misadventure at the time of the procedure; E78.5 Hyperlipidemia, unspecified; E11.42 Type 2 diabetes mellitus with diabetic polyneuropathy; Z85.038 Personal history of other malignant neoplasm of large intestine; Z79.899 Other long term (current) drug therapy; Z95.5 Presence of coronary angioplasty implant and graft; Z90.49 Acquired absence of other specified parts of digestive tract; Z87.891 Personal history of nicotine dependence; Z82.49 Family history of ischemic heart disease and other diseases of the circulatory system
CPT/HCPCS: 36415; 71045; 74018; 74176; 74250; 78452; 80048; 80053; 80061; 80076; 80307; 81001; 82140; 82150; 82962; 83036; 83690; 83735; 84100; 84439; 84443; 84484; 85025; 85610; 85730; 87086; 87088; 87186; 93005; 93010; 93017; 96374; 96375; 96376; 99285; A9500; J0295; J1170; J1644; J1815; J1885; J2250; J2405; J2765; J2785; J3480; J3490; Q9969

== ENCOUNTER → 2019-06-10 | Outpatient (CLI) | payer MEDICARE, OTHER ==
--- NOTE | 2019-06-10 14:17 | RADIOLOGY REPORT (SQ) ---
EXAM DESCRIPTION: CHEST PA/LATERAL COMPLETED DATE/TIME: 06/10/2019 1:46 pm REASON FOR STUDY: COUGH COMPARISON: None. EXAM PARAMETERS: NUMBER OF VIEWS: two views TECHNIQUE: Digital Frontal and Lateral radiographic views of the chest acquired. RADIATION DOSE: NA LIMITATIONS: none FINDINGS: LUNGS AND PLEURA: No opacities, masses or pneumothorax. No pleural effusion. MEDIASTINUM AND HILAR STRUCTURES: No masses or contour abnormalities. HEART AND VASCULAR STRUCTURES: Heart normal size. No evidence for failure. BONES: No acute findings. HARDWARE: None in the chest. OTHER: No other significant finding. IMPRESSION: NO SIGNIFICANT RADIOGRAPHIC FINDING IN THE CHEST. TECHNICAL DOCUMENTATION: JOB ID: [id number] [employer] All Rights Reserved Reading location - IP/workstation name: [email or web address]
== END ==
LOC: OD 13:24
PROVIDERS: ATTEND Family Medicine
DX: R05 Cough (principal)
CPT/HCPCS: 71046

== ENCOUNTER 2019-06-28 12:43 | Inpatient (IN) | payer MEDICARE, OTHER ==
--- NOTE | 2019-06-28 12:57 | ER Document Report ---
ED Medical Screen (RME) - General Chief Complaint: Chest Pain Stated Complaint: CHEST PAIN Time Seen by Provider: 06/28/19 12:54 Primary Care Provider: RAMILA CANO MD [Primary Care Provider] - Follow up as needed Mode of Arrival: Ambulatory Information source: Patient Notes: 79-year-old male presented to ED for very irregular fast heartbeat. He states he was sent over here by his doctors office. He states he has been having dizzy spells and has fallen yesterday. He states he has been very dizzy for a while but yesterday was the first time he actually fell. He was injured to his face yesterday when he fell hitting his face on the floor. His pulse is fluctuated between 92 and 137 at this time. He is alert oriented respirations regular and unlabored speaking in full sentences. I have greeted and performed a rapid initial assessment of this patient. A comprehensive ED assessment and evaluation of the patient, analysis of test results and completion of medical decision making process will be conducted by an additional ED providers. TRAVEL OUTSIDE OF THE [place] IN LAST 30 DAYS: No - Related Data Allergies/Adverse Reactions: No Known Drug Allergies Allergy (Verified 01/25/19 07:18) Past Medical History - Past Medical History Cardiac Medical History: Reports: Hx Coronary Artery Disease, Hx Hypercholesterolemia, Hx Hypertension Pulmonary Medical History: Reports: Hx Asthma Neurological Medical History: Denies: Hx Seizures Endocrine Medical History: Reports: Hx Diabetes Mellitus Type 2 Renal/ Medical History: Denies: Hx Peritoneal Dialysis Malignancy Medical History: Reports Hx Colorectal Cancer GI Medical History: Reports: Hx Gastroesophageal Reflux Disease Psychiatric Medical History: Reports: Hx Depression Past Surgical History: Reports: Hx Bowel Surgery - colostomy, Hx Cardiac Surgery - heart stents x 2, Hx Orthopedic Surgery - ankle, Other - colon resction with colostomy for Ca 20 yrs ago and subsequent reconstructi - Immunizations Hx Diphtheria, Pertussis, Tetanus Vaccination: Yes Doctor's Discharge - Discharge Referrals: RAMILA CANO MD [Primary Care Provider] - Follow up as needed
--- NOTE | 2019-06-28 13:21 | ER Document Report ---
ED Dizziness/Weakness - General Chief Complaint: Arrhythmia Stated Complaint: CHEST PAIN Time Seen by Provider: 06/28/19 12:54 Primary Care Provider: RAMILA CANO MD [Primary Care Provider] - Follow up as needed Mode of Arrival: Ambulatory Information source: Patient, Relative - pt with c/o dizziness/lightheadedness yesterday which continued into today. He went to PCP's office and new onset A- fib was captured on EKG. He has h/o HTN, cardiac stents but no prior h/o A-fib. He denies CP and SOB at present. TRAVEL OUTSIDE OF THE [place] IN LAST 30 DAYS: No - Related Data Allergies/Adverse Reactions: No Known Drug Allergies Allergy (Verified 06/28/19 13:12) Past Medical History - General Information source: Relative - Social History Smoking Status: Never Smoker Frequency of alcohol use: None Drug Abuse: None Family History: Reviewed & Not Pertinent Patient has suicidal ideation: No Patient has homicidal ideation: No - Past Medical History Cardiac Medical History: Reports: Hx Coronary Artery Disease, Hx Hypercholesterolemia, Hx Hypertension Pulmonary Medical History: Reports: Hx Asthma Neurological Medical History: Denies: Hx Seizures Endocrine Medical History: Reports: Hx Diabetes Mellitus Type 2 Renal/ Medical History: Denies: Hx Peritoneal Dialysis Malignancy Medical History: Reports Hx Colorectal Cancer GI Medical History: Reports: Hx Gastroesophageal Reflux Disease Psychiatric Medical History: Reports: Hx Depression Past Surgical History: Reports: Hx Bowel Surgery - colostomy, Hx Cardiac Surgery - heart stents x 2, Hx Orthopedic Surgery - ankle, Other - colon resction with colostomy for Ca 20 yrs ago and subsequent reconstructi - Immunizations Hx Diphtheria, Pertussis, Tetanus Vaccination: Yes Hx Pneumococcal Vaccination: 10/04/13 Review of Systems - Review of Systems Constitutional: See HPI, Weakness EENT: No symptoms reported Cardiovascular: No symptoms reported Respiratory: No symptoms reported Gastrointestinal: No symptoms reported Musculoskeletal: No symptoms reported Neurological/Psychological: See HPI - lightheaded -: Yes All other systems reviewed and negative Physical Exam - Vital signs Vitals: Temp Pulse Resp BP Pulse Ox 97.8 F 128 H 18 142/71 H 98 06/28/19 12:58 06/28/19 12:58 06/28/19 12:58 06/28/19 12:58 06/28/19 12:58 - General General appearance: Appears well In distress: None - HEENT Mucous membranes: Normal Pharynx: Normal Neck: Normal - Respiratory Respiratory status: No respiratory distress Breath sounds: Normal - Cardiovascular Rhythm: Irregularly irregular Heart sounds: Normal auscultation Murmur: No - Abdominal Inspection: Normal Tenderness: Nontender - Extremities General upper extremity: Normal inspection General lower extremity: Normal inspection - Neurological Neuro grossly intact: Yes Cognition: Normal Orientation: AAOx4 Course - Re-evaluation Re-evalutation: 06/28/19 15:02 pt. feels well after w/u complete -- no dizziness or lightheadedness. Will call Dr. Cano for consult - Vital Signs Vital signs: Temp Pulse Resp BP Pulse Ox 97.8 F 128 H 22 H 161/54 H 98 06/28/19 12:58 06/28/19 12:58 06/28/19 13:08 06/28/19 13:08 06/28/19 13:08 - Laboratory Result Diagrams: 06/28/19 13:08 06/28/19 13:08 Laboratory results interpreted by me: 06/28/19 06/28/19 13:08 13:08 RBC 3.55 L Hgb 10.5 L Hct 30.5 L RDW 14.6 H Sodium 135.4 L BUN 23 H Creatinine 1.43 H Est GFR ( Amer) 57 L Est GFR (MDRD) Non-Af 47 L Glucose 233 H - Diagnostic Test Radiology reviewed: Reports reviewed - cxr- nad - EKG Interpretation by Me Rate: Tachycardia Rhythm: A.Fib - A-fib with increased rate but no acute change - Consults max [place] Time consulted: 15:03 Consulted provider: will see as inpatient Critical Care Note - Critical Care Note Total time excluding time spent on procedures (mins): 30 Discharge - Discharge Clinical Impression: Atrial fibrillation Qualifiers: Atrial fibrillation type: unspecified Qualified Code(s): I48.91 - Unspecified atrial fibrillation Condition: Stable Disposition: ADMITTED OBSERVATION Admitting Provider: Eloisa Unit Admitted: IMCU Referrals: RAMILA CANO MD [Primary Care Provider] - Follow up as needed
[2019-06-28 13:22] LABS: ABSOLUTE BASOPHILS # (AUTO) 0.1 10^3/uL (0.0-0.2); ABSOLUTE EOSINOPHILS # (AUTO) 0.1 10^3/uL (0.0-0.6); ABSOLUTE LYMPHOCYTES (AUTO) 1.6 10^3/uL (0.5-4.7); ABSOLUTE MONOCYTES (AUTO) 0.6 10^3/uL (0.1-1.4); ABSOLUTE NEUT (AUTO) 6.1 10^3/uL (1.7-8.2); BASOPHILS % (AUTO) 1.5 % (0-2); EOSINOPHILS % (AUTO) 0.6 % (0-6); HEMATOCRIT 30.5 % (37.9-51.0); HEMOGLOBIN 10.5 g/dL (13.5-17.0); LYMPHOCYTES % (AUTO) 19.3 % (13-45); MEAN CORPUSCULAR HEMOGLOBIN 29.5 pg (27.0-33.4); MEAN CORPUSCULAR HGB CONC 34.3 g/dL (32.0-36.0); MEAN CORPUSCULAR VOLUME 86 fl (80-97); MONOCYTES % (AUTO) 7.5 % (3-13); PLATELET COUNT 362 10^3/uL (150-450); RED BLOOD COUNT 3.55 10^6/uL (4.35-5.55); RED CELL DISTRIBUTION WIDTH 14.6 % (11.5-14.0); SEGMENTED NEUTROPHILS % (AUTO) 71.1 % (42-78); TOTAL CELLS COUNTED % (AUTO) 100 %; WHITE BLOOD COUNT 8.5 10^3/uL (4.0-10.5)
[2019-06-28 13:29] LABS: INTERNATIONAL RATION (INR) 0.98
--- NOTE | 2019-06-28 13:37 | RADIOLOGY REPORT (SQ) ---
EXAM DESCRIPTION: CHEST SINGLE VIEW COMPLETED DATE/TIME: 06/28/2019 1:26 pm REASON FOR STUDY: palpitations COMPARISON: PA and lateral views of the chest from 06/10/2019. EXAM PARAMETERS: NUMBER OF VIEWS: One view. TECHNIQUE: Single frontal radiographic view of the chest acquired. RADIATION DOSE: NA LIMITATIONS: None. FINDINGS: LUNGS AND PLEURA: No consolidation, pleural effusion or pneumothorax. MEDIASTINUM AND HILAR STRUCTURES: No mediastinal or hilar contour abnormality. HEART AND VASCULAR STRUCTURES: The cardiac silhouette and pulmonary vasculature are within normal vigil its. BONES: No acute findings. HARDWARE: None in the chest. OTHER: No other finding. IMPRESSION: No acute cardiopulmonary process. TECHNICAL DOCUMENTATION: JOB ID: [id number] [employer]- All Rights Reserved Reading location - IP/workstation name: [email or web address]
[2019-06-28 13:49] LABS: ALBUMIN 3.7 g/dL (3.5-5.0); ALKALINE PHOSPHATASE 81 U/L (38-126); ANION GAP 9 (5-19); ASPARTATE AMINO TRANSFERASE 17 U/L (17-59); BILIRUBIN,DIRECT 0.2 mg/dL (0.0-0.4); BILIRUBIN,TOTAL 0.4 mg/dL (0.2-1.3); BLOOD UREA NITROGEN 23 mg/dL (7-20); CALCIUM 9.4 mg/dL (8.4-10.2); CARBON DIOXIDE 24 mmol/L (22-30); CHLORIDE 102 mmol/L (98-107); GLUCOSE 233 mg/dL (75-110); POTASSIUM 4.6 mmol/L (3.6-5.0); TOTAL PROTEIN 6.8 g/dL (6.3-8.2)
[2019-06-28] MEDS ORDERED: NORMAL SALINE 1000 ML 1,000 ML IV ONE (14:45)
--- NOTE | 2019-06-28 14:58 | EKG REPORT ---
SEVERITY:- ABNORMAL ECG - A FIB CONVERTED TO SINUS HYTHM. BORDERLINE RIGHT AXIS DEVIATION BORDERLINE T WAVE ABNORMALITIES BORDERLINE PROLONGED QT INTERVAL : Confirmed by: Vladislav Zaidi MD 28-Jun-2019 14:57:23
[2019-06-28 15:09] LABS: APPEARANCE,URINE CLEAR; BILIRUBIN,URINE NEGATIVE (NEGATIVE); COLOR,URINE STRAW; GLUCOSE, URINE 50 mg/dL (NEGATIVE); KETONES,URINE NEGATIVE (NEGATIVE); PROTEIN,URINE NEGATIVE (NEGATIVE); URINE SPECIFIC GRAVITY 1.005; UROBILINOGEN,URINE NEGATIVE mg/dL (<2.0)
[2019-06-29] MEDS ORDERED: APIXABAN 2.5 MG TABLET PO ONE (00:15)
[2019-06-29] MEDS ORDERED: ATORVASTATIN CALCIUM 20 MG TABLET PO ONE (01:00)
[2019-06-29] MEDS ORDERED: DEXTROSE 40% GEL 15 GM TUBE X 2 PO PRN (01:30)
[2019-06-29] MEDS ORDERED: DEXTROSE 50%-WATER SYRINGE 12.5 GM/25 ML DOSE IV PRN (01:30)
[2019-06-29] MEDS ORDERED: DEXTROSE 50%-WATER SYRINGE 25 GM/50 ML DOSE IV PRN (01:30)
[2019-06-29] MEDS ORDERED: GLUCAGON,HUMAN RECOMB 1 MG INJ IM PRN (01:30)
[2019-06-29] MEDS ORDERED: DEXTROSE 40% GEL 15 GM TUBE PO PRN (01:30)
[2019-06-29] MEDS ORDERED: ALBUTEROL SULFATE HFA (90 MCG/PUFF) 200 PUFF/8.5 GM MDI IH ONE (03:51)
[2019-06-29] MEDS: ALBUTEROL SULFATE HFA (90 MCG/PUFF) 200 PUFF/8.5 GM MDI IH PRN ×5 (03:54→23:51)
[2019-06-29] MEDS: PANTOPRAZOLE SODIUM 40 MG TABLET.DR PO SCH (05:35)
[2019-06-29] MEDS ORDERED: INSULIN LISPRO 100 UNIT/ML 3 ML VIAL SUBCUT SCH (08:00)
[2019-06-29] MEDS: GLIPIZIDE 5 MG TABLET PO SCH (08:06)
[2019-06-29] MEDS: INSULIN LISPRO 100 UNIT/ML 3 ML VIAL SUBCUT SCH ×4 (08:06→21:29)
[2019-06-29] MEDS: SITAGLIPTIN PHOSPHATE 50 MG TABLET PO SCH (09:31)
[2019-06-29] MEDS: APIXABAN 2.5 MG TABLET PO SCH ×2 (09:31→21:30)
[2019-06-29] MEDS: AMLODIPINE BESYLATE 10 MG TABLET PO SCH (09:31)
[2019-06-29] MEDS: LISINOPRIL 10 MG TABLET PO SCH (09:31)
[2019-06-29] MEDS: FINASTERIDE 5 MG TABLET PO SCH (09:31)
[2019-06-29] MEDS: FENOFIBRATE NANOCRYSTALLIZED 145 MG TABLET PO SCH (09:31)
[2019-06-29] MEDS ORDERED: (PENDING PHARMACY ID) (Fenofibrate [Fenofibrate] 160 MG) PO SCH (10:00)
[2019-06-29] MEDS ORDERED: (PENDING PHARMACY ID) (Fluticasone/Salmeterol 1 PUFF) IH SCH (10:00)
--- NOTE | 2019-06-29 10:13 | PDOC H&P ---
History of Present Illness Admission Date/PCP: 06/28/19 15:55 ASHLYN CANO MD Patient complains of: Dizziness, Fall History of Present Illness: CECILIO BURNS is a 79 year old male patient of Dr Ashlyn Cano who was instructed to present at the ED for episode of postural dizziness that resulted in his fall and facial injury. Patient reported that he bend down to assist a friend and continue to fall to the ground n his face. He denied loss of consciousness. He reported frequent dizziness with postural changes in recent time but no actual fall. He denied any associated chest pain, perceived palpitation or irregular heart beat. No headache, nausea, or vomiting. His initial evaluation in the ED was significant for EKG tracing revealed atrial fibrillation with variable ventricular rate of 92 to 137 per minute. Also, there was evidence of chronic renal failure and hyperglycemia. he was advised hospitalization for further evaluation and management. His morbidities are as listed below. Patient reported that he has been self catheterizing for relief of his bladder dysfunction and outlet. He is s/p hemicolectomy with diverting colostomy for colorectal cancer. Past Medical History Cardiac Medical History: Reports: Coronary Artery Disease, Hyperlipidema, Hypertension Pulmonary Medical History: Reports: Asthma Neurological Medical History: Denies: Seizures Endocrine Medical History: Reports: Diabetes Mellitus Type 2 Renal/ Medical History: Reports: Other - bladder dysfunction with need for self catheterization Malignancy Medical History: Reports: Colorectal Cancer GI Medical History: Reports: Gastroesophageal Reflux Disease Psychiatric Medical History: Reports: Depression Past Surgical History Past Surgical History: Reports: Orthopedic Surgery - ankle, Other - colon resction with colostomy for Ca 20 yrs ago and subsequent reconstructi Social History Smoking Status: Former Smoker Frequency of Alcohol Use: None Hx Recreational Drug Use: No Drugs: None Hx Prescription Drug Abuse: No - Advance Directive Resuscitation Status: Full Code Family History Family History: Reviewed & Not Pertinent Parental Family History Reviewed: Yes Children Family History Reviewed: Yes Sibling(s) Family History Reviewed.: Yes Medication/Allergy Home Medications: Albuterol Sulfate [Proair HFA Inhalation Aerosol 8.5 gm MDI] 2 puff IH Q4HP PRN 06/28/19 Amlodipine Besylate [Norvasc 10 mg Tablet] 10 mg PO DAILY 06/28/19 Atorvastatin Calcium [Lipitor 20 mg Tablet] 20 mg PO QHS 06/28/19 Fenofibrate 160 mg PO DAILY 06/28/19 Finasteride [Proscar 5 mg Tablet] 5 mg PO DAILY 06/28/19 Fluticasone/Salmeterol [Advair 250-50 Diskus 14 Dose/Diskus] 1 puff IH BID 06/28/19 Glipizide [Glucotrol] 5 mg PO DAILY 06/28/19 Lisinopril [Zestril] 10 mg PO DAILY 06/28/19 Montelukast Sodium [Singulair 10 mg Tablet] 10 mg PO DAILY 06/28/19 Pantoprazole Sodium [Protonix [address] Tablet] 40 mg PO DAILY 06/28/19 Pramipexole Di-HCl [Mirapex 0.25 mg Tablet] 0.25 mg PO DAILY 06/28/19 Sitagliptin Phosphate [Januvia] 100 mg PO DAILY 06/28/19 Tamsulosin HCl [Flomax 0.4 mg Cap.sr] 0.4 mg PO QPM 06/28/19 Allergies/Adverse Reactions: No Known Drug Allergies Allergy (Verified 06/28/19 13:12) Review of Systems Constitutional: ABSENT: chills, fever(s), headache(s), weight gain, weight loss Eyes: ABSENT: visual disturbances Ears: ABSENT: hearing changes Nose, Mouth, and Throat: ABSENT: as per HPI, headache(s), mouth pain, sore throat, vertigo, other Cardiovascular: ABSENT: chest pain, dyspnea on exertion, edema, orthropnea, palpitations Respiratory: ABSENT: cough, hemoptysis Genitourinary: ABSENT: dysuria, hematuria Musculoskeletal: ABSENT: joint swelling, muscle weakness Integumentary: ABSENT: rash, wounds Neurological: PRESENT: dizziness. ABSENT: abnormal gait, abnormal speech, confusion, focal weakness, syncope Psychiatric: ABSENT: anxiety, depression, homidical ideation, suicidal ideation Endocrine: ABSENT: cold intolerance, heat intolerance, polydipsia, polyuria Hematologic/Lymphatic: ABSENT: easy bleeding, easy bruising, lymphadenopathy Allergic/Immunologic: ABSENT: seasonal rhinorrhea Physical Exam Vital Signs: Temp Pulse Resp BP Pulse Ox 98.1 F 103 H 16 125/86 H 99 06/29/19 07:45 06/29/19 07:45 06/29/19 07:45 06/29/19 07:45 06/29/19 07:45 Intake & Output 11/06/29/19 06/30/19 06:59 06:59 06:59 Intake Total 1400 Output Total 1500 Balance -100 Weight 83.2 kg General appearance: PRESENT: no acute distress, well-developed, well-nourished Head exam: PRESENT: normocephalic. ABSENT: atraumatic - superfical contussion injury on nasal bridge, soft tissue swelling frontal head between the eye brow region. Eye exam: PRESENT: conjunctiva pink, EOMI, PERRLA. ABSENT: scleral icterus Ear exam: PRESENT: normal external ear exam Mouth exam: PRESENT: moist Neck exam: PRESENT: full ROM. ABSENT: carotid bruit, JVD, lymphadenopathy, thyromegaly Respiratory exam: PRESENT: clear to auscultation yumiko Cardiovascular exam: PRESENT: irregular rhythm, +S1, +S2. ABSENT: diastolic murmur, systolic murmur Vascular exam: PRESENT: normal capillary refill. ABSENT: pallor GI/Abdominal exam: PRESENT: normal bowel sounds, soft, other - functioning colostomy. ABSENT: distended, guarding, mass, organolmegaly, rebound, tenderness Rectal exam: PRESENT: deferred Extremities exam: ABSENT: pedal edema Musculoskeletal exam: PRESENT: ambulatory Neurological exam: PRESENT: alert, awake, oriented to person, oriented to place, oriented to time, oriented to situation, CN II-XII grossly intact. ABSENT: motor sensory deficit Skin exam: PRESENT: dry, warm, other - ecchymotic lesion over left elbow region, ecchyotic lesion over left elbow region. Results Laboratory Results: 06/28/19 13:08 06/28/19 13:08 06/28/19 06/28/19 06/28/19 13:08 13:08 14:52 WBC 8.5 RBC 3.55 L Hgb 10.5 L Hct 30.5 L MCV 86 MCH 29.5 MCHC 34.3 RDW 14.6 H Plt Count 362 Seg Neutrophils % 71.1 Sodium 135.4 L Potassium 4.6 Chloride 102 Carbon Dioxide 24 Anion Gap 9 BUN 23 H Creatinine 1.43 H Est GFR ( Amer) 57 L Glucose 233 H Calcium 9.4 Total Bilirubin 0.4 AST 17 Alkaline Phosphatase 81 Total Protein 6.8 Albumin 3.7 Lipase 200.6 Urine Color STRAW Urine Appearance CLEAR Urine pH 6.0 Ur Specific [place] 1.005 Urine Protein NEGATIVE Urine Glucose (UA) 50 H Urine Ketones NEGATIVE Urine Blood SMALL H Urine RBC (Auto) 1 06/28/19 13:08 Troponin I < 0.012 Impressions: Chest X-Ray 06/28/19 13:15 IMPRESSION: No acute cardiopulmonary process. Assessment & Plan - Diagnosis (1) New onset atrial fibrillation Is this a current diagnosis for this admission?: Yes Plan: See admitting attending physician orders for details about care plan. (2) Chronic kidney disease, stage 3 Is this a current diagnosis for this admission?: Yes Plan: See admitting attending physician orders for details about care plan. 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 (4) Coronary artery disease Qualifiers: Coronary Disease-Associated Artery/Lesion type: [place] artery [place] vs. transplanted heart: [place] heart Associated angina: without angina Qualified Code(s): I25.10 - Atherosclerotic heart disease of [place] coronary artery without angina pectoris Is this a current diagnosis for this admission?: Yes Plan: See admitting attending physician orders for details about care plan. (5) Asthma Qualifiers: Asthma persistence: intermittent Is this a current diagnosis for this admission?: Yes Plan: See admitting attending physician orders for details about care plan. (6) Personal history of colon cancer Is this a current diagnosis for this admission?: Yes Plan: See admitting attending physician orders for details about care plan. - Time Time Spent: 50 to 70 Minutes Medications reviewed and adjusted accordingly: Yes Anticipated discharge: Home Within: Other - Inpatient Certification Based on my medical assessment, after consideration of the patient's comorbidities, presenting symptoms, or acuity I expect that the services needed warrant INPATIENT care.: Yes I certify that my determination is in accordance with my understanding of [employer] 's requirements for reasonable and necessary INPATIENT services [42 CFR 412.3e].: Yes Medical Necessity: Significant Comorbidiites Make Outpatient Treatment Too Risky, Need Close Monitoring Due to Risk of Patient Decompensation, Need For Continuous Telemetry Monitoring, Risk of Complication if Not Cared For in Hospital, Risk of Diagnosis Which Will Require Inpatient Eval/Care/Monitoring Post Hospital Care: D/C Patient Relations Specialist Documentation - Plan Summary Plan Summary: See admitting attending physician orders for details about care plan.
[2019-06-29] MEDS: FLUTICASONE/VILANTEROL 200-25 MCG/DOSE IH SCH (10:53)
[2019-06-29] MEDS: MONTELUKAST SODIUM 10 MG TABLET PO SCH (17:17)
[2019-06-29] MEDS: TAMSULOSIN HCL 0.4 MG CAP.SR.24H PO SCH (17:17)
[2019-06-29] MEDS: PRAMIPEXOLE DI-HCL 0.25 MG TABLET PO SCH (17:17)
[2019-06-29] MEDS: ATORVASTATIN CALCIUM 20 MG TABLET PO SCH (21:30)
[2019-06-30] MEDS: PANTOPRAZOLE SODIUM 40 MG TABLET.DR PO SCH (05:25)
[2019-06-30] MEDS: GLIPIZIDE 5 MG TABLET PO SCH (07:47)
[2019-06-30] MEDS: INSULIN LISPRO 100 UNIT/ML 3 ML VIAL SUBCUT SCH ×4 (07:47→21:36)
[2019-06-30] MEDS: ALBUTEROL SULFATE 0.083% NEB 2.5 MG/3 ML AMPUL NEB PRN ×2 (08:36→23:53)
[2019-06-30] MEDS: FLUTICASONE/VILANTEROL 200-25 MCG/DOSE IH SCH (10:30)
[2019-06-30] MEDS: SITAGLIPTIN PHOSPHATE 50 MG TABLET PO SCH (10:31)
[2019-06-30] MEDS: AMLODIPINE BESYLATE 10 MG TABLET PO SCH (10:31)
[2019-06-30] MEDS: FENOFIBRATE NANOCRYSTALLIZED 145 MG TABLET PO SCH (10:31)
[2019-06-30] MEDS: LISINOPRIL 10 MG TABLET PO SCH (10:31)
[2019-06-30] MEDS: FINASTERIDE 5 MG TABLET PO SCH (10:32)
[2019-06-30] MEDS: APIXABAN 2.5 MG TABLET PO SCH ×2 (10:32→21:36)
[2019-06-30] MEDS ORDERED: LACTULOSE SYRUP 20 GM/30 ML UDCUP PO PRN (12:28)
--- NOTE | 2019-06-30 16:08 | PDOC PROGRESS REPORT ---
Subjective Progress Note for:: 06/30/19 Subjective:: Patient denied any chest pain or difficulty with breathing. No nausea, vomiting, or abdominal pain. Requested for restart of his Lactulose 30 mL p.o bid as bowel regimen for his colostomy function. No fever or chills. simulation tech continue to show episodes of atrial fibrillation and PVC's. Reason For Visit: ATRIAL FIBRILLATION Physical Exam Vital Signs: Temp Pulse Resp BP Pulse Ox 97.6 F 80 17 122/49 L 98 06/30/19 15:05 06/30/19 15:05 06/30/19 15:05 06/30/19 15:05 06/30/19 15:05 Intake & Output 06/29/19 06/30/19 07/01/19 06:59 06:59 06:59 Intake Total 1400 1852 480 Output Total 1500 2540 700 Balance -100 -688 -220 Weight 83.2 kg 78.6 kg General appearance: PRESENT: no acute distress, well-developed, well-nourished Head exam: PRESENT: atraumatic, normocephalic Eye exam: PRESENT: conjunctiva pink. ABSENT: scleral icterus Ear exam: PRESENT: normal external ear exam Mouth exam: PRESENT: moist Respiratory exam: PRESENT: clear to auscultation yumiko Cardiovascular exam: PRESENT: irregular rhythm, +S1, +S2. ABSENT: diastolic murmur, systolic murmur Vascular exam: ABSENT: pallor GI/Abdominal exam: PRESENT: normal bowel sounds, soft, other - functioning colostomy. ABSENT: distended, guarding, mass, organolmegaly, rebound, tenderness Gentrourinary exam: PRESENT: indwelling catheter Extremities exam: ABSENT: pedal edema Neurological exam: PRESENT: alert, awake, oriented to person, oriented to place, oriented to time, oriented to situation, CN II-XII grossly intact. ABSENT: motor sensory deficit Psychiatric exam: PRESENT: appropriate affect, normal mood. ABSENT: homicidal ideation, suicidal ideation Skin exam: PRESENT: dry, warm Results Laboratory Results: 06/28/19 13:08 06/28/19 13:08 06/28/19 14:52 Catheterized Urine Urine Culture - Final Staphylococcus Epidermidis 06/28/19 13:08 Troponin I < 0.012 Impressions: Chest X-Ray 06/28/19 13:15 IMPRESSION: No acute cardiopulmonary process. Assessment & Plan - Diagnosis (1) New onset atrial fibrillation Is this a current diagnosis for this admission?: Yes Plan: D/C Norvasc. Start on Cardizem 30 mg p.o q 6 hours. Obtain Free T3, free T4, and TSH level. Obtain complete echocardiogram for further evaluation of cardiac structure and function. (2) Chronic kidney disease, stage 3 Is this a current diagnosis for this admission?: Yes Plan: Start on low flow N/S at 75 ml/hour hydration support. Obtain BMP in AM. (3) Type 2 diabetes mellitus Qualifiers: Diabetes mellitus fpc insulin use: without intermediate teacher use Diabetes mellitus complication status: with neurologic complications Diabetes mellitus complication detail: with polyneuropathy Qualified Code(s): E11.42 - Type 2 diabetes mellitus with diabetic polyneuropathy Is this a current diagnosis for this admission?: Yes (4) Coronary artery disease Qualifiers: Coronary Disease-Associated Artery/Lesion type: [place] artery [place] vs. transplanted heart: [place] heart Associated angina: without angina Qualified Code(s): I25.10 - Atherosclerotic heart disease of [place] coronary artery without angina pectoris Is this a current diagnosis for this admission?: Yes (5) Asthma Qualifiers: Asthma persistence: intermittent Is this a current diagnosis for this admission?: Yes (6) Personal history of colon cancer Is this a current diagnosis for this admission?: Yes (7) BPH loc w urin obs/LUTS Is this a current diagnosis for this admission?: Yes (8) Infection due to Staphylococcus epidermidis Is this a current diagnosis for this admission?: Yes Plan: Start on IV Rocephin 1gm daily. Obtain CBC with diff in am. (9) UTI (urinary tract infection) Qualifiers: Urinary tract infection type: catheter-associated UTI Indwelling urinary catheter type: unspecified Encounter type: initial encounter Qualified Code(s): T83.511A - Infection and inflammatory reaction due to indwelling urethral catheter, initial encounter; N39.0 - Urinary tract infection, site not specified Is this a current diagnosis for this admission?: Yes Plan: Related to his intermittent catheterization due to BPH with LUTS. - Time Time Spent with patient: 35 or more minutes Level of Care: IMCU Medications reviewed and adjusted accordingly: Yes Anticipated discharge: Home Within: Other - Inpatient Certification Based on my medical assessment, after consideration of the patient's comorbidities, presenting symptoms, or acuity I expect that the services needed warrant INPATIENT care.: Yes I certify that my determination is in accordance with my understanding of Medicare's requirements for reasonable and necessary INPATIENT services [42 CFR 412.3e].: Yes Medical Necessity: Significant Comorbidiites Make Outpatient Treatment Too Risky, Need Close Monitoring Due to Risk of Patient Decompensation, Need For Continuous Telemetry Monitoring, Need for Nebulizer Therapy and Monitoring of Response, Risk of Complication if Not Cared For in Hospital, Risk of Diagnosis Which Will Require Inpatient Eval/Care/Monitoring Post Hospital Care: D/C Mice Raiser Documentation - Plan Summary Plan Summary: See attending physician orders for details about care plan. Change his admission status to full admission.
[2019-06-30 16:39] LABS: FREE T3 2.91 pg/mL (2.77-5.27); FREE T4 (FREE THYROXINE) 1.23 ng/dL (0.78-2.19)
[2019-06-30 16:52] LABS: THYROID STIMULATING HORMONE 2.91 uIU/mL (0.47-4.68)
[2019-06-30] MEDS: PRAMIPEXOLE DI-HCL 0.25 MG TABLET PO SCH (17:11)
[2019-06-30] MEDS: MONTELUKAST SODIUM 10 MG TABLET PO SCH (17:11)
[2019-06-30] MEDS: DILTIAZEM HCL 30 MG TABLET PO SCH ×2 (17:11→23:37)
[2019-06-30] MEDS: TAMSULOSIN HCL 0.4 MG CAP.SR.24H PO SCH (17:12)
[2019-06-30] MEDS: NORMAL SALINE 1000 ML 1,000 ML IV PRN (18:30)
[2019-06-30] MEDS: ATORVASTATIN CALCIUM 20 MG TABLET PO SCH (21:37)
[2019-07-01] MEDS: DILTIAZEM HCL 30 MG TABLET PO SCH ×3 (05:50→17:23)
[2019-07-01] MEDS: PANTOPRAZOLE SODIUM 40 MG TABLET.DR PO SCH (05:50)
[2019-07-01] MEDS: GLIPIZIDE 5 MG TABLET PO SCH (08:15)
[2019-07-01] MEDS: INSULIN LISPRO 100 UNIT/ML 3 ML VIAL SUBCUT SCH ×3 (08:15→17:24)
[2019-07-01] MEDS: ALBUTEROL SULFATE 0.083% NEB 2.5 MG/3 ML AMPUL NEB PRN (08:58)
[2019-07-01] MEDS: FINASTERIDE 5 MG TABLET PO SCH (09:40)
[2019-07-01] MEDS: SITAGLIPTIN PHOSPHATE 50 MG TABLET PO SCH (09:40)
[2019-07-01] MEDS: FENOFIBRATE NANOCRYSTALLIZED 145 MG TABLET PO SCH (09:40)
[2019-07-01] MEDS: NORMAL SALINE 1000 ML 1,000 ML IV PRN (09:41)
[2019-07-01] MEDS: FLUTICASONE/VILANTEROL 200-25 MCG/DOSE IH SCH (09:41)
[2019-07-01] MEDS: APIXABAN 2.5 MG TABLET PO SCH (09:41)
[2019-07-01] MEDS: LISINOPRIL 10 MG TABLET PO SCH (09:41)
[2019-07-01 17:13] VITALS: BP 158/68
--- NOTE | 2019-07-01 17:20 | PDOC DISCHARGE SUMMARY ---
Impression - Admit/DC Date/PCP Admission Date/Primary Care Provider: 06/30/19 16:08 ASHLYN ROA MD Discharge Date: 07/01/19 - Discharge Diagnosis (1) New onset atrial fibrillation Is this a current diagnosis for this admission?: Yes (2) Chronic kidney disease, stage 3 Is this a current diagnosis for this admission?: Yes (3) Type 2 diabetes mellitus Is this a current diagnosis for this admission?: Yes (4) Coronary artery disease Is this a current diagnosis for this admission?: Yes (5) Asthma Is this a current diagnosis for this admission?: Yes (6) Personal history of colon cancer Is this a current diagnosis for this admission?: Yes (7) BPH loc w urin obs/LUTS Is this a current diagnosis for this admission?: Yes (8) Infection due to Staphylococcus epidermidis Is this a current diagnosis for this admission?: Yes (9) UTI (urinary tract infection) Is this a current diagnosis for this admission?: Yes - Assessment Summary: Patient was admitted for new onset Atrial fibrillation. He was managed with rate control norman with Cardizem which was transition to extended release formulation at discharge. I discontinued his Amlodipine during this hospitalization. His stay was further complicated due to need for intermittent self catheterization on Eliquis upon discharge. His echocardiogram revealed LVEF in excess of 60% with aortic valve sclerosis. No thrombosis or significant valvular pathology. His thyroid function evaluation was within normal range. I had extensive discussion with spouse and patient for consideration of UROLIFT procedure to address his BPH with LUTS. His urine culture did grew staphylococcus epidermis sensitive to Ceftriaxone and he was transition to oral Cefuroxime upon discharge. he will follow up with Dr. Bales with [facility], Dr. Mccurdy with [facility] and Dr. Child, garbage man, for further management. - Additional Information Resuscitation Status: Full Code Discharge Diet: Cardiac, Diabetic Discharge Activity: Activity As Tolerated, Slowly Increase Activity Referrals: ASHLYN ROA MD [Primary Care Provider] - 07/09/19 10:00 am (call office to confirm appointment) MARLENA BALES MD [NO LOCAL MD] - ([facility] for review of need for straight catheterization of Eliquis treatment) DAMON MCCURDY JR, MD [NO LOCAL MD] - (for new onset Atrial fibrillation on rate control therapy and anticoagulation with Eliquis) CHLOE CHILD MD [ACTIVE STAFF] - (for CKD evalautiona and further management) Prescriptions: Diltiazem HCl [Cardizem Cd 120 mg Capsule] 1 cap.sr PO DAILY #30 cap.sr Cefuroxime Axetil [Ceftin 250 mg Tablet] 250 mg PO BID #14 tablet Lactulose [Cephulac Syrup 20 gm/30 ml Udcup] 20 gm PO BIDP PRN #1800 udc PRN Reason: Apixaban [Eliquis 2.5 mg Tablet] 2.5 mg PO Q12 #60 tablet Home Medications: Albuterol Sulfate [Proair HFA Inhalation Aerosol 8.5 gm MDI] 2 puff IH Q4HP PRN 06/28/19 Atorvastatin Calcium [Lipitor 20 mg Tablet] 20 mg PO QHS 06/28/19 Fenofibrate 160 mg PO DAILY 06/28/19 Finasteride [Proscar 5 mg Tablet] 5 mg PO DAILY 06/28/19 Fluticasone/Salmeterol [Advair 250-50 Diskus 14 Dose/Diskus] 1 puff IH BID 06/28/19 Glipizide [Glucotrol] 5 mg PO DAILY 06/28/19 Lisinopril [Zestril] 10 mg PO DAILY 06/28/19 Montelukast Sodium [Singulair 10 mg Tablet] 10 mg PO DAILY 06/28/19 Pantoprazole Sodium [Protonix [address] Tablet] 40 mg PO DAILY 06/28/19 Pramipexole Di-HCl [Mirapex 0.25 mg Tablet] 0.25 mg PO DAILY 06/28/19 Sitagliptin Phosphate [Januvia] 100 mg PO DAILY 06/28/19 Tamsulosin HCl [Flomax 0.4 mg Cap.sr] 0.4 mg PO QPM 06/28/19 Apixaban [Eliquis 2.5 mg Tablet] 2.5 mg PO Q12 #60 tablet 07/01/19 Cefuroxime Axetil [Ceftin 250 mg Tablet] 250 mg PO BID #14 tablet 07/01/19 Diltiazem HCl [Cardizem Cd 120 mg Capsule] 1 cap.sr PO DAILY #30 cap.sr 07/01/19 Lactulose [Cephulac Syrup 20 gm/30 ml Udcup] 20 gm PO BIDP PRN #1800 udc 1 08/31/18 History of Present Illiness History of Present Illness: CECILIO BURNS is a 79 year old male patient of Dr. Ashlyn Roa who was instructed to present at the ED for episode of postural dizziness that resulted in his fall and facial injury. Patient reported that he bend down to assist a friend and continue to fall to the ground n his face. He denied loss of consciousness. He reported frequent dizziness with postural changes in recent time but no actual fall. He denied any associated chest pain, perceived palpitation or irregular heart beat. No headache, nausea, or vomiting. His initial evaluation in the ED was significant for EKG tracing revealed atrial fibrillation with variable ventricular rate of 92 to 137 per minute. Also, there was evidence of chronic renal failure and hyperglycemia. he was advised hospitalization for further evaluation and management. His morbidities are as listed below. Patient reported that he has been self catheterizing for relief of his bladder dysfunction and outlet. He is s/p hemicolectomy with diverting colostomy for colorectal cancer. Hospital Course Hospital Course: Patient was admitted for new onset Atrial fibrillation. He was managed with rate control norman with Cardizem which was transition to extended release formulation at discharge. I discontinued his Amlodipine during this hospitalization. His stay was further complicated due to need for intermittent self catheterization on Eliquis upon discharge. His echocardiogram revealed LVEF in excess of 60% with aortic valve sclerosis. No thrombosis or significant valvular pathology. His thyroid function evaluation was within normal range. I had extensive discussion with spouse and patient for consideration of UROLIFT procedure to address his BPH with LUTS. His urine culture did grew staphylococcus epidermis sensitive to Ceftriaxone and he was transition to oral Cefuroxime upon discharge. he will follow up with Dr. Bales with [facility], Dr. Mccurdy with [facility] and Dr. Child, garbage man, for further management. Physical Exam Vital Signs: Temp Pulse Resp BP Pulse Ox 97.5 F 108 H 18 134/57 H 96 07/01/19 15:37 07/01/19 15:37 07/01/19 11:18 07/01/19 15:37 07/01/19 15:37 Intake & Output 06/30/19 07/01/19 07/02/19 06:59 06:59 06:59 Intake Total 1852 1130 1700 Output Total 2540 3100 700 Balance -688 -1970 1000 Weight 78.6 kg 78.8 kg General appearance: PRESENT: no acute distress, well-developed, well-nourished Head exam: PRESENT: atraumatic, normocephalic Eye exam: PRESENT: conjunctiva pink. ABSENT: scleral icterus Ear exam: PRESENT: normal external ear exam Mouth exam: PRESENT: moist Respiratory exam: PRESENT: clear to auscultation yumiko Cardiovascular exam: PRESENT: irregular rhythm, +S1, +S2. ABSENT: diastolic murmur, systolic murmur Vascular exam: ABSENT: pallor GI/Abdominal exam: PRESENT: normal bowel sounds, soft, other - functioning colostomy. ABSENT: distended, guarding, mass, organolmegaly, rebound, tenderness Gentrourinary exam: PRESENT: indwelling catheter Extremities exam: ABSENT: pedal edema Neurological exam: PRESENT: alert, awake, oriented to person, oriented to place, oriented to time, oriented to situation, CN II-XII grossly intact. ABSENT: motor sensory deficit Psychiatric exam: PRESENT: appropriate affect, normal mood. ABSENT: homicidal ideation, suicidal ideation Skin exam: PRESENT: dry, warm Results Laboratory Results: WBC 8.5 10^3/uL (4.0-10.5) 06/28/19 13:08 RBC 3.55 10^6/uL (4.35-5.55) L 06/28/19 13:08 Hgb 10.5 g/dL (13.5-17.0) L 06/28/19 13:08 Hct 30.5 % (37.9-51.0) L 06/28/19 13:08 MCV 86 fl (80-97) 06/28/19 13:08 MCH 29.5 pg (27.0-33.4) 06/28/19 13:08 MCHC 34.3 g/dL (32.0-36.0) 06/28/19 13:08 RDW 14.6 % (11.5-14.0) H 06/28/19 13:08 Plt Count 362 10^3/uL (150-450) 06/28/19 13:08 Lymph % (Auto) 19.3 % (13-45) 06/28/19 13:08 [place] % (Auto) 7.5 % (3-13) 06/28/19 13:08 Eos % (Auto) 0.6 % (0-6) 06/28/19 13:08 Baso % (Auto) 1.5 % (0-2) 06/28/19 13:08 Absolute Neuts (auto) 6.1 10^3/uL (1.7-8.2) 06/28/19 13:08 Absolute Lymphs (auto) 1.6 10^3/uL (0.5-4.7) 06/28/19 13:08 Absolute Monos (auto) 0.6 10^3/uL (0.1-1.4) 06/28/19 13:08 Absolute Eos (auto) 0.1 10^3/uL (0.0-0.6) 06/28/19 13:08 Absolute Basos (auto) 0.1 10^3/uL (0.0-0.2) 06/28/19 13:08 Seg Neutrophils % 71.1 % (42-78) 06/28/19 13:08 PT 13.0 SEC (11.4-15.4) 06/28/19 13:08 INR 0.98 06/28/19 13:08 Sodium 135.4 mmol/L (137-145) L 06/28/19 13:08 Potassium 4.6 mmol/L (3.6-5.0) 06/28/19 13:08 Chloride 102 mmol/L (98-107) 06/28/19 13:08 Carbon Dioxide 24 mmol/L (22-30) 06/28/19 13:08 Anion Gap 9 (5-19) 06/28/19 13:08 BUN 23 mg/dL (7-20) H 06/28/19 13:08 Creatinine 1.43 mg/dL (0.52-1.25) H 06/28/19 13:08 Est GFR ( Amer) 57 (>60) L 06/28/19 13:08 Est GFR (MDRD) Non-Af 47 (>60) L 06/28/19 13:08 Glucose 233 mg/dL (75-110) H 06/28/19 13:08 POC Glucose 178 mg/dL (70-110) H 07/01/19 15:39 Calcium 9.4 mg/dL (8.4-10.2) 06/28/19 13:08 Total Bilirubin 0.4 mg/dL (0.2-1.3) 06/28/19 13:08 Direct Bilirubin 0.2 mg/dL (0.0-0.4) 06/28/19 13:08 Neonat Total Bilirubin Not Reportable 06/28/19 13:08 Neonat Direct Bilirubin Not Reportable 06/28/19 13:08 Neonat Indirect Bili Not Reportable 06/28/19 13:08 AST 17 U/L (17-59) 06/28/19 13:08 ALT 12 U/L (<50) 06/28/19 13:08 Alkaline Phosphatase 81 U/L (38-126) 06/28/19 13:08 Troponin I < 0.012 ng/mL 06/28/19 13:08 Total Protein 6.8 g/dL (6.3-8.2) 06/28/19 13:08 Albumin 3.7 g/dL (3.5-5.0) 06/28/19 13:08 Lipase 200.6 U/L (23-300) 06/28/19 13:08 TSH 2.91 uIU/mL (0.47-4.68) 06/28/19 13:08 Free T4 1.23 ng/dL (0.78-2.19) 06/28/19 13:08 Free T3 pg/mL 2.91 pg/mL (2.77-5.27) 06/28/19 13:08 Urine Color STRAW 06/28/19 14:52 Urine Appearance CLEAR 06/28/19 14:52 Urine pH 6.0 (5.0-9.0) 06/28/19 14:52 Ur Specific [place] 1.005 06/28/19 14:52 Urine Protein NEGATIVE mg/dL (NEGATIVE) 06/28/19 14:52 Urine Glucose (UA) 50 mg/dL (NEGATIVE) H 06/28/19 14:52 Urine Ketones NEGATIVE mg/dL (NEGATIVE) 06/28/19 14:52 Urine Blood SMALL (NEGATIVE) H 06/28/19 14:52 Urine Nitrite (Reflex) NEGATIVE (NEGATIVE) 06/28/19 14:52 Urine Bilirubin NEGATIVE (NEGATIVE) 06/28/19 14:52 Urine Urobilinogen NEGATIVE mg/dL (<2.0) 06/28/19 14:52 Leukocyte Esterase Rfl MODERATE (NEGATIVE) H 06/28/19 14:52 Urine RBC (Auto) 1 /HPF 06/28/19 14:52 Urine Bacteria (Auto) TRACE /HPF 06/28/19 14:52 Urine WBC (Reflex) 30 /HPF 06/28/19 14:52 Urine Mucus (Auto) RARE /LPF 06/28/19 14:52 Urine Ascorbic Acid NEGATIVE (NEGATIVE) 06/28/19 14:52 06/28/19 13:08 Troponin I < 0.012 Impressions: Chest X-Ray 06/28/19 13:15 IMPRESSION: No acute cardiopulmonary process. Plan Health Concerns: Increase risk of bleeding on Eliquis with self intermittent catheterization on Eliquis therapy for anticoagulation for Atrial Fibrillation thrombosis prevention. Plan of Treatment: Follow up with listed specialist, including urologist, resin maker and garbage man. He will follow up with Dr Roa as instructed upon discharge. Goals: Reduced risk of readmission. Avoid cardiac decompensation due to his atrial fibrillation. Time Spent: Greater than 30 Minutes - Post acute care coordination with urologist, resin maker, and garbage man. Follow up with Dr Roa as directed upon discharge. Stroke Is this a Stroke Patient?: No Acute Heart Failure - Is this a Heart Failure Patient?: No
[2019-07-01] MEDS: PRAMIPEXOLE DI-HCL 0.25 MG TABLET PO SCH (17:23)
[2019-07-01] MEDS: TAMSULOSIN HCL 0.4 MG CAP.SR.24H PO SCH (17:23)
[2019-07-01] MEDS: MONTELUKAST SODIUM 10 MG TABLET PO SCH (17:23)
--- NOTE | 2019-07-01 22:34 | XCELERA REPORT ---
[address] [address] Transthoracic Echocardiogram Report Name: CECILIO BURNS Age: 79 yrs Gender: Male : 1940 Patient Status: Inpatient Patient Location: [address] [place], [place] [address]A Study Date: 07/01/2019 03:33 PM Height: 69 in Weight: 173 lb BSA: 1.9 m2 Procedure: A two-dimensional transthoracic echocardiogram with color flow and Doppler was performed. Study Quality: Fair. Reason For Study: New onset Atrial fibrillation History: New onset Atrial fibrillation. Ordering Physician: ISMAEL HICKS Performed By: Roxana Bryant Interpretation Summary The left ventricle is normal in size. There is normal left ventricular wall thickness. LV EF is 60% Left ventricular systolic function is normal. Doppler measurements suggest normal left ventricular diastolic function ( Patient in Sinus RHythm Now) The right ventricle is normal in size and function. The right atrium is normal. The left atrium is borderline dilated. There is no evidence of mitral valve prolapse. There is no vegetation seen on the mitral valve. There is no mitral valve stenosis. There is a trace amount of mitral regurgitation There is no aortic valve stenosis There is aortic sclerosis without aortic stenosis. There is no LVOT obstruction. No aortic regurgitation is present. There is no tricuspid stenosis. There is a trace amount of tricuspid regurgitation Right ventricular systolic pressure is normal. RVSP is 17 to 22 mm of Hg , with RA mean of 5 to 10. There is no pulmonic valvular stenosis. There is a mild amount of pulmonic regurgitation The aortic root is normal size. There is no pericardial effusion. MMode/2D Measurements & Calculations RVDd: 3.7 cm LVIDd: 5.1 cm FS: 30.4 % Ao root diam: 3.4 cm IVSd: 0.81 cm LVIDs: 3.6 cm EDV(Teich): 125.6 ml Ao root area: 9.0 cm2 LVPWd: 1.0 cm ESV(Teich): 53.4 ml EF(Teich): 57.5 % Doppler Measurements & Calculations MV E max bailee: MV dec slope: Ao V2 max: LV V1 max P.6 cm/sec 593.8 cm/sec2 117.9 cm/sec 3.3 mmHg MV A max bailee: MV dec time: 0.16 secAo max P.6 mmHgLV V1 max: 89.0 cm/sec 91.5 cm/sec MV E/A: 1.1 PA V2 max: PI end-d bailee: TR max bailee: 104.9 cm/sec 107.0 cm/sec 227.8 cm/sec PA max P.4 mmHg TR max P.8 mmHg Left Ventricle The left ventricle is normal in size. There is normal left ventricular wall thickness. LV EF is 60%. Left ventricular systolic function is normal. Doppler measurements suggest normal left ventricular diastolic function. ( Patient in Sinus RHythm Now). Right Ventricle The right ventricle is normal in size and function. Atria The right atrium is normal. The left atrium is borderline dilated. Mitral Valve There is no evidence of mitral valve prolapse. There is no vegetation seen on the mitral valve. There is no mitral valve stenosis. There is a trace amount of mitral regurgitation. Aortic Valve There is no aortic valve stenosis. There is aortic sclerosis without aortic stenosis. There is no LVOT obstruction. No aortic regurgitation is present. Tricuspid Valve There is no tricuspid stenosis. There is a trace amount of tricuspid regurgitation. Right ventricular systolic pressure is normal. RVSP is 17 to 22 mm of Hg , with RA mean of 5 to 10. Pulmonic Valve There is no pulmonic valvular stenosis. There is a mild amount of pulmonic regurgitation. Great Vessels The aortic root is normal size. The inferior vena cava appeared normal and decreased > 50% with respiration (RAP 5-10 mmHg). Effusions There is no pericardial effusion. : ISMAEL HICKS Lakshmi
== END 2019-07-01 17:51 | disposition home or self-care (01) | DRG 309 ==
LOC: ER 12:43 → EH 15:55 → 3W 21:28 → OBSVTOIN 06-30 16:08
PROVIDERS: ADMIT Internal Medicine Geriatric Medicine; ATTEND Internal Medicine Geriatric Medicine
DX: I48.91 Unspecified atrial fibrillation (principal); N13.8 Other obstructive and reflux uropathy; N39.0 Urinary tract infection, site not specified; E11.22 Type 2 diabetes mellitus with diabetic chronic kidney disease; E11.42 Type 2 diabetes mellitus with diabetic polyneuropathy; N18.3 Chronic kidney disease, stage 3 (moderate); E11.65 Type 2 diabetes mellitus with hyperglycemia; I12.9 Hypertensive chronic kidney disease with stage 1 through stage 4 chronic kidney disease, or unspecified chronic kidney disease; I25.10 Atherosclerotic heart disease of native coronary artery without angina pectoris; N40.1 Benign prostatic hyperplasia with lower urinary tract symptoms; I35.8 Other nonrheumatic aortic valve disorders; E78.5 Hyperlipidemia, unspecified; K21.9 Gastro-esophageal reflux disease without esophagitis; F32.9 Major depressive disorder, single episode, unspecified; N31.9 Neuromuscular dysfunction of bladder, unspecified; J45.20 Mild intermittent asthma, uncomplicated; Z79.01 Long term (current) use of anticoagulants; Z79.84 Long term (current) use of oral hypoglycemic drugs; Z79.51 Long term (current) use of inhaled steroids; Z90.49 Acquired absence of other specified parts of digestive tract; Z85.038 Personal history of other malignant neoplasm of large intestine; Z87.891 Personal history of nicotine dependence; Z95.5 Presence of coronary angioplasty implant and graft
CPT/HCPCS: 36415; 71045; 80053; 81001; 82962; 83690; 84439; 84443; 84481; 84484; 85025; 85610; 87086; 87088; 87186; 93005; 93010; 93306; 96360; 99285; G0378; J1815; J3490; J7030

== ENCOUNTER → 2019-07-26 | Outpatient (CLI) | payer MEDICARE, OTHER ==
[2019-07-26 09:07] LABS: ABSOLUTE EOSINOPHILS # (AUTO) 0.1 10^3/uL (0.0-0.6); ABSOLUTE LYMPHOCYTES (AUTO) 1.8 10^3/uL (0.5-4.7); ABSOLUTE MONOCYTES (AUTO) 0.7 10^3/uL (0.1-1.4); BASOPHILS % (AUTO) 0.4 % (0-2); EOSINOPHILS % (AUTO) 1.7 % (0-6); HEMATOCRIT 30.9 % (37.9-51.0); HEMOGLOBIN 10.4 g/dL (13.5-17.0); LYMPHOCYTES % (AUTO) 26.9 % (13-45); MEAN CORPUSCULAR HEMOGLOBIN 28.8 pg (27.0-33.4); MEAN CORPUSCULAR HGB CONC 33.7 g/dL (32.0-36.0); MEAN CORPUSCULAR VOLUME 86 fl (80-97); MONOCYTES % (AUTO) 10.7 % (3-13); PLATELET COUNT 358 10^3/uL (150-450); RED BLOOD COUNT 3.61 10^6/uL (4.35-5.55); RED CELL DISTRIBUTION WIDTH 15.9 % (11.5-14.0); SEGMENTED NEUTROPHILS % (AUTO) 60.3 % (42-78); TOTAL CELLS COUNTED % (AUTO) 100 %; WHITE BLOOD COUNT 6.7 10^3/uL (4.0-10.5)
[2019-07-26 09:25] LABS: ALBUMIN 4.1 g/dL (3.5-5.0); ALKALINE PHOSPHATASE 55 U/L (38-126); ANION GAP 12 (5-19); ASPARTATE AMINO TRANSFERASE 16 U/L (17-59); BILIRUBIN,DIRECT 0.3 mg/dL (0.0-0.4); BILIRUBIN,TOTAL 0.4 mg/dL (0.2-1.3); BLOOD UREA NITROGEN 20 mg/dL (7-20); CALCIUM 9.7 mg/dL (8.4-10.2); CARBON DIOXIDE 23 mmol/L (22-30); CHLORIDE 101 mmol/L (98-107); GLUCOSE 150 mg/dL (75-110); POTASSIUM 4.4 mmol/L (3.6-5.0); TOTAL PROTEIN 7.3 g/dL (6.3-8.2); TRIGLYCERIDES 128 mg/dL (<150)
[2019-07-26 09:36] LABS: DIRECT LDL 60 mg/dL (<100)
== END ==
LOC: OD 07:41
PROVIDERS: ATTEND Internal Medicine
DX: Z79.899 Other long term (current) drug therapy (principal)
CPT/HCPCS: 36415; 80053; 80061; 83735; 84443; 85025

== ENCOUNTER 2019-08-27 09:48 | Outpatient (CLI) | payer MEDICARE, OTHER ==
[~2019-08-27 09:48] MED LIST: FERRIC CARBOXYMALTOSE 750 MG in NORMAL SALINE 250 ML IV PRN
[2019-08-27 10:01] VITALS: BP 186/54
== END 2019-08-27 11:30 | disposition home or self-care (01) ==
LOC: II 09:48 → 5TH 09:50 → II 11:30
PROVIDERS: ATTEND Internal Medicine Nephrology
DX: D50.8 Other iron deficiency anemias (principal)
CPT/HCPCS: 96365; J7050; J1439

== ENCOUNTER 2019-09-03 12:49 | Outpatient (CLI) | payer MEDICARE, OTHER ==
[2019-09-03 13:13] VITALS: BP 146/59
== END 2019-09-03 14:43 | disposition home or self-care (01) ==
LOC: II 12:49 → 5TH 12:50 → II 14:43
PROVIDERS: ATTEND Internal Medicine Nephrology
DX: D50.8 Other iron deficiency anemias (principal)
CPT/HCPCS: 96365; J7050; J1439

== ENCOUNTER 2019-09-12 08:49 | Inpatient (IN) | payer MEDICARE, OTHER ==
--- NOTE | 2019-09-12 09:40 | ER Document Report ---
ED Medical Screen (RME) - General Chief Complaint: Cough Stated Complaint: COUGH/WEAKNESS Time Seen by Provider: 09/12/19 09:38 Primary Care Provider: DAMON MCCURDY JR, MD [Primary Care Provider] - Follow up as needed Mode of Arrival: Wheelchair Information source: Patient Notes: 79-year-old male presented to ED for cough and congestion weakness. He was sent over by his primary care doctor due to the continued cough and weakness. He states he is coughing so hard that he feels like he is going to pass out. Fever last night to 9.9 and 101 this morning at the doctor's office. Him for the flu and it was negative. I have greeted and performed a rapid initial assessment of this patient. A comprehensive ED assessment and evaluation of the patient, analysis of test results and completion of medical decision making process will be conducted by an additional ED providers. TRAVEL OUTSIDE OF THE [place] IN LAST 30 DAYS: No - Related Data Allergies/Adverse Reactions: No Known Drug Allergies Allergy (Verified 09/12/19 09:25) Past Medical History - Past Medical History Cardiac Medical History: Reports: Hx Coronary Artery Disease, Hx Hypercholesterolemia, Hx Hypertension Pulmonary Medical History: Reports: Hx Asthma Neurological Medical History: Denies: Hx Seizures Endocrine Medical History: Reports: Hx Diabetes Mellitus Type 2 Renal/ Medical History: Denies: Hx Peritoneal Dialysis Malignancy Medical History: Reports Hx Colorectal Cancer GI Medical History: Reports: Hx Gastroesophageal Reflux Disease Psychiatric Medical History: Reports: Hx Depression Past Surgical History: Reports: Hx Bowel Surgery - colostomy, Hx Cardiac Surgery - heart stents x 2, Hx Orthopedic Surgery - ankle, Other - colon resction with colostomy for Ca 20 yrs ago and subsequent reconstructi - Immunizations Hx Diphtheria, Pertussis, Tetanus Vaccination: Yes Physical Exam - Vital signs Vitals: Temp Pulse Resp BP Pulse Ox 99.5 F 87 20 152/56 H 96 09/12/19 08:53 09/12/19 08:53 09/12/19 08:53 09/12/19 08:53 09/12/19 08:53 Course - Vital Signs Vital signs: Temp Pulse Resp BP Pulse Ox 99.5 F 87 20 152/56 H 96 09/12/19 08:53 09/12/19 08:53 09/12/19 08:53 09/12/19 08:53 02/06/20 08:53 Doctor's Discharge - Discharge Referrals: DAMON MCCURDY JR, MD [Primary Care Provider] - Follow up as needed
[2019-09-12 10:20] LABS: ABSOLUTE LYMPHOCYTES (AUTO) 1.1 10^3/uL (0.5-4.7); ABSOLUTE MONOCYTES (AUTO) 1.3 10^3/uL (0.1-1.4); ABSOLUTE NEUT (AUTO) 15.9 10^3/uL (1.7-8.2); BASOPHILS % (AUTO) 0.2 % (0-2); EOSINOPHILS % (AUTO) 0.1 % (0-6); HEMATOCRIT 27.3 % (37.9-51.0); HEMOGLOBIN 9.1 g/dL (13.5-17.0); LYMPHOCYTES % (AUTO) 5.8 % (13-45); MEAN CORPUSCULAR HEMOGLOBIN 28.4 pg (27.0-33.4); MEAN CORPUSCULAR HGB CONC 33.3 g/dL (32.0-36.0); MEAN CORPUSCULAR VOLUME 85 fl (80-97); MONOCYTES % (AUTO) 7.3 % (3-13); PLATELET COUNT 374 10^3/uL (150-450); RED BLOOD COUNT 3.21 10^6/uL (4.35-5.55); RED CELL DISTRIBUTION WIDTH 18.5 % (11.5-14.0); SEGMENTED NEUTROPHILS % (AUTO) 86.6 % (42-78); TOTAL CELLS COUNTED % (AUTO) 100 %; WHITE BLOOD COUNT 18.3 10^3/uL (4.0-10.5)
--- NOTE | 2019-09-12 10:23 | RADIOLOGY REPORT (SQ) ---
EXAM DESCRIPTION: CHEST 2 VIEWS COMPLETED DATE/TIME: 09/12/2019 10:06 am REASON FOR STUDY: COUGH CONGESTION FEVER COMPARISON: Chest films 04/01/2014, 06/28/2019 EXAM PARAMETERS: NUMBER OF VIEWS: two views TECHNIQUE: Digital Frontal and Lateral radiographic views of the chest acquired. RADIATION DOSE: NA LIMITATIONS: none FINDINGS: LUNGS AND PLEURA: No opacities, masses or pneumothorax. No pleural effusion. MEDIASTINUM AND HILAR STRUCTURES: No masses or contour abnormalities. HEART AND VASCULAR STRUCTURES: Heart normal size. No evidence for failure. BONES: No acute findings. HARDWARE: None in the chest. OTHER: No other significant finding. IMPRESSION: NO ACUTE RADIOGRAPHIC FINDING IN THE CHEST. TECHNICAL DOCUMENTATION: JOB ID: [id number] [employer]- All Rights Reserved Reading location - IP/workstation name: [email or web address]
[2019-09-12 10:40] LABS: ALBUMIN 3.8 g/dL (3.5-5.0); ALKALINE PHOSPHATASE 41 U/L (38-126); ANION GAP 10 (5-19); ASPARTATE AMINO TRANSFERASE 24 U/L (17-59); BILIRUBIN,DIRECT 0.1 mg/dL (0.0-0.4); BILIRUBIN,TOTAL 0.6 mg/dL (0.2-1.3); BLOOD UREA NITROGEN 20 mg/dL (7-20); CALCIUM 8.8 mg/dL (8.4-10.2); CARBON DIOXIDE 22 mmol/L (22-30); CHLORIDE 104 mmol/L (98-107); GLUCOSE 119 mg/dL (75-110); POTASSIUM 4.5 mmol/L (3.6-5.0); TOTAL PROTEIN 6.7 g/dL (6.3-8.2)
[2019-09-12 10:51] LABS: TROPONIN I 0.017 ng/mL
[2019-09-12 11:08] LABS: APPEARANCE,URINE TURBID; BILIRUBIN,URINE NEGATIVE (NEGATIVE); COLOR,URINE YELLOW; GLUCOSE, URINE 50 mg/dL (NEGATIVE); KETONES,URINE NEGATIVE (NEGATIVE); PROTEIN,URINE 100 mg/dL (NEGATIVE); URINE SPECIFIC GRAVITY 1.017; UROBILINOGEN,URINE NEGATIVE mg/dL (<2.0)
[2019-09-12] MEDS ORDERED: LEVOFLOXACIN 750 MG/D5W RTU 750 MG/150 ML RTUPB IV ONE (11:49)
[2019-09-12] MEDS ORDERED: IPRATROPIUM/ALBUTEROL 0.5-2.5 MG/3 ML AMPUL NEB ONE (11:55)
[2019-09-12] MEDS ORDERED: ACETAMINOPHEN 325 MG TABLET PO ONE (12:01)
--- NOTE | 2019-09-12 12:02 | ER Document Report ---
Entered by RONDA IRVIN SCRIBE 09/12/19 1155 Acting as scribe for:BILLIE ABRAMS MD ED General - General Chief Complaint: Chest Congestion Stated Complaint: COUGH/WEAKNESS Time Seen by Provider: 09/12/19 09:38 Mode of Arrival: Wheelchair Information source: Patient Notes: 79 year old male presents to the emergency department with chest congestion and cough that began several weeks ago. Patient went to his doctors appointment this morning and was sent to the emergency department for a fever (101). Patient reports that he has had chills for several weeks, dry cough for 3 weeks with occasional white thick sputum, leg numbness and weakness. Patient denies vomiting. Patient states that he is up to date on his influenza vaccine. Patient had a upper endoscopy last week and a colonoscopy a few months ago. TRAVEL OUTSIDE OF THE [place] IN LAST 30 DAYS: No - Related Data Allergies/Adverse Reactions: No Known Drug Allergies Allergy (Verified 09/12/19 14:17) Home Medications: hydralazine. pramipexole. fenofibrate. pantoprazole. tamsulosin. glipizide. montelukast. levothyroxine. januvia. finaseride. atorvastatin. lisinopril. eliquis. amiodrone. diltiazem. advair Past Medical History - General Information source: Patient - Social History Smoking Status: Former Smoker - Quit 40 years ago Cigarette use (# per day): No Chew tobacco use (# tins/day): Yes Frequency of alcohol use: None Drug Abuse: None Family History: Reviewed & Not Pertinent Patient has suicidal ideation: No Patient has homicidal ideation: No - Past Medical History Cardiac Medical History: Reports: Hx Coronary Artery Disease, Hx Hypercholesterolemia, Hx Hypertension Pulmonary Medical History: Reports: Hx Asthma Endocrine Medical History: Reports: Hx Diabetes Mellitus Type 2 Malignancy Medical History: Reports Hx Colorectal Cancer GI Medical History: Reports: Hx Gastroesophageal Reflux Disease Psychiatric Medical History: Reports: Hx Depression Past Surgical History: Reports: Hx Bowel Surgery - colostomy, Hx Cardiac Surgery - heart stents x 2, Hx Orthopedic Surgery - ankle, Other - colon resction with colostomy for Ca 20 yrs ago and subsequent reconstructi - Immunizations Hx Diphtheria, Pertussis, Tetanus Vaccination: Yes Hx Pneumococcal Vaccination: 10/04/13 Review of Systems - Review of Systems Constitutional: See HPI, Chills, Fever, Weakness EENT: No symptoms reported Cardiovascular: No symptoms reported Respiratory: See HPI, Cough, Sputum - occasional thick and white Gastrointestinal: See HPI. denies: Vomiting Genitourinary: No symptoms reported Male Genitourinary: No symptoms reported Musculoskeletal: No symptoms reported Skin: No symptoms reported Hematologic/Lymphatic: No symptoms reported Neurological/Psychological: No symptoms reported -: Yes All other systems reviewed and negative Physical Exam - Vital signs Vitals: Temp Pulse Resp BP Pulse Ox 99.5 F 87 20 152/56 H 96 09/12/19 08:53 09/12/19 08:53 09/12/19 08:53 09/12/19 08:53 09/12/19 08:53 - Notes Notes: Physical Exam: General: Alert, appears well. HEENT: Normocephalic. Atraumatic. PERRL. Extraocular movements intact. Oropharynx clear. Neck: Supple. Non-tender. Respiratory: No respiratory distress. Wheezes bilaterally. Cardiovascular: Regular rate and rhythm. Abdominal: Normal Inspection. Non-tender. No distension. Normal Bowel Sounds. Back: No gross abnormalities. Extremities: Moves all four extremities. Upper extremities: Normal inspection. Normal ROM. Lower extremities: Normal inspection. No edema. Normal ROM. Neurological: Normal cognition. AAOx4. Normal speech. Psychological: Normal affect. Normal Mood. Skin: Hot. Dry. Normal color. Course - Vital Signs Vital signs: Temp Pulse Resp BP Pulse Ox 98.1 F 82 16 157/47 H 97 09/13/19 10:51 09/13/19 13:50 09/13/19 13:50 09/13/19 10:51 09/13/19 13:50 - Laboratory Result Diagrams: 09/13/19 05:12 09/12/19 16:36 Laboratory results interpreted by me: 09/12/19 09/12/19 09/12/19 09:58 09:58 09:58 WBC 18.3 H RBC 3.21 L Hgb 9.1 L Hct 27.3 L RDW 18.5 H Lymph % (Auto) 5.8 L Absolute Neuts (auto) 15.9 H Seg Neutrophils % 86.6 H Sodium 136.4 L Creatinine 2.17 H Est GFR ( Amer) 35 L Est GFR (MDRD) Non-Af 29 L Glucose 119 H NT-Pro-B Natriuret Pep 2030 H Urine Protein Urine Glucose (UA) Urine Blood Leukocyte Esterase Rfl Urine Ascorbic Acid 09/12/19 10:48 WBC RBC Hgb Hct RDW Lymph % (Auto) Absolute Neuts (auto) Seg Neutrophils % Sodium Creatinine Est GFR ( Amer) Est GFR (MDRD) Non-Af Glucose NT-Pro-B Natriuret Pep Urine Protein 100 H Urine Glucose (UA) 50 H Urine Blood SMALL H Leukocyte Esterase Rfl MODERATE H Urine Ascorbic Acid 20 H Discharge - Discharge Clinical Impression: Chronic kidney disease, stage 3, Viral upper respiratory tract infection with cough Urinary tract infection Qualifiers: Urinary tract infection type: site unspecified Hematuria presence: without hematuria Qualified Code(s): N39.0 - Urinary tract infection, site not specified Fever Qualifiers: Fever type: unspecified Qualified Code(s): R50.9 - Fever, unspecified Leukocytosis Qualifiers: Leukocytosis type: unspecified Qualified Code(s): D72.829 - Elevated white blood cell count, unspecified Condition: Good Disposition: ADMITTED INPATIENT Admitting Provider: Roa Unit Admitted: [facility] Scribe Attestation: 09/12/19 12:00 I personally performed the services described in the documentation, reviewed and edited the documentation which was dictated to the scribe in my presence, and it accurately records my words and actions. I personally performed the services described in the documentation, reviewed and edited the documentation which was dictated to the scribe in my presence, and it accurately records my words and actions.
[2019-09-12] MEDS ORDERED: ACETAMINOPHEN 325 MG TABLET PO PRN (12:57)
[2019-09-12] MEDS ORDERED: ONDANSETRON HCL INJ/PF 4 MG/2 ML SDV IV PRN (12:57)
[2019-09-12] MEDS ORDERED: IPRATROPIUM/ALBUTEROL 0.5-2.5 MG/3 ML AMPUL NEB PRN (12:57)
--- NOTE | 2019-09-12 13:10 | PDOC H&P ---
History of Present Illness Admission Date/PCP: 09/12/19 12:10 RAMILA ROA MD Patient complains of: Fever chills and cough History of Present Illness: CECILIO DANIELS is a 79 year old male haider Daniels is an 79-year-old male with history of diabetes, hypertension, hyp erlipidemia history of colon cancer, CAD, BPH, GERD, PVD, CKD, history of pulmonary nodule, asthma, A. fib and urinary incontinence who presents today for complaint of cough. He says the cough has been present for 3 weeks and he has been taking Mucinex as instructed by Dr. Roa but the cough does not seem to be getting better. It is not productive but he says he feels congestion in his chest; he becomes nauseated trying to cough up something. He has history of asthma and has been compliant with his Advair. He is also been using nebulizer. He denies any wheezing. Yesterday he noticed fever of 99 at home and gave him dose of Tylenol. He is febrile in clinic today. Has had no antipyretics this morning. He admits to pain in his chest with coughing. He denies any vomiting or diarrhea at this time. He is currently being followed by Dr. Benjamin for heme positive stool and anemia. He underwent endoscopy recently and has a planned capsule endoscopy in October. He is currently being followed by Dr. Patel for CKD. He recently received [address] Apple feels that his kidney function is improving and he has follow-up with her in 2 weeks. 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 In the emergency department patient's white count was 18,000's and it definitely mostly looks like a UTI with some bronchitis and decided to admit in the hospital Past Medical History Cardiac Medical History: Reports: Atrial Fibrillation, Coronary Artery Disease, Hyperlipidema, Hypertension Pulmonary Medical History: Reports: Asthma Neurological Medical History: Denies: Seizures Endocrine Medical History: Reports: Diabetes Mellitus Type 2 Renal/ Medical History: Reports: Chronic Kidney Disease Malignancy Medical History: Reports: Colorectal Cancer GI Medical History: Reports: Gastroesophageal Reflux Disease Psychiatric Medical History: Reports: Depression Past Surgical History Past Surgical History: Reports: Cardiac Catheterization, Orthopedic Surgery - ankle, Other - colon resction with colostomy for Ca 20 yrs ago and subsequent reconstructi Social History Information Source: Patient Smoking Status: Former Smoker - Quit 40 years ago Electronic Cigarette use?: No Frequency of Alcohol Use: None Hx Recreational Drug Use: No Drugs: None Hx Prescription Drug Abuse: No Family History Family History: Reviewed & Not Pertinent Parental Family History Reviewed: Yes Children Family History Reviewed: Yes Sibling(s) Family History Reviewed.: Yes Medication/Allergy Allergies/Adverse Reactions: No Known Drug Allergies Allergy (Verified 09/12/19 09:25) Review of Systems Constitutional: PRESENT: chills, fatigue, fever(s). ABSENT: headache(s), weight gain, weight loss Eyes: ABSENT: visual disturbances Ears: ABSENT: hearing changes Cardiovascular: ABSENT: chest pain, dyspnea on exertion, edema, orthropnea, palpitations Respiratory: PRESENT: cough. ABSENT: hemoptysis Gastrointestinal: ABSENT: abdominal pain, constipation, diarrhea, hematemesis, hematochezia, nausea, vomiting Genitourinary: ABSENT: dysuria, hematuria Musculoskeletal: ABSENT: joint swelling Integumentary: ABSENT: rash, wounds Neurological: ABSENT: abnormal gait, abnormal speech, confusion, dizziness, foca l weakness, syncope Psychiatric: ABSENT: anxiety, depression, homidical ideation, suicidal ideation Endocrine: ABSENT: cold intolerance, heat intolerance, menstrual abnormalities, polydipsia, polyuria Hematologic/Lymphatic: ABSENT: easy bleeding, easy bruising, lymphadenopathy Physical Exam Vital Signs: Temp Pulse Resp BP Pulse Ox 98.5 F 87 20 152/56 H 96 09/12/19 10:36 09/12/19 08:53 09/12/19 08:53 09/12/19 08:53 09/12/19 08:53 Intake & Output 09/11/19 09/12/19 09/13/19 06:59 06:59 06:59 Weight 83.6 kg General appearance: PRESENT: no acute distress Head exam: PRESENT: atraumatic, normocephalic Eye exam: PRESENT: conjunctiva pink, EOMI, PERRLA. ABSENT: scleral icterus Ear exam: PRESENT: normal external ear exam Mouth exam: PRESENT: moist, tongue midline Neck exam: PRESENT: full ROM. ABSENT: carotid bruit, JVD, lymphadenopathy, thyromegaly Respiratory exam: PRESENT: clear to auscultation yumiko Cardiovascular exam: PRESENT: RRR. ABSENT: diastolic murmur, rubs, systolic murmur Pulses: PRESENT: normal dorsalis pedis pul, +2 pedal pulses bilateral Vascular exam: PRESENT: normal capillary refill GI/Abdominal exam: PRESENT: normal bowel sounds, soft. ABSENT: distended, guarding, mass, organolmegaly, rebound, tenderness Rectal exam: PRESENT: deferred Musculoskeletal exam: PRESENT: ambulatory Neurological exam: PRESENT: alert, awake, oriented to person, oriented to place, oriented to time, oriented to situation, CN II-XII grossly intact. ABSENT: motor sensory deficit Psychiatric exam: PRESENT: anxious, appropriate affect, normal mood. ABSENT: homicidal ideation, suicidal ideation Skin exam: PRESENT: dry, intact, warm. ABSENT: cyanosis, rash Results Laboratory Results: 09/12/19 09:58 09/12/19 09:58 09/12/19 09/12/19 09/12/19 09:58 09:58 10:48 WBC 18.3 H RBC 3.21 L Hgb 9.1 L Hct 27.3 L MCV 85 MCH 28.4 MCHC 33.3 RDW 18.5 H Plt Count 374 Seg Neutrophils % 86.6 H Sodium 136.4 L Potassium 4.5 Chloride 104 Carbon Dioxide 22 Anion Gap 10 BUN 20 Creatinine 2.17 H Est GFR ( Amer) 35 L Glucose 119 H Lactic Acid Calcium 8.8 Total Bilirubin 0.6 AST 24 Alkaline Phosphatase 41 Total Protein 6.7 Albumin 3.8 Urine Color YELLOW Urine Appearance TURBID Urine pH 5.0 Ur Specific [place] 1.017 Urine Protein 100 H Urine Glucose (UA) 50 H Urine Ketones NEGATIVE Urine Blood SMALL H Urine RBC (Auto) 11 09/12/19 12:21 WBC RBC Hgb Hct MCV MCH MCHC RDW Plt Count Seg Neutrophils % Sodium Potassium Chloride Carbon Dioxide Anion Gap BUN Creatinine Est GFR ( Amer) Glucose Lactic Acid 0.6 L Calcium Total Bilirubin AST Alkaline Phosphatase Total Protein Albumin Urine Color Urine Appearance Urine pH Ur Specific [place] Urine Protein Urine Glucose (UA) Urine Ketones Urine Blood Urine RBC (Auto) 09/12/19 09:58 Troponin I 0.017 NT-Pro-B Natriuret Pep 2030 H Impressions: Chest X-Ray 09/12/19 09:41 IMPRESSION: NO ACUTE RADIOGRAPHIC FINDING IN THE CHEST. Assessment & Plan - Diagnosis (1) Fever Qualifiers: Fever type: unspecified Qualified Code(s): R50.9 - Fever, unspecified Is this a current diagnosis for this admission?: Yes Plan: Most likely a UTI with some underlying possible pneumonia we will start the patient on IV antibiotics IV fluids get the blood culture urine cultures sputum cultures (2) Leukocytosis Qualifiers: Leukocytosis type: unspecified Qualified Code(s): D72.829 - Elevated white blood cell count, unspecified Is this a current diagnosis for this admission?: Yes Plan: Get the blood culture urine cultures start on IV antibiotics until the cultures back's (3) Urinary tract infection Qualifiers: Urinary tract infection type: site unspecified Hematuria presence: without hematuria Qualified Code(s): N39.0 - Urinary tract infection, site not specified Is this a current diagnosis for this admission?: Yes Plan: And have a self catheterizations currently see her Dr. Cuellar as outpatients will put the Green catheter (4) GEGE (acute kidney injury) Is this a current diagnosis for this admission?: Yes Plan: Start the patient on IV fluids consult the nephrology (5) Asthma Qualifiers: Asthma complication type: unspecified Is this a current diagnosis for this admission?: Yes Plan: Currently all stable (6) Atrial fibrillation Qualifiers: Atrial fibrillation type: unspecified Qualified Code(s): I48.91 - Unspecified atrial fibrillation Is this a current diagnosis for this admission?: Yes Plan: Currently rate under control is continues to monitor patient see [place] [facility] (7) BPH loc w urin obs/LUTS Is this a current diagnosis for this admission?: Yes Plan: Patient is currently seeing Dr. Cuellar urology as outpatient (8) Coronary artery disease Qualifiers: Coronary Disease-Associated Artery/Lesion type: [place] artery Associated angina: without angina Is this a current diagnosis for this admission?: Yes Plan: Patient have a history of the stent placement in the [place] several years back recently see a [place] cardiology recently have a echo done couple of months back (9) Personal history of colon cancer Is this a current diagnosis for this admission?: Yes Plan: Patient is currently see oncology and Dr. Benjamin (10) Type 2 diabetes mellitus Qualifiers: Chronic kidney disease stage: stage 3 (moderate) Is this a current diagnosis for this admission?: Yes Plan: Continue sliding-scale - Time Time Spent: 30 to 50 Minutes Medications reviewed and adjusted accordingly: Yes Anticipated discharge: Home Within: Other - Inpatient Certification Based on my medical assessment, after consideration of the patient's comorbidities, presenting symptoms, or acuity I expect that the services needed warrant INPATIENT care.: Yes I certify that my determination is in accordance with my understanding of Medicare's requirements for reasonable and necessary INPATIENT services [42 CFR 412.3e].: Yes Medical Necessity: Failure to Improve With Outpatient Therapy, Significant Comorbidiites Make Outpatient Treatment Too Risky, Need Close Monitoring Due to Risk of Patient Decompensation, Need For IV Fluids, Need for IV Antibiotics Post Hospital Care: D/C Rn [facility] Services Documentation - Plan Summary Plan Summary: Admit the patient in IMCU IV antibiotic IV fluid Discuss with the regarding the patient's current conditions
[2019-09-12] MEDS: CEFTRIAXONE 1 GM/D5W RTU 1 GM/50 ML RTUPB IV SCH (13:57)
[2019-09-12] MEDS: NORMAL SALINE 1000 ML 1,000 ML IV PRN (13:57)
[2019-09-12] MEDS ORDERED: DEXTROSE 50%-WATER 25 GM/50 ML DISP.SYRIN IV PRN ×2 (14:31)
[2019-09-12] MEDS ORDERED: GLUCAGON,HUMAN RECOMB 1 MG INJ IM PRN (14:31)
[2019-09-12] MEDS ORDERED: DEXTROSE 40% GEL 15 GM TUBE PO PRN ×2 (14:31)
[2019-09-12 14:47] LABS: A TYPE INFLUENZA AG NEGATIVE (NEGATIVE); B INFLUENZA AG NEGATIVE (NEGATIVE)
--- NOTE | 2019-09-12 15:00 | RADIOLOGY REPORT (SQ) ---
EXAM DESCRIPTION: CT CHEST WITHOUT COMPLETED DATE/TIME: 09/12/2019 2:29 pm REASON FOR STUDY: cough/fever COMPARISON: None. TECHNIQUE: CT scan performed of the chest without intravenous contrast. Images reviewed with lung, soft tissue and bone windows. Reconstructed coronal and sagittal MPR images reviewed. All images st ored on PACS. All CT scanners at this facility use dose modulation, iterative reconstruction, and/or weight based d osing when appropriate to reduce radiation dose to as low as reasonably achievable (ALARA). [facility]: Dose Right [facility]: CareDose [facility]: Dose Right [facility]: Teradose 4D [facility]: [facility] RADIATION DOSE: CT Rad equipment meets quality standard of care and radiation dose reduction techniq ues were employed. CTDIvol: 15.3 mGy. DLP: 605 mGy-cm. mGy. LIMITATIONS: No technical limitations. FINDINGS: LUNGS AND PLEURA: No masses, infiltrates, or pneumothorax. No pleural effusions or pleura l calcifications. HILAR AND MEDIASTINAL STRUCTURES: No identified masses or abnormal nodes. No obvious aneurysm. HEART AND VASCULAR STRUCTURES: No aneurysm. No pericardial effusion. Moderate coronary artery calci fications UPPER ABDOMEN: Parapelvic cysts versus hydronephrosis right incompletely evaluated. THYROID AND OTHER SOFT TISSUES: No masses. No adenopathy. BONES: No significant finding. HARDWARE: None in the chest. OTHER: No other significant findings. IMPRESSION: NO ACUTE PULMONARY INFILTRATES TECHNICAL DOCUMENTATION: JOB ID: [id number] Quality ID # [id number]: Final reports with documentation of one or more dose reduction techniques (e.g., Au tomated exposure control, adjustment of the mA and/or kV according to patient size, use of iterative reconstruction technique) 2010 [employer]- All Rights Reserved Reading location - IP/workstation name: [employer]-[email or web address]
[2019-09-12 17:16] LABS: ANION GAP 10 (5-19); BLOOD UREA NITROGEN 23 mg/dL (7-20); CALCIUM 8.3 mg/dL (8.4-10.2); CARBON DIOXIDE 22 mmol/L (22-30); CHLORIDE 103 mmol/L (98-107); CREATINE KINASE 94 U/L (55-170); GLUCOSE 95 mg/dL (75-110); POTASSIUM 4.2 mmol/L (3.6-5.0)
[2019-09-12] MEDS: INSULIN LISPRO 100 UNIT/ML 3 ML VIAL SUBCUT SCH (17:22)
[2019-09-12 17:31] LABS: CREATINE KINASE MB 1.1 ng/mL (<4.55); TROPONIN I 0.02 ng/mL
[2019-09-12] MEDS: DOCUSATE SODIUM 100 MG CAPSULE PO SCH (17:56)
[2019-09-12] MEDS: TAMSULOSIN HCL 0.4 MG CAP.SR.24H PO SCH (17:56)
[2019-09-12] MEDS: MONTELUKAST SODIUM 10 MG TABLET PO SCH (17:56)
[2019-09-12] MEDS: APIXABAN 5 MG TABLET PO SCH (17:56)
--- NOTE | 2019-09-12 19:34 | EKG REPORT ---
SEVERITY:- ABNORMAL ECG - BORDERLINE T ABNORMALITIES, INFERIOR LEADS SINUS RHYTHM : Confirmed by: Tyesha Lopez MD 12-Sep-2019 19:33:59
[2019-09-12] MEDS: LEVALBUTEROL HCL NEB 1.25 MG/3 ML AMPUL NEB PRN (21:02)
[2019-09-12] MEDS ORDERED: (PENDING PHARMACY ID) (Fluticasone/Salmeterol 1 PUFF) IH SCH (22:00)
[2019-09-12] MEDS: ATORVASTATIN CALCIUM 20 MG TABLET PO SCH (23:12)
[2019-09-12] MEDS: HYDRALAZINE HCL 25 MG TABLET PO SCH (23:12)
[2019-09-12] MEDS: FAMOTIDINE 20 MG TABLET PO SCH (23:13)
[2019-09-12 23:50] LABS: CREATINE KINASE MB 0.99 ng/mL (<4.55); TROPONIN I 0.027 ng/mL
[2019-09-13] MEDS: INSULIN LISPRO 100 UNIT/ML 3 ML VIAL SUBCUT SCH ×5 (01:04→22:12)
[2019-09-13] MEDS: PRAMIPEXOLE DI-HCL 0.25 MG TABLET PO SCH ×2 (01:06→22:11)
[2019-09-13] MEDS: LEVALBUTEROL HCL NEB 1.25 MG/3 ML AMPUL NEB PRN ×4 (01:20→20:11)
[2019-09-13] MEDS: LEVOTHYROXINE SODIUM 0.025 MG TABLET PO SCH (05:26)
[2019-09-13 05:30] LABS: ABSOLUTE LYMPHOCYTES (AUTO) 0.7 10^3/uL (0.5-4.7); ABSOLUTE MONOCYTES (AUTO) 1.1 10^3/uL (0.1-1.4); ABSOLUTE NEUT (AUTO) 9.5 10^3/uL (1.7-8.2); BASOPHILS % (AUTO) 0.4 % (0-2); HEMOGLOBIN 8.2 g/dL (13.5-17.0); LYMPHOCYTES % (AUTO) 6.6 % (13-45); MEAN CORPUSCULAR HEMOGLOBIN 28.7 pg (27.0-33.4); MEAN CORPUSCULAR HGB CONC 34.2 g/dL (32.0-36.0); MEAN CORPUSCULAR VOLUME 84 fl (80-97); MONOCYTES % (AUTO) 9.3 % (3-13); PLATELET COUNT 327 10^3/uL (150-450); RED BLOOD COUNT 2.86 10^6/uL (4.35-5.55); RED CELL DISTRIBUTION WIDTH 18.3 % (11.5-14.0); SEGMENTED NEUTROPHILS % (AUTO) 83.7 % (42-78); TOTAL CELLS COUNTED % (AUTO) 100 %; WHITE BLOOD COUNT 11.3 10^3/uL (4.0-10.5)
[2019-09-13 05:55] LABS: CREATINE KINASE MB 1.48 ng/mL (<4.55); TROPONIN I 0.03 ng/mL
--- NOTE | 2019-09-13 08:38 | PDOC PROGRESS REPORT ---
Subjective Progress Note for:: 09/13/19 Subjective:: Patient is feeling much better Patient's cough is also improving after the breathing treatments No fever overnight No chest pain no short of breath Reason For Visit: UTI,SEPSIS Physical Exam Vital Signs: Temp Pulse Resp BP Pulse Ox 98.1 F 94 16 159/53 H 100 09/13/19 04:23 09/13/19 07:00 09/13/19 05:52 09/13/19 04:23 09/13/19 04:23 Intake & Output 09/12/19 09/13/19 09/14/19 06:59 06:59 06:59 Intake Total 260 Output Total 900 Balance -640 Weight 83.6 kg General appearance: PRESENT: no acute distress, well-developed, well-nourished Head exam: PRESENT: atraumatic, normocephalic Eye exam: PRESENT: conjunctiva pink, EOMI, PERRLA. ABSENT: scleral icterus Ear exam: PRESENT: normal external ear exam Mouth exam: PRESENT: moist, tongue midline Neck exam: PRESENT: full ROM. ABSENT: carotid bruit, JVD, lymphadenopathy, thyromegaly Respiratory exam: PRESENT: clear to auscultation yumiko Cardiovascular exam: PRESENT: RRR. ABSENT: diastolic murmur, rubs, systolic murmur Pulses: PRESENT: normal dorsalis pedis pul, +2 pedal pulses bilateral Vascular exam: PRESENT: normal capillary refill GI/Abdominal exam: PRESENT: normal bowel sounds, soft. ABSENT: distended, guarding, mass, organolmegaly, rebound, tenderness Rectal exam: PRESENT: deferred Musculoskeletal exam: PRESENT: ambulatory Neurological exam: PRESENT: alert, awake, oriented to person, oriented to place, oriented to time, oriented to situation, CN II-XII grossly intact. ABSENT: motor sensory deficit Psychiatric exam: PRESENT: appropriate affect, normal mood. ABSENT: homicidal ideation, suicidal ideation Skin exam: PRESENT: dry, intact, warm. ABSENT: cyanosis, rash Results Laboratory Results: 09/13/19 05:12 09/12/19 16:36 09/12/19 09/12/19 09/12/19 09:58 09:58 10:48 WBC 18.3 H RBC 3.21 L Hgb 9.1 L Hct 27.3 L MCV 85 MCH 28.4 MCHC 33.3 RDW 18.5 H Plt Count 374 Seg Neutrophils % 86.6 H Retic Count (auto) Sodium 136.4 L Potassium 4.5 Chloride 104 Carbon Dioxide 22 Anion Gap 10 BUN 20 Creatinine 2.17 H Est GFR ( Amer) 35 L Glucose 119 H Lactic Acid Calcium 8.8 Magnesium Total Bilirubin 0.6 AST 24 Alkaline Phosphatase 41 Total Protein 6.7 Albumin 3.8 Urine Color YELLOW Urine Appearance TURBID Urine pH 5.0 Ur Specific [place] 1.017 Urine Protein 100 H Urine Glucose (UA) 50 H Urine Ketones NEGATIVE Urine Blood SMALL H Urine RBC (Auto) 11 09/12/19 09/12/19 09/13/19 12:21 16:36 05:12 WBC 11.3 H RBC 2.86 L Hgb 8.2 L Hct 24.0 L MCV 84 MCH 28.7 MCHC 34.2 RDW 18.3 H Plt Count 327 Seg Neutrophils % 83.7 H Retic Count (auto) Sodium 134.7 L Potassium 4.2 Chloride 103 Carbon Dioxide 22 Anion Gap 10 BUN 23 H Creatinine 2.11 H Est GFR ( Amer) 37 L Glucose 95 Lactic Acid 0.6 L Calcium 8.3 L Magnesium Total Bilirubin AST Alkaline Phosphatase Total Protein Albumin Urine Color Urine Appearance Urine pH Ur Specific [place] Urine Protein Urine Glucose (UA) Urine Ketones Urine Blood Urine RBC (Auto) 09/13/19 09/13/19 05:12 05:12 WBC RBC Hgb Hct MCV MCH MCHC RDW Plt Count Seg Neutrophils % Retic Count (auto) 1.40 Sodium Potassium Chloride Carbon Dioxide Anion Gap BUN Creatinine Est GFR ( Amer) Glucose Lactic Acid Calcium Magnesium 1.9 Total Bilirubin AST Alkaline Phosphatase Total Protein Albumin Urine Color Urine Appearance Urine pH Ur Specific [place] Urine Protein Urine Glucose (UA) Urine Ketones Urine Blood Urine RBC (Auto) 09/12/19 09/12/19 09/12/19 09:58 16:36 16:36 Creatine Kinase 94 CK-MB (CK-2) 1.10 Troponin I 0.017 0.020 NT-Pro-B Natriuret Pep 2030 H 09/12/19 09/12/19 09/13/19 23:00 23:00 05:12 Creatine Kinase 99 123 CK-MB (CK-2) 0.99 Troponin I 0.027 NT-Pro-B Natriuret Pep 09/13/19 05:12 Creatine Kinase CK-MB (CK-2) 1.48 Troponin I 0.030 NT-Pro-B Natriuret Pep Impressions: Chest CT 09/12/19 00:00 IMPRESSION: NO ACUTE PULMONARY INFILTRATES Chest X-Ray 09/12/19 09:41 IMPRESSION: NO ACUTE RADIOGRAPHIC FINDING IN THE CHEST. Assessment & Plan - Diagnosis (1) Fever Qualifiers: Fever type: unspecified Qualified Code(s): R50.9 - Fever, unspecified Is this a current diagnosis for this admission?: Yes Plan: Most likely from the UTI currently all resolving (2) Leukocytosis Qualifiers: Leukocytosis type: unspecified Qualified Code(s): D72.829 - Elevated white blood cell count, unspecified Is this a current diagnosis for this admission?: Yes Plan: Most likely from the chronic UTI currently getting better (3) Urinary tract infection Qualifiers: Urinary tract infection type: site unspecified Hematuria presence: without hematuria Qualified Code(s): N39.0 - Urinary tract infection, site not specified Is this a current diagnosis for this admission?: Yes Plan: Continues to IV antibiotic (4) GEGE (acute kidney injury) Is this a current diagnosis for this admission?: Yes Plan: Start the patient on IV fluids consult the nephrology (5) Asthma Qualifiers: Asthma complication type: unspecified Is this a current diagnosis for this admission?: Yes Plan: Currently all stable (6) Atrial fibrillation Qualifiers: Atrial fibrillation type: unspecified Qualified Code(s): I48.91 - Unspecified atrial fibrillation Is this a current diagnosis for this admission?: Yes Plan: Currently rate under control is continues to monitor patient see [place] [facility] (7) BPH loc w urin obs/LUTS Is this a current diagnosis for this admission?: Yes Plan: Patient is currently seeing Dr. Cuellar urology as outpatient (8) Coronary artery disease Qualifiers: Coronary Disease-Associated Artery/Lesion type: [place] artery Associated angina: without angina Is this a current diagnosis for this admission?: Yes Plan: Patient have a history of the stent placement in the [place] several years back recently see a [place] [facility]ology recently have a echo done couple of months back (9) Personal history of colon cancer Is this a current diagnosis for this admission?: Yes Plan: Patient is currently see oncology and Dr. Benjamin (10) Type 2 diabetes mellitus Qualifiers: Chronic kidney disease stage: stage 3 (moderate) Is this a current diagnosis for this admission?: Yes Plan: Continue sliding-scale (11) Bronchitis Is this a current diagnosis for this admission?: Yes Plan: Continues to nebulizer treatments - Time Time Spent with patient: 15-24 minutes Level of Care: IMCU Medications reviewed and adjusted accordingly: Yes Anticipated discharge: Other Within: Other - Plan Summary Plan Summary: Continues to IV antibiotics for the bronchitis and the UTIs
[2019-09-13 08:44] LABS: IRON(TIBC) 19.2 ug/dL (49-181)
[2019-09-13] MEDS: HYDRALAZINE HCL 25 MG TABLET PO SCH ×2 (09:44→22:11)
[2019-09-13] MEDS: FINASTERIDE 5 MG TABLET PO SCH (09:44)
[2019-09-13] MEDS: DOCUSATE SODIUM 100 MG CAPSULE PO SCH ×2 (09:45→17:54)
[2019-09-13] MEDS: DILTIAZEM HCL 120 MG CAP.SR.24H PO SCH (09:45)
[2019-09-13] MEDS: APIXABAN 5 MG TABLET PO SCH ×2 (09:45→17:54)
[2019-09-13] MEDS: AMIODARONE HCL 200 MG TABLET PO SCH (09:45)
[2019-09-13] MEDS: PANTOPRAZOLE SODIUM 40 MG TABLET.DR PO SCH (09:46)
[2019-09-13] MEDS: FLUTICASONE/VILANTEROL 200-25 MCG/DOSE IH SCH (09:46)
[2019-09-13] MEDS: LEVOFLOXACIN 500 MG/D5W RTU 500 MG/100 ML RTUPB IV SCH (09:46)
[2019-09-13] MEDS: CEFTRIAXONE 1 GM/D5W RTU 1 GM/50 ML RTUPB IV SCH (09:47)
--- NOTE | 2019-09-13 10:53 | PDOC CONSULTATION ---
Consultation Consult Date: 09/13/19 Provider Consulted: Chano MENDIOLA Consult reason:: GEGE on CKD History of Present Illness Admission Date/PCP: 09/12/19 12:10 RAMILA ROA MD History of Present Illness: CECILIO BURNS is a 79 year old male with history of diabetes, CKD -3/4 with base creatinine of around [address] Patel hypertension, hyperlipidemia history of colon [id number] Partial colectomy with colostomy followed by chemo/radiation, CAD- PTCA, BPH with urinary retention and now doing self catheterization, asthma, A. fib was admitted with a history suggestive of of upper respiratory tract infection as well as history of dysuria suggestive of UTI. Evaluations in the ER revealed that he had leukocytosis and pyuria with bacteria in his urine. However please note that he self catheterizes 4-5 times a day for the last 1 year. No history of any fever or chills or abdominal pains.Admits to poor intake over the last 1 week or so. Denies any history of chest pains or shortness of breath. Since admission he has been put on IV antibiotics and feels a whole lot better.Labs and medications were reviewed. No labs for chemistries were done today. He is currently being followed by Dr. Benjamin for heme positive stool and anemia. He underwent endoscopy recently and has a planned capsule endoscopy in October. Past Medical History Cardiac Medical History: Reports: Atrial Fibrillation, Coronary Artery Disease, Hyperlipidemia, Hypertension-primary Pulmonary Medical History: Reports: Asthma Neurological Medical History: Denies: Seizures Endocrine Medical History: Reports: Diabetes Mellitus Type 2 Renal/ Medical History: Reports: Chronic Kidney Disease Stage III Denies: Hematuria Malignancy Medical History: Reports: Colorectal Cancer GI Medical History: Reports: Gastroesophageal Reflux Disease Psychiatric Medical History: Reports: Depression Hematology Medical History: Reports Anemia Past Surgical History Past Surgical History: Reports: Cardiac Catheterization, Colectomy - Partial for treatment of C of the colon and also underwent a colostomy., Coronary Stent, O rthopedic Surgery - ankle, Other - colon resction with colostomy for Ca 20 yrs ago and subsequent reconstructi Social History Smoking Status: Former Smoker Electronic Cigarette use?: No Frequency of Alcohol Use: None Hx Recreational Drug Use: No Drugs: None Hx Prescription Drug Abuse: No - Advance Directive Resuscitation Status: Full Code Family History Parental Family History Reviewed: Yes - Negative for ESRD Children Family History Reviewed: No Sibling(s) Family History Reviewed.: No Medication/Allergy Home Medications: Amiodarone HCl [Cordarone 200 mg Tablet] 200 mg PO DAILY 09/12/19 Apixaban [Eliquis 5 mg Tablet] 5 mg PO BID 09/12/19 Atorvastatin Calcium [Lipitor 20 mg Tablet] 20 mg PO QHS 09/12/19 Diltiazem HCl [Diltiazem 24Hr ER (Cd)] 120 mg PO DAILY 09/12/19 Fenofibrate 160 mg PO DAILY 09/12/19 Finasteride [Proscar 5 mg Tablet] 5 mg PO DAILY 09/12/19 Fluticasone/Salmeterol [Advair 250-50 Diskus 14 Dose/Diskus] 1 puff IH Q12 09/12/19 Glipizide [Glucotrol 5 mg Tablet] 5 mg PO DAILY 09/12/19 Hydralazine HCl [Apresoline 25 mg Tablet] 25 mg PO BID 09/12/19 Levothyroxine Sodium [Synthroid 0.025 mg Tablet] 0.025 mg PO Q6AM 09/12/19 Lisinopril [Prinivil 10 mg Tablet] 10 mg PO DAILY 09/12/19 Montelukast Sodium [Singulair 10 mg Tablet] 10 mg PO QPM 09/12/19 Pantoprazole Sodium [Protonix [address] Tablet] 40 mg PO DAILY 09/12/19 Pramipexole Di-HCl [Mirapex 0.25 mg Tablet] 0.25 mg PO QHS 09/12/19 Tamsulosin HCl [Flomax 0.4 mg Cap.sr] 0.4 mg PO QPM 09/12/19 Allergies/Adverse Reactions: No Known Drug Allergies Allergy (Verified 09/12/19 14:17) Review of Systems Constitutional: ABSENT: fever(s), headache(s), night sweats, weakness Cardiovascular: ABSENT: edema, orthropnea, palpitations Respiratory: PRESENT: cough. ABSENT: dyspnea, hemoptysis Gastrointestinal: PRESENT: nausea. ABSENT: abdominal pain, coffee ground emesis, diarrhea, dysphagia, heartburn, hematemesis, hematochezia, vomiting Genitourinary: PRESENT: difficulty urinating, dysuria. ABSENT: hematuria Musculoskeletal: ABSENT: deformity, joint swelling Integumentary: ABSENT: lesions, pruritus, rash Neurological: ABSENT: abnormal gait, abnormal movements, abnormal speech, focal weakness, frequent falls, lack of coordination Hematologic/Lymphatic: ABSENT: easy bleeding, easy bruising, lymphadenopathy Allergic/Immunologic: ABSENT: seasonal rhinorrhea Physical Exam Vital Signs: Temp Pulse Resp BP Pulse Ox 98.1 F 86 18 145/53 H 99 09/13/19 07:32 09/13/19 07:32 09/13/19 07:32 09/13/19 07:32 09/13/19 07:32 Intake & Output 09/12/19 09/13/19 09/14/19 06:59 06:59 06:59 Intake Total 310 Output Total 900 Balance -590 Weight 83.6 kg General appearance: PRESENT: no acute distress Eye exam: PRESENT: EOMI, PERRLA. ABSENT: scleral icterus Ear exam: PRESENT: normal external ear exam Mouth exam: PRESENT: moist Neck exam: ABSENT: lymphadenopathy, meningismus, tenderness, thyromegaly, tracheal deviation Respiratory exam: PRESENT: clear to auscultation yumiko. ABSENT: crackles Cardiovascular exam: PRESENT: +S1, +S2 GI/Abdominal exam: PRESENT: normal bowel sounds, soft. ABSENT: organomegaly, tenderness Extremities exam: ABSENT: pedal edema Neurological exam: PRESENT: alert, awake, oriented to person, oriented to place Psychiatric exam: PRESENT: appropriate affect Skin exam: ABSENT: cyanosis, mottled, rash Results Laboratory Results: 09/13/19 05:12 09/12/19 16:36 09/12/19 09/12/19 09/12/19 10:48 12:21 16:36 WBC RBC Hgb Hct MCV MCH MCHC RDW Plt Count Seg Neutrophils % Retic Count (auto) Sodium 134.7 L Potassium 4.2 Chloride 103 Carbon Dioxide 22 Anion Gap 10 BUN 23 H Creatinine 2.11 H Est GFR ( Amer) 37 L Glucose 95 Lactic Acid 0.6 L Calcium 8.3 L Magnesium Iron TIBC % Saturation Ferritin Vitamin B12 Folate Urine Color YELLOW Urine Appearance TURBID Urine pH 5.0 Ur Specific Pipestem 1.017 Urine Protein 100 H Urine Glucose (UA) 50 H Urine Ketones NEGATIVE Urine Blood SMALL H Urine RBC (Auto) 11 09/13/19 09/13/19 09/13/19 05:12 05:12 05:12 WBC 11.3 H RBC 2.86 L Hgb 8.2 L Hct 24.0 L MCV 84 MCH 28.7 MCHC 34.2 RDW 18.3 H Plt Count 327 Seg Neutrophils % 83.7 H Retic Count (auto) 1.40 Sodium Potassium Chloride Carbon Dioxide Anion Gap BUN Creatinine Est GFR ( Amer) Glucose Lactic Acid Calcium Magnesium 1.9 Iron TIBC % Saturation Ferritin Vitamin B12 Folate Urine Color Urine Appearance Urine pH Ur Specific Pipestem Urine Protein Urine Glucose (UA) Urine Ketones Urine Blood Urine RBC (Auto) 09/13/19 05:12 WBC RBC Hgb Hct MCV MCH MCHC RDW Plt Count Seg Neutrophils % Retic Count (auto) Sodium Potassium Chloride Carbon Dioxide Anion Gap BUN Creatinine Est GFR ( Amer) Glucose Lactic Acid Calcium Magnesium Iron 19.2 L TIBC 254 % Saturation 8 Ferritin 1050.00 H Vitamin B12 278.0 Folate 14.90 Urine Color Urine Appearance Urine pH Ur Specific Pipestem Urine Protein Urine Glucose (UA) Urine Ketones Urine Blood Urine RBC (Auto) 09/12/19 09/12/19 09/12/19 09:58 16:36 16:36 Creatine Kinase 94 CK-MB (CK-2) 1.10 Troponin I 0.017 0.020 NT-Pro-B Natriuret Pep 2030 H 09/12/19 09/12/19 09/13/19 23:00 23:00 05:12 Creatine Kinase 99 123 CK-MB (CK-2) 0.99 Troponin I 0.027 NT-Pro-B Natriuret Pep 09/13/19 05:12 Creatine Kinase CK-MB (CK-2) 1.48 Troponin I 0.030 NT-Pro-B Natriuret Pep Impressions: Chest CT 09/12/19 00:00 IMPRESSION: NO ACUTE PULMONARY INFILTRATES Chest X-Ray 09/12/19 09:41 IMPRESSION: NO ACUTE RADIOGRAPHIC FINDING IN THE CHEST. Assessment & Plan - Diagnosis (1) GEGE (acute kidney injury) Is this a current diagnosis for this admission?: Yes Plan: Patient has mild worsening of his baseline renal functions. Patient is got ATN from sepsis from his infection in his chest and his bladder. Currently on antibiotics. Continue on the same. If kidney functions worsens would recommend having a renal ultrasound. (2) Bronchitis Is this a current diagnosis for this admission?: Yes Plan: Currently on antibiotics. Patient better as his cough is now more productive which was not so earlier. (3) Chronic kidney disease, stage 3 Plan: In the background of diabetic hypertensive disease. Baseline creatinine around 2. (4) Urinary tract infection Qualifiers: Urinary tract infection type: site unspecified Hematuria presence: without hematuria Qualified Code(s): N39.0 - Urinary tract infection, site not specified Is this a current diagnosis for this admission?: Yes Plan: History of BPH with urinary retention and a doing self-catheterization. Follow- up on cultures and adjust antibiotics. (5) Type 2 diabetes mellitus Qualifiers: Chronic kidney disease stage: stage 3 (moderate) Is this a current diagnosis for this admission?: Yes Plan: As per Dr. Roa.
[2019-09-13] MEDS: MONTELUKAST SODIUM 10 MG TABLET PO SCH (17:54)
[2019-09-13] MEDS: TAMSULOSIN HCL 0.4 MG CAP.SR.24H PO SCH (17:54)
[2019-09-13] MEDS: ATORVASTATIN CALCIUM 20 MG TABLET PO SCH (22:11)
[2019-09-13] MEDS: FAMOTIDINE 20 MG TABLET PO SCH (22:12)
[2019-09-14] MEDS: NORMAL SALINE 1000 ML 1,000 ML IV PRN ×2 (04:11→21:05)
[2019-09-14] MEDS: LEVALBUTEROL HCL NEB 1.25 MG/3 ML AMPUL NEB PRN ×3 (04:36→14:14)
[2019-09-14] MEDS: LEVOTHYROXINE SODIUM 0.025 MG TABLET PO SCH (05:01)
[2019-09-14 06:12] LABS: ANION GAP 11 (5-19); BLOOD UREA NITROGEN 19 mg/dL (7-20); CALCIUM 8.6 mg/dL (8.4-10.2); CARBON DIOXIDE 21 mmol/L (22-30); CHLORIDE 105 mmol/L (98-107); GLUCOSE 135 mg/dL (75-110); POTASSIUM 4.4 mmol/L (3.6-5.0)
[2019-09-14 06:24] LABS: ABSOLUTE EOSINOPHILS # (AUTO) 0.1 10^3/uL (0.0-0.6); ABSOLUTE LYMPHOCYTES (AUTO) 0.8 10^3/uL (0.5-4.7); ABSOLUTE MONOCYTES (AUTO) 0.7 10^3/uL (0.1-1.4); ABSOLUTE NEUT (AUTO) 5.6 10^3/uL (1.7-8.2); BASOPHILS % (AUTO) 0.2 % (0-2); HEMATOCRIT 23.5 % (37.9-51.0); LYMPHOCYTES % (AUTO) 10.6 % (13-45); MEAN CORPUSCULAR HEMOGLOBIN 28.4 pg (27.0-33.4); MEAN CORPUSCULAR HGB CONC 33.8 g/dL (32.0-36.0); MEAN CORPUSCULAR VOLUME 84 fl (80-97); MONOCYTES % (AUTO) 9.6 % (3-13); PLATELET COUNT 345 10^3/uL (150-450); RED CELL DISTRIBUTION WIDTH 18.6 % (11.5-14.0); SEGMENTED NEUTROPHILS % (AUTO) 78.6 % (42-78); TOTAL CELLS COUNTED % (AUTO) 100 %; WHITE BLOOD COUNT 7.1 10^3/uL (4.0-10.5)
[2019-09-14 06:26] LABS: HEMOGLOBIN 7.9 g/dL (13.5-17.0)
[2019-09-14] MEDS ORDERED: LACTULOSE SYRUP 20 GM/30 ML UDCUP PO ONE (07:15)
[2019-09-14] MEDS: INSULIN LISPRO 100 UNIT/ML 3 ML VIAL SUBCUT SCH ×4 (07:32→21:19)
[2019-09-14] MEDS: HYDRALAZINE HCL 25 MG TABLET PO SCH ×2 (09:11→21:26)
[2019-09-14] MEDS: DOCUSATE SODIUM 100 MG CAPSULE PO SCH ×2 (09:11→17:30)
[2019-09-14] MEDS: DILTIAZEM HCL 120 MG CAP.SR.24H PO SCH (09:11)
[2019-09-14] MEDS: CEFTRIAXONE 1 GM/D5W RTU 1 GM/50 ML RTUPB IV SCH (09:11)
[2019-09-14] MEDS: AMIODARONE HCL 200 MG TABLET PO SCH (09:12)
[2019-09-14] MEDS: FLUTICASONE/VILANTEROL 200-25 MCG/DOSE IH SCH (09:12)
[2019-09-14] MEDS: APIXABAN 5 MG TABLET PO SCH ×2 (09:12→17:30)
[2019-09-14] MEDS: PANTOPRAZOLE SODIUM 40 MG TABLET.DR PO SCH (09:12)
[2019-09-14] MEDS: FINASTERIDE 5 MG TABLET PO SCH (09:12)
[2019-09-14] MEDS: LEVOFLOXACIN 500 MG/D5W RTU 500 MG/100 ML RTUPB IV SCH (09:50)
[2019-09-14] MEDS: TAMSULOSIN HCL 0.4 MG CAP.SR.24H PO SCH (17:30)
[2019-09-14] MEDS: MONTELUKAST SODIUM 10 MG TABLET PO SCH (17:30)
[2019-09-14] MEDS: CIPROFLOXACIN HCL 0.3% OPH SOLN 2.5 ML OD SCH (17:30)
[2019-09-14] MEDS: POLYETHYLENE GLYCOL 3350 POWDER 17 GM/1 PACKET PO SCH (17:31)
--- NOTE | 2019-09-14 18:44 | PDOC PROGRESS REPORT ---
Subjective Progress Note for:: 09/14/19 Subjective:: Patient seen by the bedside, the was in the room, history of colon cancer status post colectomy, he has colostomy bag in place, complaining of pink eye of his right eye with constipation. In examination he has conjunctivitis of the right eye, the cornea is clear. He was admitted for the management of UTI, bronchitis, and acute kidney injury. Reason For Visit: UTI,SEPSIS Physical Exam Vital Signs: Temp Pulse Resp BP Pulse Ox 97.5 F 70 16 144/50 H 99 09/14/19 16:10 09/14/19 16:10 09/14/19 16:10 09/14/19 16:10 09/14/19 16:10 Intake & Output 09/13/19 09/14/19 09/15/19 06:59 06:59 06:59 Intake Total 1310 1700 890 Output Total 900 4600 Balance 410 -2900 890 Weight 83.6 kg 83.7 kg General appearance: PRESENT: no acute distress Head exam: PRESENT: atraumatic, normocephalic Eye exam: PRESENT: conjunctiva pink. ABSENT: scleral icterus Ear exam: PRESENT: normal external ear exam Mouth exam: PRESENT: moist, tongue midline Neck exam: PRESENT: full ROM Respiratory exam: PRESENT: clear to auscultation yumiko Cardiovascular exam: PRESENT: RRR, +S1, +S2 Pulses: PRESENT: normal dorsalis pedis pul, +2 pedal pulses bilateral Vascular exam: PRESENT: normal capillary refill GI/Abdominal exam: PRESENT: normal bowel sounds, soft Rectal exam: PRESENT: deferred Neurological exam: PRESENT: alert Psychiatric exam: PRESENT: appropriate affect, normal mood. ABSENT: homicidal ideation, suicidal ideation Skin exam: PRESENT: dry, intact, warm Results Laboratory Results: 09/14/19 04:33 09/14/19 04:33 09/14/19 09/14/19 04:33 04:33 WBC 7.1 RBC 2.80 L Hgb 7.9 L Hct 23.5 L MCV 84 MCH 28.4 MCHC 33.8 RDW 18.6 H Plt Count 345 Seg Neutrophils % 78.6 H Sodium 137.2 Potassium 4.4 Chloride 105 Carbon Dioxide 21 L Anion Gap 11 BUN 19 Creatinine 1.88 H Est GFR ( Amer) 42 L Glucose 135 H Calcium 8.6 Magnesium 2.0 09/12/19 09/12/19 09/12/19 09:58 16:36 16:36 Creatine Kinase 94 CK-MB (CK-2) 1.10 Troponin I 0.017 0.020 NT-Pro-B Natriuret Pep 2030 H 09/12/19 09/12/19 09/13/19 23:00 23:00 05:12 Creatine Kinase 99 123 CK-MB (CK-2) 0.99 Troponin I 0.027 NT-Pro-B Natriuret Pep 09/13/19 05:12 Creatine Kinase CK-MB (CK-2) 1.48 Troponin I 0.030 NT-Pro-B Natriuret Pep Impressions: Chest CT 09/12/19 00:00 IMPRESSION: NO ACUTE PULMONARY INFILTRATES Chest X-Ray 09/12/19 09:41 IMPRESSION: NO ACUTE RADIOGRAPHIC FINDING IN THE CHEST. Assessment & Plan - Diagnosis (1) UTI (urinary tract infection) Qualifiers: Urinary tract infection type: catheter-associated UTI Indwelling urinary catheter type: unspecified Encounter type: initial encounter Qualified Code(s): T83.511A - Infection and inflammatory reaction due to indwelling urethral catheter, initial encounter; N39.0 - Urinary tract infection, site not specified Is this a current diagnosis for this admission?: Yes Plan: Continue IV antibiotic (2) Acute bacterial conjunctivitis of right eye Is this a current diagnosis for this admission?: Yes Plan: Start Ciloxan eyedrops on the right eye (3) Acute bronchitis Qualifiers: Bronchitis organism: unspecified organism Qualified Code(s): J20.9 - Acute bronchitis, unspecified Is this a current diagnosis for this admission?: Yes (4) Constipation Qualifiers: Constipation type: unspecified constipation type Qualified Code(s): K59.00 - Constipation, unspecified Is this a current diagnosis for this admission?: Yes Plan: Patient already had lactulose, start MiraLAX (5) GEGE (acute kidney injury) Is this a current diagnosis for this admission?: Yes Plan: Continue present line of management - Time Time Spent with patient: 35 or more minutes Level of Care: IMCU Medications reviewed and adjusted accordingly: Yes
[2019-09-14] MEDS: ATORVASTATIN CALCIUM 20 MG TABLET PO SCH (21:26)
[2019-09-14] MEDS: LACTULOSE SYRUP 20 GM/30 ML UDCUP PO SCH (21:26)
[2019-09-14] MEDS: PRAMIPEXOLE DI-HCL 0.25 MG TABLET PO SCH (21:26)
[2019-09-14] MEDS: FAMOTIDINE 20 MG TABLET PO SCH (21:26)
[2019-09-15] MEDS: CIPROFLOXACIN HCL 0.3% OPH SOLN 2.5 ML OD SCH ×4 (00:22→17:24)
[2019-09-15] MEDS: LEVALBUTEROL HCL NEB 1.25 MG/3 ML AMPUL NEB PRN ×3 (01:35→14:13)
[2019-09-15] MEDS: LEVOTHYROXINE SODIUM 0.025 MG TABLET PO SCH (06:30)
[2019-09-15 07:26] LABS: ABSOLUTE EOSINOPHILS # (AUTO) 0.1 10^3/uL (0.0-0.6); ABSOLUTE LYMPHOCYTES (AUTO) 0.7 10^3/uL (0.5-4.7); ABSOLUTE MONOCYTES (AUTO) 0.5 10^3/uL (0.1-1.4); ABSOLUTE NEUT (AUTO) 6.3 10^3/uL (1.7-8.2); BASOPHILS % (AUTO) 0.4 % (0-2); EOSINOPHILS % (AUTO) 1.8 % (0-6); HEMOGLOBIN 8.6 g/dL (13.5-17.0); LYMPHOCYTES % (AUTO) 9.6 % (13-45); MEAN CORPUSCULAR HEMOGLOBIN 28.9 pg (27.0-33.4); MEAN CORPUSCULAR HGB CONC 34.4 g/dL (32.0-36.0); MEAN CORPUSCULAR VOLUME 84 fl (80-97); MONOCYTES % (AUTO) 6.5 % (3-13); PLATELET COUNT 392 10^3/uL (150-450); RED BLOOD COUNT 2.98 10^6/uL (4.35-5.55); RED CELL DISTRIBUTION WIDTH 18.4 % (11.5-14.0); SEGMENTED NEUTROPHILS % (AUTO) 81.7 % (42-78); TOTAL CELLS COUNTED % (AUTO) 100 %; WHITE BLOOD COUNT 7.7 10^3/uL (4.0-10.5)
[2019-09-15] MEDS: INSULIN LISPRO 100 UNIT/ML 3 ML VIAL SUBCUT SCH ×4 (09:07→23:42)
[2019-09-15] MEDS: CEFTRIAXONE 1 GM/D5W RTU 1 GM/50 ML RTUPB IV SCH (09:12)
[2019-09-15] MEDS: AMIODARONE HCL 200 MG TABLET PO SCH (09:13)
[2019-09-15] MEDS: PANTOPRAZOLE SODIUM 40 MG TABLET.DR PO SCH (09:13)
[2019-09-15] MEDS: FINASTERIDE 5 MG TABLET PO SCH (09:13)
[2019-09-15] MEDS: APIXABAN 5 MG TABLET PO SCH ×2 (09:13→17:23)
[2019-09-15] MEDS: POLYETHYLENE GLYCOL 3350 POWDER 17 GM/1 PACKET PO SCH (09:13)
[2019-09-15] MEDS: FLUTICASONE/VILANTEROL 200-25 MCG/DOSE IH SCH (09:13)
[2019-09-15] MEDS: DOCUSATE SODIUM 100 MG CAPSULE PO SCH ×2 (09:13→17:23)
[2019-09-15] MEDS: DILTIAZEM HCL 120 MG CAP.SR.24H PO SCH (09:14)
[2019-09-15] MEDS: HYDRALAZINE HCL 25 MG TABLET PO SCH (09:14)
[2019-09-15] MEDS: LEVOFLOXACIN 500 MG/D5W RTU 500 MG/100 ML RTUPB IV SCH (10:17)
[2019-09-15] MEDS: NORMAL SALINE 1000 ML 1,000 ML IV PRN (10:18)
[2019-09-15] MEDS ORDERED: HYDRALAZINE HCL 25 MG TABLET PO SCH (13:00)
--- NOTE | 2019-09-15 13:04 | PDOC PROGRESS REPORT ---
Subjective Progress Note for:: 09/15/19 Subjective:: Patient seen by the bedside, the blood culture positive for Enterobacter cloaca, resistant to ceftriaxone sensitive to Levaquin, patient presently on Levaquin and ceftriaxone. The blood pressure is also elevated, the blood pressure has been elevated the last few days. The conjunctivitis of the right eye is improving, he had small BM this morning. Patient said he feels better Reason For Visit: UTI,SEPSIS Physical Exam Vital Signs: Temp Pulse Resp BP Pulse Ox 97.8 F 66 16 161/55 H 99 09/15/19 12:13 09/15/19 12:13 09/15/19 12:13 09/15/19 12:13 09/15/19 12:13 Intake & Output 09/14/19 09/15/19 09/16/19 06:59 06:59 06:59 Intake Total 1700 1672 1025 Output Total 4600 2125 Balance -2900 -453 1025 Weight 83.7 kg 85.5 kg General appearance: PRESENT: no acute distress Eye exam: PRESENT: PERRLA Respiratory exam: PRESENT: clear to auscultation yumiko Cardiovascular exam: PRESENT: +S1, +S2 GI/Abdominal exam: PRESENT: soft, other - Colostomy bag in place Neurological exam: PRESENT: alert Results Laboratory Results: 09/15/19 06:50 09/14/19 04:33 09/15/19 09/15/19 06:50 06:50 WBC 7.7 RBC 2.98 L Hgb 8.6 L Hct 25.0 L MCV 84 MCH 28.9 MCHC 34.4 RDW 18.4 H Plt Count 392 Seg Neutrophils % 81.7 H Magnesium 2.0 09/12/19 11:03 Blood Blood Culture - Final Enterobacter Cloacae 09/12/19 09/12/19 09/12/19 09:58 16:36 16:36 Creatine Kinase 94 CK-MB (CK-2) 1.10 Troponin I 0.017 0.020 NT-Pro-B Natriuret Pep 2030 H 09/12/19 09/12/19 09/13/19 23:00 23:00 05:12 Creatine Kinase 99 123 CK-MB (CK-2) 0.99 Troponin I 0.027 NT-Pro-B Natriuret Pep 09/13/19 05:12 Creatine Kinase CK-MB (CK-2) 1.48 Troponin I 0.030 NT-Pro-B Natriuret Pep Impressions: Chest CT 09/12/19 00:00 IMPRESSION: NO ACUTE PULMONARY INFILTRATES Chest X-Ray 09/12/19 09:41 IMPRESSION: NO ACUTE RADIOGRAPHIC FINDING IN THE CHEST. Assessment & Plan - Diagnosis (1) UTI (urinary tract infection) Qualifiers: Urinary tract infection type: catheter-associated UTI Indwelling urinary catheter type: unspecified Encounter type: initial encounter Qualified Code(s): T83.511A - Infection and inflammatory reaction due to indwelling urethral catheter, initial encounter; N39.0 - Urinary tract infection, site not specified Is this a current diagnosis for this admission?: Yes Plan: Continue Levaquin antibiotic, blood culture and urine culture in syn (2) Acute bacterial conjunctivitis of right eye Is this a current diagnosis for this admission?: Yes Plan: Continue Ciloxan eyedrop (3) Acute bronchitis Qualifiers: Bronchitis organism: unspecified organism Qualified Code(s): J20.9 - Acute bronchitis, unspecified Is this a current diagnosis for this admission?: Yes (4) Constipation Qualifiers: Constipation type: unspecified constipation type Qualified Code(s): K59.00 - Constipation, unspecified Is this a current diagnosis for this admission?: Yes (5) GEGE (acute kidney injury) Is this a current diagnosis for this admission?: Yes (6) Septicemia due to Enterobacter Is this a current diagnosis for this admission?: Yes Plan: He has Enterobacter septicemia, growing the same bacteria in the urine sensitive to Levaquin resistant to ceftriaxone, will discontinue ceftriaxone, continue Levaquin patient is clinically improving (7) Essential (primary) hypertension Is this a current diagnosis for this admission?: Yes Plan: Patient presently on Cardizem and hydralazine for blood pressure, will increase hydralazine from 25 twice daily to 50 twice daily - Time Time Spent with patient: 35 or more minutes Level of Care: IMCU - Plan Summary Plan Summary: , Discontinue ceftriaxone, continue Levaquin, increase Dilantin from 25 mg p.o. twice daily to 50 mg p.o. twice daily follow lab work
[2019-09-15 13:40] LABS: ALKALINE PHOSPHATASE 39 U/L (38-126); ANION GAP 9 (5-19); ASPARTATE AMINO TRANSFERASE 19 U/L (17-59); BILIRUBIN,TOTAL 0.2 mg/dL (0.2-1.3); BLOOD UREA NITROGEN 14 mg/dL (7-20); CALCIUM 8.6 mg/dL (8.4-10.2); CARBON DIOXIDE 21 mmol/L (22-30); CHLORIDE 107 mmol/L (98-107); GLUCOSE 119 mg/dL (75-110); POTASSIUM 4.1 mmol/L (3.6-5.0); TOTAL PROTEIN 5.8 g/dL (6.3-8.2)
[2019-09-15] MEDS: MONTELUKAST SODIUM 10 MG TABLET PO SCH (17:23)
[2019-09-15] MEDS: TAMSULOSIN HCL 0.4 MG CAP.SR.24H PO SCH (17:23)
[2019-09-15] MEDS: HYDRALAZINE HCL 50 MG TABLET PO SCH (17:25)
--- NOTE | 2019-09-15 18:22 | CDI QUERY ---
CDI Query CDI Review: Dear Provider: To better reflect your patients severity of illness, morbidity, and resource utilization Please specify and document in the Progress Notes and Discharge Summary if you are monitoring / treating / evaluating any of the following conditions: Query Clinical indicators Please clarify and document if the Catheter associated UTI was present on admission. Please further specify the Asthma: Intermittent asthma Persistent asthma Acute exacerbation Status Asthmaticus Unable to determine Please further specify the Atrial Fibrillation: Paroxysmal Persistent Long-standing Persistent Permanent Unable to determine Per Nephrology Consult: History of BPH with urinary retention and a doing self-catheterization. Per Progress Note: UTI (urinary tract infection) Qualifiers: Urinary tract infection type: catheter-associated UTI Per H&P: Asthma Qualifiers: Asthma complication type: unspecified Is this a current diagnosis for this admission?: Yes Plan: Currently all stable Per H&P Atrial fibrillation Qualifiers: Atrial fibrillation type: unspecified Qualified Code(s): I48.91 - Unspecified atrial fibrillation Is this a current diagnosis for this admission?: Yes Plan: Currently rate under control is continues to monitor patient see [place] [facility] The terms probable, suspected, likely, possible or still to be ruled out may be used if you are unable to determine the exact nature of a condition. Thank you, Clinical Documentation Physician Advisors SONJA Rodriguez RN, BSN RN Office [phone] Office [phone] [facility] [phone]
--- NOTE | 2019-09-15 18:52 | CDI QUERY ---
CDI Query CDI Review: Dear Provider, (name): To better reflect your patients severity of illness, morbidity, and resource utilization Please specify and document in the Progress Notes and Discharge Summary if you are monitoring / treating / evaluating any of the following conditions: Query Clinical indicators Please clarify and document if the Septicemia due to Enterobacter was Present on Admission Unable to determine Per H&P: Sent from PCP with temp of 101 WBC 18.3 GEGE (BUN / Cr 20 / 2.17) Blood cultures drawn on 09/12/2019 grew Enterobacter Per Progress Note 09/15/2019: Septicemia due to Enterobacter Is this a current diagnosis for this admission?: Yes Plan: He has Enterobacter septicemia, growing the same bacteria in the urine sensitive to Levaquin resistant to ceftriaxone, will discontinue ceftriaxone, continue Levaquin patient is clinically improving The terms probable, suspected, likely, possible or still to be ruled out may be used if you are unable to determine the exact nature of a condition. Thank you, Clinical Documentation Physician Advisors SONJA Rodriguez RN, BSN RN Office [phone] Office [phone]
[2019-09-15] MEDS: LACTULOSE SYRUP 20 GM/30 ML UDCUP PO SCH (21:44)
[2019-09-15] MEDS: ATORVASTATIN CALCIUM 20 MG TABLET PO SCH (21:44)
[2019-09-15] MEDS: FAMOTIDINE 20 MG TABLET PO SCH (21:45)
[2019-09-15] MEDS: PRAMIPEXOLE DI-HCL 0.25 MG TABLET PO SCH (21:45)
[2019-09-16] MEDS: CIPROFLOXACIN HCL 0.3% OPH SOLN 2.5 ML OD SCH ×2 (00:33→06:29)
[2019-09-16] MEDS: NORMAL SALINE 1000 ML 1,000 ML IV PRN (00:34)
[2019-09-16] MEDS: LEVOTHYROXINE SODIUM 0.025 MG TABLET PO SCH (06:28)
[2019-09-16] MEDS: LEVALBUTEROL HCL NEB 1.25 MG/3 ML AMPUL NEB PRN (08:38)
[2019-09-16] MEDS: INSULIN LISPRO 100 UNIT/ML 3 ML VIAL SUBCUT SCH (08:41)
[2019-09-16] MEDS: PANTOPRAZOLE SODIUM 40 MG TABLET.DR PO SCH (09:00)
[2019-09-16] MEDS: DILTIAZEM HCL 120 MG CAP.SR.24H PO SCH (09:00)
[2019-09-16] MEDS: FINASTERIDE 5 MG TABLET PO SCH (09:00)
[2019-09-16] MEDS: APIXABAN 5 MG TABLET PO SCH (09:00)
[2019-09-16] MEDS: DOCUSATE SODIUM 100 MG CAPSULE PO SCH (09:00)
[2019-09-16] MEDS: LEVOFLOXACIN 500 MG/D5W RTU 500 MG/100 ML RTUPB IV SCH (09:00)
[2019-09-16] MEDS: HYDRALAZINE HCL 50 MG TABLET PO SCH (09:00)
[2019-09-16] MEDS: AMIODARONE HCL 200 MG TABLET PO SCH (09:00)
[2019-09-16] MEDS: FLUTICASONE/VILANTEROL 200-25 MCG/DOSE IH SCH (09:00)
[2019-09-16] MEDS: POLYETHYLENE GLYCOL 3350 POWDER 17 GM/1 PACKET PO SCH (09:01)
[2019-09-16] MEDS ORDERED: HYDRALAZINE HCL 50 MG TABLET PO ONE (09:15)
[2019-09-16] MEDS ORDERED: LISINOPRIL 10 MG TABLET PO SCH (10:00)
--- NOTE | 2019-09-16 10:16 | PDOC DISCHARGE SUMMARY ---
Impression - Admit/DC Date/PCP Admission Date/Primary Care Provider: 09/12/19 12:10 RAMILA ROA MD Discharge Date: 09/16/19 - Discharge Diagnosis (1) Fever Is this a current diagnosis for this admission?: Yes (2) Leukocytosis Is this a current diagnosis for this admission?: Yes (3) Urinary tract infection Is this a current diagnosis for this admission?: Yes (4) GEGE (acute kidney injury) Is this a current diagnosis for this admission?: Yes (5) Asthma Is this a current diagnosis for this admission?: Yes (6) Atrial fibrillation Is this a current diagnosis for this admission?: Yes (7) BPH loc w urin obs/LUTS Is this a current diagnosis for this admission?: Yes (8) Coronary artery disease Is this a current diagnosis for this admission?: Yes (9) Personal history of colon cancer Is this a current diagnosis for this admission?: Yes (10) Type 2 diabetes mellitus Is this a current diagnosis for this admission?: Yes (11) Bronchitis Is this a current diagnosis for this admission?: Yes - Additional Information Resuscitation Status: Full Code Discharge Diet: Diabetic Discharge Activity: Activity As Tolerated Referrals: DAMON MCCURDY JR, MD [NO LOCAL MD] - 09/23/19 10:20 am RAMILA ROA MD [Primary Care Provider] - 09/16/19 8:24 am MARLENA BALES MD [NO LOCAL MD] - 09/18/19 2:30 pm (in [facility] [place] ) Prescriptions: Doxycycline Hyclate 100 mg PO BID #14 tablet.dr Home Medications: Amiodarone HCl [Cordarone 200 mg Tablet] 200 mg PO DAILY 09/12/19 Apixaban [Eliquis 5 mg Tablet] 5 mg PO BID 09/12/19 Atorvastatin Calcium [Lipitor 20 mg Tablet] 20 mg PO QHS 09/12/19 Diltiazem HCl [Diltiazem 24Hr ER (Cd)] 120 mg PO DAILY 09/12/19 Fenofibrate 160 mg PO DAILY 09/12/19 Finasteride [Proscar 5 mg Tablet] 5 mg PO DAILY 09/12/19 Fluticasone/Salmeterol [Advair 250-50 Diskus 14 Dose/Diskus] 1 puff IH Q12 01/24 Glipizide [Glucotrol 5 mg Tablet] 5 mg PO DAILY 09/12/19 Hydralazine HCl [Apresoline 25 mg Tablet] 25 mg PO BID 09/12/19 Levothyroxine Sodium [Synthroid 0.025 mg Tablet] 0.025 mg PO Q6AM 09/12/19 Lisinopril [Prinivil 10 mg Tablet] 10 mg PO DAILY 09/12/19 Montelukast Sodium [Singulair 10 mg Tablet] 10 mg PO QPM 09/12/19 Pantoprazole Sodium [Protonix [address] Tablet] 40 mg PO DAILY 09/12/19 Pramipexole Di-HCl [Mirapex 0.25 mg Tablet] 0.25 mg PO QHS 09/12/19 Tamsulosin HCl [Flomax 0.4 mg Cap.sr] 0.4 mg PO QPM 09/12/19 Doxycycline Hyclate 100 mg PO BID #14 tablet. 09/16/19 History of Present Illiness History of Present Illness: CECILIO DANIELS is a 79 year old male haider Daniels is an 79-year-old male with history of diabetes, hypertension, hyperlipidemia history of colon cancer, CAD, BPH, GERD, PVD, CKD, history of pulmonary nodule, asthma, A. fib and urinary incontinence who presents today for complaint of cough. He says the cough has been present for 3 weeks and he has been taking Mucinex as instructed by Dr. Roa but the cough does not seem to be getting better. It is not productive but he says he feels congestion in his chest; he becomes nauseated trying to cough up something. He has history of asthma and has been compliant with his Advair. He is also been using nebulizer. He denies any wheezing. Yesterday he noticed fever of 99 at home and gave him dose of Tylenol. He is febrile in clinic today. Has had no antipyretics this morning. He admits to pain in his chest with coughing. He denies any vomiting or diarrhea at this time. He is currently being followed by Dr. Benjamin for heme positive stool and anemia. He underwent endoscopy recently and has a planned capsule endoscopy in October. He is currently being followed by Dr. Patel for CKD. He recently received [address] Apple feels that his kidney function is improving and he has follow-up with her in 2 weeks. 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 In the emergency department patient's white count was 18,000's and it definitely mostly looks like a UTI with some bronchitis and decided to admit in the [facility] Hospital Course Hospital Course: This is a 79-year-old male presenting the office with the complaint some cough congestions bronchitis and a fever And was sent to the emergency department we will found the patient's white count was elevated and urinary tract infections He was started on IV antibiotics Levaquin and patient's also IV fluid and also started on nebulizer treatments Patient CT of the chest was negative for any pneumonia flu test was also negative's Urine culture and one blood culture is all positives Patient was switched to the p.o. antibiotic doxycycline was sensitive preferred to Levaquin at home because of the multiple heart medications Patient is otherwise feeling back to the normal patients wants to go home Patient will do the self cath and follow-up with the Dr. Bales urology as outpatient suggest to continue to follow with him Since also chronic anemia currently see her Dr. Benjamin recently all scope done and suggest to follow-up with him as outpatients by patient's not actively bleeding no need to do any further evaluations Discussed with the patient's regarding the patient's current conditions Restart all blood pressure medications At 3 days in office repeat the CBC Chem-7 and a blood pressure Physical Exam Vital Signs: Temp Pulse Resp BP Pulse Ox 98.2 F 74 16 183/60 H 97 09/16/19 08:38 09/16/19 08:45 09/16/19 08:38 09/16/19 08:45 09/16/19 08:38 Intake & Output 09/15/19 09/16/19 09/17/19 06:59 06:59 06:59 Intake Total 1672 3371 605 Output Total 2125 2650 Balance -453 721 605 Weight 85.5 kg General appearance: PRESENT: no acute distress, well-developed, well-nourished Head exam: PRESENT: atraumatic, normocephalic Eye exam: PRESENT: conjunctiva pink, EOMI, PERRLA. ABSENT: scleral icterus Ear exam: PRESENT: normal external ear exam Mouth exam: PRESENT: moist, tongue midline Neck exam: ABSENT: carotid bruit, JVD, lymphadenopathy, thyromegaly Respiratory exam: PRESENT: clear to auscultation yumiko. ABSENT: rales, rhonchi, wheezes Cardiovascular exam: PRESENT: RRR. ABSENT: diastolic murmur, rubs, systolic murmur Pulses: PRESENT: normal dorsalis pedis pul Vascular exam: PRESENT: normal capillary refill GI/Abdominal exam: PRESENT: normal bowel sounds, soft. ABSENT: distended, guarding, mass, organolmegaly, rebound, tenderness Rectal exam: PRESENT: deferred Extremities exam: PRESENT: full ROM. ABSENT: calf tenderness, clubbing, pedal edema Neurological exam: PRESENT: alert, awake, oriented to person, oriented to place, oriented to time, oriented to situation, CN II-XII grossly intact. ABSENT: motor sensory deficit Psychiatric exam: PRESENT: appropriate affect, normal mood. ABSENT: homicidal ideation, suicidal ideation Skin exam: PRESENT: dry, intact, warm. ABSENT: cyanosis, rash Results Laboratory Results: WBC 7.7 10^3/uL (4.0-10.5) 09/15/19 06:50 RBC 2.98 10^6/uL (4.35-5.55) L 09/15/19 06:50 Hgb 8.6 g/dL (13.5-17.0) L 09/15/19 06:50 Hct 25.0 % (37.9-51.0) L 09/15/19 06:50 MCV 84 fl (80-97) 09/15/19 06:50 MCH 28.9 pg (27.0-33.4) 09/15/19 06:50 MCHC 34.4 g/dL (32.0-36.0) 09/15/19 06:50 RDW 18.4 % (11.5-14.0) H 09/15/19 06:50 Plt Count 392 10^3/uL (150-450) 09/15/19 06:50 Lymph % (Auto) 9.6 % (13-45) L 09/15/19 06:50 [place] % (Auto) 6.5 % (3-13) 09/15/19 06:50 Eos % (Auto) 1.8 % (0-6) 09/15/19 06:50 Baso % (Auto) 0.4 % (0-2) 09/15/19 06:50 Reticulocyte # 0.040 10^6/uL (0.028-0.122) 09/13/19 05:12 Absolute Neuts (auto) 6.3 10^3/uL (1.7-8.2) 09/15/19 06:50 Absolute Lymphs (auto) 0.7 10^3/uL (0.5-4.7) 09/15/19 06:50 Absolute Monos (auto) 0.5 10^3/uL (0.1-1.4) 09/15/19 06:50 Absolute Eos (auto) 0.1 10^3/uL (0.0-0.6) 09/15/19 06:50 Absolute Basos (auto) 0.0 10^3/uL (0.0-0.2) 09/15/19 06:50 Seg Neutrophils % 81.7 % (42-78) H 09/15/19 06:50 Retic Count (auto) 1.40 % (0.66-2.85) 09/13/19 05:12 Sodium 136.9 mmol/L (137-145) L 09/15/19 06:50 Potassium 4.1 mmol/L (3.6-5.0) 09/15/19 06:50 Chloride 107 mmol/L (98-107) 09/15/19 06:50 Carbon Dioxide 21 mmol/L (22-30) L 09/15/19 06:50 Anion Gap 9 (5-19) 09/15/19 06:50 BUN 14 mg/dL (7-20) 09/15/19 06:50 Creatinine 1.69 mg/dL (0.52-1.25) H 09/15/19 06:50 Est GFR ( Amer) 47 (>60) L 09/15/19 06:50 Est GFR (MDRD) Non-Af 39 (>60) L 09/15/19 06:50 Glucose 119 mg/dL (75-110) H 09/15/19 06:50 POC Glucose 111 mg/dL (70-110) H 09/16/19 08:34 Lactic Acid 0.6 mmol/L (0.7-2.1) L 09/12/19 12:21 Calcium 8.6 mg/dL (8.4-10.2) 09/15/19 06:50 Magnesium 2.0 mg/dL (1.6-2.3) 09/15/19 06:50 Iron 19.2 ug/dL (49-181) L 09/13/19 05:12 TIBC 254 ug/dL (250-450) 09/13/19 05:12 % Saturation 8 % 09/13/19 05:12 Ferritin 1050.00 ng/mL (17.9-464.0) H 09/13/19 05:12 Total Bilirubin 0.2 mg/dL (0.2-1.3) 09/15/19 06:50 Direct Bilirubin 0.0 mg/dL (0.0-0.4) 09/15/19 06:50 Neonat Total Bilirubin Not Reportable 09/15/19 06:50 Neonat Direct Bilirubin Not Reportable 09/15/19 06:50 Neonat Indirect Bili Not Reportable 09/15/19 06:50 AST 19 U/L (17-59) 09/15/19 06:50 ALT 14 U/L (<50) 09/15/19 06:50 Alkaline Phosphatase 39 U/L (38-126) 09/15/19 06:50 Creatine Kinase 123 U/L (55-170) 09/13/19 05:12 CK-MB (CK-2) 1.48 ng/mL (<4.55) 09/13/19 05:12 Troponin I 0.030 ng/mL 09/13/19 05:12 NT-Pro-B Natriuret Pep 2030 pg/mL (<450) H 09/12/19 09:58 Total Protein 5.8 g/dL (6.3-8.2) L 09/15/19 06:50 Albumin 3.0 g/dL (3.5-5.0) L 09/15/19 06:50 Vitamin B12 278.0 pg/mL (239-931) 09/13/19 05:12 Folate 14.90 ng/mL (>2.76) 09/13/19 05:12 Urine Color YELLOW 09/12/19 10:48 Urine Appearance TURBID 09/12/19 10:48 Urine pH 5.0 (5.0-9.0) 09/12/19 10:48 Ur Specific [place] 1.017 09/12/19 10:48 Urine Protein 100 mg/dL (NEGATIVE) H 09/12/19 10:48 Urine Glucose (UA) 50 mg/dL (NEGATIVE) H 09/12/19 10:48 Urine Ketones NEGATIVE mg/dL (NEGATIVE) 09/12/19 10:48 Urine Blood SMALL (NEGATIVE) H 09/12/19 10:48 Urine Nitrite (Reflex) NEGATIVE (NEGATIVE) 09/12/19 10:48 Urine Bilirubin NEGATIVE (NEGATIVE) 09/12/19 10:48 Urine Urobilinogen NEGATIVE mg/dL (<2.0) 09/12/19 10:48 Leukocyte Esterase Rfl MODERATE (NEGATIVE) H 09/12/19 10:48 Urine RBC (Auto) 11 /HPF 09/12/19 10:48 Urine Bacteria (Auto) 3+ /HPF 09/12/19 10:48 Urine WBC (Reflex) > 182 /HPF 09/12/19 10:48 Urine WBC Clumps MANY /HPF 09/12/19 10:48 Urine Ascorbic Acid 20 (NEGATIVE) H 09/12/19 10:48 Influenza A (Rapid) NEGATIVE (NEGATIVE) 09/12/19 14:01 Influenza B (Rapid) NEGATIVE (NEGATIVE) 09/12/19 14:01 09/12/19 09/12/19 09/12/19 09:58 16:36 23:00 CK-MB (CK-2) 1.10 0.99 Troponin I 0.017 0.020 0.027 NT-Pro-B Natriuret Pep 2030 H 09/13/19 05:12 CK-MB (CK-2) 1.48 Troponin I 0.030 NT-Pro-B Natriuret Pep Impressions: Chest CT 09/12/19 00:00 IMPRESSION: NO ACUTE PULMONARY INFILTRATES Chest X-Ray 09/12/19 09:41 IMPRESSION: NO ACUTE RADIOGRAPHIC FINDING IN THE CHEST. Plan Time Spent: Greater than 30 Minutes - Follow in office 1 week to repeat the CBC Chem-7 check the blood pressure at home daily Stroke Is this a Stroke Patient?: No Acute Heart Failure - Is this a Heart Failure Patient?: No
[2019-09-16 10:18] VITALS: BP 156/52
== END 2019-09-16 12:20 | disposition home health service (06) | DRG 871 ==
LOC: ER 08:49 → EH 12:10 → 3W 23:44
PROVIDERS: ADMIT Family Medicine; ATTEND Family Medicine
DX: A41.59 Other Gram-negative sepsis (principal); N17.0 Acute kidney failure with tubular necrosis; T83.511A Infection and inflammatory reaction due to indwelling urethral catheter, initial encounter; Z16.20 Resistance to unspecified antibiotic; D63.1 Anemia in chronic kidney disease; E11.22 Type 2 diabetes mellitus with diabetic chronic kidney disease; E11.51 Type 2 diabetes mellitus with diabetic peripheral angiopathy without gangrene; N18.3 Chronic kidney disease, stage 3 (moderate); E78.5 Hyperlipidemia, unspecified; B96.89 Other specified bacterial agents as the cause of diseases classified elsewhere; I48.91 Unspecified atrial fibrillation; N40.1 Benign prostatic hyperplasia with lower urinary tract symptoms; I25.10 Atherosclerotic heart disease of native coronary artery without angina pectoris; J40 Bronchitis, not specified as acute or chronic; I12.9 Hypertensive chronic kidney disease with stage 1 through stage 4 chronic kidney disease, or unspecified chronic kidney disease; R32 Unspecified urinary incontinence; R19.5 Other fecal abnormalities; K21.9 Gastro-esophageal reflux disease without esophagitis; F32.9 Major depressive disorder, single episode, unspecified; H10.9 Unspecified conjunctivitis; Y84.6 Urinary catheterization as the cause of abnormal reaction of the patient, or of later complication, without mention of misadventure at the time of the procedure; K59.00 Constipation, unspecified; Z85.038 Personal history of other malignant neoplasm of large intestine; Z79.01 Long term (current) use of anticoagulants; Z79.84 Long term (current) use of oral hypoglycemic drugs; Z90.49 Acquired absence of other specified parts of digestive tract; Z92.21 Personal history of antineoplastic chemotherapy; Z92.3 Personal history of irradiation; Z95.5 Presence of coronary angioplasty implant and graft; Z93.3 Colostomy status; Z72.0 Tobacco use
CPT/HCPCS: 36415; 71046; 71250; 80048; 80053; 81001; 82550; 82553; 82607; 82728; 82746; 82962; 83540; 83550; 83605; 83735; 83880; 84484; 85025; 85045; 87040; 87077; 87086; 87088; 87186; 87804; 93005; 93010; 94640; 99285; J0696; J1815; J1956; J3490; J7030; J7620

== ENCOUNTER → 2019-10-17 | Outpatient (CLI) | payer MEDICARE, OTHER ==
[2019-10-17 11:53] LABS: HEMATOCRIT 29.2 % (37.9-51.0); HEMOGLOBIN 9.8 g/dL (13.5-17.0); MEAN CORPUSCULAR HEMOGLOBIN 29.4 pg (27.0-33.4); MEAN CORPUSCULAR HGB CONC 33.6 g/dL (32.0-36.0); MEAN CORPUSCULAR VOLUME 88 fl (80-97); PLATELET COUNT 351 10^3/uL (150-450); RED BLOOD COUNT 3.33 10^6/uL (4.35-5.55); RED CELL DISTRIBUTION WIDTH 18.6 % (11.5-14.0); WHITE BLOOD COUNT 7.1 10^3/uL (4.0-10.5)
== END ==
LOC: OD 10:37
PROVIDERS: ATTEND Physician Assistant
DX: D53.9 Nutritional anemia, unspecified (principal)
CPT/HCPCS: 36415; 85027

== ENCOUNTER → 2020-02-03 | Outpatient (CLI) | payer MEDICARE, OTHER ==
--- NOTE | 2020-02-03 16:35 | RADIOLOGY REPORT (SQ) ---
EXAM DESCRIPTION: U/S RETROPERITON (RENAL/AORTA) IMAGES COMPLETED DATE/TIME: 02/03/2020 4:22 pm REASON FOR STUDY: N17.9 ACUTE KIDNEY FAILURE, UNSPECIFIED, N18.3 CHRONIC KIDNEY DISEASE, STAG N18.3 CHRONIC KIDNEY DISEASE, STAGE 3 (MODERATE) N17.9 ACUTE KIDNEY FAILURE, UNSPECIFIED COMPARISON: 03/10/2018 TECHNIQUE: Dynamic and static grayscale images acquired of the kidneys and bladder and recorded on P ACS. Additional selected color Doppler and spectral images recorded. LIMITATIONS: None. FINDINGS: RIGHT KIDNEY: The right kidney measures 12.8 cm in length. Normal echogenicity. No so lid or suspicious masses. There is persistent right-sided hydronephrosis similar to 2018. No calc ifications. LEFT KIDNEY: The left kidney measures 11.1 cm in length. Normal echogenicity. No solid or suspic ious masses. No hydronephrosis. No calcifications. BLADDER: The bladder is decompressed. OTHER FINDINGS: No other significant finding. IMPRESSION: Stable moderate right-sided hydronephrosis. TECHNICAL DOCUMENTATION: JOB ID: [id number] 2010 [employer]- All Rights Reserved Reading location - IP/workstation name: [email or web address]
== END ==
LOC: RAD 15:08
PROVIDERS: ATTEND Internal Medicine Nephrology
DX: N17.9 Acute kidney failure, unspecified (principal); N18.3 Chronic kidney disease, stage 3 (moderate); N13.30 Unspecified hydronephrosis
CPT/HCPCS: 76770

== ENCOUNTER → 2020-06-11 | Outpatient (CLI) | payer MEDICARE, OTHER ==
--- NOTE | 2020-06-11 14:23 | RADIOLOGY REPORT (SQ) ---
EXAM DESCRIPTION: VENOUS UNILATERAL LOWER IMAGES COMPLETED DATE/TIME: 06/11/2020 2:04 pm REASON FOR STUDY: RLE PAIN M79.604 PAIN IN RIGHT LEG COMPARISON: None. TECHNIQUE: Dynamic and static christensen scale and color images acquired of the right leg venous system. S elected spectral images acquired with additional compression and augmentation maneuvers. The contrala teral common femoral vein and saphenofemoral junction were also imaged. Images stored on PACS. LIMITATIONS: None. FINDINGS: COMMON FEMORAL: Normal phasicity, compression and augmentation. No visualized echogenic ma terial on christensen scale. No defects on color images. FEMORAL: Normal compression and augmentation. No visualized echogenic material on christensen scale. No defe cts on color images. POPLITEAL: Normal compression, augmentation. No visualized echogenic material on christensen scale. No defec ts on color images. CALF VESSELS: Normal compression, augmentation. No visualized echogenic material on christensen scale. No de fects on color images. GSV and SSV: Normal compression, augmentation. No visualized echogenic material on christensen scale. No def ects on color images. ANY DEEP VENOUS INSUFFICIENCY: Not evaluated. ANY EVIDENCE OF POPLITEAL CYST: No. OTHER: No other significant finding. CONTRALATERAL COMMON FEMORAL VEIN: Normal phasicity, compression and augmentation. No visualized echogenic material on christensen scale. No de fects on color images. IMPRESSION: 1. NO EVIDENCE OF DVT OR SVT IN THE RIGHT LEG. COMMENT: 1. The results of this examination were discussed with the patient's provider on 0 at 14:16 hours. TECHNICAL DOCUMENTATION: JOB ID: [id number] 2010 [employer]- All Rights Reserved Reading location - IP/workstation name: [email or web address]
== END ==
LOC: SP 12:37
PROVIDERS: ATTEND Family Medicine
DX: M79.604 Pain in right leg (principal); M79.89 Other specified soft tissue disorders
CPT/HCPCS: 93971